=== PATIENT | female | born 1985 | race Caucasian/White ===

== ENCOUNTER → 2017-08-30 17:13 | Outpatient (CLI) | payer MEDICAID, SELFPAY | PROVIDERS: Family Provider Family Medicine; PCP Family Medicine; Visit Provider Otolaryngology Otolaryngology/Facial Plastic Surgery | DX: J02.9 Acute pharyngitis, unspecified (principal); J32.9 Chronic sinusitis, unspecified | CPT/HCPCS: 87070; 87077 ==

== ENCOUNTER 2017-09-29 08:30 | Day surgery (SDC) | payer MEDICAID, SELFPAY ==
--- NOTE | 2017-09-29 | BRBX_PTH ---
PATIENT: EMILY NGUYEN [place] [facility] [id number] AGE/SX: 32/F ROOM: RE09/29/[address]: Dr. Gaby Washington MD : [id number] BED: DIS: 09/29/2017 SPEC #: [id number] RECD: 09/29/17 14:32 STATUS: KACEY REVi #: [id number] MEJIA: 09/29/17 00:[address]: Gaby Washington DEPT: SURGICAL PATHOLOGY RECD BY: Nj Rodriguez ENTERED: 09/29/17 14:33 SP TYPE: BREAST BX OTHR DR: MD Dr. Carmelo Roberts MD Tissues: Left breast, NOS Procedures: Surgery Specimen Level IV HEADER OPERATION: Left excisional breast biopsy PRE-OP DIAGNOSIS: Left breast mass TISSUE SUBMITTED: Excisional left breast biopsy tissue MICROSCOPIC DIAGNOSIS Left breast, excisional biopsy: Benign breast tissue with focal fibrosis, fat necrosis and chronic inflammation. Negative for atypia or malignancy. RUTH:matt 10/02/17 COMMENT Correlation with clinical findings and appropriate follow up are necessary. MICROSCOPIC DESCRIPTION Slides are reviewed. GROSS DESCRIPTION Received in fixative is one container labeled with the patient's name and designated excisional left breast biopsy tissue. The specimen consists of a lobulated fragment of pink-yellow soft tissue measuring 3 x 2 x 1.2 cm. The external surface is inked and the specimen is serially sectioned to reveal homogenous yellow cut surfaces. No distinct mass is identified. The specimen is totally submitted in two cassettes. / AM:matt 09/29/17 TC:5 CPT: 61649
[2017-09-29 09:05] VITALS: BP 162/96; PULSE 78; RESP 18; TEMP 37.1; O2SAT 100; BMI 56.8
[2017-09-29] MEDS: Clindamycin 900 MG/50 ML BAG 75 MG IV (10:10)
[2017-09-29] MEDS: Ciprofloxacin 0.3% 2.5ml Bottle 1 DRP (10:25)
--- NOTE | 2017-09-29 10:28 | DCINST_ITS ---
Discharge Diet: No Restrictions Discharge Activity: Return to Normal Activity, May not drive while taking narcotic pain medications. Call your doctor if your incision/area has: Continuous Slow Oozing, Foul Smelling Discharge Call your doctor if you observe: Fever of 101 or Higher Additional Dressing/Incision Instructions:: Leave dressing intact. May get wet in shower. Do not scrub at dressing site. Pat dry. No soaking - no tub baths/ swimming Allergies/Adverse Reactions: Allergies amoxicillin [Amoxicillin] Allergy (Verified 09/27/17 14:15) Unknown ESPERANZA Inhibitors Adverse Reaction (Verified 09/29/17 09:04) COUGHING hydrocodone bitartrate [From Vicodin] Adverse Reaction (Verified 09/29/17 09:04) SEVERE MIGRAINE Medications to take at Discharge Losartan Potassium [Cozaar] 100 mg PO DAILY 12/18/14 BusPIRone [Buspar] 5 mg PO BID 12/07/15 Duloxetine Hcl [Cymbalta] 60 mg PO DAILY 05/25/16 Trazodone HCl [Desyrel] 50 mg PO QHS 05/25/16 Metoprolol Succinate 100 mg PO DAILY 05/19/17 Naproxen [Naprosyn] 500 mg PO TID PRN PRN 05/19/17 Tizanidine HCl [Zanaflex] 4 mg PO QHS 09/27/17 TraMADol [Ultram] 50 mg PO Q6H PRN PRN #7 tab 09/29/17 The following prescriptions were given: TraMADol [Ultram] 50 mg PO Q6H PRN PRN #7 tab PRN Reason: Severe Pain (-05/02) Primary Care Physician: Carmelo Coffey MD [Primary Care Provider] - Please Follow Up With: Rosina Hernandez PA-C - call When: to be seen in 7-10 days, please call for date and time, thank you
--- NOTE | 2017-09-29 10:36 | PCM.OP.BLANK ---
Operative Report Date of Procedure: 09/29/17 Preoperative diagnosis: Chronic serous otitis media Postoperative diagnosis: Same Procedure: Bilateral myringotomy with tympanostomy tube placement, done under the same anesthetic being provided for procedure by general surgeon Dr. Washington. Anesthesia: General per Ian Nieves Details of procedure: The patient was transported to the operating room and placed on the OR table in the supine position. After the administration of adequate general anesthesia utilizing an LMA patient was properly positioned and the left ear was examined with the operating room microscope. Examination revealed opacified tympanic membrane and an obvious middle ear effusion. Upon myringotomy in the anterior inferior aspect thick glue-like fluid was encountered and evacuated. Ciprofloxacin drops were rinsed through the middle ear and a Mahogany Bobbin tube was placed. Attention was then directed to the right ear which was examined and treated in similar fashion. The findings were entirely the same. Upon myringotomy in the anterior and for quadrant thick glue-like fluid was noted and evacuated. Ciprofloxacin drops were rinsed through the middle ear and a Mahogany Bobbin tube placed. This part of the procedure was then completed. Dr. Washington then commenced with her procedure. Doug Kaplan MD
--- NOTE | 2017-09-29 10:40 | OP.PCM_ITS ---
Operative Report Date of Procedure: 09/29/17 Preoperative diagnosis: Chronic serous otitis media Postoperative diagnosis: Same Procedure: Bilateral myringotomy with tympanostomy tube placement, done under the same anesthetic being provided for procedure by general surgeon Dr. Washington. Anesthesia: General per Ian Nieves Details of procedure: The patient was transported to the operating room and placed on the OR table in the supine position. After the administration of adequate general anesthesia utilizing an LMA patient was properly positioned and the left ear was examined with the operating room microscope. Examination revealed opacified tympanic membrane and an obvious middle ear effusion. Upon myringotomy in the anterior inferior aspect thick glue-like fluid was encountered and evacuated. Ciprofloxacin drops were rinsed through the middle ear and a Mahogany Bobbin tube was placed. Attention was then directed to the right ear which was examined and treated in similar fashion. The findings were entirely the same. Upon myringotomy in the anterior and for quadrant thick glue -like fluid was noted and evacuated. Ciprofloxacin drops were rinsed through the middle ear and a Mahogany Bobbin tube placed. This part of the procedure was then completed. Dr. Washington then commenced with her procedure. Doug Kaplan MD
[2017-09-29] MEDS: Bupivacaine 0.25% 30 ML Vial (10:45)
--- NOTE | 2017-09-29 10:50 | OP.PN_ITS ---
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
--- NOTE | 2017-09-29 10:50 | PCM.OPRPT ---
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 Appropriate time out protocol was followed. The left breast was then prepped with a sterile surgical skin preparation and sterile surgical drapes were placed. The skin and subcutaneous tissues at the site of the breast lesion was then infiltrated with local anesthetic. A transverse skin incision was then made overlying the lesion with a 15 blade scalpel and carried down through to the subcutaneous tissues. Hemostasis was controlled with electrocautery. The mass was then palpated out. The breast tissue surrounding the lesion was using electrocautery. The breast tissue, once from the breast, was then forwarded to the pathology for analysis. Grossly it appeared as a breast cyst. The wound cavity was carefully examined. No further suspicious tissue was palpated or visualized. Hemostasis was carefully controlled with electrocautery. The subdermal tissues were then approximated with vicryl suture. The incision was then reapproximated close using running monocryl suture. Cavilon and steristrips were then placed to reinforce the skin closure. A sterile dressing was then applied. The patient was then brought to the Recovery Room in stable condition. - Complications none noted - Admit VTE Documentation VTE Present on Admission: Yes VTE Mechan Device Prophylaxis: SCD's
[2017-09-29 10:57] VITALS: BP 119/84; BP 162/96; PULSE 75; RESP 18; TEMP 36.2; O2SAT 95
[2017-09-29 11:00] VITALS: BP 119/84; BP 162/96; PULSE 75; RESP 18; O2SAT 96
[2017-09-29 11:15] VITALS: BP 123/87; BP 162/96; PULSE 70; RESP 18; O2SAT 100
[2017-09-29 11:21] VITALS: BP 112/88; BP 162/96; PULSE 68; RESP 18; TEMP 35.9; O2SAT 100
[2017-09-29 11:48] VITALS: BP 162/96
== END 2017-09-29 12:04 | disposition home or self-care (01) ==
LOC: SDC 08:31 → AC 08:32
PROVIDERS: Otolaryngology Otolaryngology/Facial Plastic Surgery; Family Provider Family Medicine; PCP Family Medicine; Visit Provider Surgery
PROC: (CPT 19125; principal; 2017-09-29 09:45)
DX: N60.32 Fibrosclerosis of left breast (principal); N64.1 Fat necrosis of breast; N61.0 Mastitis without abscess; H65.23 Chronic serous otitis media, bilateral; H69.83 Other specified disorders of Eustachian tube, bilateral; I10 Essential (primary) hypertension; M47.9 Spondylosis, unspecified; F34.1 Dysthymic disorder; E66.01 Morbid (severe) obesity due to excess calories; Z68.43 Body mass index [BMI] 50.0-59.9, adult; Z87.891 Personal history of nicotine dependence
CPT/HCPCS: 19125; 69436; 88305; J3010; J7120; J2405

== ENCOUNTER 2017-10-05 22:03 | Emergency (ER) | payer MEDICAID, SELFPAY ==
[2017-10-05 22:04] VITALS: BP 159/76; PULSE 89; RESP 16; TEMP 36.7; O2SAT 98; BMI 56.8
--- NOTE | 2017-10-05 22:17 | ED.DCSUM_ITS ---
- ER Visit Summary Date of Service: 10/05/17 Chief Complaint: [] Bilateral ear pain History of Present Illness: The patient is a 32 F [] complaining of bilateral ear pain status post tympanostomy tube placements 6 days ago. Patient reports speaking with her ENT who reportedly told her continue taking NSAIDs and that if she had continued pain that she should present to the emergency department. She denies fevers, hearing loss, drainage from the affected area. No other complaints at this time. Physical Examination: [] Afebrile, vital signs stable. The obese female in no acute distress. HEENT exam reveals bilateral tympanostomy tubes appropriately in place without signs of erythema, infection. Remainder physical examination is unremarkable. Test Results: [] None. Emergency Department Course and Treatment: [] Patient's father is at the bedside will drive the patient home. She was provided a single dose of oxycodone orally for analgesia and discharged home to continue taking NSAIDs as previously provided. She was not provided a prescription at discharge. She was encouraged to follow-up with ENT. Treatment Plan: [] Follow-up with ENT. Disposition: [] Discharge, stable. Impression: [] Bilateral otalgia This note was generated with [employer] dictation software. It may contain incorrect words, spelling, and punctuation that were not noted in review of the chart prior to signing ED Disposition - Plan for ED Patient: Disposition: Home or Assisted Living Chief Complaint: Ear Problem Instructions: Foreign Object in the Ear or Nose Referrals: Carmelo Coffey MD [Primary Care Provider] -
[2017-10-05] MEDS: oxyCODONE 5 MG Tablet 10 MG PO (22:35)
--- NOTE | 2017-10-05 22:39 | ED.RN ---
DISCHARGE INSTRUCTIONS GIVEN TO AND REVIEWED WITH PATIENT, PATIENT DENIES QUESTIONS OR CONCERNS AND VOICES UNDERSTANDING OF DISCHARGE INSTRUCTIONS. PT AMBULATES OUT OF ROOM WITHOUT DIFFICULTY.
== END 2017-10-05 22:39 | disposition home or self-care (01) ==
PROVIDERS: Emergency Provider Emergency Medicine; Family Provider Family Medicine; PCP Family Medicine
DX: H92.03 Otalgia, bilateral (principal); Z98.890 Other specified postprocedural states; I10 Essential (primary) hypertension; E66.9 Obesity, unspecified; F41.9 Anxiety disorder, unspecified; Z79.899 Other long term (current) drug therapy
CPT/HCPCS: 99283

== ENCOUNTER 2018-01-31 21:38 | Emergency (ER) | payer MEDICAID, SELFPAY ==
[2018-01-31 21:40] VITALS: BP 168/89; PULSE 82; RESP 14; TEMP 36.9; O2SAT 98; BMI 55.8
--- NOTE | 2018-01-31 23:22 | ED.VISSUMM ---
- ER Visit Summary Date of Service: 01/31/18 Chief Complaint: Patient presents because of increasing pain and numbness tingling in the median nerve distribution. History of Present Illness: The patient is a 32 F who presents with increasing pain right wrist and numbness and tingling in the distribution of the median nerve.She was diagnosed with carpal tunnel syndrome. She states she had an EMG yesterday. She reports increased pain in spite of conservative therapy with NSAIDs and cock-up splint. 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 She denies history diabetes, hypothyroidism and . Physical Examination: Blood pressure is elevated 160/89. She is asymptomatic and has history of hypertension. She has a positive Tinel's and Phalen sign. Median, radial and ulnar function intact. Needle sites for EMG noted. There is no erythema, warmth, fluctuance, induration or lymphangitis. Test Results: None Emergency Department Course and Treatment: Injected the right carpal tunnel with 1 cc of Kenalog and 4 cc 1% lidocaine. Treatment Plan: Wear splint at night and follow-up with Dr. Anibal Becerra Disposition: Discharged home Impression: Right wrist pain and paresthesias secondary to carpal tunnel syndrome Injection of 1 cc Kenalog and 4 cc 1% lidocaine right carpal tunnel This note was generated with [employer] dictation software. It may contain incorrect words, spelling, and punctuation that were not noted in review of the chart prior to signing ED Disposition - Plan for ED Patient: Disposition: Home or Assisted Living Chief Complaint: Upper Extremity Injury Instructions: ED Carpal Tunnel Referrals: Carmelo Coffey MD [Primary Care Provider] - As Needed Additional Instructions: Wear cock-up splint at night.
--- NOTE | 2018-01-31 23:27 | ED.DCSUM_ITS ---
- ER Visit Summary Date of Service: 01/31/18 Chief Complaint: Patient presents because of increasing pain and numbness tingling in the median nerve distribution. History of Present Illness: The patient is a 32 F who presents with increasing pain right wrist and numbness and tingling in the distribution of the median nerve.She was diagnosed with carpal tunnel syndrome. She states she had an EMG yesterday. She reports increased pain in spite of conservative therapy with NSAIDs and cock-up splint. 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 She denies history diabetes, hypothyroidism and . Physical Examination: Blood pressure is elevated 160/89. She is asymptomatic and has history of hypertension. She has a positive Tinel's and Phalen sign. Median, radial and ulnar function intact. Needle sites for EMG noted. There is no erythema, warmth, fluctuance, induration or lymphangitis. Test Results: None Emergency Department Course and Treatment: Injected the right carpal tunnel with 1 cc of Kenalog and 4 cc 1% lidocaine. Treatment Plan: Wear splint at night and follow-up with Dr. Anibal Becerra Disposition: Discharged home Impression: Right wrist pain and paresthesias secondary to carpal tunnel syndrome Injection of 1 cc Kenalog and 4 cc 1% lidocaine right carpal tunnel This note was generated with [employer] dictation software. It may contain incorrect words, spelling, and punctuation that were not noted in review of the chart prior to signing ED Disposition - Plan for ED Patient: Disposition: Home or Assisted Living Chief Complaint: Upper Extremity Injury Instructions: ED Carpal Tunnel Referrals: Carmelo Coffey MD [Primary Care Provider] - As Needed Additional Instructions: Wear cock-up splint at night.
[2018-01-31] MEDS: Triamcinolone Acetonide 40 MG/ML Vial IU (23:43)
== END 2018-01-31 23:49 | disposition home or self-care (01) ==
PROVIDERS: Emergency Provider Emergency Medicine; Family Provider Family Medicine; PCP Family Medicine
DX: G56.01 Carpal tunnel syndrome, right upper limb (principal); I10 Essential (primary) hypertension; Z79.899 Other long term (current) drug therapy
CPT/HCPCS: 20526; 99282

== ENCOUNTER 2018-04-05 16:08 | Emergency (ER) | payer MEDICAID, SELFPAY ==
[2018-04-05 16:09] VITALS: BP 167/103; PULSE 76; RESP 15; TEMP 36.8; O2SAT 98; BMI 53.8
--- NOTE | 2018-04-05 16:12 | RAD_ITS ---
STUDY: X-RAY - RIGHT FOOT CLINICAL: Female, 32 years old. Right foot pain TECHNIQUE: 3 view(s) of the foot. COMPARISON: None. FINDINGS: Normal talus, calcaneus, and tarsal bones. Normal visualized subtalar, talonavicular, calcaneocuboid, tarsal and tarsometatarsal articulations. Normal metatarsi. Normal metatarsophalangeal joint of the great toe. Normal tibial and fibular sesamoid bones. Normal interphalangeal joint of the great toe. Normal phalanges of the great toe. Normal second through fifth metatarsophalangeal joints. Normal interphalangeal joints and phalanges of the lesser toes. The soft tissue structures are unremarkable. RAD/Foot min 3 Views IMPRESSION: Normal x-ray examination of the foot. Electronically Signed: Eric Dudley MD at 16:38 EDT , Service support ,
--- NOTE | 2018-04-05 16:41 | ED.VISSUMM ---
- ER Visit Summary Date of Service: 04/05/18 Chief Complaint: Right foot injury History of Present Illness: The patient is a 32 F who injured her right foot. She was walking in her kitchen and slipped on some water. She felt a sharp pain in her distal foot. She felt a pop. She did nothing for it at home. Denies any previous injuries or surgeries on this foot. Pain is worsened with movement and walking. Physical Examination: Vital signs reviewed. Right foot exam reveals tenderness palpation of the distal foot. No swelling. She does have painful range of motion of the distal foot. No ankle pain. She has 2+ pulses. Test Results: Right foot x-ray turbid by myself and radiology is normal Emergency Department Course and Treatment: Patient will take Tylenol here. Tylenol at home. She can take ibuprofen due to an upcoming gastric bypass surgery. She will ice and elevate and will follow up with her PCP. Treatment Plan: [] Disposition: Discharge Impression: Right foot sprain This note was generated with [employer] dictation software. It may contain incorrect words, spelling, and punctuation that were not noted in review of the chart prior to signing ED Disposition - Plan for ED Patient: Chief Complaint: Lower Extremity Injury Referrals: Carmelo Coffey MD [Primary Care Provider] -
--- NOTE | 2018-04-05 16:43 | ED.DEP ---
ED Disposition - Plan for ED Patient: Disposition: Home or Assisted Living Chief Complaint: Lower Extremity Injury Instructions: ED Sprain Foot Referrals: Carmelo Coffey MD [Primary Care Provider] -
[2018-04-05] MEDS: Acetaminophen 500 MG Tablet 1000 MG PO (16:56)
[2018-04-05 16:57] VITALS: BP 137/74; RESP 18
== END 2018-04-05 17:01 | disposition home or self-care (01) ==
LOC: ED 16:56
PROVIDERS: Emergency Provider Emergency Medicine; Family Provider Family Medicine; PCP Family Medicine
DX: S93.601A Unspecified sprain of right foot, initial encounter (principal); W01.0XXA Fall on same level from slipping, tripping and stumbling without subsequent striking against object, initial encounter; Y93.01 Activity, walking, marching and hiking; Y92.000 Kitchen of unspecified non-institutional (private) residence as the place of occurrence of the external cause; Y99.9 Unspecified external cause status; I10 Essential (primary) hypertension; Z79.899 Other long term (current) drug therapy; Z98.84 Bariatric surgery status
CPT/HCPCS: 73630; 99283

== ENCOUNTER 2018-05-14 18:55 | Emergency (ER) | payer MEDICAID, SELFPAY ==
[2018-05-14 18:56] VITALS: BP 161/93; PULSE 86; RESP 16; TEMP 36.6; O2SAT 98; BMI 53.3
--- NOTE | 2018-05-14 19:22 | ED.DCSUM_ITS ---
- ER Visit Summary Date of Service: 05/14/18 Chief Complaint: Right knee pain History of Present Illness: The patient is a 32 F who felt a pop in her right knee 3 weeks ago getting up off the floor. She was seen at [facility]. X-rays were normal. It was felt that she may have a meniscus injury. She is scheduled to see Dr. Becerra, her orthopedist next week. Pain is not currently controlled tonight with Tylenol. Patient states that she is getting ready to have gastric bypass surgery and was told not to take ibuprofen. She denies any new injury since her last imaging. She does not have paresthesias. There is no pain in the calf. Physical Examination: Vital signs significant for blood pressure of 161/93, otherwise unremarkable. Patient sitting upright in bed. She is in no acute distress. Right lower extremity examination is significant for tenderness along both the m edial and lateral joint lines of the right knee. There is no patellar tenderness and no tenderness along the patellar tendon. There is no joint laxity on testing. She has mild pain with axial load on her foot. Strong distal pulses are noted with no calf tenderness or edema. Test Results: [] Emergency Department Course and Treatment: Patient had imaging studies that were unremarkable with no new injury since that time. I do not think we need to be repeated at this time. Patient will be given a single dose of oxycodone here a long with prednisone. She does advise that she is able to take steroids prior to her surgery. She will be given a prescription for prednisone at home. She is to follow-up with Dr. Becerra next week as scheduled. Treatment Plan: [] Disposition: Discharge Impression: Right knee sprain This note was generated with [employer] dictation software. It may contain incorrect words, spelling, and punctuation that were not noted in review of the chart prior to signing ED Disposition - Plan for ED Patient: Chief Complaint: Lower Extremity Injury Referrals: Carmelo Coffey MD [Primary Care Provider] -
--- NOTE | 2018-05-14 19:22 | ED.DEP ---
ED Disposition - Plan for ED Patient: Disposition: Home or Assisted Living Chief Complaint: Lower Extremity Injury Instructions: ED Sprain Knee Prescriptions: Prednisone [Deltasone] 60 mg PO DAILY #15 tablet Referrals: Anibal Becerra MD [STAFF PHYSICIAN] - Keep Darrell appointment
[2018-05-14] MEDS: predniSONE 20 MG Tablet 60 MG PO (19:31)
[2018-05-14] MEDS: oxyCODONE 5 MG Tablet 10 MG PO (19:31)
[2018-05-14 19:33] VITALS: BP 170/100
== END 2018-05-14 19:39 | disposition home or self-care (01) ==
PROVIDERS: Emergency Provider Emergency Medicine; Family Provider Family Medicine; PCP Family Medicine
DX: S83.91XA Sprain of unspecified site of right knee, initial encounter (principal); X58.XXXA Exposure to other specified factors, initial encounter; Y93.9 Activity, unspecified; Y92.9 Unspecified place or not applicable; Y99.9 Unspecified external cause status; I10 Essential (primary) hypertension; M19.90 Unspecified osteoarthritis, unspecified site; F32.9 Major depressive disorder, single episode, unspecified; F41.9 Anxiety disorder, unspecified; Z79.899 Other long term (current) drug therapy
CPT/HCPCS: 99283

== ENCOUNTER 2018-11-06 21:42 | Emergency (ER) | payer MEDICAID, SELFPAY ==
[2018-11-06 21:44] VITALS: BP 200/102; PULSE 65; RESP 18; TEMP 36.3; O2SAT 100; BMI 47.8
--- NOTE | 2018-11-06 21:49 | ED.RN ---
called for EKG in triage
--- NOTE | 2018-11-06 22:27 | EKG12_ITS ---
Test Reason : Blood Pressure : / mmHG Vent. Rate : 069 BPM Atrial Rate : 069 BPM P-R Int : 158 ms QRS Dur : 078 ms QT Int : 410 ms P-R-T Axes : 013 -01 015 degrees QTc Int : 439 ms Normal sinus rhythm Septal infarct , age undetermined Abnormal ECG Confirmed by DAE PICKARD, MADDIE ([id number]), copy editor VINAY GOLDMAN ([id number]) on 11/08/2018 9:34:56 AM Referred By: Confirmed By:MADDIE PEARL MD
[2018-11-06 23:01] VITALS: BP 172/113
--- NOTE | 2018-11-07 00:27 | CT_ITS ---
HISTORY: Headache htn EXAMINATION: CT Head or Brain W/O Contrast TECHNIQUE: Multiple axial images were obtained of the brain without intravenous contrast. A radiation dose optimization technique was used for this scan. IV Contrast dosage and agent: None. COMPARISON: None FINDINGS: Normal ventricles and normal pro-white matter differentiation. No intracranial mass, hemorrhage, or acute parenchymal abnormality. Posterior fossa structures are on remarkable. No suspicious extra-axial fluid collection. As visualized, the mastoids and parent sinuses appear clear. CT/Brain/Head without Contrast IMPRESSION: Normal CT brain without contrast. Individualized dose optimization techniques were used for this CT. at 0138 Reported and signed by: Roberto Ricks MD Electronically Signed: Roberto Ricks, at 1:37 EDT Tel , Service support ,
[2018-11-07 00:47] LABS: Absolute Lymphocyte Count 3.12 X10^3/ul (0.83-4.51); Absolute Neutrophil Count 3.2 X10^3/uL (2.0-7.7); Basophil# 0.03 X10^3/uL; Basophil% 0.4 % (0-1); Eosinophil# 0.08 X10^3/uL; Eosinophils% 1.2 % (0-5); Hematocrit 39.3 % (37-47); Hemoglobin 12.9 g/dl (12.0-15.0); Lymphocyte # 3.12 X10^3/ul (4.0); Mean Corp Hgb Conc 32.8 g/gl (32-36); Mean Corpuscular Hgb 30.1 pg (27.0-32.0); Mean Corpuscular Volume 91.8 fL (81-99); Mean Platelet Vol. 10.1 fl (6.2-12.0); Monocyte# 0.46 X10^3/uL; Monocyte% 6.6 % (0-10); Neutrophil # 3.24 X10^3/uL (2.7-7.7); Neutrophil % 46.7 % (47-70); Platelet Count 258 K/mm3 (150-450); RBC Distribution Width CV 12.7 % (11.6-14.6); RBC Distribution Width SD 41.3 fl (35.1-43.9); Red Blood Count 4.28 M/mm3 (4.2-5.4); White Blood Count 6.9 K/mm3 (4.4-11.0)
[2018-11-07 00:56] LABS: POSITIVE COUNT NO; POSITIVE DIFFERENTIAL NO; POSITIVE MORPHOLOGY NO
[2018-11-07 01:00] LABS: Anion Gap 5 (5-15); BUN 10 mg/dL (7-18); BUN/Creat Ratio 17.3 RATIO (10-20); Chloride 108 mmol/L (98-107); Creatinine, Serum 0.58 mg/dL (0.55-1.02); EST Glomerular Filtration Rate 126 mL/min (>60); Est Glom Filt Rate - Afr Amer 153 mL/min (>60); Estimated Creatinine Clearance 111.99 ml/min; Glucose 94 mg/dL (74-106); Potassium 3.6 mmol/L (3.5-5.1); Sodium Level 142 mmol/L (136-145)
[2018-11-07] MEDS: Ketorolac 30 MG/ML Syringe IV (01:06)
[2018-11-07] MEDS: 0.9% Normal Saline 1,000 ML 999 ML IV (01:06)
[2018-11-07 01:09] VITALS: BP 155/91; PULSE 65; RESP 18; O2SAT 96
[2018-11-07] MEDS: Metoclopramide 10 MG/2 ML Vial IV (01:09)
[2018-11-07] MEDS: DiphenhydrAMINE 50 MG/ML Syringe 25 MG IV (01:26)
--- NOTE | 2018-11-07 01:33 | ED.RN ---
PT BECAME VERY ANXIOUS AFTER REGLAN. DR. MAJOR NOTIFIED AND BENRUBENSL ORDERED.
--- NOTE | 2018-11-07 01:52 | ED.DCSUM_ITS ---
- ER Visit Summary Date of Service: 11/07/18 Chief Complaint: Headache History of Present Illness: The patient is a 33 F who presents with a headache. It began about 6 hours ago. It was gradual onset over about 45 minutes. She does note that she had a gastric sleeve 5 weeks ago at [facility]. She has been taken off of 2 over blood pressure medications since that time given her low blood pressure. She was also concerned because her blood pressure has been very high today. She denies fevers chest pain shortness of breath nausea vomiting. Physical Examination: Initial blood pressure 172/113 vitals otherwise normal Moist mucous membranes Heart regular rate and rhythm Lungs are clear Abdomen soft Alert No focal or lateralizing neurological deficits Test Results: CBC BMP unremarkable. CT of the head is normal. Emergency Department Course and Treatment: Patient was initially treated with IV fluids Reglan and Toradol. She developed some akathisia. She was given IV Benadryl. On reevaluation her symptoms are resolved. Both her headache and akathisia have resolved. Her blood pressure is also improved to 145 systolic. She was advised to follow-up with her primary care physician. She understands to return for new or worsening symptoms. She was discharged. Treatment Plan: [] Disposition: Discharge Impression: Headache This note was generated with [employer] dictation software. It may contain incorrect words, spelling, and punctuation that were not noted in review of the chart prior to signing ED Disposition - Plan for ED Patient: Referrals: Carmelo Coffey MD [Primary Care Provider] -
--- NOTE | 2018-11-07 01:52 | ED.DEP ---
ED Disposition - Plan for ED Patient: Instructions: ED Cephalgia Unspecified Referrals: Carmelo Coffey MD [Primary Care Provider] -
[2018-11-07 02:23] VITALS: BP 152/81; PULSE 59; RESP 16; O2SAT 98
== END 2018-11-07 02:24 | disposition home or self-care (01) ==
PROVIDERS: Emergency Provider Emergency Medicine; Family Provider Family Medicine; PCP Family Medicine
DX: R51 Headache (principal); G25.71 Drug induced akathisia; I10 Essential (primary) hypertension; K21.9 Gastro-esophageal reflux disease without esophagitis; Z79.899 Other long term (current) drug therapy; Z98.84 Bariatric surgery status
CPT/HCPCS: 70450; 80048; 85025; 93005; 96361; 96374; 96375; 99284; J7030; A4216

== ENCOUNTER 2019-05-15 16:09 | Emergency (ER) | payer MEDICAID, SELFPAY ==
[2019-05-15 16:10] VITALS: BP 161/101; PULSE 71; RESP 16; TEMP 36.3; O2SAT 100; BMI 44.9
--- NOTE | 2019-05-15 16:52 | RAD_ITS ---
STUDY: X-RAY - RIGHT KNEE REASON FOR EXAM: Female, 33 years old. Chronic right knee pain TECHNIQUE: 4 view(s) of the knee. COMPARISON: May 25, 2016. FINDINGS: No acute fracture or dislocation. Joint spaces are maintained. Visualized soft tissues are unremarkable. RAD/Knee 4 or More Views IMPRESSION: No acute fracture or dislocation. Electronically Signed: Neil Castro, at 18:00 EDT Tel , Service support ,
--- NOTE | 2019-05-15 16:53 | ED.DCSUM_ITS ---
History of Present Illness Chief Complaint: Lower Extremity Injury Detail of Chief Complaint: Right knee and leg pain Informant: Patient Onset: - - Acute on chronic, worse x2 days Context: Gradual Onset Timing: Waxes and wanes Current Severity: Moderate Maximum Severity: Severe Narrative: Patient reports chronic pain in her right knee. She is had several flares in the past. She states she has not seen orthopedics. She tried going to her family doctor but did not get what she considers to be significant help. Patient denies any prior injections or surgeries on her knee. She states yesterday the pain worsened. Her entire leg seems to be painful and swollen. She does not have DVT risk factors. Past Medical History - Allergies and Home Meds Allergies/Adverse Reactions: Allergies amoxicillin [Amoxicillin] Allergy (Verified 11/06/18 21:47) Unknown ESPERANZA Inhibitors Adverse Reaction (Verified 11/06/18 21:47) COUGHING hydrocodone bitartrate [From Vicodin] Adverse Reaction (Verified 11/06/18 21:47) SEVERE MIGRAINE Primary Care Physician: Carmelo Coffey MD [Primary Care Provider] - Prior records reviewed: Yes Past Medical History: - - Reviewed Surgical History: hysterectomy, - - Gastric sleeve Smoking Status: Former smoker Review of Systems General: Denies: Chills, Fever Eyes: Denies: Visual changes - bilaterally ENT: Denies: Bilateral ear pain Cardiovascular: Denies: Chest pain Respiratory: Denies: Dyspnea Gastrointestinal: Denies: Abdominal pain Musculoskeletal: Reports: Arthralgias, Swelling, Extremity Pain. Denies: Back pain Skin: Denies: Rash Neurological: Denies: Headache, Weakness, Parasthesia Hematologic: Denies: Easy bruising Allergy: Denies: Uticaria Physical Exam Vital Signs/Narrative: Vital Signs Temp Pulse Resp BP Pulse Ox 05/15/19 16:10 97.4 F L 71 16 161/101 H 100 Inital Vital Signs reviewed: Yes General: Well nourished, Well developed Head: Normocephalic ENT: Moist mucous membranes Neck: Supple Cardiovascular: Regular rate, Regular rhythm Respiratory: No distress, CTA bilaterally Abdomen: Soft, Nontender Back: Nontender Extremities: - - Diffuse tenderness over the calf and knee. Mild edema noted. Strong distal pulses. Thigh is soft and nontender. Skin: Normal color Neurological: Alert, Oriented x3 Psychological: Normal affect Diagnostic/Tx/Re-eval Impressions Knee X-Ray 05/15/19 16:52 IMPRESSION: No acute fracture or dislocation. Electronically Signed: Neil Castro, at 18:00 EDT Tel , Service support , 05/15/19 16:52 Knee 4 or More Views [RAD] Stat Venous ultrasound lower extremity reveals no evidence of DVT. - Medical Decision Making Test results were discussed with the patient. She is unable to take anti- inflammatories secondary to prior gastric sleeve surgery. She will be given prednisone as well as a few Percocet for breakthrough pain. She will be referred to orthopedics for follow-up. ED Disposition - Plan for ED Patient: Disposition: Home or Assisted Living Diagnosis: Right knee sprain Instructions: Knee Sprain Prescriptions: Oxycodone HCl/Acetaminophen [Percocet 5/325] 1 tablet PO Q6H PRN PRN 3 Days #12 tablet PRN Reason: Pain Prednisone 10 mg PO UD #33 tablet Referrals: Heidy Matson DO [STAFF PHYSICIAN] - As soon as possible
--- NOTE | 2019-05-15 17:01 | US_ITS ---
STUDY: VENOUS DOPPLER ULTRASOUND - RIGHT LOWER EXTREMITY REASON FOR EXAM: Female, 33 years old. Chronic right knee pain TECHNIQUE: Ultrasound evaluation of the deep vein system to include mccullough-scale imaging and compression was performed. Mccullough-scale imaging and Doppler sonographic evaluation, including duplex spectral analysis and qualitative color flow sonography, was performed. COMPARISON: None. FINDINGS: Common Femoral Vein: Normal compression, spontaneity and augmentation. Normal color Doppler. Common Femoral Vein/Greater Saphenous Junction: Normal compression, spontaneity and augmentation. Normal color Doppler. Deep Femoral Vein: Normal compression, spontaneity and augmentation. Normal color Doppler. Femoral Proximal: Normal compression, spontaneity and augmentation. Normal color Doppler. Femoral Middle: Normal compression, spontaneity and augmentation. Normal color Doppler. Femoral Distal: Normal compression, spontaneity and augmentation. Normal color Doppler. Popliteal Vein: Normal compression, spontaneity and augmentation. Normal color Doppler. Posterior Tibial Vein: Normal compression, spontaneity and augmentation. Normal color Doppler. Peroneal Vein: Normal compression, spontaneity and augmentation. Normal color Doppler. Left common femoral vein demonstrates normal compressibility and color Doppler flow. US/Venous Duplex Imag/Limited/Uni IMPRESSION: Normal venous Doppler ultrasound of the right lower extremity. Electronically Signed: Neil Castro, at 18:32 EDT Tel , Service support ,
[2019-05-15] MEDS: predniSONE 20 MG Tablet 60 MG PO (17:03)
[2019-05-15] MEDS: oxyCODONE 5 MG Tablet PO (17:03)
== END 2019-05-15 18:27 | disposition home or self-care (01) ==
PROVIDERS: Emergency Provider Emergency Medicine; Family Provider Family Medicine; PCP Family Medicine
DX: S83.91XA Sprain of unspecified site of right knee, initial encounter (principal); X58.XXXA Exposure to other specified factors, initial encounter; Y93.9 Activity, unspecified; Y92.9 Unspecified place or not applicable; Y99.9 Unspecified external cause status; G89.29 Other chronic pain; Z87.891 Personal history of nicotine dependence; Z90.710 Acquired absence of both cervix and uterus
CPT/HCPCS: 73564; 93971; 99283

== ENCOUNTER → 2019-11-25 11:06 | Outpatient (CLI) | payer MEDICAID, SELFPAY | PROVIDERS: PCP Family Medicine; Referring Provider Nurse Practitioner Primary Care; Visit Provider Nurse Practitioner Primary Care | DX: Z03.818 Encounter for observation for suspected exposure to other biological agents ruled out (principal) | CPT/HCPCS: 87635; C9803; G2023; U0004 ==

== ENCOUNTER 2020-04-20 18:12 | Emergency (ER) | payer MEDICAID, SELFPAY ==
[2020-04-20 18:13] VITALS: BP 159/107; PULSE 78; RESP 16; TEMP 36.2; O2SAT 99; BMI 43.5
--- NOTE | 2020-04-20 18:51 | CT_ITS ---
STUDY: CTA HEAD AND NECK WITH CONTRAST REASON FOR EXAM: Female, 34 years old. MIGRAINE X 1.5 WEEKS RADIATION DOSAGE (If Supplied By Facility): CTDIvol = ( 32.91 ) mGy, DLP = ( 1620.42 ) mGycm TECHNIQUE: CT angiography was performed with a multi-detector CT scanner. Data acquisition was obtained from the skull base through the vertex following intravenous administration of IV 100mL Isovue-370. MIP images were reconstructed from the axial data set. Post-processing of the angiographic images was performed, with multiplanar reformation and 3D reconstruction. Individualized dose optimization techniques were used for this CT. COMPARISON: Head CT dated NOVEMBER 07, 2018 FINDINGS: Normal bilateral petrous carotid arteries. Normal right cavernous carotid artery with a normal supraclinoid bifurcation. Normal left cavernous carotid artery with a normal supraclinoid bifurcation. Normal right A1 segments of the anterior cerebral artery. Normal left A1 segments of the anterior cerebral artery. Normal intact anterior communicating artery (ACOM). Normal bilateral A2 segments of the anterior cerebral arteries. Normal right M1 and M2 segments of the middle cerebral arteries, with a normal M1 bifurcation. Normal left M1 and M2 segments of the middle cerebral arteries, with a normal M1 bifurcation. Normal right posterior communicating artery (PCOM). Normal left posterior communicating artery (PCOM). Normal bilateral vertebral arteries. Normal basilar artery with a normal basilar bifurcation. The visualized bilateral superior cerebellar (SCA) arteries are normal. Normal bilateral P1, P2 and visualized P3 segments of the posterior cerebral arteries. There is no demonstrated aneurysm of the [place]. There is no demonstrated abnormality of the visualized brain. AORTIC ARCH: Normal visualized aortic arch. Normal origins of the brachiocephalic, left common carotid, and left subclavian arteries. RIGHT CAROTID ARTERIES: Normal right common carotid artery (CCA). Normal right common carotid bulb. Normal origin of the right internal carotid (ICA) artery without a hemodynamically significant stenosis. Normal visualized cervical portion of the right internal carotid artery. Normal origin of the right external carotid artery (ECA). LEFT CAROTID ARTERIES: Normal left common carotid artery (CCA). Normal left common carotid bulb. Normal origin of the left internal carotid (ICA) artery without a hemodynamically significant stenosis. Normal visualized cervical portion of the left internal carotid artery. Normal origin of the left external carotid artery (ECA). VERTEBRAL ARTERIES: Normal bilateral vertebral arteries. CT/CTA Head AND Neck W/ Contrast IMPRESSION: Normal CTA Head and neck with contrast. Electronically Signed: Cole Jameson MD at 21:16 EDT , Service support ,
--- NOTE | 2020-04-20 18:58 | ED.VIS.GEN ---
History of Present Illness Chief Complaint: Headache Informant: Patient Onset: Weeks - 2 Narrative: Patient referred here from PCP for evaluation. Worsening generalized headache for the past 10 days resolved over the weekend however return. Photo and phonophobia. History of migraines on Fioricet however states this feels different. This morning at 7:30 AM states lost vision of the right eye for 10 minutes. States everything went black. No speech changes, no hemiparesis. History of hypertension and migraines. History of gastric bypass. States she called her PCP on telemedicine was told to the ED for evaluation. She does wear glasses for distances. However currently does not wear them due to the photophobia. No history of similar in the past. Prior similar symptoms: No Past Medical History - Allergies and Home Meds Allergies/Adverse Reactions: Allergies amoxicillin [Amoxicillin] Allergy (Verified 04/20/20 18:13) Unknown ESPERANZA Inhibitors Adverse Reaction (Verified 04/20/20 18:13) COUGHING hydrocodone bitartrate [From Vicodin] Adverse Reaction (Verified 04/20/20 18:13) SEVERE MIGRAINE Primary Care Physician: Carmelo Coffey MD [Primary Care Provider] - Past Medical History: - - Hypertension, migraines Surgical History: hysterectomy, - - Gastric sleeve Smoking Status: Former smoker Review of Systems General: Denies: Chills, Fever, Sweats Eyes: Reports: Visual changes - right. Denies: Visual changes - bilaterally, Diplopia ENT: Denies: Rhinorrhea, Sore throat Cardiovascular: Denies: Chest pain, Palpitations Respiratory: Denies: Dyspnea, Cough, Dyspnea on exertion Gastrointestinal: Denies: Abdominal pain, Nausea, Vomiting, Diarrhea, Melena, Hematochezia Genitourinary: Denies: Dysuria, Hematuria, Frequency Musculoskeletal: Denies: Back pain, Extremity Pain Skin: Denies: Rash, Wounds Neurological: Reports: Headache. Denies: Weakness, Numbness Physical Exam Vital Signs/Narrative: Vital Signs Temp Pulse Resp BP Pulse Ox 04/20/20 18:13 97.2 F L 78 16 159/107 H 99 Inital Vital Signs reviewed: Yes General: Well nourished, Well developed, No Acute Distress Head: Normocephalic, Atraumatic Eyes: Perrl, EOMI ENT: Moist mucous membranes, No rhinorrhea Neck: Supple, Nontender, - - No meningismus Cardiovascular: Regular rate, Regular rhythm, No murmurs Respiratory: No distress, CTA bilaterally, Chest nontender Abdomen: Soft, Nontender, Nondistended, Normal bowel sounds Back: Nontender, Normal Inspection Extremities: Nontender, No edema Skin: Normal color, No rash Neurological: Alert, Oriented x3, Cranial nerves II-XII grossly intact, Normal Strength, Normal Sensation Psychological: Normal affect, Normal Mood Diagnostic/Tx/Re-eval - Medical Decision Making Clinical Impression(s) from Imaging Studies Head/Neck CTA 04/20/20 18:51 IMPRESSION: Normal CTA Head and neck with contrast. Electronically Signed: Cloe Jameson MD at 21:16 EDT , Service support , Abnormal Lab Results 04/20/20 04/20/20 04/20/20 19:22 19:22 19:22 WBC 7.5 RBC 4.05 L Hgb 12.7 Hct 37.9 MCV 93.6 MCH 31.4 MCHC 33.5 RDW Std Deviation 38.7 RDW Coeff of Saurabh 11.5 L Plt Count 305 MPV 9.6 Immature Gran % (Auto) 0.300 Neut % (Auto) 58.6 Lymph % (Auto) 32.6 [place] % (Auto) 6.5 Eos % (Auto) 1.3 Baso % (Auto) 0.7 Absolute Neuts (auto) 4.4 Absolute Lymphs (auto) 2.46 Nucleated RBC % 0 PT 12.4 INR 1.0 APTT 27.8 Sodium 140 Potassium 3.3 L Chloride 109 H Carbon Dioxide 28.0 Anion Gap 3 L BUN 10 Creatinine 0.93 Estim Creat Clear Calc 69.18 Est GFR (MDRD) Af Amer 87 Est GFR (MDRD) Non-Af 72 BUN/Creatinine Ratio 10.8 Glucose 101 Calcium 8.3 L Patient with no focal neurological deficits, no meningismus. She had transient vision loss for 10 minutes ago. Headache symptoms. NIH equals 0. Patient had CT head along with angiogram of head and neck all normal. She was treated with migraine regimen of Reglan and Benadryl. Labs obtained which are stable. She is symptom-free on reevaluation. At this time concerns for complex migraine symptoms. Discussed with patient however close follow-up with her PCP, discussed strict signs and symptoms to return. All questions were answered. ED Disposition - Plan for ED Patient: Disposition: Home or Assisted Living Diagnosis: Migraine headache Instructions: Migraine Headache: Stages and Treatment Referrals: Carmelo Coffey MD [Primary Care Provider] - 3-5 Days
[2020-04-20] MEDS: DiphenhydrAMINE 50 MG/ML Syringe 25 MG IV (19:21)
[2020-04-20] MEDS: Metoclopramide 10 MG/2 ML Vial IV (19:21)
[2020-04-20] MEDS: 0.9% Normal Saline 1,000 ML 999 ML IV (19:21)
[2020-04-20 19:31] LABS: Absolute Lymphocyte Count 2.46 X10^3/uL (0.83-4.51); Absolute Neutrophil Count 4.4 X10^3/uL (2.0-7.7); Basophil# 0.05 X10^3/uL; Basophil% 0.7 % (0-1); Eosinophils% 1.3 % (0-5); Hematocrit 37.9 % (37-47); Hemoglobin 12.7 g/dL (12.0-15.0); Lymphocyte # 2.46 X10^3/ul (4.0); Lymphocyte % 32.6 % (19-41); Mean Corp Hgb Conc 33.5 g/dL (32-36); Mean Corpuscular Hgb 31.4 pg (27.0-32.0); Mean Corpuscular Volume 93.6 fL (81-99); Mean Platelet Vol. 9.6 fl (6.2-12.0); Monocyte# 0.49 X10^3/uL; Monocyte% 6.5 % (0-10); NRBC Flagged by Analyzer 0 % (0-5); Neutrophil # 4.42 X10^3/uL (2.7-7.7); Neutrophil % 58.6 % (47-70); Platelet Count 305 K/mm3 (150-450); RBC Distribution Width CV 11.5 % (11.6-14.6); RBC Distribution Width SD 38.7 fl (35.1-43.9); Red Blood Count 4.05 M/mm3 (4.2-5.4); White Blood Count 7.5 K/mm3 (4.4-11.0)
[2020-04-20 20:00] LABS: Prothrombin Time (Protime)PT. 12.4 SECONDS (11.7-14.9)
[2020-04-20 20:01] LABS: Partial Thromboplast Time 27.8 Seconds (24.1-36.2)
[2020-04-20 20:14] LABS: Anion Gap 3 (5-15); BUN 10 mg/dL (7-18); BUN/Creat Ratio 10.8 RATIO (10-20); Calcium,Total 8.3 mg/dL (8.5-10.1); Chloride 109 mmol/L (98-107); Creatinine, Serum 0.93 mg/dL (0.55-1.02); EST Glomerular Filtration Rate 72 mL/min (>60); Est Glom Filt Rate - Afr Amer 87 mL/min (>60); Estimated Creatinine Clearance 69.18 ml/min; Glucose 101 mg/dL (74-106); Potassium 3.3 mmol/L (3.5-5.1); Sodium Level 140 mmol/L (136-145)
[2020-04-20 21:00] VITALS: RESP 18
[2020-04-20 21:32] VITALS: BP 134/71; PULSE 81; RESP 17; O2SAT 99
== END 2020-04-20 21:33 | disposition home or self-care (01) ==
PROVIDERS: Emergency Provider Emergency Medicine; PCP Family Medicine
DX: G43.909 Migraine, unspecified, not intractable, without status migrainosus (principal); I10 Essential (primary) hypertension; Z87.891 Personal history of nicotine dependence
CPT/HCPCS: 70496; 70498; 80048; 85025; 85610; 85730; 96361; 96374; 96375; 99285; J7030; Q9967; A4216

== ENCOUNTER 2020-08-11 20:48 | Emergency (ER) | payer MEDICAID, SELFPAY ==
[2020-08-11 20:50] VITALS: BP 159/110; PULSE 68; RESP 18; TEMP 35.6; O2SAT 100; BMI 44.2
--- NOTE | 2020-08-11 21:43 | ED.VIS.GEN ---
History of Present Illness Chief Complaint: Back Narrative: Patient is a 34-year-old female who presents with lower back pain. She does have a history of prior similar symptoms. This is been worse for the last several days. She has tried an icy hot patch, Tylenol, Zanaflex. She cannot take ibuprofen due to history of gastric sleeve. She denies any abdominal pain urinary retention or fecal incontinence. No weakness in the legs. She does have some numbness along the left hip. Past Medical History - Allergies and Home Meds Allergies/Adverse Reactions: Allergies amoxicillin [Amoxicillin] Allergy (Verified 08/11/20 20:50) Unknown ESPERANZA Inhibitors Adverse Reaction (Verified 08/11/20 20:50) COUGHING Primary Care Physician: Carmelo Coffey MD [Primary Care Provider] - Past Medical History: - - Hypertension Surgical History: hysterectomy, - - Gastric sleeve Smoking Status: Never smoker Review of Systems All systems negative except as indicated General: Denies: Fever Eyes: Denies: Visual changes - bilaterally ENT: Denies: Bilateral ear pain Cardiovascular: Denies: Chest pain Respiratory: Denies: Dyspnea Musculoskeletal: Reports: Back pain Skin: Denies: Rash Neurological: Denies: Headache Hematologic: Denies: Easy bruising Allergy: Denies: Uticaria Physical Exam Vital Signs/Narrative: Vital Signs Temp Pulse Resp BP Pulse Ox 08/11/20 20:50 96.1 F L 68 18 159/110 H 100 Inital Vital Signs reviewed: Yes General: Well nourished Head: Normocephalic Eyes: EOMI ENT: Moist mucous membranes Neck: Supple Cardiovascular: Regular rate Respiratory: No distress Abdomen: Soft, Nontender Back: - - Patient has lumbar midline and paraspinal tenderness, Extremities: - - Normal strength and sensation of the lower extremities 5 out of 5 dorsiflexion and plantarflexion, negative straight leg raise Skin: Normal color Neurological: Alert Psychological: Normal affect Diagnostic/Tx/Re-eval - Medical Decision Making Patient was given Toradol and Norflex here. I did provide a short course of [place]. Patient was advised to follow-up as an outpatient. She has no signs or symptoms to suggest acute surgical pathology such as epidural abscess or cauda equina syndrome. ED Disposition - Plan for ED Patient: Disposition: Home or Assisted Living Diagnosis: Lumbosacral strain Instructions: ED Back Sprain/Strain Prescriptions: Hydrocodone Bitart/Apap 5-325 [[place] 5MG-325MG] 1 tab PO Q6H PRN PRN 3 Days #10 tab PRN Reason: Pain Prescription Printed Referrals: Carmelo Coffey MD [Primary Care Provider] -
[2020-08-11] MEDS: Ketorolac 60 MG/2 ML Vial IM (21:49)
[2020-08-11] MEDS: Orphenadrine 60 MG/2 ML Ampul IM (21:50)
[2020-08-11 21:54] VITALS: BP 117/92; PULSE 72; RESP 16; O2SAT 98
== END 2020-08-11 22:08 | disposition home or self-care (01) ==
LOC: ED 21:59
PROVIDERS: Emergency Provider Emergency Medicine; PCP Family Medicine
DX: S39.012A Strain of muscle, fascia and tendon of lower back, initial encounter (principal); X58.XXXA Exposure to other specified factors, initial encounter; Y93.9 Activity, unspecified; Y92.9 Unspecified place or not applicable; Y99.9 Unspecified external cause status; I10 Essential (primary) hypertension
CPT/HCPCS: 96372; 99282

== ENCOUNTER 2020-09-06 22:14 | Emergency (ER) | payer MEDICAID, SELFPAY ==
[2020-09-06 22:16] VITALS: BP 177/109; PULSE 78; RESP 16; TEMP 37; O2SAT 93; BMI 44.8
--- NOTE | 2020-09-06 23:03 | ED.VIS.GEN ---
History of Present Illness Chief Complaint: Female C/O Informant: Patient Onset: Days Context: Gradual Onset Current Severity: Moderate Maximum Severity: Moderate Narrative: Present secondary to yeast infection. She states she is had yeast infection symptoms for the past 1 week. She is had white discharge with itching and pain. She recently started using Monistat cream [id number]. She states that she is so sore now she has started having some spotting. She has had a hysterectomy previously. She denies actual dysuria but states when urine does hit the external skin she does get burning. - Past Medical History (1) Anxiety and depression Status: Chronic (2) Hypertension Status: Chronic (3) GERD (gastroesophageal reflux disease) Status: Chronic Past Medical History - Allergies and Home Meds Allergies/Adverse Reactions: Allergies amoxicillin [Amoxicillin] Allergy (Verified 09/06/20 22:15) Unknown ESPERANZA Inhibitors Adverse Reaction (Verified 09/06/20 22:15) COUGHING Primary Care Physician: Carmelo Coffey MD [Primary Care Provider] - Surgical History: hysterectomy, - - Gastric sleeve Lives: With Family Smoking Status: Never smoker Review of Systems General: Denies: Chills, Fever Eyes: Denies: Visual changes - bilaterally ENT: Denies: Bilateral ear pain Cardiovascular: Denies: Chest pain Respiratory: Denies: Dyspnea, Cough Gastrointestinal: Denies: Abdominal pain Genitourinary: Denies: Dysuria Musculoskeletal: Denies: Swelling, Extremity Pain Neurological: Denies: Headache Hematologic: Denies: Easy bruising, Easy bleeding Allergy: Denies: Uticaria Physical Exam Vital Signs/Narrative: Vital Signs Temp Pulse Resp BP Pulse Ox 09/06/20 22:16 98.6 F 78 16 177/109 H 93 Inital Vital Signs reviewed: Yes General: Well nourished, Well developed Head: Normocephalic ENT: Moist mucous membranes Neck: Supple Cardiovascular: Regular rate, Regular rhythm Respiratory: No distress, CTA bilaterally Abdomen: Soft, Nontender : - - Scant white discharge consistent with yeast infection. Mild erythema and edema the vulvovaginal area. No excoriation or lesions. Extremities: Nontender Skin: Normal color Neurological: Alert, Normal Sensation Psychological: Normal affect Diagnostic/Tx/Re-eval - Medical Decision Making Patient's exam is consistent with yeast infection with significant irritation of the vulva. I do not see any other lesions. This time she cannot tolerate a vaginal exam. She will be treated with oral Diflucan and I will write her for 1 more tablet to take in 1 week if not significantly improved. She can continue to use topical Monistat. ED Disposition - Plan for ED Patient: Disposition: Home or Assisted Living Diagnosis: Vaginal yeast infection Instructions: ED OLGA VAGINITIS Prescriptions: Fluconazole [Diflucan] 150 mg PO X1 #1 tablet Referrals: Carmelo Coffey MD [Primary Care Provider] - 1 Week if not improving
[2020-09-06] MEDS: Fluconazole 100 MG Tablet 200 MG PO (23:07)
== END 2020-09-06 23:12 | disposition home or self-care (01) ==
PROVIDERS: Emergency Provider Emergency Medicine; PCP Family Medicine
DX: B37.3 Candidiasis of vulva and vagina (principal); I10 Essential (primary) hypertension; F32.9 Major depressive disorder, single episode, unspecified; F41.9 Anxiety disorder, unspecified
CPT/HCPCS: 99283

== ENCOUNTER 2021-02-18 21:35 | Emergency (ER) | payer MEDICAID, SELFPAY ==
[2021-02-18 21:37] VITALS: BP 165/103; PULSE 71; RESP 18; TEMP 36.2; O2SAT 99; BMI 44.6
--- NOTE | 2021-02-18 22:40 | EDS_ITS ---
HPI History of Present Illness Chief Complaint: Dental Informant: patient Onset/Context/Timing Onset: Weeks (2) Context: Gradual Onset Timing: Intermittent (more constant tonight x several hrs) Quality: clicking, painful Location: left TMJ Current Severity: Severe Maximum Severity: Severe Worsened by: opening mouth Relieved by: NSAIDs (barely) Associated Symptoms Assocated Symptom - Dental: Negative for fever, jaw swelling, face swelling, cold sensitivity or hot sensitivity Narrative Narrative: Patient states she has had TMJ issues off and on for long time but more constant for the past 2 weeks. She saw her dentist, they saw small area that they drained by simply popping inside of her mouth, the dentist was concerned it might be a small infection so he put her on a cephalosporin of some type, the patient is not sure, for about 10 days and she just took the last dose today. She states the pain in her TMJ has been a lot worse today. It is much worse after eating. It is the same pain that she has had with TMJ in the past, with clicking with chewing, radiating into her ear and sometimes up to the retro-orbital area on the left. She denies any neurologic symptoms or fever/chills or focal swelling/redness/discharge or abscess. She has had no issues on the inside of her mouth. She has had no changes in her hearing on the left. [facility] Medical History (Updated 02/18/21 @ 22:[address] Anibal Roe MD) Anxiety Depression GERD (gastroesophageal reflux disease) HTN (hypertension) Home Medications duloxetine 60 mg PO DAILY 05/25/16 [History Last Taken 05/25/17 07:00] trazodone 50 mg PO QHS 05/25/16 [History Last Taken Unknown] metoprolol succinate 100 mg PO DAILY 05/19/17 [History Last Taken 09/29/17] losartan 100 mg PO DAILY 05/15/19 [History Last Taken Unknown] bupropion HCl 150 mg PO DAILY 04/20/20 [History Last Taken Unknown] tizanidine 4 mg PO TID PRN 04/20/20 [History Last Taken Unknown] fluconazole 150 mg PO X1 #1 tab 09/06/20 [Rx Last Taken Unknown] Allergy/AdvReac Type Severity Reaction Status Date / Time amoxicillin [Amoxicillin] Allergy Unknown Verified 02/18/21 21:39 ESPERANZA Inhibitors AdvReac COUGHING Verified 02/18/21 21:39 Social History Smoking Status: Never smoker ROS ROS ED Constitutional Constitutional ED: Denies chills or fever(s) Eyes Eyes: Denies change in vision or double vision ENT ENT ED: Reports as per HPI, ear pain left (from my TMJ), facial pain and headache(s); Denies bleeding gums, dental pain, sinus pain or throat swelling Cardiovascular Cardiovascular: Denies chest pain or palpitations Respiratory/Chest Respiratory/Chest: Denies cough or dyspnea Integumentary Denies abscess or rash Neurologic Neurologic: Denies headache(s), paresthesias or weakness EXAM Physical Exam Const Vital Signs: 02/18/21 21:37 Temperature 97.2 F L Temperature Source Temporal Pulse Rate 71 Respiratory Rate 18 Blood Pressure 165/103 H Blood Pressure Mean 123 Pulse Ox 99 Oxygen Delivery Method Room Air Positive well nourished and well developed General Appearance ED: well developed and NAD HEENT HEENT Narrative: Tender left TMJ. No parotid tenderness/swelling/erythema, and no discharge at Stensen's duct. No malocclusion. Able to open fully but it hurts. No intraoral abnormalities seen. Left TM mildly erythematous, with n ormal light reflex. Normal EAC bilaterally with no discomfort with manipulation of the pinna/tragus. Face and Sinus: sinuses nontender Throat: posterior oropharynx normal Eyes PERRL and EOMs intact bilaterally Neck no lymphadenopathy and supple Resp normal respiratory effort Neuro oriented x3 and CN's II-XII intact bilaterally Sensorium / Orientation: alert Gait (Neuro): normal gait Psych mental status grossly normal and thought process normal Skin no rashes or lesions noted and no wounds MDM MDM MDM Narrative Medical decision making narrative: At this time I feel it is most appropriate to treat the patient's pain and refer her to someone that might be able to help her more definitively with her TMJ. She was referred to OMFS, given a dose of [place] here, and discharged with instruction to continue anti-inflammatories and eating/drinking gently, we discussed reasons to return such as fevers, swelling, and she is comfortable with that plan and agrees with it. Discharge Plan Triage Chief Complaint: Dental ED Provider: Anibal Roe Dx/Rx/DC Orders Clinical Impression: TMJ (temporomandibular joint syndrome) Instructions: ED TMJ Syndrome Prescriptions: No Action trazodone 50 MG tablet 50 mg PO QHS RF: 0 duloxetine 30 MG capsule 60 mg PO DAILY RF: 0 metoprolol succinate 100 MG Tab.Er.24h 100 mg PO DAILY RF: 0 losartan 100 MG tablet 100 mg PO DAILY RF: 0 bupropion HCl 150 MG tablet extended release 24 hr 150 mg PO DAILY RF: 0 tizanidine 4 mg capsule 4 mg PO TID PRN (Reason: Spasms) RF: 0 fluconazole 150 MG tablet 150 mg PO X1 Qty: 1 RF: 0 Primary Care Provider: Matilde Arenas NP Referrals: Rainer Wagner DDS [STAFF PHYSICIAN] - As soon as possible Matilde Arenas NP, [employer] [Primary Care Provider] - Disposition Disposition: Home, Self Care Discharge Date/Time: 02/18/21 22:45
[2021-02-18] MEDS: HYDROcodone Bitartrate/Apap 5/325 Tablet PO (22:43)
== END 2021-02-18 22:45 | disposition home or self-care (01) ==
PROVIDERS: Emergency Provider Emergency Medicine; PCP Nurse Practitioner Primary Care
DX: M26.609 Unspecified temporomandibular joint disorder, unspecified side (principal); I10 Essential (primary) hypertension; F32.9 Major depressive disorder, single episode, unspecified; F41.9 Anxiety disorder, unspecified; Z79.899 Other long term (current) drug therapy
CPT/HCPCS: 99283

== ENCOUNTER 2022-11-16 19:13 | Emergency (ER) | payer MEDICAID, SELFPAY ==
[2022-11-16 19:15] VITALS: BP 125/97; PULSE 82; RESP 18; TEMP 36.7; O2SAT 100; BMI 46.8
[2022-11-16 20:15] VITALS: RESP 18
--- NOTE | 2022-11-16 20:22 | EDS_ITS ---
HPI History of Present Illness Chief Complaint: Eye Problem Informant: patient Narrative Narrative: Patient lost vision in her right eye. Patient thinks that her vision probably started going somewhere around Monday afternoon. She was seen at [facility] on Monday. She states they did ultrasound of the eye that showed no retinal detachment. They did a CT scan of the brain that was normal. They did blood work that was normal. They wanted to admit her but she did not want to stay there as she is from this area and was just visiting her boyfriend up there. She states the symptoms are still going on. She gets pressure behind her eye but states its not pain. Its not a headache. She has had migraines before but states this is nothing like a migraine. Migraines are very painful. This is just pressure. Her visual loss is actually just central. When I stand about 3 or so feet from her, she can see my hands held up my torso and even the tips of my ears but she cannot see my face. She denied noting any color change. No nausea vomiting. No fevers. No trauma. No history of MS. No urinary symptoms. No numbness tingling weakness anywhere. Never had this before. No recent steroids that she knows of. [facility] Medical History Anxiety Depression GERD (gastroesophageal reflux disease) HTN (hypertension) Home Medications duloxetine 30 mg capsule,delayed release 60 mg PO DAILY 05/25/16 [History Last Taken 05/25/17 07:00] trazodone 50 mg tablet 50 mg PO QHS 05/25/16 [History Last Taken Unknown] metoprolol succinate 100 mg tablet,extended release 24 hr 100 mg PO DAILY 05/19/17 [History Last Taken 09/29/17] losartan 100 mg tablet 100 mg PO DAILY 05/15/19 [History Last Taken Unknown] bupropion HCl 150 mg 24 hr tablet, extended release 150 mg PO DAILY 04/20/20 [History Last Taken Unknown] tizanidine 4 mg capsule 4 mg PO TID PRN Spasms 04/20/20 [History Last Taken Unknown] fluconazole 150 mg tablet 150 mg PO X1 #1 TAB 09/06/20 [Rx Last Taken Unknown] Allergy/AdvReac Type Severity Reaction Status Date / Time amoxicillin [Amoxicillin] Allergy Unknown Verified 04/26/23 19:17 ESPERANZA Inhibitors AdvReac COUGHING Verified 11/16/22 19:17 Social History Smoking Status: Never smoker ROS ROS ED Constitutional Constitutional ED: Denies chills or fever(s) Eyes Eyes: Reports change in vision; Denies diplopia ENT ENT ED: Denies ear pain, rhinorrhea or sore throat Cardiovascular Cardiovascular: Denies chest pain Respiratory/Chest Respiratory/Chest: Denies cough or dyspnea Gastrointestinal Gastrointestinal: Denies abdominal pain, diarrhea, nausea or vomiting Genitourinary Genitourinary ED: Denies dysuria or hematuria Musculoskeletal Musculoskeletal: Denies arthralgias or myalgias Integumentary Denies abscess, Abrasions or rash Neurologic Neurologic: Reports other Details: She states she does not have headache but she just has a little pressure behind the eye. ; Denies paresthesias or weakness Psychiatric Psychiatric: Denies anxiety Endocrine Endocrinology: Denies polydipsia or polyuria Hematologic/Lymphatic Hematologic/Lymphatic: Denies easy bleeding or easy bruising Allergic/Immunologic Allergic/Immunologic ED: Denies urticaria EXAM Physical Exam Narrative Exam Narrative: Patient awake alert no acute distress. Gait is actually normal. HEENT shows no trauma no swelling no redness. No tearing. No asymmetry. No temporal artery tenderness. Eyes normal range of motion. Normal consensual pupillary response. Normal pupillary response with light and accommodation. No change in vision with range of motion. On exam her peripheral vision is intact but a small area of central vision seems out. I attempted a funduscopic exam but due to motion it was somewhat difficult. I saw no abnormal retinal vessels. There is certainly no bleeding. Retina was not pale. Patient did not think she had change in color vision. However, I got several different cards and papers from her office that had different colors. She had trouble picking them out and all of her shades were little darker than normal. Even the white seemed a little brown. When I showed the same colors to the left eye she picked them all out quickly normally and realized that she did have a change in color vision in that eye. Neck is supple without lymphadenopathy or bruit Lungs are clear bilaterally Heart is regular with no murmur gallop or rub and peripheral pulses are normal. Abdomen is soft nontender. Extremities show normal strength strength no tenderness no contusions. Skin shows no rashes or vesicles Neurologically she is awake alert appropriate. The only deficit that I can find is a an area of central vision in the right eye only. Const Vital Signs: 11/16/22 19:15 Temperature 98.0 F Temperature Source Temporal Pulse Rate 82 Respiratory Rate 18 Blood Pressure 125/97 H Blood Pressure Mean 106 Pulse Ox 100 Oxygen Delivery Method Room Air MDM MDM MDM Narrative Medical decision making narrative: Patient is already had work-up that I can do here. I did talk to wheel loader operator, Dr. Cerna. He states this sounds very much like central serous chorioretinopathy. He will see the patient at 8 AM in the morning. There would be no specific therapy at this time. Patient was comfortable with close follow-up in less than 12 hours. 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 He is expecting your arrival.) Matilde Arenas NP, [employer] [Primary Care Provider] - Activity Restrictions/Additional Instructions: Follow-up with Dr. Cerna at his office at 8 AM in the morning. The address is [address] [place] [id number]
== END 2022-11-16 20:37 | disposition home or self-care (01) ==
PROVIDERS: Emergency Provider Emergency Medicine; PCP Nurse Practitioner Primary Care; Visit Provider Emergency Medicine
DX: H35.711 Central serous chorioretinopathy, right eye (principal)
CPT/HCPCS: 99282

== ENCOUNTER 2024-01-06 22:16 | Emergency (ER) | payer MEDICAID, SELFPAY ==
[2024-01-06 22:17] VITALS: BP 160/98; PULSE 72; RESP 15; TEMP 36.4; O2SAT 98; BMI 49.4
--- NOTE | 2024-01-06 22:49 | EDS_ITS ---
HPI History of Present Illness HPI Narrative: Patient presents with right foot injury that occurred 4 days ago. Patient states she tripped over a speed bump and twisted her foot. Patient states she was seen at [facility] emergency department and had x-rays. Patient states that the x-rays were negative. Patient states she has been using ice to the foot. Patient states she has been taking Tylenol and ibuprofen which has not been helping with her pain. Patient describes her pain as burning. Patient states it is worse with movement. Patient denies any paresthesias or weakness. Patient denies any other injuries. Chief Complaint: Lower Extremity Injury Informant: patient Occured/Mechanism Mechanism/Context: Yes fall Onset/Context/Timing Onset: Days (4) Context: Sudden Onset Timing: Continuous Quality of Pain: Burning Location: Right foot Worsened by: Movement Relieved by: Nothing Associated Symptoms Associated Symptoms: Negative for Parasthesia or Weakness [facility] Medical History (Updated 01/06/24 @ 23:[address] Ubaldo Garcia, DO) Freiberg's disease GERD (gastroesophageal reflux disease) Depression Anxiety HTN (hypertension) Home Medications ?Medication ?Instructions ?Recorded ?Last Taken ?Type duloxetine 30 mg capsule,delayed 60 mg PO DAILY 05/25/16 05/25/17 07:00 History release trazodone 50 mg tablet 50 mg PO QHS 05/25/16 Unknown History metoprolol succinate 100 mg 100 mg PO DAILY 05/19/17 09/29/17 History tablet,extended release 24 hr losartan 100 mg tablet 100 mg PO DAILY 05/15/19 Unknown History bupropion HCl 150 mg 24 hr tablet, 150 mg PO DAILY 04/20/20 Unknown History extended release tizanidine 4 mg capsule 4 mg PO TID PRN Spasms 04/20/20 Unknown History fluconazole 150 mg tablet 150 mg PO X1 #1 TAB 09/06/20 Unknown Rx hydrocodone-acetaminophen 5-325mg 1 tab PO Q6H PRN PRN Pain 3 days 01/06/24 Unknown Rx 5mg-325mg #10 TABLETS Allergy/AdvReac Type Severity Reaction Status Date / Time amoxicillin (Amoxicillin) Allergy Unknown Verified 01/06/24 22:22 ESPERANZA Inhibitors AdvReac COUGHING Verified 01/06/24 22:22 Surgical History (Updated 01/06/24 @ 22:[address] Ubaldo Garcia, DO) Hx of gastric bypass History of hysterectomy History of section Social History Smoking Status: Former smoker ROS ROS ED Constitutional Constitutional ED: Denies chills or fever(s) Eyes Eyes: Denies blurry vision or change in vision ENT ENT ED: Denies rhinorrhea or sore throat Cardiovascular Cardiovascular: Denies chest pain or palpitations Respiratory/Chest Respiratory/Chest: Denies cough or dyspnea Gastrointestinal Gastrointestinal: Denies nausea or vomiting Genitourinary Genitourinary ED: Denies dysuria or hematuria Musculoskeletal Musculoskeletal: Denies back pain or neck pain Integumentary Denies abscess or rash Neurologic Neurologic: Denies headache(s) or weakness Allergic/Immunologic Allergic/Immunologic ED: Denies mouth swelling or urticaria EXAM Physical Exam Const Vital Signs: 01/06/24 22:17 Temperature 97.6 F L Temperature Source Temporal Pulse Rate 72 Respiratory Rate 15 Blood Pressure 160/98 H Blood Pressure Mean 118 Pulse Ox 98 Oxygen Delivery Method Room Air Positive well nourished, well developed and obese General Appearance ED: well developed and NAD Nutritional Appearance: obese HEENT Reports moist mucous membranes Neck full ROM and supple Extremity Extremity Narrative: There is tenderness, edema, and ecchymosis over the metatarsals of the right foot. There is no obvious deformity noted. Range of motion was slightly limited in all motions of the right foot secondary to pain. Pulses are equal bilateral. Sensation was intact to light touch in all digits. Capillary refill was less than 2 seconds in all digits. There is no tenderness over the medial or lateral malleolus. There is no tenderness over the proximal fibula. Neuro oriented x3, CN's II-XII intact bilaterally, moves all extremities and no sensory deficits noted Sensorium / Orientation: alert Motor Exam: strength 5/5 throughout Psych mental status grossly normal MDM MDM MDM Narrative Medical decision making narrative: Differential diagnosis includes occult fracture, dislocation, sprain, and contusion. X-rays of the right foot will be obtained to assess for fracture and dislocation. Radiography Diagnostic Testing: Clinical Impression(s) from Imaging Studies Foot X-Ray 01/06/24 22:55 IMPRESSION: No fracture or malalignment. Soft tissue swelling. Degenerative change of the first interphalangeal joint. Electronically Signed: Eduin Nunez MD at 23:16 EDT , X-rays of the right foot were obtained. There are 3 views. On my independent interpretation, there is no acute fracture or dislocation noted. There is some soft tissue swelling noted. There are some degenerative changes of the first interphalangeal joint. Radiologist also interpreted the x-rays and agrees. Treatment and Re-Evaluation Narrative: Patient was advised of her findings. Patient was given a walking boot. Patient was instructed to ice and elevate the right foot. Patient was given a prescription for a short course of [place]. Patient was instructed to follow-up with her primary care physician in 5 to 7 days. Patient understood and was agreeable with the plan. All questions were answered. Discharge Plan Triage Chief Complaint: Lower Extremity Injury ED Provider: Ubaldo Garcia Dx/Rx/DC Orders Clinical Impression: Sprain of right foot, Hypertension Instructions: ED Foot Sprain Prescriptions: New hydrocodone-acetaminophen 5-325 mg tablet 1 tab PO Q6H PRN PRN (Reason: Pain) 3 Days Qty: 10 0RF No Action trazodone 50 MG tablet 50 mg PO QHS Patient Comments: duloxetine 30 MG capsule 60 mg PO DAILY metoprolol succinate 100 MG tablet extended release 24 hr 100 mg PO DAILY losartan 100 MG tablet 100 mg PO DAILY bupropion HCl 150 MG tablet extended release 24 hr 150 mg PO DAILY tizanidine 4 mg capsule 4 mg PO TID PRN (Reason: Spasms) Patient Comments: 1 capsule fluconazole 150 MG tablet 150 mg PO X1 Qty: 1 0RF Primary Care Provider: Care Physician,No Primary Referrals: Jose Rafael Scott MD [Med Staff - Active Staff] - 5-7 Days Care Physician,No Primary [Primary Care Provider] - Print Language: Urdu Disposition Disposition: Home, Self Care
[2024-01-06] MEDS: HYDROcodone Bitartrate/Apap 5/325 Tablet PO (22:54)
--- NOTE | 2024-01-06 22:55 | RAD_ITS ---
INDICATION: Injury/Pain EXAMINATION/TECHNIQUE: X-RAY - RIGHT XR Foot Min 3 Views 3 VIEWS COMPARISON: Prior study dated: 04/05/2018 FINDINGS: SOFT TISSUES: Soft tissue swelling throughout the foot and ankle. No radiopaque foreign body. BONES/JOINTS: No acute fracture or subluxation.. Normal alignment. Degenerative change of the first interphalangeal joint with osteophytes present.. No sclerotic or destructive changes observed. RAD/Foot min 3 Views IMPRESSION: No fracture or malalignment. Soft tissue swelling. Degenerative change of the first interphalangeal joint. Electronically Signed: Eduin Nunez MD at 23:16 EDT ,
== END 2024-01-07 00:17 | disposition home or self-care (01) ==
PROVIDERS: Emergency Provider Emergency Medicine; Visit Provider Emergency Medicine
DX: S93.601A Unspecified sprain of right foot, initial encounter (principal); I10 Essential (primary) hypertension; Z87.891 Personal history of nicotine dependence; X58.XXXA Exposure to other specified factors, initial encounter
CPT/HCPCS: 73630; 99283

== ENCOUNTER 2025-07-10 22:04 | Emergency (ER) | payer MEDICAID, SELFPAY ==
[2025-07-10 22:05] VITALS: BP 225/130; PULSE 85; RESP 16; TEMP 36.6; O2SAT 100; BMI 40.7
--- NOTE | 2025-07-10 22:43 | RAD_ITS ---
PROCEDURE: KNEE 4 OR MORE VIEWS 07/10/2025 REASON FOR EXAM: INJURY TECHNIQUE: Procedure Code: RADKN Modality: DX Procedure: KNEE 4 OR MORE VIEWS COMPARISON: 05/15/2018 FINDINGS: No acute fracture or dislocation. Dorsal fabella noted. Alignment is anatomic. Preserved joint spaces. No aggressive osseous lesion. No joint effusion, soft tissue swelling or unusual mineralization appreciated. RAD/Knee 4 or More Views IMPRESSION: No acute fracture or dislocation. Reading Location: [id number]
--- OUTSIDE RECORDS SUMMARY | 2025-07-10 22:44 | XMS RPT_ITS | CCD ---
Author Organization [facility] Care Team Providers Care Business Practices Supervisor Name Role Phone ANIBAL NAQVI Unavailable Unavailable ANIBAL NAQVI Unavailable Unavailable ANIBAL NAQVI Unavailable Unavailable Silvia Rodriguez LPN Unavailable Unavailab meagan GARCÍA APRN-COMBINATION WELDER, DANISH Primary Care Physician Sandi PT, Ana Unavailable Unavailable Alexx PICKARD, Carmelo Post Primary Care Provider Deepa SALDAÑA.JOSEFINA, Danish Primary Care Provider Deepa TRINIDADN - JOSEFINA, Danish Primary Care Provide r DANAY GONZALEZ Attending Unavailable PROVIDER, UNKNOWN Referring Unavailable Seffens, Danish Primary Care Unavailable PROVIDER, UNKNOWN Referring Unavailable Seffens, Danish Primary Care Unavailable Isabelle Villarreal Attending Unavailable SEFFENS, DANISH Primary Care Unavailable MD SIMS JAMES Attending Unavailariel e Deepa TRINIDADN.COMBINATION WELDER, Danish Primary Care Provider Unavailable Primary Care Provider Unavailabl e PROVIDER, UNKNOWN Admitting Unavailable PROVIDER, UNKNOWN Attending Unavailable BARBIE SOFIA Attending Unavailable PROVIDER, UNKNOWN Admitting Unavailable Mark Blount MD Primary Care Provider Mark Blount MD Primary Care Provider PHYSICIAN, PATIENT UNSURE Primary Care Physician Unavailable PHYSICIAN, NONE Primary Care Physician Unavailab meagan MARSHALL APRN - COMBINATION WELDER, DAPHNEY Faria Attending U navailable JOANNA DRYING CAN WORKER - COMBINATION WELDER, DAPHNEY Faria Primary Care U navailable SUPPAN DPM, QUE García Attending Unavailable PHYSICIAN, NONE Primary Care Unavailable PHYSICIAN, NONE Primary Care Unavailable [facility] Attending Unavailable [facility] Attending Unavailable PHYSICIAN, PATIENT UNSURE Primary Care Unavai lable ELSY DRYING CAN WORKER-CNM, POOJA Orr Attending Unavai lable Care Physician, No Primary Referring Unava ilable Silvio Kahn Attending Unavailable Care Physician, No Primary Primary Care Unava ilable Ubaldo Garcia Attending Unavailable Care Physician, No Primary Primary Care Unava ilable Unavailable Primary Care Provider Unavailariel Blount MD, Mark Primary Care Provider REFERRING, CLAUS WO ID Primary Care Physician JUANITA Hawley MD Attending Unavail able PHYSICIAN, PATIENT UNSURE Primary Care Unavai lable REFERRING, PHLuis Antonio WO CHARLEEN Primary Care Unavailable SUPPAN DPM, QUE García Attending Unavailable SUPPAN DPM, QUE García Attending Unavailable [facility] DO Attending Unavailable PHYSICIAN, PATIENT UNSURE Primary Care Unavai lable Jony OBBO, Joey Unavailable [phone] Fazal Napier MD Primary Care Provider Podlogar DRYING CAN WORKER.JOSEFINA, Marli Unavailable FAZAL NAPIER Primary Care Unavailab meagan PODLOGAR, MARLI Attending Unavailable FAZAL NAPIER Primary Care Unavailab meagan PODLOGMARLI ALFARO Referring Unavailable JOEY SLOAN Referring Unavailable BLOUNTMARK Attending Unavailable BLOUNT, MUDITA Primary Care Unavailable BLOUNT, MUDITA Referring Unavailable SELF Referring Unavailable BLOUNT, MUDITA Primary Care Unavailable BLOUNT, VIELKAITA Attending Unavailable JOEY SLOAN Attending Unavailable BLOUNT, MUDITA Primary Care Unavailable ANN-MARIE BORGES Attending Unavailable BLOUNT, MUDITA Primary Care Unavailable BLOUNT, MUDITA Primary Care Unavailable CLARKE DAO Attending Unavailable Allergies Allergy Classification Reported Allergen(s) Allergy Type Date of Onset Reaction(s) Facility (20 sources) amoxicillin; Translations: [AMOXICILLIN] Drug Allergy 12-26-19 07 Intolerance [facility] Other [place] Repository (20 sources) Angiotensin Converting Enzyme (Esperanza) Inhibitors; Translations: [ESPERANZA INHIBITORS] Propensity to adverse reactions to drug (disorder) 05-21-20 14 C/O - cough (context-depen dent category), Cough [facility] Other [place] Repository (1 source) Acetaminophen / HYDROcodone Drug Allergy 02-02-20 16 [facility] Work Phone: (20 sources) Glucocorticoid preparation; Translations: [CORTICOSTEROIDS (GLUCOCORTICOIDS)] Propensity to adverse reactions to drug 01-06-20 23 Other: See Comments [facility] (4 sources) Anabolic steroid (substance); Translations: [anabolic steroids] Drug allergy Steroid (substance) [facility] Medications Current Medications Medication Drug Class(es) Dates Sig (Normalized) Sig (Original) acetaminophen 325 mg / butalbital 50 mg / caffeine 40 mg oral tablet (20 sources) Barbiturate, Central Nervous System Stimulant, Methylxanthine Start: 05-28-2024 End: 11-24-2024 take 1 tablet by mouth every four hours as needed for headache and headache acetaminophen 325 mg-caffeine 40 mg-butalbital 50 mg (FIORICET) per tablet Indications: Mixed headache Take 1 tablet by mouth every 4 hours as needed for up to 90 days. 30 tablet 3 08/26/2024 11/24/2024 Active Start: 03-19-2024 End: 03-29-2024 take 1 tablet by mouth every four hours as needed for headache and headache acetaminophen 325 mg-caffeine 40 mg-butalbital 50 mg (FIORICET) per tablet Indications: Mixed headache Take 1 tablet by mouth every 4 hours as needed for up to 10 days. 10 tablet 03/19/2024 03/29/2024 Active Start: 08-06-2020 End: 01-04-2024 take 1 tablet by mouth every four hours as needed for headache and headache acetaminophen 325 mg-caffeine 40 mg-butalbital 50 mg (FIORICET) per tablet Indications: Mixed headache Take 1 tablet by mouth every 4 hours as needed for up to 10 days. 10 tablet 0 12/25/2023 01/04/2024 Active Comment on above: Take 1 tablet by mikel th every 4 hours as needed. acetaminophen 325 mg / oxyCODONE hydrochloride 5 mg oral tablet (3 sources) Opioid Agonist Start: 05-24-2024 End: 05-27-2024 take 1 tablet by mouth every six hours as needed for pain Percocet 5 mg-325 mg oral tablet Dose = 1 tab(s), Oral, q6h, PRN Pain, X 3 day(s), # 12 tab(s), 0 Refill(s), Ankle pain, 118.2 Start Date: 05/24/24 Stop Date: 05/27/24 Status: Ordered Start: 02-13-2024 End: 02-16-2024 take 1 tablet by mouth every six hours as needed for pain Percocet 5 mg-325 mg oral tablet Dose = 1 tab(s), Oral, q6h, PRN for pain, X 3 day(s), # 10 tab(s), 0 Refill(s), Ankle pain, 114 Start Date: 02/13/24 Stop Date: 02/16/24 Status: Ordered Start: 05-15-2019 End: 05-23-2019 take 1 tablet by mouth every six hours as needed Oxycodone-Acetaminophen Discontinued 1 TABLET PO EVERY 6 HOURS NEEDED 12 3 May 15, 2019 May 23, 2019 12:10am acyclovir 800 mg oral tablet (4 sources) Herpesvirus Nucleoside Analog DNA Polymerase Inhibitor, Herpes Simplex Virus Nucleoside Analog DNA Polymerase Inhibitor, Herpes Zoster Virus Nucleoside Analog DNA Polymerase Inhibitor Start: 01-11-2023 End: 04-11-2023 take 1 tablet by mouth twice daily acyclovir (ZOVIRAX) 800 mg tablet Take 1 tablet by mouth twice daily. During recurrent outbreak 10 tablet 2 01/11/2023 04/11/2023 Active Start: 01-05-2023 End: 01-15-2023 take 1 tablet by mouth three times daily acyclovir (ZOVIRAX) 400 mg tablet Indications: Vulval lesion Take 1 tablet by mouth three times daily for 10 days. 30 tablet 0 01/05/2023 01/15/2023 Active Comment on above: Take 1 tablet by mikel th three times daily for 10 days. Take 1 tablet by mikel th twice daily. During recurrent outbreak amLODIPine 10 mg oral tablet (20 sources) Dihydropyridine Calcium Channel Rand Start: 05-09-20 End: 06-08-20 take 1 tablet by mouth once daily amLODIPine (NORVASC) 10 mg tablet Indications: Essential hypertension Take 1 tablet by mouth once daily. 30 tablet 5 05/09/2024 Active Start: 04-22-2024 End: 05-22-2024 take 1 tablet by mouth once daily amLODIPine 5 mg oral tablet TAKE 1 TABLET BY MOUTH EVERY DAY Start Date: 05/07/24 Status: Ordered amoxicillin 500 mg oral capsule (1 source) Penicillin-class Antibacterial Start: 06-15-2024 End: 06-20-2024 amoxicillin 500 mg oral capsule Dose : 500 mg = 1 cap(s), Oral, TID, X 5 day(s), # 15 cap(s), 0 Refill(s), 06/20/24 8:55:00 PM EST Start Date: 06/15/24 Stop Date: 06/20/24 Status: Ordered 12 hr buPROPion hydrochloride 150 mg extended release oral tablet (20 sources) Aminoketone Start: 02-26-2024 take 1 tablet by mouth twice daily buPROPion SR (WELLBUTRIN SR) 150 mg 12 hr tablet Indications: Depression with anxiety Take 1 tablet by mouth two times a day. 60 tablet 11 02/26/2024 Active Start: 01-04-2024 take 1 tablet by mikel th every hour, then take 1 tablet by mouth twice daily buPROPion 150 mg/24 hours (XL) oral tablet, extended release Dose : 150 mg = 1 tab(s), Oral, BID Start Date: 01/04/24 Status: Ordered Start: 09-20-2023 End: 02-24-2024 take 1 tablet by mouth twice daily buPROPion SR (WELLBUTRIN SR) 150 mg 12 hr tablet Indications: Depression with anxiety Take 1 tablet by mouth two times a day. 60 tablet 2 09/20/2023 02/24/2024 Discontinued Start: 10-05-2021 End: 09-30-2022 take 1 tablet by mouth every hour, then take 1 tablet by mouth every twenty-four hours, then take 1 tablet by mouth once daily buPROPion 150 mg/24 hours (XL) oral tablet, extended release Dose : 150 mg = 1 tab(s), Oral, q24h, TAKE 1 TABLET BY MOUTH EVERY DAY, # 90 tab(s), 3 Refill(s), Pharmacy: [facility], 161, cm, 07/30/21 9:38:00 EST, Height, kg, 07/30/21 9:38:00 EST, Dosing Weight Start Date: 10/05/21 Stop Date: 09/30/22 Status: Ordered Start: 10-16-2020 End: 10-11-2021 take 1 tablet by mouth every hour, then take 1 tablet by mouth every twenty-four hours, then take 1 tablet by mouth once daily buPROPion 150 mg/24 hours (XL) oral tablet, extended release Dose : 150 mg = 1 tab(s), Oral, q24h, TAKE 1 TABLET BY MOUTH EVERY DAY, # 90 tab(s), 3 Refill(s), Pharmacy: [address], 164, cm, 10/16/20 11:04:00 EDT, Height, kg, 10/16/20 11:04:00 EDT, Dosing Weight Start Date: 10/16/20 Stop Date: 10/11/21 Status: Ordered Start: 03-27-2020 End: 09-20-2023 take 1 tablet by mouth once daily buPROPion XL (WELLBUTRIN XL) 150 mg 24 hr tablet Indications: Depression with anxiety Take 1 tablet by mouth once daily. 30 tablet 5 03/27/2020 09/20/2023 Discontinued (Dosage adjustment) take 2 tablets by mo uth twice daily buPROPion (WELLBUTRIN) 75 MG tablet Take 150 mg by mouth 2 times daily. 0 Active Comment on above: Take 1 tablet by mikel th once daily. Take 1 tablet by mikel th two times a day. calcium citrate 1500 mg / ergocalciferol 200 unt oral tablet (20 sources) Provitamin D2 Compound take 1 tablet by mouth once daily Calcium Citrate-Vitamin D2 1,500-200 mg-unit tab Take 1 tablet by mouth once daily. Active Comment on above: Take 1 tablet by mikel th once daily. cefdinir 300 mg oral capsule (2 sources) Cephalosporin Antibacterial Start: 4 End: 4 cefdinir 300 mg oral capsule Dose : 300 mg = 1 cap(s), Oral, q12h, X 10 day(s), # 20 cap(s), 0 Refill(s), 06/25/24 9:24:00 PM EST, 118.2 Start Date: 06/15/24 Stop Date: 06/25/24 Status: Ordered Start: 06-06-2022 End: 06-16-2022 cefdinir 300 mg oral capsule Dose : 300 mg = 1 cap(s), Oral, q12h, X 10 day(s), # 20 cap(s), 0 Refill(s), 06/16/22 13:59:00 EST, Pharmacy: [facility] #[id number], 160, cm, 04/11/22 10:49:00 EDT, Height, 124.9 Start Date: 06/06/22 Stop Date: 06/16/22 Status: Ordered cholecalciferol 0.01 mg chewable tablet (20 sources) Vitamin D take 400 [IU] by mouth once daily Cholecalciferol, Vitamin D3, (VITAMIN D-3) 400 unit chew Take by mouth once daily. Active Comment on above: Take by mouth once d aily. ciprofloxacin 2 mg/ml / hydrocortisone 10 mg/ml otic suspension (1 source) Corticosteroid, Quinolone Antimicrobial Start: End: Cipro HC 0.2%-1% otic suspension Dose = 3 drop(s), Ear, left, BID, X 10 day(s), # 10 mL, 0 Refill(s), Otitis externa of left ear Start Date: 01/17/22 Stop Date: 01/27/22 Status: Ordered clindamycin 300 mg oral capsule (1 source) Lincosamide Antibacterial Start: End: clindamycin 300 mg oral capsule Dose : 300 mg = 1 cap(s), Oral, TID, Take with a probiotic, X 10 day(s), # 30 cap(s), 0 Refill(s), 07/04/22 23:00:00 EST, 124.9 Start Date: 06/24/22 Stop Date: 07/04/22 Status: Ordered cyclobenzaprine hydrochloride 5 mg oral tablet (1 source) Muscle Relaxant Start: take 1 tablet by mouth three times daily as needed for muscle spasms cyclobenzaprine (FLEXERIL) 5 MG tablet Take 1 Tab by mouth 3 times daily as needed for Muscle spasms. 90 1 04/22/2010 Active doxycycline hyclate 100 mg oral capsule (1 source) Tetracycline-class Drug Start: End: take 1 capsule by mouth twice daily doxycycline hyclate (VIBRAMYCIN) 100 mg capsule Indications: Hidradenitis suppurativa of right axilla Take 1 capsule by mouth two times a day for 10 days. 20 capsule 03/17/2025 03/27/2025 Active DULoxetine 60 mg delayed release oral capsule (20 sources) Serotonin and Norepinephrine Reuptake Inhibitor Start: 024 End: take 1 capsule by mouth once daily DULoxetine DR (CYMBALTA) 60 mg capsule Take 1 capsule by mouth once daily. 90 capsule 02/19/2025 Active Start: 01-04-2024 End: 04-27-2024 take 1 capsule by mouth once daily DULoxetine (CYMBALTA) 60 mg capsule Take 1 capsule by mouth once daily. 90 capsule 1 04/29/2024 Active Start: 09-20-2023 End: 04-22-2024 take 1 capsule by mouth once daily DULoxetine (CYMBALTA) 20 mg capsule Indications: Depression with anxiety Take 1 capsule by mouth once daily. For 2 weeks. Start after completing Cymbalta 30 mg daily for 2 weeks. 14 capsule 09/20/2023 04/22/2024 Discontinued Start: 09-20-2023 End: 04-22-2024 take 1 capsule by mouth once daily DULoxetine (CYMBALTA) 30 mg capsule Indications: Depression with anxiety Take 1 capsule by mouth once daily. 14 capsule 09/20/2023 04/22/2024 Discontinued Start: 07-30-2021 End: 07-25-2022 DULoxetine 60 mg oral delaye d release capsule Dose : 60 mg = 1 cap(s), Oral, qDay, # 90 cap(s), 3 Refill(s), Pharmacy: [address], 161, cm, 07/30/21 9:38:00 EST, Height, kg, 07/30/21 9:38:00 EST, Dosing Weight Start Date: 07/30/21 Stop Date: 07/25/22 Status: Ordered Start: 10-13-2020 End: 09-20-2023 take 1 capsule by mouth twice daily DULoxetine (CYMBALTA) 30 mg capsule Take 1 capsule by mouth twice daily. 180 capsule 2 10/13/2020 09/20/2023 Discontinued (Course of therapy completed) Start: 05-15-2017 CYMBALTA CPEP as directed DULOXETINE HCL CPEP [id number] Sudarshan THRASHER Start: 05-25-2016 take 60 mg by mouth once daily Duloxetine Active 60 MG PO DAILY May 25, 2016 12:00am Comment on above: Take 1 capsule by mo uth twice daily. Take 1 capsule by mo uth once daily. Take 1 capsule by mo uth once daily. For 2 weeks. Start after completing Cymbalta 30 mg daily for 2 weeks. ergocalciferol 1.25 mg oral capsule (19 sources) Provitamin D2 Compound Start: End: take 1 capsule by mouth every week ergocalciferol 50,000 unit capsule (VITAMIN D2, DRISDOL) Take 1 capsule by mouth one time a week. 4 capsule 5 05/09/2024 03/17/2025 Discontinued (Course of therapy completed) fluconazole 150 mg oral tablet (1 source) Azole Antifungal Start: 021 take 150 mg by mouth once Fluconazole Active 150 MG PO ONE TIME September 06, 2020 1:00am ibuprofen 800 mg oral tablet (1 source) Nonsteroidal Anti-inflammatory Drug Start: 010 take 1 tablet by mouth every eight hours as needed for pain ibuprofen (MOTRIN) 800 MG tablet Take 1 Tab by mouth every 8 hours as needed for Pain. 90 1 04/22/2010 Active lidocaine 0.05 mg/mg medicated patch (20 sources) Antiarrhythmic, Amide Local Anesthetic Start: End: apply 1 dose transdermal route once daily, then apply 1 dose transdermal route every twelve hours lidocaine (LIDODERM) 5 % Indications: Primary osteoarthritis of right knee Apply 1 patch as directed once daily. to affected area. Remove patch after 12 hours. 15 patch 3 02/19/2025 Active Start: 07-14-2023 lidocaine (LID ODERM) 4 % patch Start: 01-05-2023 End: 05-09-2024 lidocaine 5 % gel Indication s: Vulval lesion Apply to affected area three times daily as needed. 30 g 01/05/2023 05/09/2024 Discontinued Start: 08-25-2020 End: 09-20-2023 apply 1 dose transdermal route every twenty-four hours lidocaine (LIDODERM) 5 % Indications: Acute bilateral low back pain with bilateral sciatica Apply 1 Patch as directed every 24 hours. Remove old patch prior to placing new patch. Location: low back 30 Patch 3 08/25/2020 09/20/2023 Discontinued (Duplicate Entry) Comment on above: Apply 1 Patch as dir ected every 24 hours. Remove old patch prior to placing new patch. Location: low back Apply to affected ar ea three times daily as needed. Apply 1 Patch as dir ected once daily. to affected area. Remove patch after 12 hours. losartan potassium 100 mg oral tablet (20 sources) Angiotensin 2 Receptor Rand Start: End: take 1 tablet by mouth once daily losartan (COZAAR) 100 mg tablet Indications: Essential hypertension Take 1 tablet by mouth once daily. 90 tablet 1 06/18/2024 Active Start: 05-15-2017 COZAAR TABS as directed LOSARTAN POTASSIUM TABS [id number] Sudarshan THRASHER Comment on above: Take 1 tablet by mikel th once daily. methylPREDNISolone 4 mg oral tablet (1 source) Corticosteroid Start: 04-29-20 End: 05-05-20 methylPREDNISolone (MEDROL DOSEPACK) 4 MG tablet Indications: Sprain of toe, initial encounter , Freiberg's disease, left Take by mouth. 1 kit 0 04/29/2022 05/05/2022 Active 24 hr metoprolol succinate 100 mg extended release oral tablet (20 sources) beta-Adrenergic Rand Start: 05-07-20 Metoprolol Succinate ER 100 mg oral TABLET extended release Dose : 100 mg = 1 tab(s), Oral, qDay, # 30 tab(s), 0 Refill(s) Start Date: 05/07/24 Status: Ordered Start: 10-16-2020 End: 10-11-2021 metoprolol succinate 100 mg oral TABLET extended release Dose : 100 mg = 1 tab(s), Oral, qDay, # 90 tab(s), 3 Refill(s), Pharmacy: [facility] [facility], 164, cm, 10/16/20 11:04:00 EDT, Height, kg, 10/16/20 11:04:00 EDT, Dosing Weight Start Date: 10/16/20 Stop Date: 10/11/21 Status: Ordered Start: 05-19-2017 End: 06-18-2024 take 1 tablet by mouth once daily metoprolol succinate ER (TOPROL XL) 100 mg Indications: Essential hypertension Take 1 tablet by mouth once daily. 90 tablet 1 06/18/2024 Active Start: 05-15-2017 METOPROLOL TAR TRATE TABS as directed METOPROLOL TARTRATE TABS [id number] Sudarshan THRASHER take 1 tablet by mikel th twice daily metoprolol (LOPRESSOR) 50 MG tablet Take 50 mg by mouth 2 times daily. 0 Active Comment on above: Take 1 tablet by mikel th once daily. multivitamin-ferrous sulfate 18 mg iron tab (20 sources) multivitamin-brendan matt sulfate 18 mg iron tab Take by mouth once daily. Active multivitamin-brendan matt sulfate 18 mg iron tab Take by mouth once daily. 0 Active Comment on above: Take by mouth once d aily. ondansetron 4 mg disintegrating oral tablet (2 sources) Serotonin-3 Receptor Antagonist Start: 09-13-19 End: 09-20-19 take 1 tablet by mouth every six hours as needed for nausea ondansetron orally disintegrating (ZOFRAN ODT) 4 mg disintegrating tablet Indications: Nausea, vomiting, and diarrhea Take 1 tablet by mouth every 6 hours as needed for nausea/vomiting for up to 7 days. 20 tablet 09/13/2024 09/20/2024 Active Start: 05-24-2024 End: 05-28-2024 ondansetron 4 mg oral tablet , disintegrating Dose : 4 mg = 1 tab(s), Oral, q6h, PRN Nausea/Vomiting, X 4 day(s), # 12 tab(s), 0 Refill(s), 05/28/24 10:58:00 PM EST Start Date: 05/24/24 Stop Date: 05/28/24 Status: Ordered oseltamivir 75 mg oral capsule (1 source) Neuraminidase Inhibitor Start: 06-07-2022 End: 06-12-2022 Tamiflu 75 mg oral capsule Dose : 75 mg = 1 cap(s), Oral, BID, X 5 day(s), # 10 cap(s), 0 Refill(s), 06/12/22 16:43:00 EST, TREATMENT , Pharmacy: [facility]/pharmacy #[id number], 160, cm, 04/11/22 10:49:00 EDT, Height Start Date: 06/07/22 Stop Date: 06/12/22 Status: Ordered SUMAtriptan 50 mg oral tablet (1 source) Serotonin-1b and Serotonin-1d Receptor Agonist Start: 03-17-2025 take 1 tablet by mouth every two hours as needed for headache SUMAtriptan (IMITREX) 50 mg tablet Take 1 tablet by mouth as needed for migraine headache (see administration instructions). May repeat dose after 2 hours if needed. Maximum daily dose is 200 mg per day. 9 tablet 1 03/17/2025 Active Start: 03-17-2025 take 1 tablet by mikel th every two hours as needed for headache SUMAtriptan (IMITREX) 50 mg tablet Take 1 tablet by mouth as needed for migraine headache (see administration instructions). May repeat dose after 2 hours if needed. Maximum daily dose is 200 mg per day. 9 tablet 1 03/17/2025 Active tiZANidine 4 mg oral tablet (20 sources) Central alpha-2 Adrenergic Agonist Start: 10-12-2020 End: 09-20-2023 take 1 tablet by mouth every eight hours as needed for muscle spasms tiZANidine (ZANAFLEX) 4 mg tablet Indications: Osteoarthritis of spine with radiculopathy, lumbar region , Primary osteoarthritis of right knee Take 1 tablet by mouth every 8 hours as needed (muscle spasms). 30 tablet 2 09/20/2023 Active Start: 04-20-2020 take 4 mg by mouth t hree times daily Tizanidine Active 4 MG PO THREE TIMES A DAY April 20, 2020 12:00am Comment on above: Take 1 tablet by mikel th every 8 hours as needed (muscle spasms). traZODone hydrochloride 100 mg oral tablet (20 sources) Serotonin Reuptake Inhibitor Start: End: take 1 tablet by mouth once daily at bedtime traZODone (DESYREL) 100 mg tablet Indications: Primary insomnia Take 1 tablet by mouth daily at bedtime. 90 tablet 3 09/20/2023 03/17/2025 Discontinued (Course of therapy completed) Start: 05-15-2017 TRAZODONE HCL TABS as directed TRAZODONE HCL TABS [id number] Sudarshan THRASHER Start: 05-25-2016 take 50 mg by mouth at bedtime Trazodone Active 50 MG PO AT BEDTIME May 25, 2016 12:00am Comment on above: 100 mg. Take 1 tablet by mikel th daily at bedtime. Take 100 mg by mouth daily at bedtime. valACYclovir 1000 mg oral tablet (20 sources) Herpesvirus Nucleoside Analog DNA Polymerase Inhibitor, Herpes Simplex Virus Nucleoside Analog DNA Polymerase Inhibitor, Herpes Zoster Virus Nucleoside Analog DNA Polymerase Inhibitor Start: 05-07-2024 valACYclovir 1 g oral tablet Oral, Every other day, 0 Refill(s), 116.3 Start Date: 05/07/24 Status: Ordered Start: 10-02-2023 End: 04-17-2025 take 1 tablet by mouth once daily valACYclovir (VALTREX) 1 gram tablet Indications: Herpes simplex type II infection Take 1 tablet by mouth once daily. 90 tablet 01/06/2025 Active Start: 09-20-2023 End: 09-14-2024 take 1 tablet by mouth once daily valACYclovir (VALTREX) 500 mg tablet Indications: Herpes simplex type II infection Take 1 tablet by mouth once daily. 90 tablet 3 09/20/2023 10/02/2023 Discontinued Comment on above: Take 1 tablet by mikel th once daily. vitamin b12 1 mg/ml injectable solution (20 sources) Vitamin B12 Start: 05-09-2024 End: 04-10-2025 cyanocobalamin 1,000 mcg injection Start: 05-09-2024 End: 04-10-2025 1,000 mcg, INTRAMUSCULAR, EV NASEEM 4 WEEKS, 12 doses, First dose on Yazmin 05/09/24 at 1830, Last dose on Yazmin 03/13/25 at 1830 Start: 05-09-2024 End: 08-07-2024 inject 1 mL by intramuscular injection every month cyanocobalamin 1,000 mcg/mL Inject 1 mL intramuscularly once every month. 3 mL 5 05/09/2024 Active Completed/Discontinued Medications Medication Drug Class(es) Dates Sig (Normalized) Sig (Original) acetaminophen 325 mg / HYDROcodone bitartrate 5 mg oral tablet (1 source) Opioid Agonist Start: 08-11-2020 End: 08-14-2020 take 1 tablet by mouth every six hours as needed Hydrocodone-Acetamin ophen Discontinued 1 TABLET PO EVERY 6 HOURS NEEDED 04 25August 11, 2020 August 14, 2020 1:03am chlorthalidone 25 mg oral tablet (1 source) Thiazide-like Diuretic Start: 03-30-2021 End: 06-28-2021 chlorthalidone 25 mg oral tablet Dose : 25 mg = 1 tab(s), Oral, qDay, # 90 tab(s), 0 Refill(s), Pharmacy: [address], 163, cm, 03/24/21 14:42:00 EDT, Height, kg, 03/24/21 14:42:00 EDT, Dosing Weight Start Date: 03/30/21 Stop Date: 06/28/21 Status: Ordered cyanocobalamin, vitamin B-12, (VITAMIN B-12 SUBLINGUAL) (20 sources) End: 04-22-2024 cyanocobalamin, vitamin B-12, (VITAMIN B-12 SUBLINGUAL) Dissolve under the tongue once daily. 04/22/2024 Discontinued cyanocobalamin, vitamin B-12, (VITAMIN B-12 SUBLINGUAL) Dissolve under the tongue once daily. Active cyanocobalamin, vitamin B-12, (VITAMIN B-12 SUBLINGUAL) Dissolve under the tongue once daily. 0 Active Comment on above: Dissolve under the t ongue once daily. 1 ml ketorolac tromethamine 15 mg/ml cartridge (1 source) Nonsteroidal Anti-inflammatory Drug, Cyclooxygenase Inhibitor Start: 07-14-2023 End: 07-14-2023 ketorolac (TORADOL) 15 MG/ML injection Start: 07-14-2023 End: 07-14-2023 ketorolac (TORADOL) 15 MG/ML injection methocarbamol 500 mg oral tablet (2 sources) Muscle Relaxant Start: 07-14-2023 End: 07-14-2023 methocarbamol (ROBAXIN) tablet Start: 07-14-2023 End: 07-21-2023 take 1 tablet by mouth four times daily as needed methocarbamol (ROBAXIN) 500 MG tablet Take 1 Tablet by mouth 4 times daily as needed for up to 7 days. 28 Tablet 0 07/14/2023 07/21/2023 Active naproxen 500 mg oral tablet (1 source) Nonsteroidal Anti-inflammatory Drug Start: 05-25-2016 End: 05-19-2017 take 500 mg by mouth twice daily as needed Naproxen Discontinued 500 MG PO TWICE DAILY NEEDED May 25, 2016 12:00am May 19, 2017 2:05pm nystatin [id number] unt/ml topical cream (8 sources) Polyene Antifungal Start: 07-06-2020 End: 09-20-2023 nystatin (MYCOSTATIN) cream Apply 1 application to affected area twice daily. 45 g 1 07/06/2020 09/20/2023 Discontinued (Course of therapy completed) Comment on above: Apply 1 application to affected area twice daily. microencapsulated potassium chloride 20 meq extended release oral tablet (4 sources) Start: 04-18-2024 End: 05-09-2024 take 1 tablet by mouth twice daily potassium chloride ER (KLOR-CON M20) 20 mEq tablet Indications: Hypokalemia Take 1 tablet by mouth two times a day. 6 tablet 04/18/2024 05/09/2024 Discontinued tamsulosin hydrochloride 0.4 mg oral capsule (5 sources) alpha-Adrenergic Rand Start: 12-17-2021 End: 01-16-2022 Flomax 0.4 mg oral capsule Dose : 0.4 mg = 1 cap(s), Oral, qDay, # 30 cap(s), 0 Refill(s), Pharmacy: [id number], Costovertebral angle tenderness, right Nephrolithiasis, 161.5, cm, 12/17/21 13:36:00 EDT, Height Start Date: 12/17/21 Stop Date: 01/16/22 Status: Ordered Problems Active Problems Problem Classification Problem Date Documented Date Episodic/Chronic Abdominal pain (11 sources) Renal angle tenderness; Translations: [Right upper quadrant pain] 12-17-2021 Episodic Administrative/social admission (2 sources) Encounter for pre-employment examination; Translations: [Patient encounter status] Onset: 7 05-15-2017 Episodic Anxiety disorders (20 sources) Anxiety; Translations: [Mixed anxiety and depressive disorder] Onset: 4 03-17-2014 Chronic Blindness and vision defects (1 source) Unqualified visual loss, right eye, normal vision left eye; Translations: [Vision loss of right eye] Onset: 3 Chronic Calculus of urinary tract (5 sources) Kidney stone 12-17-2021 Episodic Disorders of teeth and jaw (11 sources) Temporomandibular joint disorder; Translations: [Unspecified temporomandibular joint disorder, unspecified side] Onset: 4 03-11-2021 Episodic Endometriosis (16 sources) Endometriosis (clinical) 02-09-2015 Chronic Esophageal disorders (1 source) Gastroesophageal reflux disease; Translations: [Gastro-esophageal reflux disease without esophagitis] 09-06-2020 Chronic Essential hypertension (20 sources) Essential (primary) hypertension; Translations: [Hypertensive disorder] Onset: 3 03-17-2014 Chronic Headache; including migraine (1 source) Migraine; Translations: [Migraine, unspecified, not intractable, without status migrainosus] 04-21-2020 Chronic Headache; including migraine (20 sources) Frequent headache; Translations: [Headache disorder] Onset: 3 03-11-2021 Episodic Headache; including migraine (1 source) Headache; including migraine; Translations: [Mixed headache] Onset: 5 Intestinal infection (1 source) Viral gastroenteritis; Translations: [Viral intestinal infection, unspecified] 02-20-2025 Episodic Lymphadenitis (1 source) Lymphadenopathy; Translations: [Enlarged lymph nodes, unspecified] Onset: 3 Episodic Medical examination/evaluatio n (1 source) Encounter for other preprocedural examination; Translations: [Encounter for other preprocedural examination] Onset: 8 Episodic Miscellaneous mental health disorders (20 sources) Chronic insomnia; Translations: [Psychophysiologic insomnia] Onset: 0 08-15-2019 Chronic Mood disorders (16 sources) Depressive disorder 08-17-2014 Chronic Mycoses (19 sources) Mycosis; Translations: [Renal tract candidiasis] 09-09-2020 Episodic Nausea and vomiting (1 source) Nausea, vomiting and diarrhea; Translations: [Nausea with vomiting, unspecified] 09-13-2024 Episodic Nonmalignant breast conditions (1 source) Lump in lower inner quadrant of left breast; Translations: [Unspecified lump in the left breast, lower inner quadrant] 09-20-2023 Episodic Nonspecific chest pain (9 sources) Chest pain 07-14-2017 Episodic Nutritional deficiencies (20 sources) Vitamin D deficiency; Translations: [Vitamin D deficiency, unspecified] Onset: 6 12-16-2015 Chronic Osteoarthritis (20 sources) Arthritis; Translations: [Osteoarthritis of right knee joint] Onset: 4 04-12-2016 Chronic Other bone disease and musculoskeletal deformities (2 sources) Juvenile osteochondrosis of metatarsus, left foot; Translations: [Juvenile osteochondrosis of metatarsus, left foot] Onset: 2 Chronic Other connective tissue disease (8 sources) Spasm 11-01-2021 Episodic Other connective tissue disease (1 source) Pain in left foot; Translations: [Pain in left foot] Episodic Other connective tissue disease (2 sources) Pain in left foot; Translations: [Pain in left foot] Onset: 2 Episodic Other ear and sense organ disorders (1 source) Otitis externa; Translations: [Unspecified otitis externa, left ear] Onset: 2 Chronic Other female genital disorders (2 sources) Lesion of vulva; Translations: [Other specified noninflammatory disorders of vulva and perineum] Episodic Other injuries and conditions due to external causes (1 source) Unspecified injury of right foot, initial encounter; Translations: [Unspecified injury of right foot, initial encounter] Onset: 4 Episodic Other nervous system disorders (1 source) Ulnar neuropathy; Translations: [Lesion of ulnar nerve, left upper limb] Chronic Other nervous system disorders (20 sources) Bilateral carpal tunnel syndrome; Translations: [Carpal tunnel syndrome, bilateral upper limbs] Onset: 8 02-12-2018 Chronic Other nervous system disorders (7 sources) Carpal tunnel syndrome 05-16-2023 Chronic Other nervous system disorders (9 sources) Paresthesia of hand 05-04-2021 Episodic Other non-traumatic joint disorders (1 source) Hip pain; Translations: [Pain in left hip] 07-14-2023 Episodic Other non-traumatic joint disorders (2 sources) Ankle joint pain; Translations: [Pain in unspecified ankle and joints of unspecified foot] Onset: 4 Episodic Other nutritional; endocrine; and metabolic disorders (1 source) Morbid (severe) obesity due to excess calories; Translations: [Morbid (severe) obesity due to excess calories] Onset: 7 Chronic Other nutritional; endocrine; and metabolic disorders (20 sources) Morbid obesity; Translations: [Morbid (severe) obesity due to excess calories] Onset: 8 04-12-2016 Chronic Other nutritional; endocrine; and metabolic disorders (20 sources) Body mass index 40+ - severely obese; Translations: [Morbid (severe) obesity due to excess calories] Onset: 7 01-11-2017 Chronic Other screening for suspected conditions (not mental disorders or infectious disease) (9 sources) Patient encounter status; Translations: [Encounter for screening for lipoid disorders] Onset: 4 09-20-2023 Episodic Other skin disorders (3 sources) Mass of skin of left lower limb; Translations: [Localized swelling, mass and lump, left lower limb] 09-20-2023 Episodic Other skin disorders (3 sources) Mass of skin of right lower limb; Translations: [Localized swelling, mass and lump, right lower limb] 10-02-2023 Episodic Other skin disorders (2 sources) Skin lesion; Translations: [Disorder of the skin and subcutaneous tissue, unspecified] 10-02-2023 Episodic Other skin disorders (1 source) Axillary hidradenitis suppurativa; Translations: [Hidradenitis suppurativa] 03-17-2025 Episodic Other skin disorders (1 source) Hidradenitis suppurativa; Translations: [Hidradenitis suppurativa of right axilla] Onset: 5 Episodic Other upper respiratory disease (7 sources) Seasonal allergy 05-16-2023 Chronic Other upper respiratory infections (1 source) Acute upper respiratory infection; Translations: [Acute upper respiratory infection, unspecified] Onset: 1 Episodic Otitis media and related conditions (1 source) Otitis media; Translations: [Otitis media, unspecified, unspecified ear] Onset: 4 Episodic Residual codes; unclassified (9 sources) Edema of foot 03-14-2017 Episodic Residual codes; unclassified (15 sources) Did not attend 10-25-2021 Episodic Comment on above: 10/25/21 5.31.22 07/26/2022 05/09/2023 07/25/2023 Residual codes; unclassified (8 sources) Insomnia 11-01-2021 Episodic Residual codes; unclassified (7 sources) Increased body mass index 05-16-2023 Episodic Retinal detachments; defects; vascular occlusion; and retinopathy (20 sources) Central serous chorioretinopathy; 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, right eye] Onset: 4 11-16-2022 Chronic Screening and history of mental health and substance abuse codes (15 sources) Ex-smoker 11-01-2021 Episodic Sexually transmitted infections (not HIV or hepatitis) (1 source) Human papilloma virus deoxyribonucleic acid test positive, high risk on vaginal specimen; Translations: [Vaginal high risk human papillomavirus (HPV) DNA test positive] Episodic Skin and subcutaneous tissue infections (3 sources) Abscess of right axilla 03-22-2022 Episodic Spondylosis; intervertebral disc disorders; other back problems (1 source) Disorder of joint of spine; Translations: [Other spondylosis with radiculopathy, lumbar region] 09-20-2023 Chronic Spondylosis; intervertebral disc disorders; other back problems (6 sources) Low back pain; Translations: [Acute low back pain] 12-17-2021 Episodic Sprains and strains (5 sources) Sprain of knee; Translations: [Sprain of unspecified site of right knee, initial encounter] Onset: 4 05-16-2019 Episodic Unclassified (1 source) Carpal tunnel syndrome, bilateral upper limbs; Translations: [Carpal tunnel syndrome, bilateral upper limbs] Onset: 8 Unclassified (16 sources) History of bypass of stomach 10-21-2020 Unclassified (3 sources) Contusion of left foot 04-09-2022 Unclassified (7 sources) Non-smoker 05-16-2023 Unclassified (20 sources) Patient encounter status 01-16-2023 Unclassified (7 sources) Vaccination needed 05-16-2023 Unclassified (1 source) Minor Injuries (Sprains, Strains, Minor Joint Pain) Onset: 4 Viral infection (9 sources) Herpetic vulvovaginitis; Translations: [Genital herpes simplex] Onset: 5 01-16-2023 Chronic Past or Other Problems Problem Classification Problem Date Documented Da te Episodic/Chronic Conditions associated with dizziness or vertigo (20 sources) Dizziness; Translations: [Dizziness and giddiness] Onset: 1 Resolved: 8 02-14-2018 Episodic Gastrointestinal hemorrhage (20 sources) Rectal hemorrhage; Translations: [Hemorrhage of anus and rectum] Onset: 7 05-10-2017 Episodic Hypertension complicating ; childbirth and the puerperium (20 sources) Benign essential hypertension in obstetric context; Translations: [Pre-existing essential hypertension complicating , unspecified trimester] Onset: 9 Resolved: 1 08-03-2009 Chronic Immunizations and screening for infectious disease (5 sources) Requires vaccination; Translations: [Encounter for immunization] Onset: 4 Episodic Joint disorders and dislocations; trauma-related (20 sources) Dislocation of temporomandibular joint; Translations: [Dislocation of jaw, unspecified side, initial encounter] Onset: 2 06-29-2012 Episodic Malaise and fatigue (2 sources) Tired; Translations: [Other fatigue] Onset: 4 04-22-2024 Episodic Nutritional deficiencies (20 sources) Cobalamin deficiency; Translations: [Deficiency of other specified B group vitamins] Onset: 2 06-29-2012 Episodic Other complications of (20 sources) Supervision of other high risk pregnancies, unspecified trimester; Translations: [Supervision of other high-risk ] Onset: 9 Resolved: 1 08-03-2009 Episodic Other complications of (20 sources) Headache; Translations: [Other specified related conditions, unspecified trimester] Onset: 1 Resolved: 1 05-20-2011 Episodic Other connective tissue disease (20 sources) Impingement syndrome of left shoulder region; Translations: [Impingement syndrome of left shoulder] Onset: 7 11-17-2016 Episodic Other connective tissue disease (1 source) Myofascial pain; Translations: [Myalgia, other site] Onset: 0 04-22-2010 Episodic Other infections; including parasitic (20 sources) History of human papilloma virus infection; Translations: [Personal history of other infectious and parasitic diseases] Onset: 4 09-20-2023 Episodic Other non-traumatic joint disorders (20 sources) Acromioclavicular joint pain; Translations: [Pain in unspecified shoulder] Onset: 3 05-02-2013 Episodic Other non-traumatic joint disorders (20 sources) Shoulder pain; Translations: [Pain in unspecified shoulder] Onset: 2 Resolved: 8 02-14-2018 Episodic Other and delivery including normal (20 sources) Normal in primigravida; Translations: [Encounter for supervision of normal first , unspecified trimester] Onset: 6 Resolved: 7 12-20-2006 Episodic Residual codes; unclassified (20 sources) History of sleeve gastrectomy; Translations: [Acquired absence of stomach [part of]] Onset: 4 09-20-2023 Episodic Viral infection (20 sources) Herpes simplex type 2 infection; Translations: [Herpesviral infection, unspecified] Onset: 4 09-20-2023 Episodic Results Test Name Value Interpretation Reference Range Facility 25(OH)D3 [facility] 2024 25-hydroxyvitamin D3 [Mass/Vol] 33.4 ng/mL Normal 31.0-80.0 [facility] Comment on above: Order Comment: Deborah reaves Type: BLOOD SPECIMENOrdering Facility: [facility] Address: [address] [place] [address] Performed By: #### 1 989-3 ####[facility] [id number] [place] [address] [place] CBC W Auto Differential pane l (Bld)on 03-17-2025 Basophils (Bld) [#/Vol] 0.06 10*3/uL Normal <0.11 [facility] Comment on above: Order Comment: Deborah reaves Type: BLOOD SPECIMENOrdering Facility: [facility] Address: [address] [place] [address] Performed By: #### 5 7021-8 ####[facility] [id number] [place] [address] [place] Basophils/100 WBC (Bld) 0.7 % Normal [facility] Comment on above: Order Comment: Speci men Type: BLOOD SPECIMENOrdering Facility: [facility] Address: [address] [place] [address] Performed By: #### 5 7021-8 ####[facility] [id number] [place] [address] [place] Differential cell count method Nom (Bld) Auto Normal [facility] Comment on above: Order Comment: Speci men Type: BLOOD SPECIMENOrdering Facility: [facility] Address: [address] [place] [address] Performed By: #### 5 7021-8 ####[facility] [id number] [place] [address] [place] Eosinophils (Bld) [#/Vol] 0.16 10*3/uL Normal <0.46 [facility] Comment on above: Order Comment: Speci men Type: BLOOD SPECIMENOrdering Facility: [facility] Address: [address] [place] [address] Performed By: #### 5 7021-8 ####[facility] [id number] [place] [address] [place] Eosinophils/100 WBC (Bld) 1.8 % Normal [facility] Comment on above: Order Comment: Speci men Type: BLOOD SPECIMENOrdering Facility: [facility] Address: [address] [place] [address] Performed By: #### 5 7021-8 ####[facility] [id number] [place] [address] [place] Erythrocyte distribution width (RBC) [Ratio] 11.8 % Normal 11.5-15.0 [facility] Comment on above: Order Comment: Speci men Type: BLOOD SPECIMENOrdering Facility: [facility] Address: [address] [place] [address] Performed By: #### 5 7021-8 ####[facility] [id number] [place] [address] [place] Hematocrit (Bld) [Volume fraction] 41.7 % Normal 36.0-46.0 [facility] Comment on above: Order Comment: Speci men Type: BLOOD SPECIMENOrdering Facility: [facility] Address: [address] [place] [address] Performed By: #### 5 7021-8 ####[facility] [id number] [place] [address] [place] Hemoglobin (Bld) [Mass/Vol] 13.8 g/dL Normal 11.5-15.5 [facility] Comment on above: Order Comment: Speci men Type: BLOOD SPECIMENOrdering Facility: [facility] Address: [address] [place] [address] Performed By: #### 5 7021-8 ####[facility]IA [id number] [place] [address] [place] Immature granulocytes (Bld) [#/Vol] 10*3/uL Normal <0.10 [facility] Comment on above: Order Comment: Speci men Type: BLOOD SPECIMENOrdering Facility: [facility] Address: [address] [place] [address] Performed By: #### 5 7021-8 ####[facility]IA [id number] [place] [address] [place] Immature granulocytes/100 WBC (Bld) 0.2 % Normal [facility] Comment on above: Order Comment: Speci men Type: BLOOD SPECIMENOrdering Facility: [facility] Address: [address] [place] [address] Performed By: #### 5 7021-8 ####[facility] [id number] [address], [place] [address] [place] Lymphocytes (Bld) [#/Vol] 2.48 10*3/uL Normal 1.00-4.00 [facility] Comment on above: Order Comment: Speci men Type: BLOOD SPECIMENOrdering Facility: [facility] Address: [address] [place] [address] Performed By: #### 5 7021-8 ####[facility] [id number] [address], [place] [address] [place] Lymphocytes/100 WBC (Bld) 27.9 % Normal [facility] Comment on above: Order Comment: Speci men Type: BLOOD SPECIMENOrdering Facility: [facility] Address: [address] [place] [address] Performed By: #### 5 7021-8 ####[facility] [id number] [address], [facility] [place] MCH (RBC) [Entitic mass] 31.6 pg Normal 26.0-34.0 [facility] Comment on above: Order Comment: Speci men Type: BLOOD SPECIMENOrdering Facility: [facility] Address: [address] [place] [address] Performed By: #### 5 7021-8 ####[facility] [id number] [address], [facility] [place] MCHC (RBC) [Mass/Vol] 33.1 g/dL Normal 30.5-36.0 [facility] Comment on above: Order Comment: Speci men Type: BLOOD SPECIMENOrdering Facility: [facility] Address: [address] [place] [address] Performed By: #### 5 7021-8 ####[facility]CL[facility] [id number] [place] [id number] [place] MCV (RBC) [Entitic vol] 95.4 fL Normal 80.0-100.0 [facility] Comment on above: Order Comment: Speci men Type: BLOOD SPECIMENOrdering Facility: [facility] Address: [address] [place] [address] Performed By: #### 5 7021-8 ####[facility] [id number] [facility] [place] [address] [place] Monocytes (Bld) [#/Vol] 0.62 10*3/uL Normal <0.87 [facility] Comment on above: Order Comment: Speci men Type: BLOOD SPECIMENOrdering Facility: [facility] Address: [address] [place] [address] Performed By: #### 5 7021-8 ####[facility] [id number] [place] [address] [place] Monocytes/100 WBC (Bld) 7.0 % Normal [facility] Comment on above: Order Comment: Speci men Type: BLOOD SPECIMENOrdering Facility: [facility] Address: [address] [place] [address] Performed By: #### 5 7021-8 ####[facility] [id number] [facility] [address], [place] [address] [place] Neutrophils (Bld) [#/Vol] 5.56 10*3/uL Normal 1.45-7.50 [facility] Comment on above: Order Comment: Speci men Type: BLOOD SPECIMENOrdering Facility: [facility] Address: [address] [place] [address] Performed By: #### 5 7021-8 ####[facility] [id number] [facility] [place] [address] [place] Neutrophils/100 WBC (Bld) 62.4 % Normal [facility] Comment on above: Order Comment: Speci men Type: BLOOD SPECIMENOrdering Facility: [facility] Address: [address] [place] [address] Performed By: #### 5 7021-8 ####[facility] [id number] [place] [address] [place] Nucleated RBC (Bld) [#/Vol] 10*3/uL Normal <0.01 [facility] Comment on above: Order Comment: Speci men Type: BLOOD SPECIMENOrdering Facility: [facility] Address: [address] [place] [address] Performed By: #### 5 7021-8 ####[facility] [id number] [place] [address] [place] Nucleated RBC/100 WBC (Bld) [Ratio] 0.0 /100 WBC Normal [facility] Comment on above: Order Comment: Speci men Type: BLOOD SPECIMENOrdering Facility: [facility] Address: [address] [place] [address] Performed By: #### 5 7021-8 ####[facility]IA [id number] [place] [address] [place] Platelet mean volume (Bld) [Entitic vol] 9.9 fL Normal 9.0-12.7 [facility] Comment on above: Order Comment: Speci men Type: BLOOD SPECIMENOrdering Facility: [facility] Address: [address] [place] [address] Performed By: #### 5 7021-8 ####[facility] [id number] [place] [id number] [place] Platelets (Bld) [#/Vol] 386 10*3/uL Normal 150-400 [facility] Comment on above: Order Comment: Speci men Type: BLOOD SPECIMENOrdering Facility: [facility] Address: [address] [place] [address] Performed By: #### 5 7021-8 ####[facility]CL[facility] [id number] [place] [address] [place] RBC (Bld) [#/Vol] 4.37 10*6/uL Normal 3.90-5.20 [facility] Comment on above: Order Comment: Speci men Type: BLOOD SPECIMENOrdering Facility: [facility] Address: [address] [place] [address] Performed By: #### 5 7021-8 ####[facility] [id number] [place] [address] [place] WBC (Bld) [#/Vol] 8.90 10*3/uL Normal 3.70-11.00 [facility] Comment on above: Order Comment: Speci men Type: BLOOD SPECIMENOrdering Facility: [facility] Address: [address] [place] [address] Performed By: #### 5 7021-8 ####[facility] [id number] [address] [place] CNOVon 03-17-2025 CNOV Office Visit (FAMPWS ) EMILY NGUYEN ([id number]) 1985 F Date Time Provider Department 03/17/25 8:00 AM MARLI MARIE During your visit today, we recorded the following information about you: Pulse Respiration Blood pressure Weight 60/minute 18/minute 164/100 126.3 kg Height 1.603 m Marli Marie APRN.CNP 03/17/2025 9:19 AM Signed 03/17/2025 Patient presents with: Establish Care Recording using ambient AI software for draft documentation of the visit was discussed with the patient/authorized ict sales representative; all questions welcomed and answered. Patient/authorized ict sales representative agreed to proceed SUBJECTIVE: This is a 39 year old that is here today for Above Complaints. Axillary Lump: - Painful lump in the axilla x1.5 weeks. - No drainage noted; pain has decreased slightly over the past few days. - Denies previous similar lumps in the axilla; has had similar lumps in the groin area that have drained in the past. - Family history of hidradenitis suppurativa in mother, sister, and grandmother. Hypertension: - Managed with metoprolol succinate and losartan. - Discontinued amlodipine due to dizziness. - Home BP readings typically around 123/90 mmHg. - Took BP medications less than an hour before the appointment. - denies fevers, chills, or drainage from area - Reports constant thirst and sweating, attributing to BP medications. Migraines: - Migraines began during ; currently managed with Fioricet. - Denies use of other migraine medications. Anxiety and Depression: - Managed with Cymbalta 60 mg daily and bupropion 150 mg BID. - Reports ongoing symptoms of anxiety and depression. - Expresses interest in ADHD testing due to difficulty organizing thoughts and tasks. B12 Deficiency: - Last B12 injection was 3 months ago; requests a refill. Lifestyle: - Former smoker; denies current smoking or vaping. - Consumes alcohol occasionally, about once a month, typically 2 glasses of wine. - Denies drug use. - No specific diet or exercise routine. - Weight is stable. - with three children. - Currently unemployed. 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 lidocaine (LIDODERM) 5 % Apply 1 patch as directed once daily. to affected area. Remove patch after 12 hours. valACYclovir (VALTREX) 1 gram tablet Take 1 tablet by mouth once daily. losartan (COZAAR) 100 mg tablet Take 1 tablet by mouth once daily. metoprolol succinate ER (TOPROL XL) 100 mg Take 1 tablet by mouth once daily. cyanocobalamin 1,000 mcg/mL Inject 1 mL intramuscularly once every month. buPROPion SR (WELLBUTRIN SR) 150 mg 12 hr tablet Take 1 tablet by mouth two times a day. tiZANidine (ZANAFLEX) 4 mg tablet Take 1 tablet by mouth every 8 hours as needed (muscle spasms). multivitamin-ferrous sulfate 18 mg iron tab Take by mouth once daily. Calcium Citrate-Vitamin D2 1,500-200 mg-unit tab Take 1 tablet by mouth once daily. Cholecalciferol, Vitamin D3, (VITAMIN D-3) 400 unit chew Take by mouth once daily. SUMAtriptan (IMITREX) 50 mg tablet Take 1 tablet by mouth as needed for migraine headache (see administration instructions). May repeat dose after 2 hours if needed. Maximum daily dose is 200 mg per day. doxycycline hyclate (VIBRAMYCIN) 100 mg capsule Take 1 capsule by mouth two times a day for 10 days. amLODIPine (NORVASC) 10 mg tablet Take 1 tablet by mouth once daily. (Patient not taking: Reported on 03/17/2025) Current Facility-Administered Medications Medication Dose Route Frequency cyanocobalamin 1,000 mcg injection 1,000 mcg INTRAMUSCULAR q 4 WEEKS Medications and allergies reviewed by this provider. SOCIAL HISTORY SOCIAL HISTORY[1] REVIEW OF SYSTEMS GENERAL: No weight loss, malaise or fevers HEENT: No changes in hearing or vision, no nose bleeds or other nasal problems NECK: Negative for lumps, goiter, pain and significant neck swelling RESPIRATORY: Negative for cough, hemoptysis, wheezing, COPD, dyspnea or shortness of breath CARDIOVASCULAR: Negative for chest pain, leg swelling, hypertension, CHF or palpitations GI: No nausea, vomi (more content not included)... Normal [facility] Comprehensive metabolic 2000 panelon 03-17-2025 Albumin [Mass/Vol] 4.1 g/dL Normal 3.9-4.9 [facility] Comment on above: Order Comment: Speci men Type: BLOOD SPECIMENOrdering Facility: [facility] Address: [address] [place], [place] [address] Performed By: #### 2 4323-8, 62213-1, 2132-03 ####[facility] LABCLIA [id number] [place] [id number] [place] ALP [Catalytic activity/Vol] 89 U/L Normal 34-123 [facility] Comment on above: Order Comment: Speci men Type: BLOOD SPECIMENOrdering Facility: [facility] Address: [address] [place] [address] Performed By: #### 2 4323-8, 94020-5, 2132-03 ####[facility] LABIA [id number] [place] [address] [place] ALT [Catalytic activity/Vol] 15 U/L Normal 7-38 [facility] Comment on above: Order Comment: Speci men Type: BLOOD SPECIMENOrdering Facility: [facility] Address: [address] [place] [address] Performed By: #### 2 4323-8, 93228-5, 2132-03 ####[facility] LABIA [id number] [place] [address] [place] Anion gap [Moles/Vol] 15 mmol/L Normal 8-15 [facility] Comment on above: Order Comment: Speci men Type: BLOOD SPECIMENOrdering Facility: [facility] Address: [address] [place], [place] [address] Performed By: #### 2 4323-8, 64283-1, 2132-03 ####[facility] LABIA [id number] [place] [id number] [place] AST [Catalytic activity/Vol] 15 U/L Normal 13-35 [facility] Comment on above: Order Comment: Speci men Type: BLOOD SPECIMENOrdering Facility: [facility] Address: [address] [place], [place] [address] Performed By: #### 2 4323-8, , 2132-03 ####[facility] LABCLIA [id number] [address] [address] [place] Bilirubin [Mass/Vol] 0.4 mg/dL Normal 0.2-1.3 [facility] Comment on above: Order Comment: Speci men Type: BLOOD SPECIMENOrdering Facility: [facility] Address: [address] [place], [place] [address] Performed By: #### 2 432-8, , 2132-03 ####[facility] LABCLIA [id number] [address] [address] [place] Calcium [Mass/Vol] 9.1 mg/dL Normal 8.5-10.2 [facility] Comment on above: Order Comment: Speci men Type: BLOOD SPECIMENOrdering Facility: [facility] Address: [address] [place], [place] [address] Performed By: #### 2 432-8, , 2132-03 ####[facility] LABCLIA [id number] [address] [address] [place] Chloride [Moles/Vol] 103 mmol/L Normal 98-107 [facility] Comment on above: Order Comment: Speci men Type: BLOOD SPECIMENOrdering Facility: [facility] Address: [address] [place], [place] [address] Performed By: #### 2 4323-8, , 2132-03 ####[facility] LABCLIA [id number] [address] [address] [place] CO2 [Moles/Vol] 22 mmol/L Normal 22-30 [facility] Comment on above: Order Comment: Speci men Type: BLOOD SPECIMENOrdering Facility: [facility] Address: [address] [place], [place] [address] Performed By: #### 2 4323-8, , 2132-03 ####[facility] LABCLIA [id number] [address] [address] [place] Creatinine [Mass/Vol] 0.72 mg/dL Normal 0.58-0.96 [facility] Comment on above: Order Comment: Deborah reaves Type: BLOOD SPECIMENOrdering Facility: [facility] Address: [address] [place] [address] Performed By: #### 2 4323-8, 67781-0, 2132-03 ####[facility] [id number] [address] [address] [place] eGFRcr SerPlBld CKD-EPI 2020 108 mL/min/1.73m??? Normal >=60 [facility] Comment on above: Order Comment: Deborah reaves Type: BLOOD SPECIMENOrdering Facility: [facility] Address: [address] [place] [address] Result Comment: Laina mated Glomerular Filtration Rate (eGFR) is calculated using the 2020 CKD-EPI creatinine equation. This equation utilizes serum creatinine, sex, and age as parameters. The creatinine assay has traceable calibration to isotope dilution-mass spectrometry. Refer to KDIGO guidelines for clinical interpretation. In patients with unstable renal function, e.g. those with acute kidney injury, the eGFR may not accurately reflect actual GFR. Performed By: #### 2 4323-8, 14584-4, 2132-03 ####[facility] [id number] [address] [address] [place] Glucose [Mass/Vol] 89 mg/dL Normal 74-99 [facility] Comment on above: Order Comment: Deborah jean paul Type: BLOOD SPECIMENOrdering Facility: [facility] Address: [address] [place] [address] Result Comment: The [place] Diabetes Association (ADA) provides guidance for cutoff values for fasting glucose and random glucose. The ADA defines fasting as no caloric intake for at least 8 hours. Fasting plasma glucose results between 100 to 125 mg/dL indicate increased risk for diabetes (prediabetes). Fasting plasma glucose results greater than or equal to 126 mg/dL meet the criteria for diagnosis of diabetes. In the absence of unequivocal hyperglycemia, results should be confirmed by repeat testing. In a patient with classic symptoms of hyperglycemia or hyperglycemic crisis, random plasma glucose results greater than or equal to 200 mg/dL meet the criteria for diagnosis of diabetes. Reference: Standards of Medical Care in Diabetes 2016, [place] Diabetes Association. Diabetes Care. 2016.39(Suppl 1). Performed By: #### 2 4323-8, , 2132-03 ####[facility] LABCLIA [id number] [place] [address] [place] Potassium [Moles/Vol] 4.0 mmol/L Normal 3.7-5.1 [facility] Comment on above: Order Comment: Speci men Type: BLOOD SPECIMENOrdering Facility: [facility] Address: [address] [place] [address] Performed By: #### 2 4323-8, , 2132-03 ####[facility] LABCLIA [id number] [place] [address] [place] Protein [Mass/Vol] 6.8 g/dL Normal 6.3-8.0 [facility] Comment on above: Order Comment: Delli jean paul Type: BLOOD SPECIMENOrdering Facility: [facility] Address: [address] [place] [address] Performed By: #### 2 4323-8, , 2132-03 ####[facility] LABCLIA [id number] [place] [address] [place] Sodium [Moles/Vol] 140 mmol/L Normal 136-144 [facility] Comment on above: Order Comment: Speci men Type: BLOOD SPECIMENOrdering Facility: [facility] Address: [address] [place] [address] Performed By: #### 2 4323-8, , 2132-03 ####[facility]CLIA [id number] [address] [address] [place] Urea nitrogen [Mass/Vol] 12 mg/dL Normal 7-21 [facility] Comment on above: Order Comment: Deborah reaves Type: BLOOD SPECIMENOrdering Facility: [facility] Address: [address] [place] [address] Performed By: #### 2 4323-8, 78073-2, 2132-9 ####[facility] LABCLIA [id number] [address] [place] HbA1c (Bld)on 03-17-2025 Average glucose Estimated from glycated hemoglobin (Bld) [Mass/Vol] 94 mg/dL Normal [facility] Comment on above: Order Comment: Deborah reaves Type: BLOOD SPECIMENOrdering Facility: [facility] Address: [address] [place] [address] Result Comment: eAG: (Estimated average glucose) is a calculated value from HgbA1c and is ict sales representative of the average blood glucose level in the last 2-3 month period. Performed By: #### 5 5454-3 ####[facility] LABIA [id number] [address] [place] HbA1c (Bld) [Mass fraction] 4.9 % Normal 4.3-5.6 [facility] Comment on above: Order Comment: Deborah reaves Type: BLOOD SPECIMENOrdering Facility: [facility] Address: [address] [place] [address] Result Comment: [place] Diabetes Association guidelines indicate that patients with HgbA1c in the range 5.7-6.4% are at increased risk for development of diabetes, and intervention by lifestyle modification may be beneficial. HgbA1c greater or equal to 6.5% is considered diagnostic of diabetes. Performed By: #### 5 5454-3 ####[facility] LABIA [id number] [place] [address] [place] Lipid 1996 panelon Cholesterol [Mass/Vol] 138 mg/dL Normal <200 [facility] Comment on above: Order Comment: Deborah jean paul Type: BLOOD SPECIMENOrdering Facility: [facility] Address: [address] [place] [address] Result Comment: <200 mg/dL, Desirable 200-239 mg/dL, Borderline high >239 mg/dL, High Performed By: #### 2 4323-8, 72568-8, 2132-03 ####[facility] LABCLIA [id number] [facility] [place] [id number] [address] [place] Cholesterol in HDL [Mass/Vol] 53 mg/dL Normal >39 [facility] Comment on above: Order Comment: Speci men Type: BLOOD SPECIMENOrdering Facility: [facility] Address: [address] [place] [address] Result Comment: 40-5 9 mg/dL, Acceptable >59 mg/dL, High: Negative risk factor for coronary heart disease <40 mg/dL, Low: Positive risk factor for coronary heart disease Performed By: #### 2 4323-8, , 2132-03 ####[facility] LABCLIA [id number] [address] [place] [address] [place] Cholesterol in LDL [Mass/Vol] 68 mg/dL Normal <100 [facility] Comment on above: Order Comment: Delli men Type: BLOOD SPECIMENOrdering Facility: [facility] Address: [address] [place] [address] Result Comment: <100 mg/dL, Optimal 100-129 mg/dL, Near optimal/above optimal 130-159 mg/dL, Borderline high 160-189 mg/dL, High >189 mg/dL, Very high Secondary prevention optimal LDL Cholesterol levels are recommended to be <70 mg/dL LDL cholesterol is calculated using the Brantley-NIH equation. Performed By: #### 2 4323-8, 53178-1, 2132-03 ####[facility] LABCLIA [id number] [facility] [address] [place] [address] [place] Cholesterol in LDL/Cholesterol in HDL [Mass ratio] 1.28 {ratio} Normal <2.54 [facility] Comment on above: Order Comment: Speci men Type: BLOOD SPECIMENOrdering Facility: [facility] Address: [address] [place] [address] Result Comment: Sherice boyer: 1. National Cholesterol Education Program ATP III Guideline At-A-Glance Quick Desk Reference: National Heart, Lung, and Blood Grant. National Institutes of Health. 2001: NIH Publication No. 01-3305. 2. An International Atherosclerosis Society position paper: global recommendations for the management of dyslipidemia: executive summary, Atherosclerosis. 2014: 232(2):410-413. Performed By: #### 2 4323-8, 03159-8, 2132-03 ####[facility] LABCLIA [id number] [address] [address] [place] Cholesterol in VLDL [Mass/Vol] 13 mg/dL Normal <30 [facility] Comment on above: Order Comment: Speci men Type: BLOOD SPECIMENOrdering Facility: [facility] Address: [address] [place] [address] Performed By: #### 2 4323-8, , 2132-03 ####[facility] LABCLIA [id number] [address] [address] [place] Cholesterol non HDL [Mass/Vol] 85 mg/dL Normal <130 [facility] Comment on above: Order Comment: Speci men Type: BLOOD SPECIMENOrdering Facility: [facility] Address: [address] [place] [address] Result Comment: <130 mg/dL, Optimal 130-159 mg/dL, Near optimal/above optimal 160-189 mg/dL, Borderline high 190-219 mg/dL, High >219 mg/dL, Very high Secondary prevention optimal non HDL Cholesterol levels are recommended to be <100 mg/dL Performed By: #### 2 4323-8, , 2132-03 ####[facility] LABCLIA [id number] [address] [address] [place] Cholesterol.total/Ch olesterol in HDL [Mass ratio] 2.60 {ratio} Normal <5.10 [facility] Comment on above: Order Comment: Speci men Type: BLOOD SPECIMENOrdering Facility: [facility] Address: [address] [place] [id number] Performed By: #### 2 4323-8, , 2132-03 ####[facility] LABCLIA [id number] [address] [address] [place] FASTING TIME 7 hrs Normal [facility] Comment on above: Order Comment: Speci men Type: BLOOD SPECIMENOrdering Facility: [facility] Address: [address] [place] [address] Performed By: #### 2 4323-8, , 2132-03 ####[facility] LABCLIA [id number] [address] [address] [place] Triglyceride [Mass/Vol] 88 mg/dL Normal <150 [facility] Comment on above: Order Comment: Speci men Type: BLOOD SPECIMENOrdering Facility: [facility] Address: [address] [place], [place] [address] Result Comment: <150 mg/dL, Normal 150-199 mg/dL, Borderline high 200-499 mg/dL, High >499 mg/dL, Very high Performed By: #### 2 4323-8, , 2132-03 ####[facility] LABCLIA [id number] [address] [address] [place] Vit [facility]2 025 Cobalamin (Vitamin B12) [Mass/Vol] 271 pg/mL Normal 232-1245 [facility] Comment on above: Order Comment: Speci men Type: BLOOD SPECIMENOrdering Facility: [facility] Address: [address] [place] [id number] Performed By: #### 2 4323-8, , 2132-03 ####[facility] LABCLIA [id number] [address] [address] [place] CNCOon 09-13-2024 CNCO Letter Text Normal [facility] CNPNon 08-29-2024 [facility] Telephone (AGGENS4) EMILY NGUYEN ([id number]) 1985 F Date Time Provider Department 08/29/24 [facility] PROVIDER AGGENS4 During your visit today, we recorded the following information about you: Broderick Traore 08/29/2024 4:09 PM Signed Pt. Update 08.29.24- Bariatric portal call left message as well as sent email with phon numbers for pt. To call for appte Allergies As of Date: 08/29/2024 Noted Allergy Reaction ESPERANZA INHIBITORS 05/21/2014 3 - Cough AMOXACILLIN (AMOXICILLIN) 12/25/2006 5 - Intolerance Comments: Yeast infection STEROIDS (CORTICOSTEROIDS (GLUCOC*01/05/2023 14 - Other: See Comments Comments: Loss of vision-central serous chorioretinopathy Date Reviewed: 05/15/2024 Reviewed by: Eric Tellez MA - Fully Assessed Reason for Visit: Patient Update [1234] Prescriptions as of 08/29/2024 - acetaminophen 325 mg-caffeine 40 mg-butalbital 50 mg (FIORICET) per tablet Take 1 tablet by mouth every 4 hours as needed for up to 90 days. - losartan (COZAAR) 100 mg tablet Take 1 tablet by mouth once daily. - metoprolol succinate ER (TOPROL XL) 100 mg Take 1 tablet by mouth once daily. - ergocalciferol 50,000 unit capsule (VITAMIN D2, DRISDOL) Take 1 capsule by mouth one time a week. - amLODIPine (NORVASC) 10 mg tablet Take 1 tablet by mouth once daily. - cyanocobalamin 1,000 mcg/mL Inject 1 mL intramuscularly once every month. - DULoxetine (CYMBALTA) 60 mg capsule Take 1 capsule by mouth once daily. - valACYclovir (VALTREX) 1 gram tablet Take 1 tablet by mouth once daily. - buPROPion SR (WELLBUTRIN SR) 150 mg 12 hr tablet Take 1 tablet by mouth two times a day. - tiZANidine (ZANAFLEX) 4 mg tablet Take 1 tablet by mouth every 8 hours as needed (muscle spasms). - traZODone (DESYREL) 100 mg tablet Take 1 tablet by mouth daily at bedtime. - lidocaine (LIDODERM) 5 % Apply 1 Patch as directed once daily. to affected area. Remove patch after 12 hours. - multivitamin-ferrous sulfate 18 mg iron tab Take by mouth once daily. - Calcium Citrate-Vitamin D2 1,500-200 mg-unit tab Take 1 tablet by mouth once daily. - Cholecalciferol, Vitamin D3, (VITAMIN D-3) 400 unit chew Take by mouth once daily. Facility-Administered Medications as of 08/29/2024 - cyanocobalamin 1,000 mcg injection Problem List As Of Date 08/29/2024 Noted Resolved SUPERVIS NORMAL 1ST PREG [Z34.00] 05/16/2006 12/20/2006 Supervision of Other High-Risk [O09.8*02/09/2009 08/03/2009 Prev K-Bwrdsnve-Pvujbnr [O34.219] 02/09/2009 08/03/2009 Benign Essential Hypertension Antepartum [O10.0*02/09/2009 08/03/2009 SUPRF HIGH RISK NEC [V23.89] [O09.899]10/28/2010 05/20/2011 Previous section [Z98.891] 11/29/2010 05/20/2011 Hypertension in , antepartum [O16.9] 11/29/2010 05/20/2011 Headache in , antepartum [O26.899, R51*03/17/2011 05/20/2011 Dizziness, nonspecific [R42] 03/17/2011 02/14/2018 B12 deficiency [E53.8] TMJ (dislocation of temporomandibular joint) [S*06/29/2012 Pain in shoulder [M25.519] 06/29/2012 02/14/2018 Hypertension [I10] 11/27/2012 AC joint pain [M25.519] 05/02/2013 Depression with anxiety [F41.8] 01/16/2014 Vitamin D insufficiency [E55.9] 12/16/2015 Impingement syndrome of left shoulder [M75.42] 11/17/2016 Obesity, Class III, BMI >= 40 (morbid obesity) *01/11/2017 Rectal bleeding [K62.5] 05/10/2017 Morbid obesity with body mass index of 50 or hi*02/12/2018 Carpal tunnel syndrome, bilateral [G56.03] 02/12/2018 Morbid obesity with BMI of 50.0-59.9, adult (HC*10/02/2018 Chronic insomnia [F51.04] 08/15/2019 Central serous chorioretinopathy of eye, right *09/20/2023 Herpes simplex type II infection [B00.9] 09/20/2023 Primary insomnia [F51.01] 09/20/2023 History of HPV infection [Z86.19] 09/20/2023 Osteoarthritis of right knee [M17.11] 09/20/2023 H/O gastric sleeve [Z90.3] 09/20/2023 Encounter Status:Closed by BRODERICK TRAORE on 08/29/24 [facility] CNCOon 06-19-2024 CNCO Letter Text Normal [facility] CNPNon 06-12-2024 CNPN Telephone (CARCMN) EMILY NGUYEN ([id number]) 1985 F Date Time Provider Department 06/12/24 THOMAS SANTOS CARCMN During your visit today, we recorded the following information about you: Nura Otoole 06/12/2024 11:05 AM Signed Scheduled 12/10/24 appt from consult box; referred by Thomas Santos MD ; pt has mychart Allergies As of Date: 06/12/2024 Noted Allergy Reaction ESPERANZA INHIBITORS 05/21/2014 3 - Cough AMOXACILLIN (AMOXICILLIN) 12/25/2006 5 - Intolerance Comments: Yeast infection STEROIDS (CORTICOSTEROIDS (GLUCOC*01/05/2023 14 - Other: See Comments Comments: Loss of vision-central serous chorioretinopathy Date Reviewed: 05/15/2024 Reviewed by: Eric Tellez MA - Fully Assessed Prescriptions as of 06/12/2024 - acetaminophen 325 mg-caffeine 40 mg-butalbital 50 mg (FIORICET) per tablet Take 1 tablet by mouth every 4 hours as needed for up to 30 doses. - Safety Thurmond 25 gauge x 1 ndle 1 Each every 4 weeks. - ergocalciferol 50,000 unit capsule (VITAMIN D2, DRISDOL) Take 1 capsule by mouth one time a week. - amLODIPine (NORVASC) 10 mg tablet Take 1 tablet by mouth once daily. - cyanocobalamin 1,000 mcg/mL Inject 1 mL intramuscularly once every month. - DULoxetine (CYMBALTA) 60 mg capsule Take 1 capsule by mouth once daily. - valACYclovir (VALTREX) 1 gram tablet Take 1 tablet by mouth once daily. - buPROPion SR (WELLBUTRIN SR) 150 mg 12 hr tablet Take 1 tablet by mouth two times a day. - losartan (COZAAR) 100 mg tablet Take 1 tablet by mouth once daily. - metoprolol succinate ER (TOPROL XL) 100 mg Take 1 tablet by mouth once daily. - tiZANidine (ZANAFLEX) 4 mg tablet Take 1 tablet by mouth every 8 hours as needed (muscle spasms). - traZODone (DESYREL) 100 mg tablet Take 1 tablet by mouth daily at bedtime. - lidocaine (LIDODERM) 5 % Apply 1 Patch as directed once daily. to affected area. Remove patch after 12 hours. - multivitamin-ferrous sulfate 18 mg iron tab Take by mouth once daily. - Calcium Citrate-Vitamin D2 1,500-200 mg-unit tab Take 1 tablet by mouth once daily. - Cholecalciferol, Vitamin D3, (VITAMIN D-3) 400 unit chew Take by mouth once daily. Facility-Administered Medications as of 06/12/2024 - cyanocobalamin 1,000 mcg injection Problem List As Of Date 06/12/2024 Noted Resolved SUPERVIS NORMAL 1ST PREG [Z34.00] 05/16/2006 12/20/2006 Supervision of Other High-Risk [O09.8*02/09/2009 08/03/2009 Prev T-Vkjodtcl-Ewijwgb [O34.219] 02/09/2009 08/03/2009 Benign Essential Hypertension Antepartum [O10.0*02/09/2009 08/03/2009 SUPRF HIGH RISK NEC [V23.89] [O09.899]10/28/2010 05/20/2011 Previous section [Z98.891] 11/29/2010 05/20/2011 Hypertension in , antepartum [O16.9] 11/29/2010 05/20/2011 Headache in , antepartum [O26.899, R51*03/17/2011 05/20/2011 Dizziness, nonspecific [R42] 03/17/2011 02/14/2018 B12 deficiency [E53.8] TMJ (dislocation of temporomandibular joint) [S*06/29/2012 Pain in shoulder [M25.519] 06/29/2012 02/14/2018 Hypertension [I10] 11/27/2012 AC joint pain [M25.519] 05/02/2013 Depression with anxiety [F41.8] 01/16/2014 Vitamin D insufficiency [E55.9] 12/16/2015 Impingement syndrome of left shoulder [M75.42] 11/17/2016 Obesity, Class III, BMI >= 40 (morbid obesity) *01/11/2017 Rectal bleeding [K62.5] 05/10/2017 Morbid obesity with body mass index of 50 or hi*02/12/2018 Carpal tunnel syndrome, bilateral [G56.03] 02/12/2018 Morbid obesity with BMI of 50.0-59.9, adult (HC*10/02/2018 Chronic insomnia [F51.04] 08/15/2019 Central serous chorioretinopathy of eye, right *09/20/2023 Herpes simplex type II infection [B00.9] 09/20/2023 Primary insomnia [F51.01] 09/20/2023 History of HPV infection [Z86.19] 09/20/2023 Osteoarthritis of right knee [M17.11] 09/20/2023 H/O gastric sleeve [Z90.3] 09/20/2023 Encounter Status:Closed by NURA OTOOLE on 06/12/24 Normal [facility] CNOVon 05-15-2024 CNOV Office Visit ([facility] ) EMILY NGUYEN ([id number]) 1985 F Date Time Provider Department 05/15/24 3:40 PM JOEY SLOAN [facility] During your visit today, we recorded the following information about you: Temperature Pulse Blood pressure Weight 97.9 degrees 90/minute 120/76 126 kg Joey Sloan PA-C 05/15/2024 4:16 PM Signed SUBJECTIVE Emily Mary Patrick is a 38 year old female here for Patient presents with: Blood Pressure Patient presents to the office for follow-up of blood pressure Is going to have right foot surgery Monday Required to have BP controlled prior to operation BP was 148/96 at last appt 05/09 Amlodipine was increased to 10 mg daily, makes her feel a little bit spacey but tolerable Usually takes her a couple weeks to adjust to meds Also on losartan 100 mg daily BP today is 120/76 Denies chest pain, headache, shortness of breath, changes in vision, heart palpitations, syncopal episodes, orthopnea, or edema. Recent labs were reviewed and discussed. B12 and vitamin D low Patient going to do B12 injections at home but needs needles sent to pharmacy to give IM Potassium returned to normal 4.4 on last labs HISTORIES FAMILY HISTORY Problem Relation Age of Onset Uterine Cancer Mother Diabetes Mother Hypertension Mother other (Osteoarthritis) Mother Diabetes Father Hypertension Father other (CHF) Father other (Osteoarthritis) Maternal Grandmother other (DEMENTIA) Paternal Grandmother Colon Cancer Paternal Grandfather 70 Muscular dystrophy Son Breast Cancer Maternal Aunt 30 - 39 Breast Cancer Maternal Aunt 30 - 39 Heart Maternal Uncle CABG Breast Cancer Other Maternal Great Aunt 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 Hiwot SUÁREZ 05/2013 device in fallopian tubes to sever them EXCISION GANGLION WRIST DORSAL/VOLAR PRIMARY Right wrist HYSTERECTOMY HX 2014 TRH with lysis of adhesions, without BSO LAP SLEEVE GASTRECTOMY 10/02/2018 NEUROPLASTY AND/TRANSPOS MEDIAN NRV CARPAL TUNNE Bilateral 02/16/2018 Bilateral carpal tunnel syndrome PAST SURGICAL HISTORY OF Right 10/02/2020 right knee scope with menisectomy, by Dr. Oreilly TONSILLECTOMY PRIMARY/SECONDARY UNSPECIFIED ORAL SURGERY PROCEDURE, BY REPORT impacted teeth Social History Tobacco Use Smoking status: Former Current packs/day: 0.00 Average packs/day: 0.2 packs/day for 5.0 years (1.0 ttl pk-yrs) Types: Cigarettes Start date: 2009 Quit date: 2015 Years since quittin.8 Smokeless tobacco: Never Vaping Use Vaping status: Never Used Substance Use Topics Alcohol use: Yes Comment: rare Drug use: No REVIEW OF SYSTEMS: Past medical history was reviewed and updated. Past surgical history was reviewed and updated. Family History: was reviewed and updated. Past social history was reviewed and updated. ROS negative unless otherwise stated in the HPI. PHYSICAL EXAMINATION: BP 120/76 Pulse 90 Temp 36.6 ?C (97.9 ?F) (Temporal) Wt 126 kg (277 lb 12.5 oz) LMP 02/21/2015 BMI 48.61 kg/m? General Appearance: well appearing, in no acute distress, alert, no palor, no jaundice, no lymphedenopathy Skin: Skin color, texture, turgor normal, no suspicious rashes or lesions Head: Normocephalic, no masses, lesions, tenderness or abnormalities Eyes: Anicteric sclera. Pupils are equally round and reactive to light. Extraocular movements are intact. Extremities: Normal exam of the extremities. No clubbing, cyanosis, or edema. Neurologic: Gait normal. cranial nerves and limbs exam is grossly intact. ASSESSMENT/PLAN: 1. Primary hypertension - ICD9: 401.9, ICD10: I10 (primary diagnosis) - Controlled - Continue current medications - Recommend home blood pressure monitoring, to bring results to next visit - Encouraged sodium restriction, DASH or Mediterranean diet - Recommend regular aerobic exercise - Follow up in 6 months or sooner if needed for hypertension visit - Pt cleared for surgery from cardiac standpoint 2. B12 deficiency - ICD9: 266.2, ICD10: E53.8 - Continue B12 injections once weekly for 4 weeks. Then increase to once monthly for 1 year. - SAFETY NEEDLES 25 GAUGE X 1 ANNA MARIE Sexton- (more content not included)... Normal [facility] CNOVon 05-09-2024 CNOV Office Visit ([facility] ) EMILY NGUYEN ([id number]) 1985 F Date Time Provider Department 05/09/24 6:00 PM MARK BLOUNT [facility] During your visit today, we recorded the following information about you: Temperature Pulse Blood pressure Weight 97.6 degrees 61/minute 138/95 126.1 kg Mark Blount MD 05/10/2024 11:51 AM Signed Chief complaint: Pt comes for BP check HPI: Pt comes for BP check, needs forms filled for surgical clearance Had pre anaesthesia check for her foot surgery. REVIEW OF SYSTEMS: CONSTITUTIONAL: No fevers, chills, nightsweats, unintended weight loss CARDIOVASCULAR: No chest pain, palpitations, orthopnea, PND, ankle edema. PULM: No dyspnea, unexplained cough. GI: No dysphagia/odynophagia, problematic reflux, constipation, diarrhea, changes in stool habits, hematochezia, melena. : No new urinary complaints, including dysuria, gross hematuria or pyuria. NEURO: No new balance problems INTEGUMENTARY: No new skin changes (rash, new or changing mole, new growth) PHYSICAL EXAMINATION: BP 148/96 Pulse 64 Temp 36.4 ?C (97.6 ?F) (Temporal) Wt 126.1 kg (278 lb) LMP 02/21/2015 BMI 48.65 kg/m? General appearance - alert, in no acute distress, well-hydrated, well nourished Skin - skin color, texture, turgor normal, no suspicious rashes or lesions Head - normal, normocephalic, no masses, lesions, tenderness or abnormalities Eyes - Anicteric sclera. Lungs - clear to auscultation, no wheezing or rhonchi Heart - RRR without murmur, gallop, or rubs. No ectopy Abdomen - Normal abdominal exam, Abdomen soft, non-tender. Bowel sounds normal. No masses, organomegaly Extremities - no edema Neuro - Gait normal. 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 of uncertain significance Morbid obesity (HCC) Osteoarthritis of right knee TMJ disease Unspecified essential hypertension Social History Tobacco Use Smoking status: Former Current packs/day: 0.00 Average packs/day: 0.2 packs/day for 5.0 years (1.0 ttl pk-yrs) Types: Cigarettes Start date: 2009 Quit date: 2014 Years since quittin.8 Smokeless tobacco: Never Vaping Use Vaping status: Never Used Substance Use Topics Alcohol use: Yes Comment: rare Drug use: No FAMILY HISTORY Problem Relation Age of Onset Uterine Cancer Mother Diabetes Mother Hypertension Mother other (Osteoarthritis) Mother Diabetes Father Hypertension Father other (CHF) Father other (Osteoarthritis) Maternal Grandmother other (DEMENTIA) Paternal Grandmother Colon Cancer Paternal Grandfather 70 Muscular dystrophy Son Breast Cancer Maternal Aunt 30 - 39 Breast Cancer Maternal Aunt 30 - 39 Heart Maternal Uncle CABG Breast Cancer Other Maternal Great Aunt Latest Ref Rng 05/08/2024 Glucose 74 - 99 mg/dL 169 (H) BUN 7 - 21 mg/dL 10 Creatinine 0.58 - 0.96 mg/dL 0.75 Sodium 136 - 144 mmol/L 137 Potassium 3.7 - 5.1 mmol/L 4.4 Chloride 98 - 107 mmol/L 103 CO2 22 - 30 mmol/L 22 Anion Gap 8 - 15 mmol/L 12 Calcium 8.5 - 10.2 mg/dL 8.8 eGFR >=60 mL/min/1.73m? 103 Vitamin B12 232 - 1,245 pg/mL 226 (L) Vitamin D 25 Hydroxy 31.0 - 80.0 ng/mL 22.4 (L) TSH 0.270 - 4.200 mIU/L 1.370 Hep C Antibody IA Negative Negative Legend: (H) High (L) Low ASSESSMENT/PLAN: 1. Essential hypertension - ICD9: 401.9, ICD10: I10 (primary diagnosis) - Uncontrolled - Recommend home blood pressure monitoring, to bring results to next visit - Encouraged sodium restriction, DASH or Mediterranean diet - Recommend regular aerobic exercise - increase amlodipine to 10 mg daily Advised to see cardiology as BP still uncontrolled Repeat BP check in a week, target BP < 140/90 before surgery 2. B12 deficiency - ICD9: 266.2, ICD10: E53.8 Restart replacements 3. Vitamin D deficiency - ICD9: 268.9, ICD10: E55.9 Start replacements Mark Blount MD Referring Provider: SELF [200] Allergies As of Date: 05/09/2024 Noted Allergy Reaction ESPERANZA INHIBITORS 05/21/2014 3 - Cough AMOXACILLIN (AMOXICILLIN) 12/25/2006 5 - Intolerance Comments: Yeast infection STEROIDS (CORTICOSTEROIDS (GLUCOC*01/05/2023 14 - Other: See Comments Comments: Loss of vision-central serous chorioretinopathy Date Reviewed: 04/22/2024 Reviewed by: Jana Aldana MA - Fully Assessed Reason for Visit: F/U 1 month [1175] Primary Visit Diagnosis:Essential hypertension [I10] Other Visit Diagnoses:B12 deficiency [E53.8] Vitamin D deficiency [E55.9] Order(s):amLODIPine (NORVASC) 10 mg tabletTake 1 tablet by mouth once daily.Disp: 30 tabletRfl: 5 CONSULT TO CARDIOLOGY [7678 (more content not included)... Normal [facility] Damián 05-09-2024 JOSEFINAN Telephone ([facility]) EMILY NGUYEN ([id number]) 1985 F Date Time Provider Department 05/09/24 MARK BLOUNT [facility] During your visit today, we recorded the following information about you: Mark Blount MD 05/09/2024 1:[address] check if pt was fasting during labs. low vit d on labs; start replacements for 6 months and then advised 1000 units vit d throughout the year. Advised once a week B 12 shot for 4 weeks, then monthly B 12 for a yr due to low vit B 12 Patient's request for medication is as follows: Requested Prescriptions Signed Prescriptions Disp Refills ergocalciferol 50,000 unit capsule (VITAMIN D2, DRISDOL) 4 capsule 5 Sig: Take 1 capsule by mouth one time a week. Authorizing Provider: MARK BLOUNT Prescription(s) as above. Please process accordingly. MD Nadine Elizondo Christina, MA 05/09/2024 4:43 PM Signed Left message on patients answering machine to call the office. Xochitl Louise MA 05/09/2024 6:02 PM Signed Non fasting labs Patient aware of rest of message Allergies As of Date: 05/09/2024 Noted Allergy Reaction ESPERANZA INHIBITORS 05/21/2014 3 - Cough AMOXACILLIN (AMOXICILLIN) 12/25/2006 5 - Intolerance Comments: Yeast infection STEROIDS (CORTICOSTEROIDS (GLUCOC*01/05/2023 14 - Other: See Comments Comments: Loss of vision-central serous chorioretinopathy Date Reviewed: 04/22/2024 Reviewed by: Jana Aldana MA - Fully Assessed Reason for Visit: Results [95] Order(s):ergocalciferol 50,000 unit capsule (VITAMIN D2, DRISDOL)Take 1 capsule by mouth one time a week.Disp: 4 capsuleRfl: 5 Prescriptions as of 05/09/2024 - ergocalciferol 50,000 unit capsule (VITAMIN D2, DRISDOL) Take 1 capsule by mouth one time a week. - DULoxetine (CYMBALTA) 60 mg capsule Take 1 capsule by mouth once daily. - valACYclovir (VALTREX) 1 gram tablet Take 1 tablet by mouth once daily. - amLODIPine (NORVASC) 5 mg tablet Take 1 tablet by mouth once daily. - potassium chloride ER (KLOR-CON M20) 20 mEq tablet Take 1 tablet by mouth two times a day. - buPROPion SR (WELLBUTRIN SR) 150 mg 12 hr tablet Take 1 tablet by mouth two times a day. - losartan (COZAAR) 100 mg tablet Take 1 tablet by mouth once daily. - metoprolol succinate ER (TOPROL XL) 100 mg Take 1 tablet by mouth once daily. - tiZANidine (ZANAFLEX) 4 mg tablet Take 1 tablet by mouth every 8 hours as needed (muscle spasms). - traZODone (DESYREL) 100 mg tablet Take 1 tablet by mouth daily at bedtime. - lidocaine (LIDODERM) 5 % Apply 1 Patch as directed once daily. to affected area. Remove patch after 12 hours. - lidocaine 5 % gel Apply to affected area three times daily as needed. - multivitamin-ferrous sulfate 18 mg iron tab Take by mouth once daily. - Calcium Citrate-Vitamin D2 1,500-200 mg-unit tab Take 1 tablet by mouth once daily. - Cholecalciferol, Vitamin D3, (VITAMIN D-3) 400 unit chew Take by mouth once daily. Problem List As Of Date 05/09/2024 Noted Resolved SUPERVIS NORMAL 1ST PREG [Z34.00] 05/16/2006 12/20/2006 Supervision of Other High-Risk [O09.8*02/09/2009 08/03/2009 Prev G-Lmuwyshq-Nlnfevz [O34.219] 02/09/2009 08/03/2009 Benign Essential Hypertension Antepartum [O10.0*02/09/2009 08/03/2009 SUPRF HIGH RISK NEC [V23.89] [O09.899]10/28/2010 05/20/2011 Previous section [Z98.891] 11/29/2010 05/20/2011 Hypertension in , antepartum [O16.9] 11/29/2010 05/20/2011 Headache in , antepartum [O26.899, R51*03/17/2011 05/20/2011 Dizziness, nonspecific [R42] 03/17/2011 02/14/2018 B12 deficiency [E53.8] TMJ (dislocation of temporomandibular joint) [S*06/29/2012 Pain in shoulder [M25.519] 06/29/2012 02/14/2018 Hypertension [I10] 11/27/2012 AC joint pain [M25.519] 05/02/2013 Depression with anxiety [F41.8] 01/16/2014 Vitamin D insufficiency [E55.9] 12/16/2015 Impingement syndrome of left shoulder [M75.42] 11/17/2016 Obesity, Class III, BMI >= 40 (morbid obesity) *01/11/2017 Rectal bleeding [K62.5] 05/10/2017 Morbid obesity with body mass index of 50 or hi*02/12/2018 Carpal tunnel syndrome, bilateral [G56.03] 02/12/2018 Morbid obesity with BMI of 50.0-59.9, adult (HC*10/02/2018 Chronic insomnia [F51.04] 08/15/2019 Central serous chorioretinopathy of eye, right *09/20/2023 Herpes simplex type II infection [B00.9] 09/20/2023 Primary insomnia [F51.01] 09/20/2023 History of HPV infection [Z86.19] 09/20/2023 Osteoarthritis of right knee [M17.11] 09/20/2023 H/O gastric sleeve [Z90.3] 09/20/2023 Prescriptions ordered this encounter Disp Refills Start End ERGOCALCIFEROL (VITAMIN D2) 1,250 MC* 4 ca* 5 05/09/2024 Route: ORAL Sig: Take 1 capsule by mouth one time a week. Encounter Status:Closed by XOCHITL LOUISE on 05/09/24 Normal [facility] 25(OH)D[facility] 25-hydroxyvitamin D3 [Mass/Vol] 22.4 ng/mL Low 31.0-80.0 [facility] Comment on above: Order Comment: Speci men Type: BLOOD SPECIMENOrdering Facility: [facility] Address: [address] [place] [address] Result Comment: Clas sification of 25 [place] Vitamin D status: Deficiency/Insufficiency: < or = 30 ng/ml. Sufficiency/Optimal Levels: 31-80 ng/mL Toxicity: > 100 ng/mL. Test performed by chemiluminescent immunoassay. Performed By: #### 1 989-3 ####[facility] [id number] [address] [address] [place] Basic metabolic 2000 panelon 05-08-2024 Anion gap [Moles/Vol] 12 mmol/L Normal 8-15 [facility] Comment on above: Order Comment: Speci men Type: BLOOD SPECIMENOrdering Facility: [facility] Address: [address] [place] [address] Performed By: #### 3 016-3, 61269-0, 2132-03 ####[facility] [id number] [place] [address] [place] Calcium [Mass/Vol] 8.8 mg/dL Normal 8.5-10.2 [facility] Comment on above: Order Comment: Speci men Type: BLOOD SPECIMENOrdering Facility: [facility] Address: [address] [place] [address] Performed By: #### 3 016-3, 56393-4, 2132-03 ####[facility] [id number] [place] [address] [place] Chloride [Moles/Vol] 103 mmol/L Normal 98-107 [facility] Comment on above: Order Comment: Speci men Type: BLOOD SPECIMENOrdering Facility: [facility] Address: [address] [place] [address] Performed By: #### 3 016-3, 74533-1, 2132-03 ####[facility] [id number] [address] [address] [place] CO2 [Moles/Vol] 22 mmol/L Normal 22-30 [facility] Comment on above: Order Comment: Speci men Type: BLOOD SPECIMENOrdering Facility: [facility] Address: [address] [place] [address] Performed By: #### 3 016-3, , 2132-03 ####[facility] [id number] [place] [id number] [place] Creatinine [Mass/Vol] 0.75 mg/dL Normal 0.58-0.96 [facility] Comment on above: Order Comment: Deborah reaves Type: BLOOD SPECIMENOrdering Facility: [facility] Address: [address] [place] [address] Performed By: #### 3 016-3, , 2132-03 ####[facility] [id number] [place] [address] [place] Creatinine and Glomerular filtration rate.predicted panel (S/P/Bld) 103 mL/min/1.73m??? Normal >=60 [facility] Comment on above: Order Comment: Deborah reaves Type: BLOOD SPECIMENOrdering Facility: [facility] Address: [address] [place] [address] Result Comment: Laina mated Glomerular Filtration Rate (eGFR) is calculated using the 2020 CKD-EPI creatinine equation. This equation utilizes serum creatinine, sex, and age as parameters. The creatinine assay has traceable calibration to isotope dilution-mass spectrometry. Refer to KDIGO guidelines for clinical interpretation. In patients with unstable renal function, e.g. those with acute kidney injury, the eGFR may not accurately reflect actual GFR. Performed By: #### 3 016-3, , 2132-03 ####[facility] [id number] [place] [id number] [place] Glucose [Mass/Vol] 169 mg/dL High 74-99 [facility] Comment on above: Order Comment: Deborah reaves Type: BLOOD SPECIMENOrdering Facility: [facility] Address: [address] [place] [address] Result Comment: The [place] [employer] Association (ADA) provides guidance for cutoff values for fasting glucose and random glucose. The ADA defines fasting as no caloric intake for at least 8 hours. Fasting plasma glucose results between 100 to 125 mg/dL indicate increased risk for diabetes (prediabetes). Fasting plasma glucose results greater than or equal to 126 mg/dL meet the criteria for diagnosis of diabetes. In the absence of unequivocal hyperglycemia, results should be confirmed by repeat testing. In a patient with classic symptoms of hyperglycemia or hyperglycemic crisis, random plasma glucose results greater than or equal to 200 mg/dL meet the criteria for diagnosis of diabetes. Reference: Standards of Medical Care in Diabetes 2016, [place] [employer] Association. Diabetes Care. 2016.39(Suppl 1). Performed By: #### 3 016-3, , 2132-03 ####[facility]CL[facility] [id number] [address] [address] [place] Potassium [Moles/Vol] 4.4 mmol/L Normal 3.7-5.1 [facility] Comment on above: Order Comment: Delli men Type: BLOOD SPECIMENOrdering Facility: [facility] Address: [address] [place] [address] Performed By: #### 3 3, , 2132-03 ####[facility] [id number] [place] [id number] [place] Sodium [Moles/Vol] 137 mmol/L Normal 136-144 [facility] Comment on above: Order Comment: Deborah reaves Type: BLOOD SPECIMENOrdering Facility: [facility] Address: [address] [place] [address] Performed By: #### 3 016-3, , 2132-03 ####[facility] [id number] [place] [id number] [place] Urea nitrogen [Mass/Vol] 10 mg/dL Normal 7-21 [facility] Comment on above: Order Comment: Delli men Type: BLOOD SPECIMENOrdering Facility: [facility] Address: [address] [place] [address] Performed By: #### 3 016-3, , 2132-03 ####[facility] [id number] [address] [address] [place] HCV Ab Ser Qlon 05-08-2024 HCV Ab Ql (S) Negative Normal Negative [facility] Comment on above: Order Comment: Deborah reaves Type: BLOOD SPECIMENOrdering Facility: [facility] Address: [address] [place] [address] Result Comment: The result suggests no evidence of active infection with Hepatitis C virus. Should recent infection be suspected, repeat testing may be considered 4-6 weeks after this draw. Performed By: #### 1 6128-1 ####[facility]CL[facility] [id number] [place] [address] [place] TSH SerPl-aCncon 05-08-2024 TSH Qn 1.370 m[IU]/L Normal 0.270-4.20 0 [facility] Comment on above: Order Comment: Deborah reaves Type: BLOOD SPECIMENOrdering Facility: [facility] Address: [address] [place] [address] Result Comment: If t he patient is , TSH reference range varies by gestational period: First Trimester (weeks 9-12): 0.180-2.990 mIU/L Second Trimester: 0.110-3.980 mIU/L Third Trimester: 0.480-4.710 mIU/L Henrik Orr et al. A Practical Approach for the Verifications and Determination of Site- and Trimester-Specific Reference Intervals for Thyroid Function tests in . Thyroid, 2019:29:3:412-420. Trino E, et al. 2017 Guidelines of the [place] Thyroid Association for the Diagnosis and Management of Thyroid Disease during and the . Thyroid, 2017:27:3:315-389. Performed By: #### 3 016-3, 30719-9, 2132-9 ####[facility] [id number] [place] [address] [place] Vit B12 SerPl-mCncon 024 Cobalamin (Vitamin B12) [Mass/Vol] 226 pg/mL Low 232-1245 [facility] Comment on above: Order Comment: Deborah reaves Type: BLOOD SPECIMENOrdering Facility: [facility] Address: [address] [place] [address] Performed By: #### 3 016-3, 78896-5, 2132-9 ####[facility] LABCLCYNDI [id number] [address] [place] [address] [place] CNOVon 04-22-2024 CNOV Office Visit ([facility] ) EMILY NGUYEN ([id number]) 1985 F Date Time Provider Department 04/22/24 4:40 PM MARK BLOUNT [facility] During your visit today, we recorded the following information about you: Temperature Pulse Blood pressure Weight 98.6 degrees 71/minute 160/92 127.6 kg Mark Blount MD 04/23/2024 1:04 PM Signed Chief complaint: medical clearance HPI: Pt comes for BP f/u. Going for rt ankle surgery next month , needs surgical clearance. Has tendon repair surgery planned , pt to provide info about surgery. Diet is not the best and has not been exercising due to mod to severe pain in rt ankle. Needs valtrex refilled for recurrent herpes 2 infection. No active flares of herpes at present. Tired often and is a chronic issue. REVIEW OF SYSTEMS: CONSTITUTIONAL: No fevers, chills, nightsweats, unintended weight loss CARDIOVASCULAR: No chest pain, palpitations, orthopnea, PND, ankle edema. PULM: No dyspnea, unexplained cough. GI: No dysphagia/odynophagia, problematic reflux, constipation, diarrhea, changes in stool habits, hematochezia, melena. : No new urinary complaints, including dysuria, gross hematuria or pyuria. INTEGUMENTARY: No new skin changes (rash, new or changing mole, new growth) PHYSICAL EXAMINATION: BP 158/107 (BP Site: Right Arm) Pulse 69 Temp 37 ?C (98.6 ?F) (Left Tympanic) Wt 127.6 kg (281 lb 4.9 oz) LMP 02/21/2015 SpO2 97% BMI 49.23 kg/m? General appearance - alert, in no acute distress Eyes - Anicteric sclera. Lungs - clear to auscultation, no wheezing or rhonchi Heart - RRR without murmur, gallop, or rubs. No ectopy Abdomen - Normal abdominal exam, Abdomen soft, non-tender. Bowel sounds normal. 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.[id number]) heterozygous: carrier of a variant of uncertain significance Morbid obesity (HCC) Osteoarthritis of right knee TMJ disease Unspecified essential hypertension Social History Tobacco Use Smoking status: Former Current packs/day: 0.00 Average packs/day: 0.2 packs/day for 5.0 years (1.0 ttl pk-yrs) Types: Cigarettes Start date: 2009 Quit date: 2014 Years since quittin.7 Smokeless tobacco: Never Vaping Use Vaping status: Never Used Substance Use Topics Alcohol use: Yes Comment: rare Drug use: No FAMILY HISTORY Problem Relation Age of Onset Uterine Cancer Mother Diabetes Mother Hypertension Mother other (Osteoarthritis) Mother Diabetes Father Hypertension Father other (CHF) Father other (Osteoarthritis) Maternal Grandmother other (DEMENTIA) Paternal Grandmother Colon Cancer Paternal Grandfather 70 Muscular dystrophy Son Breast Cancer Maternal Aunt 30 - 39 Breast Cancer Maternal Aunt 30 - 39 Heart Maternal Uncle CABG Breast Cancer Other Maternal Great Aunt ASSESSMENT/PLAN: 1. Primary hypertension - ICD9: 401.9, ICD10: I10 (primary diagnosis) - Uncontrolled - Continue current medications, add amlodipine - Recommend home blood pressure monitoring, to bring results to next visit - Encouraged sodium restriction, DASH or Mediterranean diet - Recommend regular aerobic exercise - Follow up in 2 weeks for hypertension visit 2. Herpes simplex type II infection - ICD9: 054.9, ICD10: B00.9 Refilled - VALACYCLOVIR 1 GRAM TABLET 3. Encounter for immunization - ICD9: V03.89, ICD10: Z23 - INFLUENZA VACCINE, AGE 6MO-64YR, TRIVALENT (AFLURIA, FLULAVAL, FLUVIRIN, FLUZONE) 4(R53.83) Tired Plan: VITAMIN B12, VITAMIN D 25 HYDROXY, THYROID STIMULATING HORMONE 5(Z11.59) Special screening examination for viral disease Plan: HEPATITIS C ANTIBODY IA WITH CONFIRMATION 6(Z01.810) Encounter for pre-operative cardiovascular clearance Pt to see preop for now and send us forms after seeing preop Mark Blount MD Allergies As of Date: 04/22/2024 Noted Allergy Reaction ESPERANZA INHIBITORS 05/21/2014 3 - Cough AMOXACILLIN (AMOXICILLIN) 12/25/2006 5 - Intolerance Comments: Yeast infection STEROIDS (CORTICOSTEROIDS (GLUCOC*01/05/2023 14 - Other: See Comments Comments: Loss of vision-central serous chorioretinopathy Date Reviewed: 04/22/2024 Reviewed by: Jana Aldana MA - Fully Assessed Reason for Visit: Medical Clearance [1983] Primary Visit Diagnosis:Primary hypertension [I10] Other Visit Diagnoses:Herpes simplex type II infection [B00.9] Encounter for immunization [Z23] Tired [R53.83] Special screening examination for viral disease [Z11.59] Encounter for pre-operative cardiovascular clearance [Z01.810] Order(s):DULoxetine (CYMBALTA) 60 mg capsuleTake 1 capsule (more content not included)... Normal [facility] CBC W Auto Differential pane l (Bld)on 04-17-2024 Basophils (Bld) [#/Vol] 0.06 10*3/uL Normal <0.11 [facility] Comment on above: Order Comment: Speci men Type: BLOOD SPECIMENOrdering Facility: [facility] Address: [address] [place] [address] Performed By: #### 5 7021-8 ####[facility]CL[facility] [id number] [place] [address] [place] Basophils/100 WBC (Bld) 1.0 % Normal [facility] Comment on above: Order Comment: Speci men Type: BLOOD SPECIMENOrdering Facility: [facility] Address: [address] [place] [address] Performed By: #### 5 7021-8 ####[facility]CL[facility] [id number] [place] [address] [place] Differential cell count method Nom (Bld) Auto Normal [facility] Comment on above: Order Comment: Speci men Type: BLOOD SPECIMENOrdering Facility: [facility] Address: [address] [place] [address] Performed By: #### 5 7021-8 ####[facility]CL[facility] [id number] [place] [address] [place] Eosinophils (Bld) [#/Vol] 0.18 10*3/uL Normal <0.46 [facility] Comment on above: Order Comment: Speci men Type: BLOOD SPECIMENOrdering Facility: [facility] Address: [address] [place] [address] Performed By: #### 5 7021-8 ####[facility]CL[facility] [id number] [place] [address] [place] Eosinophils/100 WBC (Bld) 2.9 % Normal [facility] Comment on above: Order Comment: Speci men Type: BLOOD SPECIMENOrdering Facility: [facility] Address: [address] [place] [address] Performed By: #### 5 7021-8 ####[facility]CL[facility] [id number] [place] [address] [place] Erythrocyte distribution width (RBC) [Ratio] 11.9 % Normal 11.5-15.0 [facility] Comment on above: Order Comment: Speci men Type: BLOOD SPECIMENOrdering Facility: [facility] Address: [address] [place] [address] Performed By: #### 5 7021-8 ####[facility]CL[facility] [id number] [place] [address] [place] Hematocrit (Bld) [Volume fraction] 39.0 % Normal 36.0-46.0 [facility] Comment on above: Order Comment: Speci men Type: BLOOD SPECIMENOrdering Facility: [facility] Address: [address] [place] [address] Performed By: #### 5 7021-8 ####[facility] [id number] [place] [address] [place] Hemoglobin (Bld) [Mass/Vol] 13.2 g/dL Normal 11.5-15.5 [facility] Comment on above: Order Comment: Speci men Type: BLOOD SPECIMENOrdering Facility: [facility] Address: [address] [place] [address] Performed By: #### 5 7021-8 ####[facility] [id number] [place] [address] [place] Immature granulocytes (Bld) [#/Vol] 10*3/uL Normal <0.10 [facility] Comment on above: Order Comment: Speci men Type: BLOOD SPECIMENOrdering Facility: [facility] Address: [address] [place] [address] Performed By: #### 5 7021-8 ####[facility] [id number] [place] [address] [place] Immature granulocytes/100 WBC (Bld) 0.2 % Normal [facility] Comment on above: Order Comment: Speci men Type: BLOOD SPECIMENOrdering Facility: [facility] Address: [address] [place] [address] Performed By: #### 5 7021-8 ####[facility]CL[facility] [id number] [place] [address] [place] Lymphocytes (Bld) [#/Vol] 2.07 10*3/uL Normal 1.00-4.00 [facility] Comment on above: Order Comment: Speci men Type: BLOOD SPECIMENOrdering Facility: [facility] Address: [address] [place] [address] Performed By: #### 5 7021-8 ####[facility] LABIA [id number] [place] [address] [place] Lymphocytes/100 WBC (Bld) 33.6 % Normal [facility] Comment on above: Order Comment: Speci men Type: BLOOD SPECIMENOrdering Facility: [facility] Address: [address] [place] [address] Performed By: #### 5 7021-8 ####[facility] LABIA [id number] [place] [address] [place] MCH (RBC) [Entitic mass] 32.0 pg Normal 26.0-34.0 [facility] Comment on above: Order Comment: Speci men Type: BLOOD SPECIMENOrdering Facility: [facility] Address: [address] [place] [address] Performed By: #### 5 7021-8 ####[facility] LABIA [id number] [place] [address] [place] MCHC (RBC) [Mass/Vol] 33.8 g/dL Normal 30.5-36.0 [facility] Comment on above: Order Comment: Speci men Type: BLOOD SPECIMENOrdering Facility: [facility] Address: [address] [place] [address] Performed By: #### 5 7021-8 ####[facility] LABIA [id number] [place] [address] [place] MCV (RBC) [Entitic vol] 94.4 fL Normal 80.0-100.0 [facility] Comment on above: Order Comment: Speci men Type: BLOOD SPECIMENOrdering Facility: [facility] Address: [address] [place] [address] Performed By: #### 5 7021-8 ####[facility] LABIA [id number] [place] [address] [place] Monocytes (Bld) [#/Vol] 0.47 10*3/uL Normal <0.87 [facility] Comment on above: Order Comment: Speci men Type: BLOOD SPECIMENOrdering Facility: [facility] Address: [address] [place] [address] Performed By: #### 5 7021-8 ####[facility]CL[facility] [id number] [place] [address] [place] Monocytes/100 WBC (Bld) 7.6 % Normal [facility] Comment on above: Order Comment: Speci men Type: BLOOD SPECIMENOrdering Facility: [facility] Address: [address] [place] [address] Performed By: #### 5 7021-8 ####[facility]CL[facility] [id number] [place] [address] [place] Neutrophils (Bld) [#/Vol] 3.37 10*3/uL Normal 1.45-7.50 [facility] Comment on above: Order Comment: Speci men Type: BLOOD SPECIMENOrdering Facility: [facility] Address: [address] [place] [address] Performed By: #### 5 7021-8 ####[facility]CL[facility] [id number] [place] [address] [place] Neutrophils/100 WBC (Bld) 54.7 % Normal [facility] Comment on above: Order Comment: Speci men Type: BLOOD SPECIMENOrdering Facility: [facility] Address: [address] [place] [address] Performed By: #### 5 7021-8 ####[facility]CL[facility] [id number] [place] [address] [place] Nucleated RBC (Bld) [#/Vol] 10*3/uL Normal <0.01 [facility] Comment on above: Order Comment: Speci men Type: BLOOD SPECIMENOrdering Facility: [facility] Address: [address] [place] [address] Performed By: #### 5 7021-8 ####[facility]CL[facility] [id number] [place] [address] [place] Nucleated RBC/100 WBC (Bld) [Ratio] 0.0 /100 WBC Normal [facility] Comment on above: Order Comment: Speci men Type: BLOOD SPECIMENOrdering Facility: [facility] Address: [address] [place] [address] Performed By: #### 5 7021-8 ####[facility]CL[facility] [id number] [place] [address] [place] Platelet mean volume (Bld) [Entitic vol] 9.8 fL Normal 9.0-12.7 [facility] Comment on above: Order Comment: Speci men Type: BLOOD SPECIMENOrdering Facility: [facility] Address: [address] [place] [address] Performed By: #### 5 7021-8 ####[facility]IA [id number] [place] [address] [place] Platelets (Bld) [#/Vol] 339 10*3/uL Normal 150-400 [facility] Comment on above: Order Comment: Speci men Type: BLOOD SPECIMENOrdering Facility: [facility] Address: [address] [place] [address] Performed By: #### 5 7021-8 ####[facility]CL[facility] [id number] [place] [address] [place] RBC (Bld) [#/Vol] 4.13 10*6/uL Normal 3.90-5.20 [facility] Comment on above: Order Comment: Speci men Type: BLOOD SPECIMENOrdering Facility: [facility] Address: [address] [place] [address] Performed By: #### 5 7021-8 ####[facility]CL[facility] [id number] [place] [address] [place] WBC (Bld) [#/Vol] 6.16 10*3/uL Normal 3.70-11.00 [facility] Comment on above: Order Comment: Speci men Type: BLOOD SPECIMENOrdering Facility: [facility] Address: [address] [place] [address] Performed By: #### 5 7021-8 ####[facility]CL[facility] [id number] [place] [address] [place] [facility] Comprehensive metabolic 2000 panelon 04-17-2024 Albumin [Mass/Vol] 4.0 g/dL Normal 3.9-4.9 [facility] Comment on above: Order Comment: Speci men Type: BLOOD SPECIMENOrdering Facility: [facility] Address: [address] [place] [address] Performed By: #### 2 4331-1, 26905-1 ####[facility]CL[facility] [id number] [place] [address] [place] ALP [Catalytic activity/Vol] 83 U/L Normal 34-123 [facility] Comment on above: Order Comment: Speci men Type: BLOOD SPECIMENOrdering Facility: [facility] Address: [address] [place] [address] Performed By: #### 2 4331-1, 34811-6 ####[facility]CL[facility] [id number] [place] [address] [place] ALT [Catalytic activity/Vol] 24 U/L Normal 7-38 [facility] Comment on above: Order Comment: Speci men Type: BLOOD SPECIMENOrdering Facility: [facility] Address: [address] [place] [address] Performed By: #### 2 4331-1, 68425-5 ####[facility]CLIA [id number] [place] [id number] [place] Anion gap [Moles/Vol] 12 mmol/L Normal 8-15 [facility] Comment on above: Order Comment: Speci men Type: BLOOD SPECIMENOrdering Facility: [facility] Address: [address] [place] [id number] Performed By: #### 2 4331-1, 50016-4 ####[facility]CL[facility] [id number] [place] [id number] [place] AST [Catalytic activity/Vol] 24 U/L Normal 13-35 [facility] Comment on above: Order Comment: Speci men Type: BLOOD SPECIMENOrdering Facility: [facility] Address: [address] [place] [address] Performed By: #### 2 4331-1, 34102-8 ####[facility]CL[facility] [id number] [place] [address] [place] Bilirubin [Mass/Vol] 0.5 mg/dL Normal 0.2-1.3 [facility] Comment on above: Order Comment: Speci men Type: BLOOD SPECIMENOrdering Facility: [facility] Address: [address] [place] [address] Performed By: #### 2 4331-1, 02604-6 ####[facility]CL[facility] [id number] [place] [address] [place] Calcium [Mass/Vol] 8.7 mg/dL Normal 8.5-10.2 [facility] Comment on above: Order Comment: Speci men Type: BLOOD SPECIMENOrdering Facility: [facility] Address: [address] [place] [id number] Performed By: #### 2 4331-1, 21757-5 ####[facility]CL[facility] [id number] [place] [id number] [place] Chloride [Moles/Vol] 103 mmol/L Normal 98-107 [facility] Comment on above: Order Comment: Speci men Type: BLOOD SPECIMENOrdering Facility: [facility] Address: [address] [place] [address] Performed By: #### 2 4331-1, 43612-0 ####[facility]CL[facility] [id number] [place] [address] [place] CO2 [Moles/Vol] 25 mmol/L Normal 22-30 [facility] Comment on above: Order Comment: Speci men Type: BLOOD SPECIMENOrdering Facility: [facility] Address: [address] [place] [address] Performed By: #### 2 4331-, 56623-6 ####[facility]IA [id number] [place] [address] [place] Creatinine [Mass/Vol] 0.65 mg/dL Normal 0.58-0.96 [facility] Comment on above: Order Comment: Speci men Type: BLOOD SPECIMENOrdering Facility: [facility] Address: [address] [place] [address] Performed By: #### 2 4331-, 92163-4 ####[facility]IA [id number] [place] [address] [place] Creatinine and Glomerular filtration rate.predicted panel (S/P/Bld) 114 mL/min/1.73m??? Normal >=60 [facility] Comment on above: Order Comment: Speci men Type: BLOOD SPECIMENOrdering Facility: [facility] Address: [address] [place] [address] Result Comment: Laina mated Glomerular Filtration Rate (eGFR) is calculated using the 2020 CKD-EPI creatinine equation. This equation utilizes serum creatinine, sex, and age as parameters. The creatinine assay has traceable calibration to isotope dilution-mass spectrometry. Refer to KDIGO guidelines for clinical interpretation. In patients with unstable renal function, e.g. those with acute kidney injury, the eGFR may not accurately reflect actual GFR. Performed By: #### 2 4331-1, 50804-7 ####[facility]CL[facility] [id number] [place] [id number] [place] Glucose [Mass/Vol] 101 mg/dL High 74-99 [facility] Comment on above: Order Comment: Speci men Type: BLOOD SPECIMENOrdering Facility: [facility] Address: [address] [place] [address] Result Comment: The [place] Diabetes Association (ADA) provides guidance for cutoff values for fasting glucose and random glucose. The ADA defines fasting as no caloric intake for at least 8 hours. Fasting plasma glucose results between 100 to 125 mg/dL indicate increased risk for diabetes (prediabetes). Fasting plasma glucose results greater than or equal to 126 mg/dL meet the criteria for diagnosis of diabetes. In the absence of unequivocal hyperglycemia, results should be confirmed by repeat testing. In a patient with classic symptoms of hyperglycemia or hyperglycemic crisis, random plasma glucose results greater than or equal to 200 mg/dL meet the criteria for diagnosis of diabetes. Reference: Standards of Medical Care in Diabetes 2016, [place] [employer]. Diabetes Care. 2016.39(Suppl 1). Performed By: #### 2 4331-1, 32624-8 ####[facility]CL[facility] [id number] [place] [address] [place] Potassium [Moles/Vol] 3.4 mmol/L Low 3.7-5.1 [facility] Comment on above: Order Comment: Deborah reaves Type: BLOOD SPECIMENOrdering Facility: [facility] Address: [address] [place] [address] Performed By: #### 2 4331-, ####[facility]CL[facility] [id number] [place] [address] [place] Protein [Mass/Vol] 6.6 g/dL Normal 6.3-8.0 [facility] Comment on above: Order Comment: Delli men Type: BLOOD SPECIMENOrdering Facility: [facility] Address: [address] [place] [address] Performed By: #### 2 4331-, 24824-6 ####[facility]CLIA [id number] [address] [address] [id number] [address] [place] Sodium [Moles/Vol] 140 mmol/L Normal 136-144 [facility] Comment on above: Order Comment: Speci men Type: BLOOD SPECIMENOrdering Facility: [facility] Address: [address] [place] [address] Performed By: #### 2 4331-1, ####[facility]CL[facility] [id number] [place] [address] [place] Urea nitrogen [Mass/Vol] 9 mg/dL Normal 7-21 [facility] Comment on above: Order Comment: Speci men Type: BLOOD SPECIMENOrdering Facility: [facility] Address: [address] [place] [address] Performed By: #### 2 4331-1, ####[facility]CL[facility] [id number] [place] [address] [place] Lipid 1996 panelon 4 Cholesterol [Mass/Vol] 125 mg/dL Normal <200 [facility] Comment on above: Order Comment: Speci men Type: BLOOD SPECIMENOrdering Facility: [facility] Address: [address] [place] [address] Result Comment: <200 mg/dL, Desirable 200-239 mg/dL, Borderline high >239 mg/dL, High Performed By: #### 2 4331-1, ####[facility]CL[facility] [id number] [place] [address] [place] Cholesterol in HDL [Mass/Vol] 58 mg/dL Normal >39 [facility] Comment on above: Order Comment: Speci men Type: BLOOD SPECIMENOrdering Facility: [facility] Address: [address] [place] [address] Result Comment: 40-5 9 mg/dL, Acceptable >59 mg/dL, High: Negative risk factor for coronary heart disease <40 mg/dL, Low: Positive risk factor for coronary heart disease Performed By: #### 2 4331-1, 31304-6 ####[facility]CL[facility] [id number] [place] [address] [place] Cholesterol in LDL [Mass/Vol] 50 mg/dL Normal <100 [facility] Comment on above: Order Comment: Speci men Type: BLOOD SPECIMENOrdering Facility: [facility] Address: [address] [place] [address] Result Comment: <100 mg/dL, Optimal 100-129 mg/dL, Near optimal/above optimal 130-159 mg/dL, Borderline high 160-189 mg/dL, High >189 mg/dL, Very high Secondary prevention optimal LDL Cholesterol levels are recommended to be < 70 mg/dL Performed By: #### 2 4331-1, ####[facility] [id number] [address] [place] Cholesterol in LDL/Cholesterol in HDL [Mass ratio] 0.86 {ratio} Normal <2.54 [facility] Comment on above: Order Comment: Speci men Type: BLOOD SPECIMENOrdering Facility: [facility] Address: [address] [place] [address] Result Comment: Refe rence: 1. National Cholesterol Education Program ATP III Guideline At-A-Glance Quick Desk Reference: National Heart, Lung, and Blood Grant. National Institutes of Health. 2001: NIH Publication No. 01-3305. 2. An International Atherosclerosis Society position paper: global recommendations for the management of dyslipidemia: executive summary, Atherosclerosis. 2014: 232(2):410-413. Performed By: #### 2 4331-, 09223-3 ####[facility]IA [id number] [place] [address] [place] Cholesterol in VLDL [Mass/Vol] 17 mg/dL Normal <30 [facility] Comment on above: Order Comment: Speci men Type: BLOOD SPECIMENOrdering Facility: [facility] Address: [address] [place] [address] Performed By: #### 2 4331-, 60744-1 ####[facility]IA [id number] [place] [address] [place] Cholesterol non HDL [Mass/Vol] 67 mg/dL Normal <130 [facility] Comment on above: Order Comment: Speci men Type: BLOOD SPECIMENOrdering Facility: [facility] Address: [address] [place] [address] Result Comment: <130 mg/dL, Optimal 130-159 mg/dL, Near optimal/above optimal 160-189 mg/dL, Borderline high 190-219 mg/dL, High >219 mg/dL, Very high Secondary prevention optimal non HDL Cholesterol levels are recommended to be <100 mg/dL Performed By: #### 2 4331-1, 56699-6 ####[facility]CL[facility] [id number] [place] [address] [place] Cholesterol.total/Ch olesterol in HDL [Mass ratio] 2.16 {ratio} Normal <5.10 [facility] Comment on above: Order Comment: Speci men Type: BLOOD SPECIMENOrdering Facility: [facility] Address: [address] [place] [address] Performed By: #### 2 4331-1, 30378-7 ####[facility]CL[facility] [id number] [place] [address] [place] FASTING TIME 12 hrs Normal [facility] Comment on above: Order Comment: Speci men Type: BLOOD SPECIMENOrdering Facility: [facility] Address: [address] [place] [address] Performed By: #### 2 4331-1, 00370-3 ####[facility] LABCLIA [id number] [place] [address] [place] Triglyceride [Mass/Vol] 87 mg/dL Normal <150 [facility] Comment on above: Order Comment: Speci men Type: BLOOD SPECIMENOrdering Facility: [facility] Address: [address] [place] [address] Result Comment: <150 mg/dL, Normal 150-199 mg/dL, Borderline high 200-499 mg/dL, High >499 mg/dL, Very high Performed By: #### 2 4331-1, 15706-6 ####[facility] AYAN [id number] [place] [address] [place] CNOVon 04-15-2024 CNOV Office Visit (UCWSTR ) EMILY NGUYEN ([id number]) 1985 F Date Time Provider Department 04/15/24 2:30 PM THANIA ELI [facility] During your visit today, we recorded the following information about you: Pulse Respiration Blood pressure Weight 72/minute 16/minute 146/94 123.9 kg Thania Eli APRN.COMBINATION WELDER 04/15/2024 2:53 PM Signed Subjective The history is provided by the patient. No lining marker was used. HPI Emily Nguyen is a 38 year old female who presents today for CC of right foot/ankle swelling and pain. This started over a month ago, seems worse today. She has been evaluated by podiatry and was told she has some torn tendons from an MRI, may be needing surgery. She has a walking boot and has not been using it. She denies any new injury or trauma. BP 146/94 Pulse 72 Resp 16 Wt 123.9 kg (273 lb 2.4 oz) LMP 02/21/2015 SpO2 97% BMI 47.80 kg/m? 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 Musculoskeletal: Positive for joint pain (right ankle). Negative for myalgias. Skin: Negative for itching and rash. All other systems reviewed and are negative. Objective Physical Exam Vitals and nursing note reviewed. Cardiovascular: Pulses: Dorsalis pedis pulses are 2+ on the right side and 2+ on the left side. Posterior tibial pulses are 2+ on the right side and 2+ on the left side. Pulmonary: Effort: Pulmonary effort is normal. Musculoskeletal: Right ankle: Swelling present. No deformity, ecchymosis or lacerations. Tenderness present over the ATF ligament. No lateral malleolus tenderness. Decreased range of motion. Anterior drawer test negative. Normal pulse. Right Achilles Tendon: Normal. Left ankle: Normal. Left Achilles Tendon: Normal. Legs: Skin: General: Skin is warm and dry. Neurological: Mental Status: She is alert and oriented to person, place, and time. Sensory: Sensation is intact. Psychiatric: Mood and Affect: Affect normal. ASSESSMENT/PLAN: 1. Strain of right ankle, subsequent encounter - ICD9: V58.89, 845.00, ICD10: S96.911D RICE Advise to wear boot, follow up with podiatry to further treatment and evaluation. Diagnosis and treatment plan were discussed and questions were answered to the patient's satisfaction. Pt acknowledged understanding of concepts and follow up plan. Specific signs and symptoms that would indicate the need for higher level of care were discussed in detail warranting prompt ER evaluation. Thania Eli APRN.COMBINATION WELDER Allergies As of Date: 04/15/2024 Noted Allergy Reaction ESPERANZA INHIBITORS 05/21/2014 3 - Cough AMOXACILLIN (AMOXICILLIN) 12/25/2006 5 - Intolerance Comments: Yeast infection STEROIDS (CORTICOSTEROIDS (GLUCOC*01/05/2023 14 - Other: See Comments Comments: Loss of vision-central serous chorioretinopathy Date Reviewed: 04/15/2024 Reviewed by: Yoselin Bhakta MA - Fully Assessed Reason for Visit: Minor Injuries (Sprains, Strains, Minor Joint Pain) [4230] Cmt: Entered by patient Primary Visit Diagnosis:Strain of right ankle, subsequent encounter [I18.777A] Order(s):CONSULT TO PODIATRY [9034] Order #: [id number]: 1 FUTURE Prescriptions as of 04/15/2024 - buPROPion SR (WELLBUTRIN SR) 150 mg 12 hr tablet Take 1 tablet by mouth two times a day. - losartan (COZAAR) 100 mg tablet Take 1 tablet by mouth once daily. - metoprolol succinate ER (TOPROL XL) 100 mg Take 1 tablet by mouth once daily. - valACYclovir (VALTREX) 1 gram tablet Take 1 tablet by mouth once daily. - tiZANidine (ZANAFLEX) 4 mg tablet Take 1 tablet by mouth every 8 hours as needed (muscle spasms). - traZODone (DESYREL) 100 mg tablet Take 1 tablet by mouth daily at bedtime. - DULoxetine (CYMBALTA) 30 mg capsule Take 1 capsule by mouth once daily. - DULoxetine (CYMBALTA) 20 mg capsule Take 1 capsule by mouth once daily. For 2 weeks. Start after completing Cymbalta 30 mg daily for 2 weeks. - lidocaine (LIDODERM) 5 % Apply 1 Patch as directed once andreas (more content not included)... Normal [facility] Urgent Care Visit Reporton 0 03-26-2024 Urgent Care Visit Report [facility] [address], [address] [place] [address] OFFICE VISIT Date of Service: 03/26/24 MR#: [id number] Acct: [id number] Name: EMILY NGUYEN Rep #: [id number] : 1985 Provider: ANNA MARIE Mcdaniel Age/Sex: 38/F Location[place] [facility] Status: Signed Intake Vital Signs 01/06/24 22:17 03/26/24 17:26 Height 5 ft 3 in 5 ft 3.5 in Weight: 277 lb 8 oz BMI 48.4 BP 120/80 Position Sitting Pulse 88 Pulse Oximetry (%) 99 Oxygen Delivery Method room air Intake Visit Reasons: BILAT EAR CONCERN Accompanied by: Self Allergies amoxicillin (Amoxicillin) Allergy (Verified 03/26/24 17:28) Unknown ESPERANZA Inhibitors Adverse Reaction (Verified 03/26/24 17:28) COUGHING PFSH Medical History (Updated 01/15/24 @ 00:02 by Background Gaurav) Freiberg's disease GERD (gastroesophageal reflux disease) Depression Anxiety HTN (hypertension) Surgical History (Updated 01/06/24 @ 22:[address] Ubaldo Garcia, ) Hx of gastric bypass History of hysterectomy History of section Social History Smoking Status: Former smoker HPI HPI Details: EMILY NGUYEN, is a 38 F who presents to the office today for [facility] evaluation at the [facility] for approximately 2-week history of progressively worsening forehead pressure/congestion with purulent postnasal drip and bilateral ear pressure and irritated throat and nausea. No complaints of fever, chills, myalgias, fatigue, runny nose, or nausea/vomiting/diarrhea. No complaints of chest pain/shortness of breath/dyspnea on exertion. Previously diagnosed with COVID-19 approximately 2 weeks ago patient so states, therefore declining all POC screening today. No close contacts with similar complaints. No other associated symptoms and no other alleviating/aggravating factors. ROS Const Constitutional: No other (as above) Exam Const General: cooperative, healthy appearing and no acute distress Nutritional Appearance: average body habitus Orientation: alert, awake and oriented x3 HENMT Head: normal to inspection Ears: hearing grossly normal bilaterally, external ears normal, TM's normal bilaterally and EAC's normal Nose: external nose normal, nares normal, septum normal and no nasal discharge Face and sinus: normal facial exam, sinuses tender (bilateral frontal) and face symmetric Mouth: oral mucosae normal, lip normal, tongue normal and oropharynx normal Throat: posterior oropharynx normal, tonsils normal, uvula midline and postnasal drainage (Purulent) Eyes General: appearance normal, both eyes and all related structures Neck Neck: normal visual inspection, full ROM, no meningeal signs, supple and lymphadenopathy (Bilateral anterior cervical lymph node swelling/tender to palpation) Neck mass: No Thyroid: thyroid normal Chest Chest palpation inspection: normal inspection of the chest Resp Effort Inspection: normal respiratory effort and able to speak in complete sentences Auscultation: Bilateral: Clear to Auscultation Cardio Palpation: normal PMI Rate: regular rate Rhythm: regular rhythm Heart Sounds: S1 normal, S2 normal, no gallops, no murmurs and no rubs Pulses: radial pulses present GI Inspection: normal to inspection Skin General: no rashes or lesions noted Neuro General: patient alert, patient awake and patient oriented x3 Cognition: normal cognition Speech: speech normal Psych Appearance: grossly normal Mental Status: mental status grossly normal Mood: congruent mood Affect: normal affect Speech and Movement: speech and movement normal Attitude: cooperative Diagnoses Acute frontal sinusitis, unspecified J01.10 Assessment and Plan Assessment and Plan (1) Acute frontal sinusitis, unspecified: Status: Acute Plan: Azithromycin as prescribed today. Supportive measures as instructed today, with work/school excuse offered. Follow-up with PCP in 3 to 5 days should symptoms not improve, sooner should symptoms worsen or any other concerns develop. Patient states acknowledging understanding all the above Coding Level of Care Code Off vis,est,level 3 Assessment and Plan Assessment and Plan Medications: New azithromycin For 250 mg dose pack: take 500 mg today (day 1), then 250 mg for 4 days (days 2-5) PO 6 tabs 0RF Discontinued hydrocodone-acetaminophen 5-325 mg Discontinued Reason: Pt no longer taking 1 TAB PO Q6H PRN 3 days PRN 10 TABLETS 0RF Pain S93.601A - Unspecified sprain of right foot, initial encounter 03/26/24 1752 Date Silvio Pedro Signature: Date (if applicable) CC: Normal [facility] MRI ANKLE W/O CONTRAST RIGHT on 02-12-2024 MRI ANKLE W/O CONTRAST RIGHT ORIGINAL EXAMINATION: MRI OF THE RIGHT ANKLE WITHOUT CONTRAST, 02/12/2024 2:10 pm TECHNIQUE: Multiplanar multisequence MRI of the right ankle was performed without the administration of intravenous contrast. COMPARISON: Radiograph dated 01/04/2024 HISTORY: ORDERING SYSTEM PROVIDED HISTORY: Reason for Exam: Nondisplaced fracture of posterior process of right talus, initial encounter for closed fracture FINDINGS: Diffuse subcutaneous edema surrounding the ankle joint. Os trigonum. Trace tibiotalar joint fluid. Tiny ganglion cyst at the dorsal inter cuneiform joint measuring 0.4 cm (series 8, image 12). The Lisfranc ligament is intact. The Achilles tendon is intact. Thickening of the distal Achilles tendon suggesting tendinosis. Trace retrocalcaneal bursitis and edema within Kager's fat pad. Borderline thickening of the proximal plantar fascia at the calcaneal origin suggesting chronic plantar fasciitis. Plantar and retrocalcaneal enthesopathy . The anterior extensor tendons are intact. Thickening and attenuation of the posterior tibial tendon, posterior tibial tendinosis. The flexor digitorum is intact. The flexor hallucis longus tendon is intact. Mild retro malleolar tenosynovitis of the medial flexor tendons. Tendinosis and tenosynovitis of the peroneal tendons. Infra malleolar split tear of the peroneus brevis (series 6, image 14). High-grade sprain/partial tear of the anterior talofibular ligament. Sprain of the calcaneofibular ligament. Mild sprain of the posterior talofibular ligament which is intact. The interosseous, anterior tibiofibular and posterior tibiofibular ligaments are intact. Attenuation of the deep and superficial fibers of the deltoid ligament with partial tearing. Severely thickened and attenuated superomedial band of the spring ligament. There is bone marrow edema/contusion along the medial aspect of the talus and medial navicular. The calcaneal navicular band of the bifurcate ligament is intact. There is mild sprain/partial tear of the calcaneal cuboid band of the bifurcate ligament (series 8, image 9) with reactive subchondral bone marrow edema at the dorsal calcaneocuboid joint with small cortical irregularity cannot exclude a small avulsion fracture. Sprain of the plantar calcaneocuboid ligament. sprain and partial tear of lateral calcaneocuboid ligament. There is some cortical irregularity at its attachment onto the lateral aspect of the cuboid for which small avulsion cannot be excluded. Increased T2 signal/edema and strain within the extensor digitorum brevis muscle (series 5, image 13). No soft tissue mass is present within the tarsal tunnel or sinus tarsi. IMPRESSION: Acute multi ligamentous ankle injury with significant edema. Posterior tibial tendinosis. Attenuation of the deep and superficial fibers of the deltoid ligament with high-grade partial tearing of the deep fibers and moderate sprain of the superficial fibers. Thickening and sprain of the superomedial band of the spring ligament. Adjacent bone marrow edema/contusion along the medial aspect of the talus and medial navicular. Tendinosis and tenosynovitis of the peroneal tendons with infra malleolar split tear of the peroneus brevis. High-grade sprain/partial tear of the ATFL. Moderate sprain of the CFL. Mild sprain of the PT FL. Acute midfoot (Charcot) sprain. Sprain/partial tear of the bifurcate ligament calcaneocuboid band with reactive subchondral bone marrow edema and small cortical irregularity at the dorsal calcaneocuboid joint, possibly small avulsion fracture of the dorsal anterior calcaneus and lateral cuboid. Sprain of the plantar calcaneocuboid ligament. Sprain and partial tear of the lateral calcaneocuboid ligament. Increased T2 signal/strain of the extensor digitorum brevis muscle. Additional incidental findings as above. Interpreted by: Shagufta Sage Preliminary Report By: Shagufta Sage Electronically signed By Shagufta Sage Dictated Date: 02/12/2024 2:21:25 PM Prelim Date: 02/12/2024 3:49:34 PM Sign Date: 02/12/2024 3:49:34 PM Ordering Provider: [facility] ([place] Emergency Department Summary on 01-06-2024 Emergency Department Summary [facility] Medical Records Department [address] [place] [address] Emergency Department Summary 01/06/24 MR#: [id number] Acct: [id number] Name: EMILY NGUYEN Rep #: [id number] : 1985 38 From: Ubaldo Garcia DO PCP: Care Physician,No Primary Status:DEP ER Location: ED HPI History of Present Illness HPI Narrative: Patient presents with right foot injury that occurred 4 days ago. Patient states she tripped over a speed bump and twisted her foot. Patient states she was seen at [facility] emergency department and had x-rays. Patient states that the x-rays were negative. Patient states she has been using ice to the foot. Patient states she has been taking Tylenol and ibuprofen which has not been helping with her pain. Patient describes her pain as burning. Patient states it is worse with movement. Patient denies any paresthesias or weakness. Patient denies any other injuries. Chief Complaint: Lower Extremity Injury Informant: patient Occured/Mechanism Mechanism/Context: Yes fall Onset/Context/Timing Onset: Days (4) Context: Sudden Onset Timing: Continuous Quality of Pain: Burning Location: Right foot Worsened by: Movement Relieved by: Nothing Associated Symptoms Associated Symptoms: Negative for Parasthesia or Weakness [facility] Medical History (Updated 01/06/24 @ 23:[address] Ubaldo Garcia, DO) Freiberg's disease GERD (gastroesophageal reflux disease) Depression Anxiety HTN (hypertension) Home Medications ???Medication ???Instructions ???Recorded ???Last Taken ???Type duloxetine 30 mg capsule,delayed 60 mg PO DAILY 05/25/16 05/25/17 07:00 History release trazodone 50 mg tablet 50 mg PO QHS 05/25/16 Unknown History metoprolol succinate 100 mg 100 mg PO DAILY 05/19/17 09/29/17 History tablet,extended release 24 hr losartan 100 mg tablet 100 mg PO DAILY 05/15/19 Unknown History bupropion HCl 150 mg 24 hr tablet, 150 mg PO DAILY 04/20/20 Unknown History extended release tizanidine 4 mg capsule 4 mg PO TID PRN Spasms 04/20/20 Unknown History fluconazole 150 mg tablet 150 mg PO X1 #1 TAB 09/06/20 Unknown Rx hydrocodone-acetaminophen 5-325mg 1 tab PO Q6H PRN PRN Pain 3 days 01/06/24 Unknown Rx 5mg-325mg #10 TABLETS Allergy/AdvReac Type Severity Reaction Status Date / Time amoxicillin (Amoxicillin) Allergy Unknown Verified 01/06/24 22:22 ESPERANZA Inhibitors AdvReac COUGHING Verified 01/06/24 22:22 Surgical History (Updated 01/06/24 @ 22:[address] Ubaldo Garcia, DO) Hx of gastric bypass History of hysterectomy History of section Social History Smoking Status: Former smoker ROS ROS ED Constitutional Constitutional ED: Denies chills or fever(s) Eyes Eyes: Denies blurry vision or change in vision ENT ENT ED: Denies rhinorrhea or sore throat Cardiovascular Cardiovascular: Denies chest pain or palpitations Respiratory/Chest Respiratory/Chest: Denies cough or dyspnea Gastrointestinal Gastrointestinal: Denies nausea or vomiting Genitourinary Genitourinary ED: Denies dysuria or hematuria Musculoskeletal Musculoskeletal: Denies back pain or neck pain Integumentary Denies abscess or rash Neurologic Neurologic: Denies headache(s) or weakness Allergic/Immunologic Allergic/Immunologic ED: Denies mouth swelling or urticaria EXAM Physical Exam Const Vital Signs: 01/06/24 22:17 Temperature 97.6 F L Temperature Source Temporal Pulse Rate 72 Respiratory Rate 15 Blood Pressure 160/98 H Blood Pressure Mean 118 Pulse Ox 98 Oxygen Delivery Method Room Air Positive well nourished, well developed and obese General Appearance ED: well developed and NAD Nutritional Appearance: obese HEENT Reports moist mucous membranes Neck full ROM and supple Extremity Extremity Narrative: There is tenderness, edema, and ecchymosis over the metatarsals of the right foot. There is no obvious deformity noted. Range of motion was slightly limited in all motions of the right foot secondary to pain. Pulses are equal bilateral. Sensation was intact to light touch in all digits. Capillary refill was less than 2 seconds in all digits. There is no tenderness over the medial or lateral malleolus. There is no tenderness over the proximal fibula. Neuro oriented x3, CN's II-XII intact bilaterally, moves all extremities and no sensory deficits noted Sensorium / Orientation: alert Motor Exam: strength 5/5 throughout Psych mental status grossly normal MDM MDM MDM Narrative Medical decision making narrative: Differential diagnosis includes occult fracture, dislocation, sprain, and contusion. X-rays of the right foot will be obtained to assess for fracture and dislocation. Radiography Diagnostic (more content not included)... Normal [facility] Foot min 3 Viewson 4 Foot min 3 Views [facility] Imaging Services [address] [place], [place] [id number] Foot min 3 Views MR#: [id number] Acct: [id number] Name: EMILY NGUYEN Rep #: [id number] : 1985 F 38 From: Moses yang MD PCP: Care Physician,No Primary Status: REG ER Study: Foot min 3 Views Date of Exam: 01/06/24 Exam# [id number] Ordering Dr: Ubaldo Garcia DO :[id number] INDICATION: Injury/Pain EXAMINATION/TECHNIQUE: X-RAY - RIGHT XR Foot Min 3 Views 3 VIEWS COMPARISON: Prior study dated: 04/05/2018 FINDINGS: SOFT TISSUES: Soft tissue swelling throughout the foot and ankle. No radiopaque foreign body. BONES/JOINTS: No acute fracture or subluxation.. Normal alignment. Degenerative change of the first interphalangeal joint with osteophytes present.. No sclerotic or destructive changes observed. RAD/Foot min 3 Views IMPRESSION: No fracture or malalignment. Soft tissue swelling. Degenerative change of the first interphalangeal joint. Electronically Signed: Moses Nunez MD at 23:16 EDT Reading Location ID and State: [address] [place] [address] Tel , Service support , CC: Dr. Ubaldo Garcia DO; No Primary Care Physician Fire Pilot: Signed Normal [facility] XR ANKLE AND FOOT 6 VIEWS [facility] 01-04-2024 XR ANKLE AND FOOT 6 VIEWS RIGHT ORIGINAL EXAMINATION: 3 XRAY VIEWS OF THE RIGHT FOOT AND ANKLE each01/04/2024 7:12 pm COMPARISON: Right foot radiograph 08/15/2019 HISTORY: ORDERING SYSTEM PROVIDED HISTORY: Reason for Exam: tripped over a speed bump rotated right ankle pain, injury FINDINGS: No acute fracture or dislocation is identified. Bony alignment is within normal limits. The syndesmotic interval and medial clear space are maintained. The talar dome is unremarkable. Mild scattered degenerative changes. Prominent posterior talar process. Small calcaneal Achilles enthesophyte. Type 1 accessory navicular. Well corticated ossific density medial to the medial cuneiform may represent soft tissue calcification or sequela of prior insult. No significant joint effusion. Soft tissue swelling over the lateral ankle. IMPRESSION: No acute fracture or dislocation. Soft tissue swelling over the lateral ankle. I have personally reviewed the images of this examination and agree with the resident's findings and interpretation. Interpreted by: Corbin Silva Preliminary Report By: Ana Rosa Castelan Electronically signed By Corbin Silva Dictated Date: 01/04/2024 7:14:31 PM Prelim Date: 01/04/2024 7:23:57 PM Sign Date: 01/04/2024 7:33:04 PM Ordering Provider: [facility] ([place] US Abdomen limitedon 10-11- 024 [facility] ED Provider Noteson 07-14-20 23 Scheduler Maintenance Authentication Interface Message Text Emergency Department Visit Note -- HISTORY OF PRESENT ILLNESS Chief Complaint Patient presents with Low back complaint Lower back pain that shoots into left hip worse today but has been going on for months. NKI HIPAA: Verbal permission granted from patient to discuss case, including protected health information, in front of family / friends in room at the time of the evaluation. not needed - patient preferred language is Egyptian. The history is provided by the Patient. Emily Nguyen is a 37 year old year old female has a past medical history of HTN (Hypertension).. Presents to the emergency department for evaluation of left lower back pain that radiated into her let hip. She noticed the pain upon waking this morning. Denies any know injury. 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 Reports history of low back pain, but states this is worse. No numbness, tingling, weakness, loss of sensations in lower extremities. No loss of bowel or bladder, no saddle anesthesia. ------- REVIEW OF SYSTEMS --------- ROS: Negative except as indicated in HPI PAST HISTORY Pertinent Past History: Past Medical History: Diagnosis Date HTN (Hypertension) Patient Active Problem List: Myofascial pain [M79.18] Pertinent Family History: No family history on file. Pertinent Social History: Social History Occupational History Not on file Tobacco Use Smoking status: Not on file Smokeless tobacco: Not on file Substance and Sexual Activity Alcohol use: Not on file Drug use: Not on file Sexual activity: Not on file --------- PHYSICAL EXAM BP 156/98 Pulse 98 Temp 97.7 ???F (36.5 ???C) (Oral) Resp 16 Wt 237 lb (107.5 kg) SpO2 98% Physical Exam Vitals and nursing note reviewed. Constitutional: General: She is not in acute distress. Appearance: Normal appearance. She is not toxic-appearing. HENT: Head: Normocephalic and atraumatic. Right Ear: External ear normal. Left Ear: External ear normal. Nose: Nose normal. Mouth/Throat: Mouth: Mucous membranes are moist. Eyes: Conjunctiva/sclera: Conjunctivae normal. Pupils: Pupils are equal, round, and reactive to light. Cardiovascular: Rate and Rhythm: Normal rate. Pulses: Normal pulses. Pulmonary: Effort: Pulmonary effort is normal. Abdominal: General: There is no distension. Musculoskeletal: General: Normal range of motion. Cervical back: Neck supple. No tenderness or bony tenderness. No pain with movement. Thoracic back: No tenderness or bony tenderness. Normal range of motion. Lumbar back: Tenderness (left) present. No swelling, deformity, spasms or bony tenderness. Normal range of motion. Negative right straight leg raise test and negative left straight leg raise test. Right hip: No bony tenderness. Normal range of motion. Left hip: Tenderness (subjective, not reproducible with palpation) present. No bony tenderness. Normal range of motion. Right lower leg: No edema. Left lower leg: No edema. Skin: General: Skin is warm and dry. Coloration: Skin is not jaundiced or pale. Neurological: General: No focal deficit present. Mental Status: She is alert. Mental status is at baseline. Gait: Gait is intact. Psychiatric: Mood and Affect: Mood normal. Behavior: Behavior normal. ED COURSE and MEDICAL DECISION MAKING Chart Review findings include: Care Everywhere visits were noted and incorporated where appropriate. Pertinent past abnormal labs or imaging studies where appropriate are incorporated into today's ED chart. Nursing triage and assessment notes reviewed and incorporated. Medications ketorolac (TORADOL) 15 MG/ML injection (15 mg Intramuscular Given 07/14/23 1657) methocarbamol (ROBAXIN) tablet (1,000 mg Oral Given 07/14/23 1707) Recheck: Patient Stable ED Course as of 07/16/23 1417 MonJul 14, 2023 1733 Xray Hip with Pelvis LEFT FINDINGS: The pelvic ring is intact. No acute pelvic fracture or dislocation is identified. The left hip is intact. No acute hip fracture or dislocation is identified. IMPRESSION: No acute left hip or pelvic fracture. 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 Independent Test Interpretation: Xrays personally reviewed and interpreted, no obvious fracture or traumatic malalignment. Final decision-making pending radiology read. Emily Nguyen is a 37 year old year old fe (more content not included)... Normal [facility] XR HIP LEFT W/ PELVIS MIN 2- 3 VIEWSon 07-14-2023 XR HIP LEFT W/ PELVIS MIN 2-3 VIEWS EXAMINATION: XR HIP LEFT W/ PELVIS MIN 2-3 VIEWSPRO/LT 07/14/2023 05:03 PM CLINICAL HISTORY: left hip pain ASSOCIATED DIAGNOSIS: ORDERING PROVIDER: SAMANTHA CARNES TECHNOLOGISTS NOTE: COMPARISON: None FINDINGS: The pelvic ring is intact. No acute pelvic fracture or dislocation is identified. The left hip is intact. No acute hip fracture or dislocation is identified. IMPRESSION: No acute left hip or pelvic fracture. MACRO: None Normal [facility] XR Pelvis and Hip - left Vie wson 07-14-2023 EXAMINATION: XR HIP LEFT W/ PELVIS MIN 2-3 VIEWSPRO/LT 07/14/2023 05:03 PM CLINICAL HISTORY: left hip pain ASSOCIATED DIAGNOSIS: ORDERING PROVIDER: SAMANTHA CARNES TECHNOLOGISTS NOTE: COMPARISON: None FINDINGS: The pelvic ring is intact. No acute pelvic fracture or dislocation is identified. The left hip is intact. No acute hip fracture or dislocation is identified. IMPRESSION: No acute left hip or pelvic fracture. MACRO: None RADIOLOGY Nena Reaves MD - 07/14/2023 EXAMINATION: XR HIP LEFT W/ PELVIS MIN 2-3 VIEWSPRO/LT 07/14/2023 05:03 PM CLINICAL HISTORY: left hip pain ASSOCIATED DIAGNOSIS: ORDERING PROVIDER: SAMANTHA CARNES TECHNOLOGISTS NOTE: COMPARISON: None FINDINGS: The pelvic ring is intact. No acute pelvic fracture or dislocation is identified. The left hip is intact. No acute hip fracture or dislocation is identified. IMPRESSION: No acute left hip or pelvic fracture. MACRO: None [facility] observation (narrative) [employer] XR Pelvis and Hip - left Vie wsOrdered By: Nena Reaves on 07-14-2023 [employer] Work Phone: [facility] 05-16-2023 U Creatinine 101.8 mg/dL Normal 28.0-117.0 [facility] Comment on above: Performed By: #### M ALBR #### [address] [address] U Microalb 3063 mcg/dL Normal [facility] Comment on above: Performed By: #### M ALBR #### [address] [place], [place] [address] U Ratio Alb/Cre 30 mcg/mg Normal 0-30 [facility] Comment on above: Performed By: #### M ALBR #### [address] [place], [place] [address] ALLIED HEALTHon 11-15-2022 [facility] HNO ID: [id number] Author: RT Des(R) Service: ? Author Type: Technologist Type: Allied Health Filed: 11/14/2022 10:03 PM Note Text: Radiology Service Progress Note PATIENT NAME: Emily Nguyen DATE OF SERVICE: November 14, 2022 TIME: 10:03 PM PATIENT IDENTITY VERIFICATION COMPLETED USING TWO (2) IDENTIFIERS: Name and Date of confirmed by patient verbally. FALL SCREENING: Has the patient had 2 falls in the last year or 1 fall with injury or currently using an Ambulatory Assistive Device (Walker, Cane, Wheelchair, Crutches, etc.)? Emergency Room Patient: Screened in ED PATIENT GENDER DATA: Female. status: : No status: NO. PATIENT RELEVANT IMPLANT DATA REVIEWED: Yes RADIOLOGY DEPARTMENT: CT; Exam(s) Completed: Brain PERIPHERAL IV DATA: Not applicable SIGNED BY: RT Des(R) November 14, 2022 10:03 PM [facility] CT BRAIN WO IVCONon 11-16-19 CT BRAIN WO IVCON * * *Final Report* * * DATE OF EXAM: Nov 14 2022 10:02PM [facility] 0504 - CT BRAIN WO IVCON / PROCEDURE REASON: Vision loss, monocular * * * * Physician Interpretation * * * * RESULT: EXAMINATION: CT BRAIN WO IVCON CLINICAL HISTORY: Vision loss TECHNIQUE: Serial axial images without IV contrast were obtained from the vertex to the foramen magnum. MQ: CTBWO_3 CT Radiation dose: Integrated Dose-Length Product (DLP) for this visit = 765 mGy*cm CT Dose Reduction Employed: No dose reduction techniques were required COMPARISON: None. RESULT: Post-operative change: None. Acute change: No evidence of an acute infarct or other acute parenchymal process. Hemorrhage: No evidence of acute intracranial hemorrhage. ECASS hemorrhagic transformation score: Not Applicable Mass Lesion / Mass Effect: There is no evidence of an intracranial mass or extraaxial fluid collection. No significant mass effect. Chronic change: None apparent. Parenchyma: There is no significant volume loss. The brain parenchyma is otherwise within normal limits for age. Ventricles: The ventricles are within normal limits of size and configuration for age. Paranasal sinuses and skull base: The visualized paranasal sinuses are grossly clear. The skull base and imaged soft tissues are unremarkable. Gas Turbine Mechanic (topogram) images: No additional findings. IMPRESSION: No acute intracranial abnormality. Transcribed Using Voice Recognition Transcribe Date/Time: Nov 14 2022 10:07P Dictated by: ELAINA CALDWELL MD This examination was interpreted and the report reviewed and electronically signed by: ELAINA CALDWELL MD on Nov 14 2022 10:10PM EST [id number] [facility] ED NOTEon 11-15-2022 ED NOTE HNO ID: [id number] Author: Idalia Valerio RN Service: ? Author Type: Registered Nurse Type: ED Notes Filed: 11/15/2022 2:28 AM Note Text: Pt left before AMA paperwork could be given and signed. Dr Sims aware of pt leaving without paperwork. [facility] ED PROV NOTEon 11-15-2022 ED PROV NOTE HNO ID: [id number] Author: Doug Sims MD Service: Emergency Medicine Author Type: Physician Type: ED Provider Notes Filed: 11/15/2022 5:12 AM Note Text: ED PROVIDER NOTE Patient Name: Emily Nguyen Service Date: November 15, 2022 Histories HISTORY OF PRESENT ILLNESS Chief Presenting Problem -right eye pain, headache, vision loss In brief a 37-year-old female medical history include not limited to as below coming for right eye pain headache vision loss. Headache is described as located behind the right eye. The patient endorses central vision loss to the lower half of the field right eye for 2 days and associated with this pain. She thought this may be migraine but the pain and vision loss has persisted and has not resolved thus prompting evaluation here. She does not endorse fever, other head pain, no neck stiffness no chest pain or shortness of breath no nausea vomiting no pain or numbness weakness of the extremities. 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 Hiwot SUÁREZ 05/2013 EXCISION GANGLION WRIST DORSAL/VOLAR PRIMARY Right wrist HYSTERECTOMY HX 2014 TRH with lysis of adhesions, without BSO LAP SLEEVE GASTRECTOMY 10/02/2018 NEUROPLASTY AND/TRANSPOS MEDIAN NRV CARPAL TUNNE Bilateral 02/16/2018 Bilateral carpal tunnel syndrome PAST SURGICAL HISTORY OF Right 10/02/2020 right knee scope with menisectomy, by Dr. Oreilly TONSILLECTOMY PRIMARY/SECONDARY UNSPECIFIED ORAL SURGERY PROCEDURE, BY REPORT impacted teeth MEDICATIONS: notable medications reviewed with patient, otherwise reviewed chart listed medications as below: No current facility-administered medications for this encounter. Current Outpatient Medications Medication Sig Dispense Refill DULoxetine (CYMBALTA) 30 mg capsule Take 1 capsule by mouth twice daily. 180 capsule 2 tiZANidine (ZANAFLEX) 4 mg tablet Take 1 tablet by mouth every 8 hours as needed (muscle spasms). 30 tablet 2 lidocaine (LIDODERM) 5 % Apply 1 Patch as directed every 24 hours. Remove old patch prior to placing new patch. Location: low back (Patient not taking: Reported on 10/12/2021 ) 30 Patch 3 metoprolol succinate ER (TOPROL XL) 100 mg Take 1 tablet by mouth once daily. 90 tablet 1 acetaminophen 325 mg-caffeine 40 mg-butalbital 50 mg (FIORICET) per tablet Take 1 tablet by mouth every 4 hours as needed. (Patient not taking: Reported on 10/12/2021) 20 tablet 0 losartan (COZAAR) 100 mg tablet Take 1 tablet by mouth once daily. 90 tablet 1 nystatin (MYCOSTATIN) cream Apply 1 application to affected area twice daily. (Patient not taking: Reported on 10/12/2021 ) 45 g 1 traZODone (DESYREL) 100 mg tablet 100 mg. buPROPion XL (WELLBUTRIN XL) 150 mg 24 hr tablet Take 1 tablet by mouth once daily. 30 tablet 5 multivitamin-ferrous sulfate 18 mg iron tab Take by mouth once daily. Calcium Citrate-Vitamin D2 1,500-200 mg-unit tab Take 1 tablet by mouth once daily. Cholecalciferol, Vitamin D3, (VITAMIN D-3) 400 unit chew Take by mouth once daily. cyanocobalamin, vitamin B-12, (VITAMIN B-12 SUBLINGUAL) Dissolve under the tongue once daily. ALLERGIES: reviewed and agree with nursing/[facility] documentation on file (except if noted otherwise here in chart) FAMILY MEDICAL HISTORY: Family History Problem Relation Age of Onset Cancer Mother UTERINE Diabetes Mother Hypertension Mother Diabetes Father Hypertension Father other (DEMENTIA) Paternal Grandmother Colon Cancer Paternal Grandfather Breast Cancer Maternal Aunt Breast Cancer Maternal Aunt Breast Cancer Other Maternal Great Aunt Heart Maternal Uncle CABG SOCIAL HISTORY: Social History Tobacco Use Smoking status: Former Packs/day: 0.20 Years: 5.00 Pack years: 1.00 Types: Cigarettes Quit date: 2014 Years since quittin.3 Smokeless tobacco: Never Vaping Use Vaping Use: Never used Substance Use Topics Alcohol use: Yes Comment: rare Drug use: No Physical Exam PHYSICAL EXAM: VITAL SIGNS - (more content not included)... Normal [facility] CBC W Auto Differential pane l (Bld)on 11-14-2022 Basophils (Bld) [#/Vol] 0.06 10*3/uL Normal <0.11 [facility] Comment on above: Order Comment: Speci men Type: BLOOD SPECIMEN Ordering Facility: [facility] Address: [address] [place] [id number] Performed By: #### 5 7021-8 #### [facility] CLIA [id number] [address] [place] [address] [place] Basophils/100 WBC (Bld) 0.7 % Normal [facility] Comment on above: Order Comment: Speci men Type: BLOOD SPECIMEN Ordering Facility: [facility] Address: [address] [address] Performed By: #### 5 7021-8 #### [facility] CLIA [id number] [address] [place] [address] [place] Differential cell count method Nom (Bld) Auto Normal [facility] Comment on above: Order Comment: Speci men Type: BLOOD SPECIMEN Ordering Facility: [facility] Address: [address] [address] Performed By: #### 5 7021-8 #### [facility] CLIA [id number] [address] [place] [address] [place] Eosinophils (Bld) [#/Vol] 0.07 10*3/uL Normal <0.46 [facility] Comment on above: Order Comment: Speci men Type: BLOOD SPECIMEN Ordering Facility: [facility] Address: [address] [address] Performed By: #### 5 7021-8 #### [facility] CLIA [id number] [address] [place] [address] [place] Eosinophils/100 WBC (Bld) 0.8 % Normal [facility] Comment on above: Order Comment: Speci men Type: BLOOD SPECIMEN Ordering Facility: [facility] Address: [address] [address] Performed By: #### 5 7021-8 #### [facility] CLIA [id number] [address] [place] [address] [place] Erythrocyte distribution width (RBC) [Ratio] 12.1 % Normal 11.5-15.0 [facility] Comment on above: Order Comment: Speci men Type: BLOOD SPECIMEN Ordering Facility: [facility] Address: [address] [address] Performed By: #### 5 7021-8 #### [facility] CLIA [id number] [address] [place] [address] [place] Hematocrit (Bld) [Volume fraction] 42.1 % Normal 36.0-46.0 [facility] Comment on above: Order Comment: Speci men Type: BLOOD SPECIMEN Ordering Facility: [facility] Address: [address] [place] [address] Performed By: #### 5 7021-8 #### [facility] CLIA [id number] [address] [place] [address] [place] Hemoglobin (Bld) [Mass/Vol] 14.5 g/dL Normal 11.5-15.5 [facility] Comment on above: Order Comment: Speci men Type: BLOOD SPECIMEN Ordering Facility: [facility] Address: [address] [place] [address] Performed By: #### 5 7021-8 #### [facility] [place] [id number] [address] [place] [address] [place] Immature granulocytes (Bld) [#/Vol] 0.03 10*3/uL Normal <0.10 [facility] Comment on above: Order Comment: Speci men Type: BLOOD SPECIMEN Ordering Facility: [facility] Address: [address] [place] [address] Performed By: #### 5 7021-8 #### [facility] [place] [id number] [address] [place] [address] [place] Immature granulocytes/100 WBC (Bld) 0.3 % Normal [facility] Comment on above: Order Comment: Speci men Type: BLOOD SPECIMEN Ordering Facility: [facility] Address: [address] [place] [address] Performed By: #### 5 7021-8 #### [facility] CLIA [id number] [address] [place] [address] [place] Lymphocytes (Bld) [#/Vol] 3.35 10*3/uL Normal 1.00-4.00 [facility] Comment on above: Order Comment: Speci men Type: BLOOD SPECIMEN Ordering Facility: [facility] Address: [address] [place] [address] Performed By: #### 5 7021-8 #### [facility] CLIA [id number] [address] [place] [address] [place] Lymphocytes/100 WBC (Bld) 37.1 % Normal [facility] Comment on above: Order Comment: Speci men Type: BLOOD SPECIMEN Ordering Facility: [facility] Address: [address] [place] [address] Performed By: #### 5 7021-8 #### [facility] CLIA [id number] [address] [place] [address] [place] MCH (RBC) [Entitic mass] 31.4 pg Normal 26.0-34.0 [facility] Comment on above: Order Comment: Speci men Type: BLOOD SPECIMEN Ordering Facility: [facility] Address: [address] [place] [address] Performed By: #### 5 7021-8 #### [facility] CLIA [id number] [address] [place] [address] [place] MCHC (RBC) [Mass/Vol] 34.4 g/dL Normal 30.5-36.0 [facility] Comment on above: Order Comment: Speci men Type: BLOOD SPECIMEN Ordering Facility: [facility] Address: [address] [place] [address] Performed By: #### 5 7021-8 #### [facility] CLIA [id number] [address] [place] [address] [place] MCV (RBC) [Entitic vol] 91.1 fL Normal 80.0-100.0 [facility] Comment on above: Order Comment: Speci men Type: BLOOD SPECIMEN Ordering Facility: [facility] Address: [address] [place] [address] Performed By: #### 5 7021-8 #### [facility] CLIA [id number] [address] [place] [address] [place] Monocytes (Bld) [#/Vol] 0.63 10*3/uL Normal <0.87 [facility] Comment on above: Order Comment: Speci men Type: BLOOD SPECIMEN Ordering Facility: [facility] Address: [address] [address] Performed By: #### 5 7021-8 #### [facility] CLIA [id number] [address] [place] [address] [place] Monocytes/100 WBC (Bld) 7.0 % Normal [facility] Comment on above: Order Comment: Speci men Type: BLOOD SPECIMEN Ordering Facility: [facility] Address: [address] [address] Performed By: #### 5 7021-8 #### [facility] CLIA [id number] [address] [place] [address] [place] Neutrophils (Bld) [#/Vol] 4.89 10*3/uL Normal 1.45-7.50 [facility] Comment on above: Order Comment: Speci men Type: BLOOD SPECIMEN Ordering Facility: [facility] Address: [address] [address] Performed By: #### 5 7021-8 #### [facility] CLIA [id number] [address] [place] [address] [place] Neutrophils/100 WBC (Bld) 54.1 % Normal [facility] Comment on above: Order Comment: Speci men Type: BLOOD SPECIMEN Ordering Facility: [facility] Address: [address] [address] Performed By: #### 5 7021-8 #### [facility] CLIA [id number] [address] [place] [address] [place] Nucleated RBC (Bld) [#/Vol] 10*3/uL Normal <0.01 [facility] Comment on above: Order Comment: Speci men Type: BLOOD SPECIMEN Ordering Facility: [facility] Address: [address] [address] Performed By: #### 5 7021-8 #### [facility] CLIA [id number] [address] [place] [address] [place] Nucleated RBC/100 WBC (Bld) [Ratio] 0.0 /100 WBC Normal [facility] Comment on above: Order Comment: Speci men Type: BLOOD SPECIMEN Ordering Facility: [facility] Address: [address] [place] [address] Performed By: #### 5 7021-8 #### [facility] CLIA [id number] [address] [place] [address] [place] Platelet mean volume (Bld) [Entitic vol] 9.7 fL Normal 9.0-12.7 [facility] Comment on above: Order Comment: Speci men Type: BLOOD SPECIMEN Ordering Facility: [facility] Address: [address] [place] [address] Performed By: #### 5 7021-8 #### [facility] CLIA [id number] [address] [place] [address] [place] Platelets (Bld) [#/Vol] 336 10*3/uL Normal 150-400 [facility] Comment on above: Order Comment: Speci men Type: BLOOD SPECIMEN Ordering Facility: [facility] Address: [address] [place] [address] Performed By: #### 5 7021-8 #### [facility] [place] [id number] [address] [place] [address] [place] RBC (Bld) [#/Vol] 4.62 10*6/uL Normal 3.90-5.20 [facility] Comment on above: Order Comment: Speci men Type: BLOOD SPECIMEN Ordering Facility: [facility] Address: [address] [place] [address] Performed By: #### 5 7021-8 #### [facility] CLIA [id number] [address] [place] [address] [place] WBC (Bld) [#/Vol] 9.03 10*3/uL Normal 3.70-11.00 [facility] Comment on above: Order Comment: Speci men Type: BLOOD SPECIMEN Ordering Facility: [facility] Address: [address] [address] Performed By: #### 5 7021-8 #### [facility] CLIA [id number] [address] [place] [address] [place] Comprehensive metabolic 2000 panelon 11-14-2022 Albumin [Mass/Vol] 4.1 g/dL Normal 3.9-4.9 [facility] Comment on above: Order Comment: Speci men Type: BLOOD SPECIMEN Ordering Facility: [facility] Address: [address] [address] Performed By: #### 2 4323-8 #### [facility] CLIA [id number] [address] [place] [address] [place] ALP [Catalytic activity/Vol] 89 U/L Normal 34-123 [facility] Comment on above: Order Comment: Speci men Type: BLOOD SPECIMEN Ordering Facility: [facility] Address: [address] [place] [address] Performed By: #### 2 4323-8 #### [facility] CLIA [id number] [address] [place] [address] [place] ALT [Catalytic activity/Vol] 18 U/L Normal 7-38 [facility] Comment on above: Order Comment: Speci men Type: BLOOD SPECIMEN Ordering Facility: [facility] Address: [address] [place] [address] Performed By: #### 2 4323-8 #### [facility] CLIA [id number] [address] [place] [address] [place] Anion gap [Moles/Vol] 13 mmol/L Normal 9-18 [facility] Comment on above: Order Comment: Speci men Type: BLOOD SPECIMEN Ordering Facility: [facility] Address: [address] [place] [address] Performed By: #### 2 4323-8 #### [facility] CLIA [id number] [address] [place] [address] [place] AST [Catalytic activity/Vol] 13 U/L Normal 13-35 [facility] Comment on above: Order Comment: Speci men Type: BLOOD SPECIMEN Ordering Facility: [facility] Address: [address] [address] Performed By: #### 2 4323-8 #### [facility] CLIA [id number] [address] [place] [address] [place] Bilirubin [Mass/Vol] 0.2 mg/dL Normal 0.2-1.3 [facility] Comment on above: Order Comment: Speci men Type: BLOOD SPECIMEN Ordering Facility: [facility] Address: [address] [address] Performed By: #### 2 4323-8 #### [facility] CLIA [id number] [address] [place] [address] [place] Calcium [Mass/Vol] 9.4 mg/dL Normal 8.5-10.2 [facility] Comment on above: Order Comment: Speci men Type: BLOOD SPECIMEN Ordering Facility: [facility] Address: [address] [address] Performed By: #### 2 4323-8 #### [facility] CLIA [id number] [address] [place] [address] [place] Chloride [Moles/Vol] 100 mmol/L Normal 97-105 [facility] Comment on above: Order Comment: Speci men Type: BLOOD SPECIMEN Ordering Facility: [facility] Address: [address] [address] Performed By: #### 2 4323-8 #### [facility] LABORATORY CLIA [id number] [address] [place] [address] [place] CO2 [Moles/Vol] 24 mmol/L Normal 22-30 [facility] Comment on above: Order Comment: Speci men Type: BLOOD SPECIMEN Ordering Facility: [facility] Address: [address] [address] Performed By: #### 2 4323-8 #### [facility] CLIA [id number] [address] [place] [address] [place] Creatinine [Mass/Vol] 0.69 mg/dL Normal 0.58-0.96 [facility] Comment on above: Order Comment: Deborah jean paul Type: BLOOD SPECIMEN Ordering Facility: [facility] Address: [address] [id number] Performed By: #### 2 4323-8 #### [facility] CLIA [id number] [address] [place] [address] [place] ESTIMATED GLOMERULAR FILTRATION RATE 113 mL/min/1.73m??? Normal >=60 [facility] Comment on above: Order Comment: Deborah jean paul Type: BLOOD SPECIMEN Ordering Facility: [facility] Address: [address] [address] Result Comment: Laina mated Glomerular Filtration Rate (eGFR) is calculated using the 2020 CKD-EPI creatinine equation. This equation utilizes serum creatinine, sex, and age as parameters. The creatinine assay has traceable calibration to isotope dilution-mass spectrometry. Refer to KDIGO guidelines for clinical interpretation. In patients with unstable renal function, e.g. those with acute kidney injury, the eGFR may not accurately reflect actual GFR. Performed By: #### 2 4323-8 #### [facility] CLIA [id number] [address] [place] [address] [place] Glucose [Mass/Vol] 130 mg/dL High 74-99 [facility] Comment on above: Order Comment: Deborah jean paul Type: BLOOD SPECIMEN Ordering Facility: [facility] Address: [address] [address] Result Comment: The [place] Diabetes Association (ADA) provides guidance for cutoff values for fasting glucose and random glucose. The ADA defines fasting as no caloric intake for at least 8 hours. Fasting plasma glucose results between 100 to 125 mg/dL indicate increased risk for diabetes (prediabetes). Fasting plasma glucose results greater than or equal to 126 mg/dL meet the criteria for diagnosis of diabetes. In the absence of unequivocal hyperglycemia, results should be confirmed by repeat testing. In a patient with classic symptoms of hyperglycemia or hyperglycemic crisis, random plasma glucose results greater than or equal to 200 mg/dL meet the criteria for diagnosis of diabetes. Reference: Standards of Medical Care in Diabetes 2016, [place] [employer]. Diabetes Care. 2016.39(Suppl 1). Performed By: #### 2 4323-8 #### [facility] CLIA [id number] [address] [place] [address] [place] Potassium [Moles/Vol] 3.2 mmol/L Low 3.7-5.1 [facility] Comment on above: Order Comment: Speci men Type: BLOOD SPECIMEN Ordering Facility: [facility] Address: [address] [address] Performed By: #### 2 4323-8 #### [facility] CLIA [id number] [address] [place] [address] [place] Protein [Mass/Vol] 7.0 g/dL Normal 6.3-8.0 [facility] Comment on above: Order Comment: Speci men Type: BLOOD SPECIMEN Ordering Facility: [facility] Address: [address] [place] [address] Performed By: #### 2 4323-8 #### [facility] CLIA [id number] [address] [place] [address] [place] Sodium [Moles/Vol] 137 mmol/L Normal 136-144 [facility] Comment on above: Order Comment: Speci men Type: BLOOD SPECIMEN Ordering Facility: [facility] Address: [address] [place] [address] Performed By: #### 2 4323-8 #### [facility] CLIA [id number] [address] [place] [address] [place] Urea nitrogen [Mass/Vol] 7 mg/dL Normal 7-21 [facility] Comment on above: Order Comment: Speci men Type: BLOOD SPECIMEN Ordering Facility: [facility] Address: [address] [place] [address] Performed By: #### 2 4323-8 #### [facility] CLIA [id number] [address] [place] [address] [place] ED NOTEon 11-14-2022 ED NOTE HNO ID: [id number] Author: Paige Perez RN Service: ? Author Type: Registered Nurse Type: ED Notes Filed: 11/14/2022 8:26 PM Note Text: Patient states she had a hysterectomy. Declines any chance of . [facility] ED NOTE HNO ID: [id number] Author: Paige Perez RN Service: ? Author Type: Registered Nurse Type: ED Notes Filed: 11/14/2022 8:19 PM Note Text: Patient presents to the ED for an eye compliant/vision issues. She states that starting Monday she began having loss or change in vision of her R eye. She states that when looking out of her R eye there is a black patch or black section in her field of vision. Patient also states that she has pain to the R eye. Sudden onset. AANDOx3 from home. VSS. [facility] LABORATORYOrdered By: Sofy goldstein on 06-06-2022 Adenovirus DNA BRIDGETTE+non-probe Ql (Nph) Not Detected *NA* (06/06/22 3:47 PM) Invalid Interpretation Code Not Detected AH Auto Viro/Sero SS B. parapertussis [id number] DNA BRIDGETTE+non-probe Ql (Nph) Not Detected *NA* (06/06/22 3:47 PM) Invalid Interpretation Code Not Detected AH Auto Viro/Sero SS B. pertussis toxin promoter region BRIDGETTE+non-probe Ql (Nph) Not Detected *NA* (06/06/22 3:47 PM) Invalid Interpretation Code Not Detected AH Auto Viro/Sero SS C. pneumoniae DNA BRIDGETTE+non-probe Ql (Nph) Not Detected *NA* (06/06/22 3:47 PM) Invalid Interpretation Code Not Detected AH Auto Viro/Sero SS FLUAV H3 RNA BRIDGETTE+non-probe Ql (Nph) Detected 1 *ABN* (06/06/22 3:47 PM) Invalid Interpretation Code Not Detected AH Auto Viro/Sero SS Comment on above: Result Comment: This organism causes a reportable disease. Infection Control has been notified. Results have been reported to the [place] [facility]. FLUBV RNA BRIDGETTE+non-probe Ql (Nph) Not Detected *NA* (06/06/22 3:47 PM) Invalid Interpretation Code Not Detected AH Auto Viro/Sero SS hMPV RNA BRIDGETTE+non-probe Ql (Nph) Not Detected *NA* (06/06/22 3:47 PM) Invalid Interpretation Code Not Detected AH Auto Viro/Sero SS M. pneumoniae DNA BRIDGETTE+non-probe Ql (Nph) Not Detected *NA* (06/06/22 3:47 PM) Invalid Interpretation Code Not Detected AH Auto Viro/Sero SS Parainfluenza virus 1 RNA BRIDGETTE+non-probe Ql (Nph) Not Detected *NA* (06/06/22 3:47 PM) Invalid Interpretation Code Not Detected AH Auto Viro/Sero SS Parainfluenza virus 2 RNA BRIDGETTE+non-probe Ql (Nph) Not Detected *NA* (06/06/22 3:47 PM) Invalid Interpretation Code Not Detected AH Auto Viro/Sero SS Parainfluenza virus 3 RNA BRIDGETTE+non-probe Ql (Nph) Not Detected *NA* (06/06/22 3:47 PM) Invalid Interpretation Code Not Detected AH Auto Viro/Sero SS Parainfluenza virus 4 RNA BRIDGETTE+non-probe Ql (Nph) Not Detected *NA* (06/06/22 3:47 PM) Invalid Interpretation Code Not Detected AH Auto Viro/Sero SS Rhinovirus+Enterovir us RNA BRIDGETTE+non-probe Ql (Nph) Not Detected *NA* (06/06/22 3:47 PM) Invalid Interpretation Code Not Detected AH Auto Viro/Sero SS RSV RNA BRIDGETTE+non-probe Ql (Nph) Not Detected *NA* (06/06/22 3:47 PM) Invalid Interpretation Code Not Detected AH Auto Viro/Sero SS SARS-CoV-2 (COVID-19) RNA BRIDGETTE+probe Ql (Resp) Not Detected *NA* (06/06/22 3:47 PM) Invalid Interpretation Code Not Detected AH Auto Viro/Sero SS CR Foot Complete 3+ Views [place] 04-29-2022 CR Foot Complete 3+ Views Left Patient Name: EMILY NGUYEN Diagnostic Radiology ACCESSION EXAM DATE/TIME PROCEDURE ORDERING PROVIDER [id number] 04/29/2022 13:10 EDT CR Foot Complete 3+ [id number] -ISA, ISABELLE Views Left CPT code 99240 Reason For Exam (CR Foot Complete 3+ Views Left) pain Report EXAMINATION: Left foot three weightbearing views INDICATION: pain FINDINGS: No acute fracture or dislocation is demonstrated. [id number] degenerative changes of the IP joints are noted. Flattening of the second metatarsal head is present with associated degenerative changes of the second MTP joint. Small osteophyte present along the dorsum of the talonavicular joint. Small plantar calcaneal enthesophyte present. The soft tissues are grossly unremarkable. IMPRESSION: No acute osseous abnormality. Freiberg's infraction. Diagnostic Radiology Report Report Dictated on Final Dictating Physician: MD DOSHI KRIKOR Signed Date and Time: 05/02/2022 8:14 am Signed by: MD DOSHI KRIKOR Transcribed Date and Time: 05/02/2022 8:15 Normal [facility] LABORATORYOrdered By: Dora Henning on 03-14-2022 ADMITTED TO INTENSIVE CARE UNIT FOR CONDITION OF INTEREST:FIND:PT:^PA TIENT:ORD: No (03/14/22 12:00 PM) Invalid Interpretation Code AO Auto Urine SS EMPLOYED IN A HEALTHCARE SETTING:FIND:PT:^PAT IENT:ORD: Yes (03/14/22 12:00 PM) Invalid Interpretation Code AO Auto Urine SS FIRST TEST FOR CONDITION OF INTEREST:FIND:PT:^PA TIENT:ORD: No (03/14/22 12:00 PM) Invalid Interpretation Code AO Auto Urine SS HAS SYMPTOMS RELATED TO CONDITION OF INTEREST:FIND:PT:^PA TIENT:ORD: Yes (03/14/22 12:00 PM) Invalid Interpretation Code AO Auto Urine SS Illness or injury onset date and time 20220310 Invalid Interpretation Code AO Auto Urine SS Patient was hospitalized because of this condition No (03/14/22 12:00 PM) Invalid Interpretation Code AO Auto Urine SS status Not (03/14/22 12:00 PM) Invalid Interpretation Code AO Auto Urine SS RESIDES IN A CONGREGATE CARE SETTING:FIND:PT:^PAT IENT:ORD: No (03/14/22 12:00 PM) Invalid Interpretation Code AO Auto Urine SS SARS-CoV-2 (COVID-19) RNA BRIDGETTE+probe Ql (Unsp spec) Positive results are indicative of the presence of SARS-CoV-2 RNA; clinical correlation with patient history and other diagnostic information is necessary to determine patient infection status. Positive results do not rule out bacterial infection or co-infection with other viruses. The agent detected may not be the definite cause of disease. Laboratories within the [facility] and its territories are required to report all positive results to the appropriate public health authorities.Detection of analyte target(s) does not imply that the corresponding virus(es) are infectious or are the causative agents for clinical symptoms.There is a risk of false positive values resulting from cross-contamination by target organisms, their nucleic acids or amplified product, or from non-specific signals in the assay.[employer] SARS-CoV-2 Assay is a Real-Time reverse-transcriptase polymerase chain reaction (RT-PCR) based qualitative in vitro diagnostic test intended for the qualitative detection of nucleic acid from the SARS-CoV-2 in nasopharyngeal swab specimens collected from individuals suspected of COVID-19 by their healthcare provider. Testing is limited to laboratories certified under the Clinical Laboratory Improvement Amendments of 1988 (CLIA), 42 U.S.C. 263a, to perform moderate and high complexity tests. Invalid Interpretation Code AO Auto Urine SS LABORATORYOrdered By: Eugene Walton on 12-04-2021 Albumin BCP dye [Mass/Vol] 3.4 G/dL Invalid Interpretation Code 3.5 - 5.0 G/dL AO ADM SS Albumin/Globulin [Mass ratio] 1.0 {ratio} Invalid Interpretation Code 1.1 - 2.5 ratio AO ADM SS ALP [Catalytic activity/Vol] 82 U/L Invalid Interpretation Code 40 - 135 U/L AO ADM SS ALT With P-5'-P [Catalytic activity/Vol] 25 U/L Invalid Interpretation Code 14 - 59 U/L AO ADM SS Appearance (U) Clear (12/04/21 10:09 PM) Invalid Interpretation Code Clear AO Auto Urine SS AST With P-5'-P [Catalytic activity/Vol] 26 U/L Invalid Interpretation Code 10 - 40 U/L AO ADM SS Basophil, Absolute 0.10 103/mcL Invalid Interpretation Code 0.00 - 0.19 10^3/mcL AO Auto Heme SS Basophils/100 WBC (Bld) 1.0 % Invalid Interpretation Code 0.0 - 2.5 % AO Auto Heme SS Bilirubin [Mass/Vol] 0.4 mg/dL Invalid Interpretation Code 0.2 - 1.0 mg/dL AO ADM SS Bilirubin Ql (U) Negative (5/14/22 10:09 PM) Invalid Interpretation Code Negative AO Auto Urine SS Calcium [Mass/Vol] 8.9 mg/dL Invalid Interpretation Code 8.4 - 10.2 mg/dL AO ADM SS Chloride [Moles/Vol] 103 mmol/L Invalid Interpretation Code 98 - 107 mmol/L AO ADM SS CO2 [Moles/Vol] 26 mmol/L Invalid Interpretation Code 22 - 29 mmol/L AO ADM SS Color (U) Yellow (12/04/21 10:09 PM) Invalid Interpretation Code AO Auto Urine SS Creatinine [Mass/Vol] 0.58 mg/dL Invalid Interpretation Code 0.55 - 1.02 mg/dL AO ADM SS Electrolyte Balance 13.0 mEq/L Invalid Interpretation Code 4.0 - 15.0 mEq/L AO ADM SS Eosinophil, Absolute 0.20 103/mcL Invalid Interpretation Code 0.00 - 0.40 10^3/mcL AO Auto Heme SS Eosinophils/100 WBC (Bld) 2.1 % Invalid Interpretation Code 0.0 - 7.0 % AO Auto Heme SS Erythrocyte distribution width (RBC) [Ratio] 12.7 % Invalid Interpretation Code 11.5 - 14.5 % AO Auto Heme SS Globulin 3.5 G/dL Invalid Interpretation Code AO ADM SS Glucose [Mass/Vol] 98 mg/dL Invalid Interpretation Code 70 - 105 mg/dL AO ADM SS Glucose Test strip (U) [Mass/Vol] Negative Invalid Interpretation Code Negativemg /dL AO Auto Urine SS HCG ( test) Ql Negative (12/04/21 10:09 PM) Invalid Interpretation Code AO Manual Urine SS Hematocrit (Bld) [Volume fraction] 39.8 % Invalid Interpretation Code 37.0 - 47.0 % AO Auto Heme SS Hemoglobin (Bld) [Mass/Vol] 13.2 G/dL Invalid Interpretation Code 12.0 - 16.0 G/dL AO Auto Heme SS Hemoglobin Auto test strip (U) [Mass/Vol] Negative (12/04/21 10:09 PM) Invalid Interpretation Code Negative AO Auto Urine SS Ketones Ql (U) Negative Invalid Interpretation Code Negativemg /dL AO Auto Urine SS Lipase [Catalytic activity/Vol] 126 U/L Invalid Interpretation Code 73 - 393 U/L AO ADM SS Lymphocyte, Absolute 2.50 103/mcL Invalid Interpretation Code 0.77 - 3.85 10^3/mcL AO Auto Heme SS Lymphocytes/100 WBC (Bld) 28.3 % Invalid Interpretation Code 10.0 - 50.0 % AO Auto Heme SS MCH (RBC) [Entitic mass] 30.0 pg Invalid Interpretation Code 27.0 - 31.2 pg AO Auto Heme SS MCHC (RBC) [Mass/Vol] 33.2 G/dL Invalid Interpretation Code 33.0 - 37.0 G/dL AO Auto Heme SS MCV (RBC) [Entitic vol] 90.6 fL Invalid Interpretation Code 80.0 - 94.0 fL AO Auto Heme SS Monocyte, Absolute 0.70 103/mcL Invalid Interpretation Code 0.15 - 1.00 10^3/mcL AO Auto Heme SS Monocytes/100 WBC (Bld) 8.4 % Invalid Interpretation Code 1.7 - 13.0 % AO Auto Heme SS Neutrophil, Absolute 5.40 103/mcL Invalid Interpretation Code 2.85 - 6.16 10^3/mcL AO Auto Heme SS Neutrophils/100 WBC (Bld) 60.2 % Invalid Interpretation Code 37.0 - 80.0 % AO Auto Heme SS Platelet mean volume (Bld) [Entitic vol] 7.9 fL Invalid Interpretation Code 7.4 - 10.4 fL AO Auto Heme SS Platelets (Bld) [#/Vol] 316 103/mcL Invalid Interpretation Code 130 - 400 10^3/mcL AO Auto Heme SS Potassium [Moles/Vol] 4.6 mmol/L Invalid Interpretation Code 3.5 - 5.1 mmol/L AO ADM SS test (u) int Not detected Invalid Interpretation Code AO Manual Urine SS Protein [Mass/Vol] 6.9 G/dL Invalid Interpretation Code 6.4 - 8.2 G/dL AO ADM SS RBC (Bld) [#/Vol] 4.40 106/mcL Invalid Interpretation Code 4.20 - 5.40 10^6/mcL AO Auto Heme SS Sodium [Moles/Vol] 142 mmol/L Invalid Interpretation Code 136 - 145 mmol/L AO ADM SS UA Leuk Est Negative (12/04/21 10:09 PM) Invalid Interpretation Code Negative AO Auto Urine SS UA Nitrite Negative (12/04/21 10:09 PM) Invalid Interpretation Code Negative AO Auto Urine SS UA pH 5.5 (12/04/21 10:09 PM) Invalid Interpretation Code 5.0 - 8.0 AO Auto Urine SS UA Protein Negative Invalid Interpretation Code Negativemg /dL AO Auto Urine SS UA Spec Grav >=1.030 *ABN* (12/04/21 10:09 PM) Invalid Interpretation Code 1.015-1.02 5 AO Auto Urine SS UA Specimen Type Clean Catch (12/04/21 10:09 PM) Invalid Interpretation Code AO Auto Urine SS UA Urobilinogen 0.2 E.U./dL Invalid Interpretation Code 0.2-1.0E.U ./dL AO Auto Urine SS Urea nitrogen [Mass/Vol] 10 mg/dL Invalid Interpretation Code 7 - 18 mg/dL AO ADM SS Urea nitrogen/Creatinine [Mass ratio] 17 ratio Invalid Interpretation Code 7 - 27 ratio AO ADM SS WBC (Bld) [#/Vol] 8.90 103/mcL Invalid Interpretation Code 4.60 - 10.80 10^3/mcL AO Auto Heme SS LABORATORYOrdered By: ice on 12-04-2021 GFR 141 ml/min/1.73sqm Invalid Interpretation Code AO Chemistry S GFR Non- 116 ml/min/1.73sqm Invalid Interpretation Code AO Chemistry S LABORATORYOrdered By: Nano Hanley on 11-17-2021 HIV 1 p24 Ab Ql (S) Non-Reactive (11/17/21 10:38 AM) Invalid Interpretation Code Non-Reacti ve AO Rapid Testing SS HIV 1+2 Ab IA.rapid Ql (Unsp spec) Non-Reactive (11/17/21 10:38 AM) Invalid Interpretation Code Non-Reacti ve AO Rapid Testing SS HIV P24 Int Non-Reactive Invalid Interpretation Code AO Rapid Testing SS RHIV 1/2 Ab Int Non-Reactive Invalid Interpretation Code AO Rapid Testing SS LABORATORYOrdered By: ice on 11-17-2021 Cancer Ag 125 Qn 8.0 [arb'U]/mL Invalid Interpretation Code 2.0 - 35.0 U/mL AH ADM SS LABORATORYOrdered By: Beatriz Gomez on 11-17-2021 Hep C Ab Non-Reactive (11/17/21 10:36 AM) Invalid Interpretation Code Non-Reacti ve AH ADM SS Hep C Ab Int Nonreactive: Samples with a value < 0.80 are considered nonreactive (negative) for antibodies to HCV.A negative test result does not exclude the possibility of exposure to or infection with HCV. HCV antibodies may be undetectable in some stages of the infection and in some clinical conditions. Invalid Interpretation Code Chemistry S LABORATORYOrdered By: Nav Chua on 10-29-2021 C. trachomatis DNA BRIDGETTE+probe Ql (Unsp spec) Negative 2 (10/29/21 9:16 AM) Invalid Interpretation Code Negative AH Auto Viro/Sero SS Comment on above: Result Comment: Roberson sport tube received with two swabs. Review collection procedure. Inappropriate collection may cause aberrant results. C. trachomatis Interp C. trachomatis DNA not detected. Specimen is presumptive negative forC. trachomatis.A negative result does not preclude C. trachomatis infection becauseresults depend on adequate specimen collection, absence of inhibitors,and sufficient DNA to be detected. Invalid Interpretation Code See CT Interp N AH Auto Viro/Sero SS N. gonorrhoeae DNA BRIDGETTE+probe Ql (Unsp spec) Negative 1 (10/29/21 9:16 AM) Invalid Interpretation Code Negative Auto Viro/Sero SS Comment on above: Result Comment: Roberson sport tube received with two swabs. Review collection procedure. Inappropriate collection may cause aberrant results. N. gonorrhoeae Interp N. gonorrhoeae DNA not detected. Specimen is presumptive negative forN. gonorrhoeae. A negative result does not preclude Neisseria gonorrhoeaeinfection because results depend on adequate specimen collection, absenceof inhibitors, and sufficient DNA to be detected. Invalid Interpretation Code See NG Interp N AH Auto Viro/Sero SS Laboratory - Specimen inform ationOrdered By: Nav Chua on 10-29-2021 Specimen source Nom (Unsp spec) Vaginal (10/29/21 9:16 AM) Invalid Interpretation Code Auto Viro/Sero SS No Panel Informationon 10-29 Affirm Pathogens DNA Direct Probe Rosita species DNA Probe Positive Gardnerella vaginalis DNA Probe Positive Trichomonas vaginalis DNA Probe Negative [facility] Work Phone: LABORATORYOrdered By: Sinan Mtz on 10-28-2021 HPV Interp High Risk HPV Typing is Positive: High Risk HPV Typesdetected, other than HPV 16 or HPV 18.Specimen is positive for the DNA of any one of, or combination of, the following high risk HPVtypes: 31, 33, 35, 39, 45, 51, 52, 56, 58, 59, 66, 68.HPV types 16 and 18 DNA were undetectable or below the pre-set threshold.The annabella High-Risk HPV DNA Test is not intended for use as a screening device for Papnormal women under age 30 and is not intended to substitute for regular Pap screening.The annabella High-Risk HPV DNA Test is designed to augment existing methods for the detectionof cervical disease and should be used in conjunction with clinical information derived from otherdiagnostic and screening tests, physical examinations and full medical history in accordance withappropriate patient management procedures.NOTE: A negative result does not preclude the presence of HPV infection because results dependon adequate specimen collection, absence of inhibitors and sufficient DNA to be detected. Invalid Interpretation Code See Interp HPVN Auto Viro/Sero SS Specimen source Nom (Unsp spec) Cervix (10/28/21 9:16 AM) Invalid Interpretation Code Auto Viro/Sero SS LABORATORYOrdered By: Rosina Dorado on 07-03-2021 ADMITTED TO INTENSIVE CARE UNIT FOR CONDITION OF INTEREST:FIND:PT:^PA TIENT:ORD: No (07/03/21 6:43 PM) Invalid Interpretation Code AO Auto Urine SS EMPLOYED IN A HEALTHCARE SETTING:FIND:PT:^PAT IENT:ORD: No (07/03/21 6:43 PM) Invalid Interpretation Code AO Auto Urine SS FIRST TEST FOR CONDITION OF INTEREST:FIND:PT:^PA TIENT:ORD: Unknown (07/03/21 6:43 PM) Invalid Interpretation Code AO Auto Urine SS HAS SYMPTOMS RELATED TO CONDITION OF INTEREST:FIND:PT:^PA TIENT:ORD: Yes (07/03/21 6:43 PM) Invalid Interpretation Code AO Auto Urine SS Illness or injury onset date and time [id number] Invalid Interpretation Code AO Auto Urine SS Patient was hospitalized because of this condition No (07/03/21 6:43 PM) Invalid Interpretation Code AO Auto Urine SS status Unknown (07/03/21 6:43 PM) Invalid Interpretation Code AO Auto Urine SS RESIDES IN A CONGREGATE CARE SETTING:FIND:PT:^PAT IENT:ORD: No (07/03/21 6:43 PM) Invalid Interpretation Code AO Auto Urine SS SARS-CoV-2 (COVID-19) RNA BRIDGETTE+probe Ql (Resp) Positive *ABN* (07/03/21 6:43 PM) Invalid Interpretation Code Negative AO Auto Urine SS SARS-CoV-2 (COVID-19) RNA BRIDGETTE+probe Ql (Unsp spec) Positive results are indicative of the presence of SARS-CoV-2 RNA; clinical correlation with patient history and other diagnostic information is necessary to determine patient infection status. Positive results do not rule out bacterial infection or co-infection with other viruses. The agent detected may not be the definite cause of disease. Laboratories within the [facility] and its territories are required to report all positive results to the appropriate public health authorities.Detection of analyte target(s) does not imply that the corresponding virus(es) are infectious or are the causative agents for clinical symptoms.There is a risk of false positive values resulting from cross-contamination by target organisms, their nucleic acids or amplified product, or from non-specific signals in the assay.[employer] SARS-CoV-2 Assay is a Real-Time reverse-transcriptase polymerase chain reaction (RT-PCR) based qualitative in vitro diagnostic test intended for the qualitative detection of nucleic acid from the SARS-CoV-2 in nasopharyngeal swab specimens collected from individuals suspected of COVID-19 by their healthcare provider. Testing is limited to laboratories certified under the Clinical Laboratory Improvement Amendments of 1988 (CLIA), 42 U.S.C. 263a, to perform moderate and high complexity tests. Invalid Interpretation Code AO Auto Urine SS NM HEPATOBILIARY W EF AND/OR RXon 04-03-2019 NM HEPATOBILIARY W EF AND/OR RX * * *Final Report* * * DATE OF EXAM: Apr 03 2019 3:08PM AKN [id number] - NM HEPATOBILIARY W EF AND/OR RX / PROCEDURE REASON: Right upper quadrant pain * * * * Physician Interpretation * * * * HEPATOBILIARY SCAN WITH GALLBLADDER EJECTION FRACTION: CLINICAL HISTORY: Right upper quadrant abdominal pain. TECHNIQUE: 5.7 mCi Tc-99m Choletec IV.followed by 60 minutes of abdominal imaging 8 oz ensure plus orally, followed by additional 45 minutes of imaging. RESULT: There is prompt and homogeneous uptake by the liver, which appears grossly normal in size and shape. Gallbladder activity is visualized by 30 minutes, indicating cystic duct patency. Proximal small bowel activity is noted by 12 minutes, indicating common bile duct patency. There is activity in the gastric region suggestive duodenal gastric reflux. Following stimulation there is satisfactory emptying from the gallbladder with a calculated gallbladder ejection fraction of 72% (normal > 35%). IMPRESSION: 1 Gallbladder is visualized. Patent cystic and common bile ducts. No scintigraphic evidence of acute cholecystitis. 2. Normal Gallbladder ejection fraction Fire Pilot: PSCTony Transcribe Date/Time: Apr 03 2019 3:38P Dictated by : GEMINI ESTEBAN MD This examination was interpreted and the report reviewed and electronically signed by: GEMINI ESTEBAN MD on Apr 03 2019 3:40PM EST Normal [facility] Surgical Tissue Examon 03-04 Surgical Tissue Exam Test performed at [place] [address] NAME: EMILY ENCISO REQUESTING: FAZAL RUIZ MD FINAL DIAGNOSIS: GASTROESOPHAGEAL JUNCTION, BIOPSY - CHRONIC INFLAMMATION. SEE COMMENT. COMMENT: There is no evidence of intestinal metaplasia identified. OPERATIVE PROCEDURE: EGD CLINICAL INFORMATION: GERD, S/P sleeve GROSS DESCRIPTION: GE junction bx Received in formalin labeled gastroesophageal junction are two segments of saravia-brown soft tissue aggregating to 0.6 x 0.2 x 0.1 cm. The specimen is totally submitted in formalin in one cassette. Levels x 2. ARH:willem BLEVINS M.D., PATHOLOGIST (Electronic signature on file) Signed out: 03/06/2019 13:32 PRINTED: 03/06/2019 Page 1 of 1 Normal [facility] Comment on above: Performed By: #### H GBI #### [place] [address] Basic Panelon 10-03-2018 Creatinine [Mass/Vol] 0.61 mg/dL Normal 0.51-0.95 [facility] Comment on above: Performed By: #### P 8 #### [place] [address] Anion gap [Moles/Vol] 11 mmol/L Normal 8-16 [facility] Comment on above: Performed By: #### P 8 #### [place] [address] CO2 [Moles/Vol] 25 mmol/L Normal 21- [facility] Comment on above: Performed By: #### P 8 #### [place] [address] Glucose [Mass/Vol] 99 mg/dL Normal 70-99 [facility] Comment on above: Performed By: #### P 8 #### [facility] [address] [place] [address] Urea nitrogen [Mass/Vol] 6 mg/dL Low 7-18 [facility] Comment on above: Performed By: #### P 8 #### [facility] [address] [place] [address] Calcium [Mass/Vol] 8.4 mg/dL Low 8.5-10.1 [facility] Comment on above: Performed By: #### P 8 #### [facility] [address] [place] [address] Chloride [Moles/Vol] 108 mmol/L High 98-107 [facility] Comment on above: Performed By: #### P 8 #### [facility] [address] [place] [address] Potassium [Moles/Vol] 3.6 mmol/L Normal 3.5-5.1 [facility] Comment on above: Performed By: #### P 8 #### [facility] [address] [place] [address] Sodium [Moles/Vol] 140 mmol/L Normal 136-145 [facility] Comment on above: Performed By: #### P 8 #### [facility] [address] [place] [address] Hemogram/Diffon 10-03-2018 Abs Immature Grans 0.05 thou/cmm Normal 0.00-0.05 [facility] Comment on above: Performed By: #### C BCD1 #### [facility] [address] [place] [address] Abs. Baso 0.03 thou/cmm Normal 0.01-0.08 [facility] Comment on above: Performed By: #### C BCD1 #### [facility] [address] [place] [address] Abs. Bryan 0.83 thou/cmm High 0.27-0.70 [facility] Comment on above: Performed By: #### C BCD1 #### [facility] [address] [place] [address] Abs. Neut (ANC) 7.63 thou/cmm High 1.56-6.13 [facility] Comment on above: Performed By: #### C BCD1 #### [facility] [address] [place] [address] Basophils/100 WBC (Bld) 0.3 % Normal [facility] Comment on above: Performed By: #### C BCD1 #### [facility] [address] [place] [address] Eosinophils (Bld) [#/Vol] 0.00 thou/cmm Normal 0.00-0.31 [facility] Comment on above: Performed By: #### C BCD1 #### [facility] [address] [place] [address] Eosinophils/100 WBC (Bld) 0.0 % Normal [facility] Comment on above: Performed By: #### C BCD1 #### [facility] [address] [place] [address] Erythrocyte distribution width (RBC) [Ratio] 12.1 % Normal 11.7-14.4 [facility] Comment on above: Performed By: #### C BCD1 #### [facility] [address] [place] [address] Hematocrit (Bld) [Volume fraction] 36.2 % Normal 34.1-44.9 [facility] Comment on above: Performed By: #### C BCD1 #### [facility] [address] [place] [address] Hemoglobin (Bld) [Mass/Vol] 11.9 g/dL Normal 11.2-15.7 [facility] Comment on above: Performed By: #### C BCD1 #### [facility] [address] [place] [address] Immature Grans 0.50 % Normal [facility] Comment on above: Performed By: #### C BCD1 #### [facility] [address] [place] [address] Lymphocytes (Bld) [#/Vol] 2.31 thou/cmm Normal 1.18-3.74 [facility] Comment on above: Performed By: #### C BCD1 #### [facility] [address] [place], [place] [address] Lymphocytes/100 WBC (Bld) 21.3 % Normal [facility] Comment on above: Performed By: #### C BCD1 #### [facility] [address] [place], [place] [address] MCH (RBC) [Entitic mass] 30.4 pg Normal 25.6-32.2 [facility] Comment on above: Performed By: #### C BCD1 #### [facility] [address] [place], [place] [address] MCHC (RBC) [Mass/Vol] 32.9 % Normal 31.6-34.8 [facility] Comment on above: Performed By: #### C BCD1 #### [facility] [address] [place], [place] [address] MCV (RBC) [Entitic vol] 92.6 fL Normal 79.4-94.8 [facility] Comment on above: Performed By: #### C BCD1 #### [facility] [address] [place], [place] [address] Monocytes/100 WBC (Bld) 7.6 % Normal [facility] Comment on above: Performed By: #### C BCD1 #### [facility] [address] [place], [place] [address] Platelet mean volume (Bld) [Entitic vol] 10.0 fL Normal 9.4-12.3 [facility] Comment on above: Performed By: #### C BCD1 #### [facility] [address] [place], [place] [address] Platelets (Bld) [#/Vol] 297 thou/cmm Normal 182-369 [facility] Comment on above: Performed By: #### C BCD1 #### [facility] [address] [place], [place] [address] RBC (Bld) [#/Vol] 3.91 mil/cmm Low 3.93-5.22 [facility] Comment on above: Performed By: #### C BCD1 #### [facility] [address] [place] [address] RDW SD 41.0 fl Normal 36.4-46.3 [facility] Comment on above: Performed By: #### C BCD1 #### [place] [address] Seg Neutrophil 70.3 % Normal [facility] Comment on above: Performed By: #### C BCD1 #### [place] [id number] WBC (Bld) [#/Vol] 10.86 thou/cmm High 3.98-10.04 [facility] Comment on above: Performed By: #### C BCD1 #### [place] [address] MDRD GFRon 10-03-2018 GFR/1.73 sq M predicted among non-blacks MDRD (S/P/Bld) [Vol rate/Area] mL/min/{1.73_m2} Normal >60mL/min/ 1.73m2 [facility] Comment on above: Result Comment: If t he patient is , multiply the result by 1.210. Performed By: #### H GBI #### [place] [address] Glucose Meteron 10-02-2018 Glucose [Mass/Vol] 144 mg/dL High 70-99 [facility] Comment on above: Result Comment: MANUELA WHALEN MD NOTIFIED Performed By: #### G LMET #### [place] [address] Surgical Tissue Examon 10-02 Surgical Tissue Exam Test performed at [place] [address] NAME: EMILY ENCISO REQUESTING: FAZAL RUIZ MD FINAL DIAGNOSIS: STOMACH, SLEEVE GASTRECTOMY - VIABLE AND BENIGN GASTRIC SEGMENT. NEGATIVE FOR ACUTE OR CHRONIC GASTRITIS. OPERATIVE PROCEDURE: Laparoscopic longitudinal gastrectomy, gastric restrictive procedure, EGD CLINICAL INFORMATION: Obesity, Morbid, BMI 50 or higher [E66.01], Essential hypertension [I10], Depression with anxiety [F41.8] GROSS DESCRIPTION: Sleeve gastrectomy Received in formalin labeled sleeve gastrectomy is a segment of stomach measuring 23.5 x 3.8 x 3.0 cm. The serosal surface is pink, smooth and glistening. The wall of the specimen measures 0.4 cm in thickness. The mucosal surface is saravia-pink to pink-red and displays normal appearing rugal folds. Polyps, masses, lesions and ulcers are not present. [employer] Pump Tender sections are submitted in formalin in three cassettes. KVB:willem ECHAVARRIA M.D., PATHOLOGIST (Electronic signature on file) Signed out: 10/04/2018 16:28 PRINTED: 10/04/2018 Page 1 of 1 Normal [facility] Comment on above: Performed By: #### H GBI #### [place] [address] Activated PTTon 09-25-2018 aPTT Coag (Bld) [Time] 27.7 s Normal 23.0-32.4 [facility] Comment on above: Result Comment: Note : New Reference Range Unfractionated Heparin Therapeutic Ranges: Standard Heparin Nomogram: 53 to 78 seconds (anti-Xa level of 0.3 to 0.7 U/mL) Low Dose/ACS Nomogram: 49 to 67 seconds (anti-Xa level of 0.2 to 0.5 U/mL) Stroke Treatment Nomogram: 49 to 67 seconds (anti-Xa level of 0.2 to 0.5 U/mL) Note: The APTT therapeutic range has been determined for the current lot of laboratory APTT reagent in use throughout the [facility]. Performed By: #### A PTT #### [place] [address] Albumin Bloodon 09-25-2018 Albumin [Mass/Vol] 4.2 g/dL Normal 3.4-5.0 [facility] Comment on above: Performed By: #### A LB #### [place] [address] Hcton 09-25-2018 Hematocrit (Bld) [Volume fraction] 41.1 % Normal 34.1-44.9 [facility] Comment on above: Performed By: #### H CTI #### [facility] [address] [place] [address] Hgbon 09-25-2018 Hemoglobin (Bld) [Mass/Vol] 13.7 g/dL Normal 11.2-15.7 [facility] Comment on above: Performed By: #### H GBI #### [facility] [address] [place] [address] Protimeon 09-25-2018 INR Coag (PPP) [Relative time] 0.99 {INR} Normal 0.90-1.30 [facility] Comment on above: Result Comment: Note : Reference Range Change Vitamin K Antagonist (VKA) Therapeutic Range: INR 2 to 3 (Target INR of 2.5) Note: For patients treated with VKA drugs, such as warfarin, the [employer] 2012 Guideline recommends a therapeutic INR range of 2 to 3 (target INR of 2.5). This recommendation includes high-risk patients with antiphospholipid syndrome with previous arterial or venous thromboembolism, current-generation mechanical or bioprosthetic aortic heart valve replacement. VKA Therapeutic Range for some Mechanical Valve Replacement: INR 2.5 to 3.5 (Target INR of 3) Note: Patients with mechanical aortic valve replacement and additional risk factors for thromboembolic events (atrial fibrillation, previous thromboembolism, LV dysfunction, hypercoagulable conditions) or an older generation mechanical AVR (i.e., ball in-Cage) or any mechanical MVR should have a INR therapeutic range of 2.5 to 3.5 target INR of 3). Brandon GH, et al. Chest 2012; 141:7S-47S Dee RA et al. [facility] 2017; 70: 252-289 Performed By: #### P T #### [facility] [address] [place] [address] PT Coag (PPP) [Time] 10.3 s Normal 9.7-13.0 [facility] Comment on above: Performed By: #### P T #### [place] [address] Type and Screenon 09-25-2018 ABO group Nom (Bld) O Normal [facility] Comment on above: Performed By: #### T &S #### [address] [place], [place] [address] Comment Out Patient Normal [facility] Comment on above: Performed By: #### T &S #### [facility] [address] [place] [address] RH Type Positive Normal [facility] Comment on above: Performed By: #### T &S #### [facility] [address] [place] [address] CHEST 2 VIEWSon 06-29-2018 CHEST 2 VIEWS Performed at [facility] APPROVED BY: VIRGEN LACKEY MD EXAMINATION: CHEST RADIOGRAPH (2 VIEW FRONTAL & LATERAL) CLINICAL HISTORY: Preoperative exam for bariatric surgery MQ: XC2_5 Comparison: None RESULT: Lines, tubes, and devices: None. Lungs and pleura: The trachea is normal in position. Lungs are clear of infiltrate, pleural effusion, vascular congestion or pneumothorax. Cardiomediastinal silhouette: Cardiac silhouette is not enlarged. Other: . Mild degenerative change of the thoracic spine IMPRESSION: No acute radiographic abnormality. Normal [facility] ANES Jose J 02-16-2018 ANES POST HNO ID: [id number] thor: Oral WalshService: AnesthesiologyAuthor Type: AnesthesiologistType: Anesthesia PostOpFiled: 02/16/2018 4:12 PMNote Text:POST ANESTHESIA EVALUATION NOTESERVICE DATE: 02/16/2018SERVICE TIME: 10DOB: 1985Vitals: 02/17/1808Temp: 36.4 ?C (97.5 ?F) 36.7 ?C (98.1 ?F) 36.2 ?C (97.2 ?F) 02/17/1808BP: 161/76 176/74 174/64 117/74 02/16/1809Pulse: 73 64 64 (!) 56 02/16/1809Resp: 16 16 16 16 [id number]: 95% 95% 97% 97%Validated Vital Signs: YesPOST ANES STATUS: No apparent anesthetic complications. The patient isappropriately hydrated with stable respiratory and cardiovascular status.Patient has safe and adequate airway control. The patient has appropriatepain relief and no significant post operative nausea or vomiting. Thepatient has achieved baseline mental status.Further assessment by Anesthesia Service: NoneOther Remarks:SIGNATURE: Oral Walsh MD PATIENT NAME: Emily EncisoDATE: February 16, 2018 : 4:12 PM PAGER/CONTACT #: [phone] [facility] ANES PREOPon 02-16-2018 ANES PREOP HNO ID: [id number] thor: Oral WalshService: AnesthesiologyAuthor Type: AnesthesiologistType: Anesthesia PreOpFiled: 02/16/2018 6:48 AMNote Text: ANESTHESIOLOGY DAY OF SURGERY NOTESERVICE DATE: 02/16/2018SERVICE TIME: 6:48 AMDOB: 1985Procedure(s) (LRB):DECOMPRESSION NERVE MEDIAN CARPAL TUNNEL (Bilateral)Surgeon(s):Amish NaqviEstimated body mass index is 53.7 kg/m? as calculated from the following: Height as of 02/14/18: 161.3 cm (5' 3.5). Weight as of 02/14/18: 139.7 kg (308 lb).Most recent hematocrit and potassium results:Hematocrit 42.1 12/22/2017Potassium 4.1 11/21/2017ANES DOS/PREOP NOTE: Vitals:There were no vitals filed for this visit.ACTIVE PROBLEM LISTB12 DeficiencyTMJ (Dislocation of Temporomandibular Joint)HypertensionAc Joint PainDepression With AnxietyVitamin D InsufficiencyImpingement Syndrome of Left ShoulderObesity, Class III, BMI >= 40 (morbid obesity) E66.01Rectal BleedingMorbid Obesity With Body Mass Index of 50 Or Higher (Hcc)Carpal Tunnel Syndrome, BilateralPAST MEDICAL HISTORYDiagnosis Date- B12 deficiency- Dysthymic disorder Depression (non-psychotic)- TMJ disease- Unspecified essential hypertensionPAST SURGICAL HISTORYProcedure Laterality Date- ANKLE ARTHROSCOPY Left- DELIVERY ONLY 12/17/2006,07/28/2009, 2010 , low cervical- ESSURE 05/2013- EXCIS PRIMARY GANGLION WRIST Right wrist- HYSTERECTOMY HX 2014 TRH with lysis of adhesions, without BSO- ORAL SURGERY PROCEDURE impacted teeth- PARTIAL REMOVAL, CLAVICLE Left 08/16/2013 open distal clavicle excision- REMOVAL OF TONSILS,<10 Y/O 2002FAMILY HISTORYProblem Relation Age of Onset- Cancer Mother UTERINE- Diabetes Mother- Hypertension Mother- Diabetes Father- Hypertension Father- DEMENTIA [OTHER] Paternal Grandmother- Colon Cancer Paternal Grandfather- Breast Cancer Maternal Aunt- Breast Cancer Maternal Aunt- Breast Cancer Other Maternal Great AuntSocial History:Social HistorySubstance Use Topics- Smoking status: Former Smoker Packs/day: 0.20 Years: 5.00 Types: Cigarettes Quit date: 2014- Smokeless tobacco: Never Used- Alcohol use NoNo current facility-administered medications on file prior to encounter.Current Outpatient Prescriptions on File Prior to Encounter:tiZANidine (ZANAFLEX) 4 mg tablet Take 1 tablet by mouth every 6 hours asneeded.losartan (COZAAR) 100 mg tablet TAKE 1 TABLET BY MOUTH ONCE DAILY.metoprolol succinate ER (TOPROL XL) 100 mg Tb24 TAKE 1 TABLET BY MOUTHONCE DAILY.dicyclomine (BENTYL) 10 mg capsule Take 1 capsule by mouth before mealsand at bedtime. (Patient not taking: Reported on 02/12/2018)oxybutynin ER (DITROPAN XL) 10 mg 24 hr tablet Take 1 tablet by mouth oncedaily. (Patient not taking: Reported on 02/12/2018)traZODone (DESYREL) 50 mg tablet TAKE 1 TABLET BY MOUTH DAILY AT BEDTIME.busPIRone (BUSPAR) 5 mg tablet TAKE 1 TABLET BY MOUTH TWICE DAILY.(Patient not taking: Reported on 02/12/2018)Pramoxine (PROCTOFOAM) 1 % foam 1 application by RECTAL route every 2hours as needed. (Patient not taking: Reported on 02/12/2018)DULoxetine (CYMBALTA) 30 mg capsule TAKE 1 CAPSULE BY MOUTH TWICE DAILY.ibuprofen (MOTRIN) 200 mg tablet Take 600 mg by mouth as needed.Current Facility-Administered Medications:lactated ringers infusion 5-30 mL/hr INTRAVENOUS CONTINUOUS Sri (Pa)Vetovitzclindamycin 900 mg in D5W 50 mL (CLEOCIN) 900 mg INTRAVENOUS Pre-Op OnceSondra (Pa) VetovitzAllergies:ALLERGIESA llergen Reactions- Esperanza Inhibitors Cough- Amoxacillin [Amoxic* IntoleranceDOS EXAM: Adequate NPO status: YesAnesthetic risks, benefits, alternatives, personnel and consent discussed:YesPatient agrees to proceed: YesPrevious Anesthesia: No history of adverse event.Airway Assessment: MP 2; Neck ROM: Full ROM without neurologic symptoms;Airway Evaluation: No significant abnormalitiesSymptoms of Sleep Apnea: SnoringDentition: Teeth intactAdditional Physical Exam:Lungs: Patient health status unchanged since recent history and physical.See history and physical for exam findings.Cardiac: Patient health status unchanged since recent history andphysical. See history and physical for exam findings.Additional Pertinent Findings: N/ABlood Products: Not anticipated for this procedure.Anesthetic Plan: MAC with SedationPain Management Plan: Parenteral or OralASA Class: 3Other Medical Problems:HTN - BP 175/105; repeat 155/108. Forgot to take BP meds this AM.Morbid Obesity - Body mass index is 53.7 kg/m?.Anxiety/Depression on RxPossible family history of malignant hyperthermia - no personal historyfor patient.I have interviewed and examined the patient. I have reviewed the medicalrecord and/or the pre-anesthesia evaluation, pertinent labs, and testresults.Significant changes in the patient's condition since the History andPhysical, not otherwise documented in primary service progress notes: NoThis contains updated information obtained within 48 hours ofSurgery/Procedure.SIGNATUR E: Oral Walsh MD PATIENT NAME: Emily EncisoDATE: February 16, 2018 : 6:48 AM CSN: [id number] [facility] NURSING PROGon 02-16-2018 Protein mass conc HNO ID: [id number] thor: Bridgett (Rn) RENÉE Mcnamaraervice: NursingAuthor Type: Registered NurseType: Nursing Progress NoteFiled: 02/16/2018 7:19 AMNote Text: Nursing Progress NotePatient Name: Emily EncisoMRN: [id number] Location: [place] Surgery/ME Surgery pt ready for OR, call light in reach, family called to bedside.This note was completed by: Bridgett Mcnamara RN [facility] OPERATIVE NOon 02-16-2018 OPERATIVE NO HNO ID: [id number] thor: Anibal Drummond: Orthopaedic SurgeryAuthor Type: PhysicianType: Operative ReportFiled: 02/21/2018 5:45 PMNote Text:[facility] [place] [address] [place]OPERATIVE/PROCEDURE REPORTLOG ID: [id number]/PROCEDURE DATE: 02/16/2018INCISION/PROCEDURE START TIME: 7:49 AMINCISION CLOSE/PROCEDURE END TIME: 8:31 AMSURGEON(S)/PROCEDURALIST(S ) AND COVER CUTTER(S):Surgeon(s) and Role: * Anibal Naqvi - PrimaryPhysician Nursing Home Admissions Director: Sri Mason) VetovitzNAME:Emily Enciso [id number]: February 16, 2018 AGE: 32 year oldOPERATION: Bilateral carpal tunnel release, open.ANESTHESIA: MAC with local.PREOPERATIVE DIAGNOSIS: Bilateral carpal tunnel syndrome.POSTOPERATIVE DIAGNOSIS: Bilateral carpal tunnel syndrome.OPERATIVE INDICATIONS: This is a pleasant 32 year old female who hadworsening, numbness, and tingling. Her electrodiagnostic showed Moderatecarpal tunnel syndrome. She exhausted conservative management and in theoffice, we discussed the risks, benefits, alternatives, and potentialcomplications involving carpal tunnel release and she wished to pursuesurgical intervention.OPERATIVE FINDINGS: Consistent with postoperative diagnosis.?Procedure Details:OPERATIVE PROCEDURE: On 02/16/2018, the patient was clearly identified inthe preoperative area and marked accordingly on the right and left palmsby myself. Patient was taken to the operative suite and placed in thesupine position with an armboard on the right and left. Patient received 3g of Ancef in the IV within 1 hour of incision or tourniquet. Anesthesiaassumed care of the head and neck for the remainder of the case and begana MAC anesthetic. All other bony landmarks were appropriately padded instandard fashion. The leftt upper extremity had a well-padded upperbrachium tourniquet applied with Webril padding and set at 250 mmHg, butnot yet inflated. After a betadine swab, the Right palm was injected with1% lidocaine with epinepherine 1:100,000 for total of 10 mL. The leftarm was then, first sterilely prepped and draped in standard fashion. Anappropriate time-out was conducted and all in the room were in agreement,signed consent form was on the chart. The upper extremity wasexsanguinated with an Esmarch bandage and the tourniquet was applied at250 mmHg. Local anesthetic was provided at the palm and wrist with 1%lidocaine with epinepherine 1:100,000 for total of 10 mL. A longitudinalincision was made with in line with the third web space from 1 cm distalof the wrist crease to Fuentes's cardinal line. I used Darron Rakes toretract the soft tissues. Bipolar electrocautery was used for hemostasis.I bluntly dissected down with Littler scissors to distal edge of thetransverse carpal ligament until a flash of fat was noted. She had arobust palmeris brevis and I readily identified her abherent motor branchwhich was trans ligamentous. I directly divided distal edge of thetransverse carpal ligament with a #15 blade, protected the motor branchwith sharp dissection and Ragnell retraction. Attention was then focusedon the proximal portion and I used Littler scissors to bluntly dissect offthe volar surface of the transverse carpal ligament, while also sweepingthe palmeris fibers radially. A carpal tunnel and median nerve protectionguide was slid directly under the ligament for dilation and a second timefor appropriate positioning, this was passed freely without anyresistance. Subsequently, I selected a mini meniscotome Rampart blade andslid this in the protective guide, completely dividing the transversecarpal ligament. Darron rakes were used to view up the wound to visualizefor complete release and a [place] elevator was used to palpate for completerelease. Motor branch was again noted to be in continuity. At this point,the tourniquet was taken down and hemostasis was observed. The wound wascopiously irrigated with normal saline and I closed with 3-0 nylons inhorizontal mattress fashion for a total of 3. Xeroform gauze, sterile 4 x4 gauze, sterile, Webril padding was applied.?I then turned my focused to the right upper extremity. The exact samesteps in sequential fashion were carried out on the right side, withoutthe need for a tourniquet, as was outlined previously on the left above.She symmetrically had a robust palmeris brevis and I readily identifiedher bilateral, abherent motor branch which was trans ligamentous. Idirectly divided distal edge of the transverse carpal ligament with a #15blade, protected the motor branch with sharp dissection and Ragnellretraction. Attention was then focused on the proximal portion and I usedLittler scissors to bluntly dissect off the volar surface of thetransverse carpal ligament, while also sweeping the palmeris fibersradially. At the completion of the procedure, the median nerve wasnoted to be completely released both visually and with palpation of thetransected Transverse carpal ligament. The motor branch, again was incontinuity. The wound was copiously irrigated. Closure with againcompleted with 3-0 nylons in horizontal mattress fashion. Xeroform gauze,sterile 4 x 4 gauze, webril padding and a Bias roll was used for finalbandage for each hand. There were no complications during the procedures.The patient was safely awoken and transferred to the Postanesthetic CareUnit in stable condition.ESTIMATED BLOOD LOSS: 0 mlSPECIMENS: NoneIMPLANTABLE DEVICES: NoneDRAINS: NoneCOMPLICATIONS: NonePARTICIPATION IN SURGERY/PROCEDURE: I performed the procedure withassistance.No qualified resident/fellow was available.SIGNATURE: Anibal Naqvi MD PATIENT NAME: Emily EncisoDATE: February 16, 2018 : 8:28 AM PAGER/CONTACT #: [facility] PLAN OF CAREon 02-16-2018 PLAN OF CARE HNO ID: [id number] thor: Samina Santana (Elementary Esl Teacher)Service: (none)Author Type: (none)Type: Plan of CareFiled: 02/16/2018 9:54 AMNote Text:SLIP INJECTOR AND APPLICATOR BEDSIDE DELIVERY SURVEY1. Patient to use [facility] Bedside Delivery - YES2. If fax, patient would like us to fax prescriptions to [facility]. Pharmacy: b. Location: c. Phone:3. Insurance card on file - YES4. [facility]IV[facility] SERVICEPatient Name: Emily EncisoMRN: [id number] marked outpatient medications were Filled at: [facility] and delivered tothe patient's bedside to pharm p/uMedication ListSTART taking these medicationstraMADol 50 mg tabletCommonly known as: ULTRAMTake 1 tablet by mouth every 4 hours as needed for Pain for up to 7 days.XCONTINUE taking these medicationsDULoxetine 30 mg capsuleCommonly known as: CYMBALTATAKE 1 CAPSULE BY MOUTH TWICE DAILY.ibuprofen 200 mg tabletCommonly known as: MOTRINlosartan 100 mg tabletCommonly known as: COZAARTAKE 1 TABLET BY MOUTH ONCE DAILY.metoprolol succinate ER 100 mg Sf25Ryeeetcd known as: TOPROL XLTAKE 1 TABLET BY MOUTH ONCE DAILY.MULTIVITAMIN ORALtiZANidine 4 mg tabletCommonly known as: ZANAFLEXTake 1 tablet by mouth every 6 hours as needed.traZODone 50 mg tabletCommonly known as: DESYRELTAKE 1 TABLET BY MOUTH DAILY AT BEDTIME.VITAMIN B COMPLEX ORALYou might also be taking other medications not listed above. If you havequestions about any of your other medications, talk to the person whoprescribed them or your Primary Care Provider.Samina Santana (Elementary Esl Teacher)PAGER: [phone] 2017 9:53 AM Normal [facility] PT EDon 02-16-2018 PT ED HNO ID: [id number] thor: Sandi (Rn) RENÉE Campoervice: NursingAuthor Type: Registered NurseType: Patient EducationFiled: 02/16/2018 10:31 AMNote Text:POST OP LEARNING RESPONSEINSTRUCTION PROVIDED TO: Patient and family memberMETHOD OF INSTRUCTION: Individual instructionWritten instruction - handoutsVerbal instructionPATIENT / FAMILY RESPONSE: Information received as demonstrated byinterest and questionsFOLLOW-UP PLAN: Patient instructed to call with any further issuesSUPPLEMENTAL MATERIAL: Post op discharge instructionsREFERRAL (RECOMMENDATION): NoneElectronically Signed By: Sandi Campo RN In Department: [facility] PT ED HNO ID: [id number] thor: Bridgett (Rn) RENÉE Mcnamaraervice: NursingAuthor Type: Registered NurseType: Patient EducationFiled: 02/16/2018 7:20 AMNote Text:PRE OP LEARNING ASSESSMENTPROCEDURE/SURGERY: SURGERY: Terrell Carpal tunnel releaseREADINESS TO LEARNCOGNITIVE ABILITY: Alert and orientedMOTIVATION TO LEARN: InterestedFAMILY SUPPORT: High - Very involved in pt carePATIENT LEARNS BEST BY: Written Instruction - Hand-outsVerbal InstructionFACTORS AFFECTING LEARNING: NonePHYSICAL LIMITATIONS AFFECTING LEARNING: NoneElectronically Signed By: Bridgett Mcnamara RN In Department: [facility] NURSING PROGon 02-15-2018 Protein mass conc HNO ID: [id number] thor: Yudelka Smith) RENÉE Segundoervice: (none)Author Type: Registered NurseType: Nursing Progress NoteFiled: 02/15/2018 7:30 AMNote Text:PACC Nurse Progress NoteHistory AND Physical:PACC Visit Date: 02/14/18Original HANDP Date: N/AED visit Date: N/AOutside HANDP Scanned Date: N/ALabs Within Last 6 Months:CBC: Date 12/22/17- within normal limitsBMP/CMP: Date 11/21/17- within acceptable limitsImaging Within Last 12 Months:N/ACardiac Testing:N/ALast Menstrual Period:LMP Date: 02/21/2015Postmenopausal >1yr: Yes,S/P Hysterectomy: YesBMI Percentile (PEDS):N/ARisk Assessment:N/AAnesthesia Review:02/14/18- e-mail sent by Candida Husain CNP related to elevated BMI and possiblefamily history of malignant hyperthermia; reply from Dr. Jillian lee to be the first case scheduled DOS.Narrative:Per HPI: BMI-53.70; TMJ, and possible family history of malignanthyperthermia-per patient she has had no issues in the past withanesthesia.Pre-op Considerations:N/AChart Check:Anisa Segundo RNJuly 26, 2018 7:23 AM Normal [facility] HISTORY PHYSICALon HISTORY PHYSICAL HNO ID: [id number] thor: Omi (Josefina) Rinarvice: (none)Author Type: Nurse PractitionerType: HANDPFiled: 02/15/2018 1:55 PMNote Text:HISTORY AND PHYSICAL EXAMINATIONSERVICE DATE: 02/14/2018SERVICE TIME: 3:37 PMPRIENCOMPASS [facility] C[facility] PHYSICIAN: NERY CaballeroEASON FOR VISIT:Emily Enciso is a 32 year old female who is scheduled for bilateralcarpal tunnel disease at the request of Dr. Anibal Naqvi forconsultation. My final recommendation will be communicated back to therequesting physician by way of shared medical record or letter.The patient has the following:ACTIVE PROBLEM LISTB12 DeficiencyTMJ (Dislocation of Temporomandibular Joint)HypertensionAc Joint PainDepression With AnxietyVitamin D InsufficiencyImpingement Syndrome of Left ShoulderObesity, Class III, BMI >= 40 (morbid obesity) E66.01Rectal BleedingMorbid Obesity With Body Mass Index of 50 Or Higher (Hcc)Carpal Tunnel Syndrome, BilateralSubjectiveCHIEF COMPLAINT: Pre-Op ExamHPI: 32 year old female presents with bilateral carpal tunnel. Patientstates the right is much more bothersome than the left. She had an EMG toconfirm diagnosis. The right has been bothersome since her firstpregnancy, 11 years ago. 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 Pain is constant and aching in sensation.Pain is aggravated by activity. Using a brace helps to alleviate some ofthe pain. Does interfere with sleep quite frequently. Numbness andtingling is intermittent. Has noticed difficulty picking up objects andopening jars.PAST MEDICAL HISTORYDiagnosis Date- B12 deficiency- Dysthymic disorder Depression (non-psychotic)- TMJ disease- Unspecified essential hypertensionPAST SURGICAL HISTORYProcedure Laterality Date- ANKLE ARTHROSCOPY Left- DELIVERY ONLY 12/17/2006,07/28/2009, 2010 , low cervical- ESSURE 05/2013- EXCIS PRIMARY GANGLION WRIST Right wrist- HYSTERECTOMY HX 2014 TRH with lysis of adhesions, without BSO- ORAL SURGERY PROCEDURE impacted teeth- PARTIAL REMOVAL, CLAVICLE Left 08/16/2013 open distal clavicle excision- REMOVAL OF TONSILS,<10 Y/O 2002FAMILY HISTORYProblem Relation Age of Onset- Cancer Mother UTERINE- Diabetes Mother- Hypertension Mother- Diabetes Father- Hypertension Father- DEMENTIA [OTHER] Paternal Grandmother- Colon Cancer Paternal Grandfather- Breast Cancer Maternal Aunt- Breast Cancer Maternal Aunt- Breast Cancer Other Maternal Great AuntSOCIAL HISTORY:Social History Marital status: Single Spouse name: boone Years of education: 12 Number of children: 3Occupational HistoryOccupation Employer [employer]*Social History Main Topics Smoking status: Former Smoker Packs/day: 0.20 Years: 5.00 Types: Cigarettes Quit date: 2014 Smokeless tobacco: Never Used Alcohol use: No Drug use: No Sexual activity: Yes Partners with: Male control/protection: IUDPrior to Admission medications as of 02/14/18 1602Medication Sig Last Dose TakingMULTIVITAMIN ORAL Take 1 tablet by mouth once daily. Taking YesVITAMIN B COMPLEX ORAL Take 1 tablet by mouth once daily. Taking YestiZANidine (ZANAFLEX) 4 mg tablet Take 1 tablet by mouth every 6 hours asneeded. Taking Yeslosartan (COZAAR) 100 mg tablet TAKE 1 TABLET BY MOUTH ONCE DAILY. TakingYesmetoprolol succinate ER (TOPROL XL) 100 mg Tb24 TAKE 1 TABLET BY MOUTHONCE DAILY. Taking YestraZODone (DESYREL) 50 mg tablet TAKE 1 TABLET BY MOUTH DAILY AT BEDTIME.Taking YesDULoxetine (CYMBALTA) 30 mg capsule TAKE 1 CAPSULE BY MOUTH TWICE DAILY.Taking Yesibuprofen (MOTRIN) 200 mg tablet Take 600 mg by mouth as needed. TakingYesdicyclomine (BENTYL) 10 mg capsule Take 1 capsule by mouth before mealsand at bedtime.Patient not taking: Reported on 02/12/2018oxybutynin ER (DITROPAN XL) 10 mg 24 hr tablet Take 1 tablet by mouth oncedaily.Patient not taking: Reported on 02/12/2018busPIRone (BUSPAR) 5 mg tablet TAKE 1 TABLET BY MOUTH TWICE DAILY.Patient not taking: Reported on 02/12/2018Pramoxine (PROCTOFOAM) 1 % foam 1 application by RECTAL route every 2hours as needed.Patient not taking: Reported on 02/12/2018No medication comments found.ALLERGIESAllergen Reactions- Esperanza Inhibitors Cough- Amoxacillin [Amoxic* IntoleranceREVIEW OF SYSTEMS:PAIN ASSESSMENT: PainPain Score: 6/10Pain Location: Wrist-RightDescription: AchingFrequency: ContinuousIntervention: Reposition;SplintingGeneral: Morbidly Obese. No weight loss, malaise or fevers.Neuro: Postive for Impaired Sensorium - SEE HPI. Denies TIAs, strokes,seizures, HAs.Respiratory: No history of current cough or dyspnea, or pneumonia in thepast 6 weeks. No history of respiratory/pulmonary symptoms or problems.Cardiovascular: Positive for: Hypertension on Rx. Forgot to take thismorning. Usually 140s/90s at home. Denies CP,LA, DVT, PE, lightheaded,dizziness, palpitations/arrhythmias, CAD, CHF or HLD.GI: No history of GI symptoms or problems. No history of esophagealvarices, recent ascites, or ETOH greater than 2 drinks per day.: No history of dysuria, frequency or incontinence,, stones or chronickidney disease, No difficulty urinating, nocturia > 1 time per night orhematuriaGYN: Negative for abnormal vaginal bleeding, abnormal vaginal discharge. : Hysterectomy in 2014Endocrine: No history of diabetes. Has not taken steroids within the past30 days. No history of endocrinological symptoms or problems.Hematology: No history of bleeding or clotting disorder. Pt is not takinganti-coagulation or platelet medications. No history of hematologicalsymptoms or problems.Oncology: No history of CA metastasis, chemo within 30 days, orradiotherapy within 90 days. Has not lost 10% of body wt in 6 months. Nohistory of oncological symptoms or problems.Psych: Anxiety, Depression - well controlled on Rx.Musculoskeletal: See HPI. Denies additional joint pain. No swelling ofextremities.Skin: Negative for lesions, rash and itching.ObjectivePHYSICAL EXAM:VITALS:BP 155/108 Pulse 100 Temp (Src) 98 (Tympanic) Resp 16 Ht 5' 3.5(1.61m) Wt 308 lb (139.7kg) SpO2 96% LMP 02/21/2015 BMI 53.70kg/(m2).General: Alert and oriented, No acute distress, Morbidly obeseSkin: Normal color, no rash, no lesions.HEENT: Pupils equal, round and reactive., No carotid bruitsCardiovascular: Normal S1 AND S2, no rubs, murmurs or gallops. No JVD. Pulseregular.Lungs: Normal breath sounds, no wheezes or crackles., No chest deformitiesor chest wall tenderness.Abdomen: Soft, non-tender, no rigidity., No masses or organomegaly.Extremities: No deformity, no edema or tenderness, no joint swelling orclubbing.Neurological: Normal cognition and motor skills. Gait normal. Noweakness or sensory deficit.Pulses: Carotid and radial pulses normal +2.Diagnostic tests reviewed for today's visit: Lab Value Units Date High Low HB 13.2 g/dL 12/22/2017 15.5 11.5 HCT 42.1 % 12/22/2017 46.0 36.0 WBC 7.07 k/uL 12/22/2017 11.00 3.70 PLT 321 k/uL 12/22/2017 400 150 NA 138 mmol/L 11/21/2017 144 136 K 4.1 mmol/L 11/21/2017 5.1 3.7GLUC 103 mg/dL 11/21/2017 99 74 BUN 8 mg/dL 11/21/2017 21 7 CREAT 0.75 mg/dL 11/21/2017 0.96 0.58 PTSEC No results within date range. INR No results within date range. APTT No results within date range. ALT 15 U/L 11/21/2017 38 7 AST 16 U/L 11/21/2017 35 13 TBILI 0.2 mg/dL 11/21/2017 1.3 0.2 TSH No results within date range. Lab Value Units Date High Low HCGQT No results within date range. UHCG No results within date range. HCG, BODY* No results within date range. Lab Value Units Date High Low ABORHD No results within date range. ABSCREEN No results within date range.No results found for: [id number] recent labsMost recent imagingAll in [facility] - BP 175/105; repeat 155/108. Forgot to take BP meds this AM.Morbid Obesity - Body mass index is 53.7 kg/m?.Anxiety/Depression on RxPossible family history of malignant hyperthermia - no personal historyfor patient.METS:Climb a flight of stairs or walk up a hill (5.50 METs)Patient denies any chest pain or undue shortness of breath with the abovephysical activity.ASA Class: 3ANESTHESIA FINDINGS:Intubation History: No history of difficult intubationSignificant Anesthesia Considerations: Potential Patient or family historyof malignant hyperthermia - her son has been tested and has a possiblechange. Patient nor son has ever had any person issues or episodes.Airway Exam: General: Morbid obesity Mallampati Score is CLASS I ULBT: Class I - Lower incisors can bite the upper lip above thevermillion line Neck: Normal appearance and function, Distance from hyoid to mentumduring neck extension is at least 3 finger breaths Mouth: Normal tongue size and Mouth opening greater than 2 finger breaths Dentition: Caps/crownsAirway History: No abnormal airway historySTOP BANG Score:Criteria:SnoringHypert ensionBMI > 35Score = 3PLANThis patient is optimally prepared for surgery.CONSULTS:Patient does not require consults for optimization at this time.E-mail sent to anesthesia as FYI regarding BMI and possible family historyof malignant hyperthermia. Dr. Walsh aware.The Following Tests/Procedures Have Been Initiated:Labs not indicated per PACC protocol, EKG not indicated per PACC protocolPlanned Anesthetic: MACInstructions Given to Patient:Patient given verbal and written preop instructions and voicescomprehension and compliance.SIGNATURE: Omi Husain APRN.CNP PATIENT NAME: Emily EncisoDATE: February 14, 2018 : 3:37 PM PAGER/CONTACT #: [facility] 02-14-2018 HOSP [facility] ([facility]) -----EMILY ENCISO ([id number]) 1985 FDate Time Provider Department02/14/18 3:40 PM [facility] During your visit today, we recorded the following information about you: Temperature Pulse Respiration Blood pressure 98 degrees 100/minute 16/minute 155/108 Weight Height 139.7 kg 1.613 Duc Husain APRN.CNP 02/15/2018 1:55 PM AddendumHISTORY AND PHYSICAL EXAMINATIONSERVICE DATE: 02/14/2018SERVICE TIME: 3:37 PMPRIBANNER DEL [facility] PHYSICIAN: NERY CaballeroEASON FOR VISIT:Emily Enciso is a 32 year old female who is scheduled for bilateral carpaltunnel disease at the request of Dr. Anibal Naqvi for consultation. Myfinal recommendation will be communicated back to the requesting physician byway of shared medical record or letter.The patient has the following:ACTIVE PROBLEM LISTB12 DeficiencyTMJ (Dislocation of Temporomandibular Joint)HypertensionAc Joint PainDepression With AnxietyVitamin D InsufficiencyImpingement Syndrome of Left ShoulderObesity, Class III, BMI >= 40 (morbid obesity) E66.01Rectal BleedingMorbid Obesity With Body Mass Index of 50 Or Higher (Hcc)Carpal Tunnel Syndrome, BilateralSubjectiveCHIEF COMPLAINT: Pre-Op ExamHPI: 32 year old female presents with bilateral carpal tunnel. Patient statesthe right is much more bothersome than the left. She had an EMG to confirmdiagnosis. The right has been bothersome since her first , 11 yearsago. 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 Pain is constant and aching in sensation. Pain is aggravated byactivity. Using a brace helps to alleviate some of the pain. Does interferewith sleep quite frequently. Numbness and tingling is intermittent. Hasnoticed difficulty picking up objects and opening jars.PAST MEDICAL HISTORYDiagnosis Date- B12 deficiency- Dysthymic disorder Depression (non-psychotic)- TMJ disease- Unspecified essential hypertensionPAST SURGICAL HISTORYProcedure Laterality Date- ANKLE ARTHROSCOPY Left- DELIVERY ONLY 12/17/2006,07/28/2009, 2010 , low cervical- ESSURE 05/2013- EXCIS PRIMARY GANGLION WRIST Right wrist- HYSTERECTOMY HX 2014 TRH with lysis of adhesions, without BSO- ORAL SURGERY PROCEDURE impacted teeth- PARTIAL REMOVAL, CLAVICLE Left 08/16/2013 open distal clavicle excision- REMOVAL OF TONSILS,<10 Y/O 2002FAMILY HISTORYProblem Relation Age of Onset- Cancer Mother UTERINE- Diabetes Mother- Hypertension Mother- Diabetes Father- Hypertension Father- DEMENTIA [OTHER] Paternal Grandmother- Colon Cancer Paternal Grandfather- Breast Cancer Maternal Aunt- Breast Cancer Maternal Aunt- Breast Cancer Other Maternal Great AuntSOCIAL HISTORY:Social History Marital status: Single Spouse name: boone Years of education: 12 Number of children: 3Occupational HistoryOccupation Employer [employer]*Social History Main Topics Smoking status: Former Smoker Packs/day: 0.20 Years: 5.00 Types: Cigarettes Quit date: 2014 Smokeless tobacco: Never Used Alcohol use: No Drug use: No Sexual activity: Yes Partners with: Male control/protection: IUDPrior to Admission medications as of 02/14/18 1602Medication Sig Last Dose TakingMULTIVITAMIN ORAL Take 1 tablet by mouth once daily. Taking YesVITAMIN B COMPLEX ORAL Take 1 tablet by mouth once daily. Taking YestiZANidine (ZANAFLEX) 4 mg tablet Take 1 tablet by mouth every 6 hours asneeded. Taking Yeslosartan (COZAAR) 100 mg tablet TAKE 1 TABLET BY MOUTH ONCE DAILY. Taking Yesmetoprolol succinate ER (TOPROL XL) 100 mg Tb24 TAKE 1 TABLET BY MOUTH ONCEDAILY. Taking YestraZODone (DESYREL) 50 mg tablet TAKE 1 TABLET BY MOUTH DAILY AT BEDTIME.Taking YesDULoxetine (CYMBALTA) 30 mg capsule TAKE 1 CAPSULE BY MOUTH TWICE DAILY. TakingYesibuprofen (MOTRIN) 200 mg tablet Take 600 mg by mouth as needed. Taking Yesdicyclomine (BENTYL) 10 mg capsule Take 1 capsule by mouth before meals and atbedtime.Patient not taking: Reported on 02/12/2018oxybutynin ER (DITROPAN XL) 10 mg 24 hr tablet Take 1 tablet by mouth oncedaily.Patient not taking: Reported on 02/12/2018busPIRone (BUSPAR) 5 mg tablet TAKE 1 TABLET BY MOUTH TWICE DAILY.Patient not taking: Reported on 02/12/2018Pramoxine (PROCTOFOAM) 1 % foam 1 application by RECTAL route every 2 hours asneeded.Patient not taking: Reported on 02/12/2018No medication comments found.ALLERGIESAllergen Reactions- Esperanza Inhibitors Cough- Amoxacillin [Amoxic* IntoleranceREVIEW OF SYSTEMS:PAIN ASSESSMENT: PainPain Score: 6/10Pain Location: Wrist-RightDescription: AchingFrequency: ContinuousIntervention: Reposition;SplintingGeneral: Morbidly Obese. No weight loss, malaise or fevers.Neuro: Postive for Impaired Sensorium - SEE HPI. Denies TIAs, strokes,seizures, HAs.Respiratory: No history of current cough or dyspnea, or pneumonia in the past 6weeks. No history of respiratory/pulmonary symptoms or problems.Cardiovascular: Positive for: Hypertension on Rx. Forgot to take this morning. Usually 140s/90s at home. Denies CP,LA, DVT, PE, lightheaded, dizziness,palpitations/arrhy thmias, CAD, CHF or HLD.GI: No history of GI symptoms or problems. No history of esophageal varices,recent ascites, or ETOH greater than 2 drinks per day.: No history of dysuria, frequency or incontinence,, stones or chronic kidneydisease, No difficulty urinating, nocturia > 1 time per night or hematuriaGYN: Negative for abnormal vaginal bleeding, abnormal vaginal discharge. : Hysterectomy in 2014Endocrine: No history of diabetes. Has not taken steroids within the past 30days. No history of endocrinological symptoms or problems.Hematology: No history of bleeding or clotting disorder. Pt is not takinganti-coagulation or platelet medications. No history of hematological symptomsor problems.Oncology: No history of CA metastasis, chemo within 30 days, or radiotherapywithin 90 days. Has not lost 10% of body wt in 6 months. No history ofoncological symptoms or problems.Psych: Anxiety, Depression - well controlled on Rx.Musculoskeletal: See HPI. Denies additional joint pain. No swelling ofextremities.Skin: Negative for lesions, rash and itching.ObjectivePHYSICAL EXAM:VITALS:BP 155/108 Pulse 100 Temp (Src) 98 (Tympanic) Resp 16 Ht 5' 3.5(1.61m) Wt 308 lb (139.7kg) SpO2 96% LMP 02/21/2015 BMI 53.70 kg/(m2).General: Alert and oriented, No acute distress, Morbidly obeseSkin: Normal color, no rash, no lesions.HEENT: Pupils equal, round and reactive., No carotid bruitsCardiovascular: Normal S1 AND S2, no rubs, murmurs or gallops. No JVD. Pulseregular.Lungs: Normal breath sounds, no wheezes or crackles., No chest deformities orchest wall tenderness.Abdomen: Soft, non-tender, no rigidity., No masses or organomegaly.Extremities: No deformity, no edema or tenderness, no joint swelling orclubbing.Neurological: Normal cognition and motor skills. Gait normal. No weakness orsensory deficit.Pulses: Carotid and radial pulses normal +2.Diagnostic tests reviewed for today's visit: Lab Value Units Date High Low HB 13.2 g/dL 12/22/2017 15.5 11.5 HCT 42.1 % 12/22/2017 46.0 36.0 WBC 7.07 k/uL 12/22/2017 11.00 3.70 PLT 321 k/uL 12/22/2017 400 150 NA 138 mmol/L 11/21/2017 144 136 K 4.1 mmol/L 11/21/2017 5.1 3.7GLUC 103 mg/dL 11/21/2017 99 74 BUN 8 mg/dL 11/21/2017 21 7 CREAT 0.75 mg/dL 11/21/2017 0.96 0.58 PTSEC No results within date range. INR No results within date range. APTT No results within date range. ALT 15 U/L 11/21/2017 38 7 AST 16 U/L 11/21/2017 35 13 TBILI 0.2 mg/dL 11/21/2017 1.3 0.2 TSH No results within date range. Lab Value Units Date High Low HCGQT No results within date range. UHCG No results within date range. HCG, BODY* No results within date range. Lab Value Units Date High Low ABORHD No results within date range. ABSCREEN No results within date range.No results found for: [id number] recent labsMost recent imagingAll in [facility] - BP 175/105; repeat 155/108. Forgot to take BP meds this AM.Morbid Obesity - Body mass index is 53.7 kg/m?.Anxiety/Depression on RxPossible family history of malignant hyperthermia - no personal history forpatient.METS:Climb a flight of stairs or walk up a hill (5.50 METs)Patient denies any chest pain or undue shortness of breath with the abovephysical activity.ASA Class: 3ANESTHESIA FINDINGS:Intubation History: No history of difficult intubationSignificant Anesthesia Considerations: Potential Patient or family history ofmalignant hyperthermia - her son has been tested and has a possible change.Patient nor son has ever had any person issues or episodes.Airway Exam: General: Morbid obesity Mallampati Score is CLASS I ULBT: Class I - Lower incisors can bite the upper lip above the vermillionline Neck: Normal appearance and function, Distance from hyoid to mentum duringneck extension is at least 3 finger breaths Mouth: Normal tongue size and Mouth opening greater than 2 finger breaths Dentition: Caps/crownsAirway History: No abnormal airway historySTOP BANG Score:Criteria:SnoringHypert ensionBMI > 35Score = 3PLANThis patient is optimally prepared for surgery.CONSULTS:Patient does not require consults for optimization at this time.E-mail sent to anesthesia as FYI regarding BMI and possible family history ofmalignant hyperthermia. Dr. Walsh aware.The Following Tests/Procedures Have Been Initiated:Labs not indicated per PACC protocol, EKG not indicated per PACC protocolPlanned Anesthetic: MACInstructions Given to Patient:Patient given verbal and written preop instructions and voices comprehensionand compliance.SIGNATURE: Omi Husain APRN.CNP PATIENT NAME: Emily SharmaTE: February 14, 2018 : 3:37 PM PAGER/CONTACT #:Omi Husain APRN.CNP 02/14/2018 4:03 PM AddendumPATIENT PREOPERATIVE INSTRUCTIONSAnibal Naqvi MD has scheduled you for your procedure at this surgery center:[facility]: [phone] -- [address] [id number].Please read below carefully for your personalized instructions.Blood Thinning Medications:- Stop NSAIDS (Ibuprofen, Advil, Aleve, Motrin, Celebrex, Mobic, etc.) 7 daysbefore surgery, as directed by your surgeon.- Stop Aspirin 7 days before surgery, as directed by your surgeon.- Stop Vitamin E, ALL multi-vitamins, herbals and dietary supplements 7 daysbefore surgery.- You may take Tylenol (Acetaminophen) or any of your pain medications that donot contain aspirin or NSAIDS as needed.Dietary Restrictions:- No solid food after midnight.- You may have 12 ounces of clear liquids (water, clear juices such as applejuice or gatorade, carbonated beverages, clear tea, black coffee, jello) until2 hours before scheduled arrival at facility.- Do not drink any alcohol after midnight the night before your surgery.Medications:Approved medications to take the morning of surgery with a sip of water:Metoprolol and CymbaltaIf you start any new medications after today's visit, please contact thesurgery center above.Important Reminders:- Candy, mints, gum and tobacco products are NOT permitted the morning ofsurgery.- Hearing aids, dentures and glasses may be worn the morning of surgery.- NO jewelry, body piercings, makeup, hairpins or contacts are to be worn theday of surgery.- Hibiclens shower.If you develop symptoms such as a fever, cold, or flu, or have other changes [facility] within TWO DAYS of scheduled surgery or the morning of surgery,please contact the surgery center above.Personal Belongings:- Leave ALL valuables and money at home or with family members.For Outpatient Procedures: - YOU MUST HAVE A RESPONSIBLE PATIENT OBSERVER TAKE YOU HOME. A GEAR SHAPER OR CABDRIVER CANNOT BE MADE A RESPONSIBLE PATIENT OBSERVER.- We recommend that a responsible person stays with you overnight to take careof you.- You cannot stay in a hotel alone after outpatient surgery. You will not bepermitted to have your surgery, if you do not have someone to take care of you. Arrival Time for Surgery:- The Surgery Center or hospital where you are having surgery will call theafteron before surgery (or Monday for Monday surgery) with a scheduledarrival time.- If you have not heard by 4 pm, please contact the surgery center above.Please be aware that emergency situations arise, which may delay or change yoursurgical time. If this happens, we will notify you as soon as possible andregret any inconvenience.Omi Husain APRN.CNPReferring Provider: ANIBAL NAQVI [[id number]]Allergies As of Date: 02/14/2018 Noted Allergy ReactionACE INHIBITORS 05/21/2014 3 - CoughAMOXACILLIN (AMOXICILLIN) 12/25/2006 5 - IntoleranceDate Reviewed: 02/14/2018Reviewed by: [facility] - Fully AssessedReason for Visit: Pre-Op Exam [87]Primary Visit Diagnosis:Preoperative examination [Z01.818] Other Visit Diagnoses:Carpal tunnel syndrome, bilateral [G56.03] Essential hypertension [I10] Obesity, Class III, BMI >= 40 (morbid obesity) E66.01 [E66.01]Prescriptions as of 02/14/2018 Sig: MULTIVITAMIN ORAL Take 1 tablet by mouth once d* VITAMIN B COMPLEX ORAL Take 1 tablet by mouth once d* TIZANIDINE 4 MG TABLET Take 1 tablet by mouth every * LOSARTAN 100 MG TABLET TAKE 1 TABLET BY MOUTH ONCE D* METOPROLOL SUCCINATE ER 100 M* TAKE 1 TABLET BY MOUTH ONCE D* TRAZODONE 50 MG TABLET TAKE 1 TABLET BY MOUTH DAILY * DULOXETINE 30 MG CAPSULE,DOMINIQUE* TAKE 1 CAPSULE BY MOUTH TWICE* IBUPROFEN 200 MG TABLET Take 600 mg by mouth as neede* DICYCLOMINE 10 MG CAPSULE Take 1 capsule by mouth befor* Patient not taking: Reported on 02/12/2018 OXYBUTYNIN CHLORIDE ER 10 MG * Take 1 tablet by mouth once d* Patient not taking: Reported on 02/12/2018 BUSPIRONE 5 MG TABLET TAKE 1 TABLET BY MOUTH TWICE * Patient not taking: Reported on 02/12/2018 PRAMOXINE 1 % TOPICAL FOAM 1 application by RECTAL route* Patient not taking: Reported on 02/12/2018Problem List As Of Date 02/14/2018 Noted Resolved SUPERVIS NORMAL 1ST PREG [Z34.00] INVALID FOR*12/20/2006 Supervision of Other High-Risk [O09.8*INVALID FOR*08/03/2009 Prev C-Kpqdrfwo-Adxfpeq [O34.219] INVALID FOR*08/03/2009 Benign Essential Hypertension Antepartum [O10.0*INVALID FOR*08/03/2009 SUPRF HIGH RISK NEC [V23.89] [O09.899]INVALID FOR*05/20/2011 Previous section [Z98.891] INVALID FOR*05/20/2011 Hypertension in , antepartum [O16.9] INVALID FOR*05/20/2011 Headache in , antepartum [O26.899, R51]INVALID FOR*05/20/2011 Dizziness, nonspecific [R42] INVALID FOR*02/14/2018 B12 deficiency [E53.8] TMJ (dislocation of temporomandibular joint) [S*INVALID FOR* Pain in shoulder [M25.519] INVALID FOR*02/14/2018 Hypertension [I10] INVALID FOR* More... AC joint pain [M25.519] INVALID FOR* Depression with anxiety [F41.8] INVALID FOR* Vitamin D insufficiency [E55.9] INVALID FOR* Impingement syndrome of left shoulder [M75.42] INVALID FOR* Obesity, Class III, BMI >= 40 (morbid obesity) *INVALID FOR* Rectal bleeding [K62.5] INVALID FOR* More... Morbid obesity with body mass index of 50 or hi*INVALID FOR* More... Carpal tunnel syndrome, bilateral [G56.03] INVALID FOR* More... Other instructions from your clinician: PATIENT PREOPERATIVE INSTRUCTIONS Anibal Naqvi MD has scheduled you for your procedure at this surgery center: [facility]: [phone] -- [address] [id number]. Please read below carefully for your personalized instructions. Blood Thinning Medications: - Stop NSAIDS (Ibuprofen, Advil, Aleve, Motrin, Celebrex, Mobic, etc.) 7 days before surgery, as directed by your surgeon. - Stop Aspirin 7 days before surgery, as directed by your surgeon. - Stop Vitamin E, ALL multi-vitamins, herbals and dietary supplements 7 days before surgery. - You may take Tylenol (Acetaminophen) or any of your pain medications that do not contain aspirin or NSAIDS as needed. Dietary Restrictions: - No solid food after midnight. - You may have 12 ounces of clear liquids (water, clear juices such as apple juice or gatorade, carbonated beverages, clear tea, black coffee, jello) until 2 hours before scheduled arrival at facility. - Do not drink any alcohol after midnight the night before your surgery. Medications: Approved medications to take the morning of surgery with a sip of water: Metoprolol and Cymbalta If you start any new medications after today's visit, please contact the surgery center above. Important Reminders: - Candy, mints, gum and tobacco products are NOT permitted the morning of surgery. - Hearing aids, dentures and glasses may be worn the morning of surgery. - NO jewelry, body piercings, makeup, hairpins or contacts are to be worn the day of surgery. - Hibiclens shower. If you develop symptoms such as a fever, cold, or flu, or have other changes to your health within TWO DAYS of scheduled surgery or the morning of surgery, please contact the surgery center above. Personal Belongings: - Leave ALL valuables and money at home or with family members. For Outpatient Procedures: - YOU MUST HAVE A RESPONSIBLE PATIENT OBSERVER TAKE YOU HOME. A GEAR SHAPER OR OPEN CLAIMS REPRESENTATIVE CANNOT BE MADE A RESPONSIBLE PATIENT OBSERVER. - We recommend that a responsible person stays with you overnight to take care of you. - You cannot stay in a hotel alone after outpatient surgery. You will not be permitted to have your surgery, if you do not have someone to take care of you. Arrival Time for Surgery: - The Surgery Center or hospital where you are having surgery will call the afternoon before surgery (or Monday for Monday surgery) with a scheduled arrival time. - If you have not heard by 4 pm, please contact the surgery center above. Please be aware that emergency situations arise, which may delay or change your surgical time. If this happens, we will notify you as soon as possible and regret any inconvenience. Omi Husain APRN.JOSEFINAEncounter Number: [id number] Status:Closed by OMI HUSAIN CNP on 02/14/18 [facility] HOSPon 02-12-2018 HOSP Patient:Holden Enciso BannerN: Height:5' 3.5(1.613 m)Weight:308 lb (139.708 kg)Outpatient Medications as of 02/16/18:MULTIVITAMIN ORALVITAMIN B COMPLEX ORALtiZANidine (ZANAFLEX) 4 mg tabletlosartan (COZAAR) 100 mg tabletmetoprolol succinate ER (TOPROL XL) 100 mg [id number] (DESYREL) 50 mg tabletDULoxetine (CYMBALTA) 30 mg capsuleibuprofen (MOTRIN) 200 mg tabletAdmission/Clinic Administered Medications as of 02/16/18:lactated ringers infusionclindamycin 900 mg in D5W 50 mL (CLEOCIN)Problem List:B12 deficiency [E53.8]TMJ (dislocation of temporomandibular joint) [S03.00XA]Hypertension [I10]AC joint pain [M25.519]Depression with anxiety [F41.8]Vitamin D insufficiency [E55.9]Impingement syndrome of left shoulder [M75.42]Obesity, Class III, BMI >= 40 (morbid obesity) E66.01 [E66.01]Rectal bleeding [K62.5]Morbid obesity with body mass index of 50 or higher (HCC) [E66.01]Carpal tunnel syndrome, bilateral [G56.03]Allergies:Esperanza InhibitorsAmoxacillin [Amoxicillin]Date Verified: 02/16/18Lab ValuesNo results within the last 30 days for the following basenames: K,HCTProgress Notes ([facility]):Yoselin Haq RN, RN 02/12/2018 4:49 PM SignedPatient to be scheduled for bilateral CTR on February 16, 2018. [place] 10[place]11 am if able. Gave patient letter to be off work.Called [facility] to notify of surgery being added on this week.Marvin Jacques RN, RN 02/12/2018 5:02 PM SignedPost ops mailed to home and surgical request completed.Gavin Jacquesmings [facility] 02/13/2018 9:46 AM SignedNoted in [place].Progress Notes ([facility] 492):Akosua Carlos RD, LD 02/12/2018 11:09 AM SignedBrooke Colin 2Education Class: 02/08/18Pre-Op weight goal: 304#Education Class: Patient received instruction regarding healthy food choices andeating behaviors identified as optimal when preparing for surgery, losing weightafter surgery, and maintaining weight loss long-term. Patient also receivedinstruction regarding the Bariatric Full Liquid diet following surgery andoptimal post-operative high-protein supplement choices. Other topics discussedincluded healthy grocery shopping and food preparation.Pre-Surgical Preparation:Post-Class Quiz: 100% taken today, 02/12/18Behaviors Accomplished:Visit # 2 Date: 02/12/2018Weight: (!) 140.7 kg (310 lb 3.2 oz)Weight goal met: No: pt presents with a 9# wt loss since last encounter.Currently 9# below initial wt and 6# above GW.Behaviors that helped/hindered weight loss: HELPED: Following meal guidelines.Keeping journal dailyEating 3 meals/one snackDaily multivitaminDrink between mealsExercise: formal exercise 4x/week of walking/swimming (20-30 minutes of walking,on lunch break+ swimming for 3-4 hours)-1x/week of fastfood meals-1x/week of dietWritten information provided and reviewed:Healthy plate/menusBehavior ChecklistJournalrecipesPt brought food journal to appointment today. Upon review of food journal, pt is meeting her daily fluid goal. Is also makingwhole food, high protein food choices with meals and will use whey proteinpowder + skim milk as meal replacement as needed. Did note pre-packaged meals infood journal, rationale of avoiding packaged meals discussed--encouraged to planahead her own meals with reference to volume/protein intake postoperatively.Additional evening snacking noted--for further review at next appointment. Ischoosing snacks bars in diet--provided alternative suggestions below. Will setfurther goals of decreasing soda intake at next encounter and have pt start tomonitor protein intake.Goals: Goals - avoid freezer meals--consider bariatric chili, egg/tuna salad--can prep at the beginning of the week - avoid meal bars--consider japanese yogurt, cheese sticks, fruit - formal exercise 5x/week for 30 minutes (walking, cardiovascular)--can break into 10-[address], Bala Ruiz MD 02/12/2018 9:31 AM SignedPlease continue to focus on good diet and exercise choices as you learn how touse your new Mindy Ruiz MD 02/12/2018 11:09 AM SignedBARIATRIC SURGERY NEW PATIENT CONSULTATION HISTORY AND PHYSICALDate: February 12, 2018 Time: 9:31 AMName: Emily Deluna is a 32 year old female with morbid obesity (Body mass index is 53.61kg/m?.) who presents to clinic for consideration of bariatric surgery.She has suffered with weight problems most of her life. She has tried numerousweight loss programs in the past with minimal success. She would either loseminimal weight or would gain back any weight she did lose. She has numerousmotivations for considering bariatric surgery including weight loss, control ofobesity-related co-morbidities, quality of life improvement and overalllongevity.She does have a history of significant hypertension on dual agents. She ishypertensive today in the office. She also has a history of frequent NSAID usagedue to chronic shoulder pain. She did have a traumatic injury to that area andultimately had her clavicle removed. Otherwise, she denies acid reflux,dysphagia or regurgitation. No melena or bright red blood per rectum. She hashad a previous colonoscopy for bleeding hemorrhoids.She has had 3 sections via low Pfannenstiel incision. She also had alaparoscopic hysterectomy. She states her first did have a staphinfection.She has a family member who had a sleeve gastrectomy and she is only consideringthis procedural choice at this timePAST MEDICAL HISTORY:PAST MEDICAL HISTORYDiagnosis Date- B12 deficiency- Dysthymic disorder Depression (non-psychotic)- TMJ disease- Unspecified essential hypertensionPAST SURGICAL HISTORY:PAST SURGICAL HISTORYProcedure Laterality Date- DELIVERY ONLY 12/17/2006,07/28/2009 , low cervical- DELIVERY ONLY 05/09/2011 , low transverse- EXCIS PRIMARY GANGLION WRIST right wrist- HYSTERECTOMY HX 2014 TRH with lysis of adhesions, without BSO- PARAGARD IUD- PARTIAL REMOVAL, CLAVICLE 08/16/2013 Left open distal clavicle excision- PAST SURGICAL HISTORY OF arthroscopy left ankle- PAST SURGICAL HISTORY OF impacted teeth- PAST SURGICAL HISTORY OF 05/2013 Essure procedure- REMOVAL OF TONSILS,<12 Y/O TonsillectomyFAMILY HISTORY:FAMILY HISTORYProblem Relation Age of Onset- Cancer Mother UTERINE- Diabetes Mother- Hypertension Mother- Diabetes Father- Hypertension Father- DEMENTIA [OTHER] Paternal Grandmother- Colon Cancer Paternal Grandfather- Breast Cancer Maternal Aunt- Breast Cancer Maternal Aunt- Breast Cancer Other Maternal Great AuntSOCIAL HISTORY:Social HistorySubstance Use Topics- Smoking status: Former Smoker Years: 5.00 Types: Cigarettes- Smokeless tobacco: Never Used- Alcohol use NoMEDICATIONS:Prior to Admission Medications:losartan (COZAAR) 100 mg tablet TAKE 1 TABLET BY MOUTH ONCE DAILY.metoprolol succinate ER (TOPROL XL) 100 mg Tb24 TAKE 1 TABLET BY MOUTH ONCEDAILY.dicyclomine (BENTYL) 10 mg capsule Take 1 capsule by mouth before meals and atbedtime.oxybutynin ER (DITROPAN XL) 10 mg 24 hr tablet Take 1 tablet by mouth oncedaily.traZODone (DESYREL) 50 mg tablet TAKE 1 TABLET BY MOUTH DAILY AT BEDTIME.busPIRone (BUSPAR) 5 mg tablet TAKE 1 TABLET BY MOUTH TWICE DAILY.Pramoxine (PROCTOFOAM) 1 % foam 1 application by RECTAL route every 2 hours asneeded.DULoxetine (CYMBALTA) 30 mg capsule TAKE 1 CAPSULE BY MOUTH TWICE DAILY.ibuprofen (MOTRIN) 200 mg tablet Take 600 mg by mouth as needed.tiZANidine (ZANAFLEX) 4 mg tablet Take 1 tablet by mouth every 6 hours asneeded.ALLERGIES:ALLERGIES Allergen Reactions- Esperanza Inhibitors Cough- Amoxacillin [Amoxic* IntolerancePHYSICAL EXAM:BP 159/106 Pulse 75 Ht 162 cm (5' 3.78) Wt (!) 140.7 kg (310 lb 3.2oz) LMP 02/21/2015 BMI 53.61 kg/m?General appearance: Morbidly obese, appears stated age, no obvious distress, nojaundice or scleral icterusSkin: warm, good turgor pressureHeart: regular rhythm and rateAbdomen: soft, non-tender, no masses, no organomegaly, unable to palpate theliver or splenic edge, non-tympanic to percussion. Negative Pugh's sign.Previous surgical incisions noted. No evidence of abdominal wall hernia. Noevidence of incisional hernia.Extremities: Normal exam of the extremities, no pitting edemaIMPRESSION:Emily Enciso is a 32 year old female with the following diagnosis andco-morbidities:Body mass index is 53.61 kg/m?., hypertensionDiagnosis noted as above, no additional diagnosis at this time.This patient does meet the criteria for a surgical weight loss procedureaccording to NIH guidelines.Today we spent over 60 minutes in the office with her in direct patient contact.Over 50% of that time was spent in counseling and coordinating her care. She wasgiven the opportunity to ask numerous questions and I used various visual aidsto explain the anatomy related to the various bariatric surgical options.PLAN:The plan of treatment for Emily Enciso is to continue with the consultationsand tests ordered today in hopes of qualifying for pre-operative clearance forbariatric surgery.Patient is interested in: Sleeve gastrectomyNeeds EGD - booked todayUGI/Ultrasound of RUQ before surgeryContinue with psychology and nutrition assessmentMaria C Craven Laparoscopic and Bariatric Surgery [facility] Nurse Visit: read TBon 05-17 PPD results in mm 0 mm Invalid Interpretation Code [facility] Work Phone: Employer Purchased Services: Employer Purchased Service: PE Physical, Drug screen, TBon 05-15-2017 Fall risk assessment No Invalid Interpretation Code [facility] Work Phone: Protein mass conc Done Invalid Interpretation Code [facility] Work Phone: Tobacco smoking status NHIS Never smoker Invalid Interpretation Code [facility] Work Phone: Vital Signs Date Time Vital Sign Value Performing Clinician Facility 03-17-2025 08:44-0400 Diastolic blood pressure 100 mm[Hg] Marli Podlogar DRYING CAN WORKER.COMBINATION WELDER Work Phone: [facility] Comment on above: BERNADETTE BP average 03-17-2025 08:44-0400 Heart rate 60 /min Marli Podlogar DRYING CAN WORKER.COMBINATION WELDER Work Phone: [facility] 03-17-2025 08:44-0400 Systolic blood pressure 164 mm[Hg] Marli Podlogar DRYING CAN WORKER.COMBINATION WELDER Work Phone: [facility] Comment on above: BERNADETTE BP average 03-17-2025 08:03-0400 Body height 160.3 cm Marli Podlogar DRYING CAN WORKER.COMBINATION WELDER Work Phone: [facility] 03-17-2025 08:03-0400 Body mass index (BMI) [Ratio] 49.14 kg/m2 Marli Podlogar DRYING CAN WORKER.COMBINATION WELDER Work Phone: [facility] 03-17-2025 08:03-0400 Body weight 126.28 kg Marli Podlogar DRYING CAN WORKER.COMBINATION WELDER Work Phone: [facility] 03-17-2025 08:03-0400 Respiratory rate 18 /min Marli Yuenlogstephanie DRYING CAN WORKER.COMBINATION WELDER Work Phone: [facility] 03-17-2025 08:03-0400 SaO2% (BldA) [Mass fraction] 98 % Marli Podlogar DRYING CAN WORKER.COMBINATION WELDER Work Phone: [facility] 06-15-2024 20:46-0500 Body temperature 98.24 [degF] JUANITA SHAH MD [facility] 06-15-2024 20:46-0500 Diastolic Blood Pressure Non-Invasive 85 mm[Hg] JUANITA SHAH MD [facility] 06-15-2024 20:46-0500 Heart rate 81 /min JUANITA SHAH MD [facility] 06-15-2024 20:46-0500 Respiratory rate 18 /min JUANITA SHAH MD [facility] 06-15-2024 20:46-0500 Systolic Blood Pressure Non-Invasive 139 mm[Hg] JUANITA SHAH MD [facility] 05-24-2024 22:40-0400 Body height 160 cm NOLVIA MARIOHEIKET DO [facility] 05-24-2024 22:40-0400 Body temperature 97.52 [degF] NOLVIA ALBARRANT DO [facility] 05-24-2024 22:40-0400 Body weight 118.2 kg NOLVIA MARIOHEIKET DO [facility] 05-24-2024 22:40-0400 Diastolic Blood Pressure Non-Invasive 106 mm[Hg] NOLVIA FROMMELT DO [facility] 05-24-2024 22:40-0400 Heart rate 89 /min NOLVIA FROMMELT DO [facility] 05-24-2024 22:40-0400 Respiratory rate 16 /min NOLVIA FROMMELT DO [facility] 05-24-2024 22:40-0400 Systolic Blood Pressure Non-Invasive 158 mm[Hg] NOLVIA ALBARRANT DO [facility] 05-17-2024 12:28-0400 Respiratory rate 17 /min QUE SUPPAN DPM [facility] 05-17-2024 12:15-0400 Diastolic Blood Pressure Non-Invasive 81 mm[Hg] QUE SUPPAN DPM [facility] 05-17-2024 12:15-0400 Heart rate 72 /min QUE SUPPAN DPM [facility] 05-17-2024 12:15-0400 Respiratory rate 18 /min QUE SUPPAN DPM [facility] 05-17-2024 12:15-0400 Systolic Blood Pressure Non-Invasive 96 mm[Hg] QUE SUPPAN DPM [facility] 05-17-2024 11:52-0400 Diastolic Blood Pressure Non-Invasive 60 mm[Hg] QUE SUPPAN DPM [facility] 05-17-2024 11:52-0400 Heart rate 71 /min QUE SUPPAN DPM [facility] 05-17-2024 11:52-0400 Respiratory rate 18 /min QUE SUPPAN DPM [facility] 05-17-2024 11:52-0400 Systolic Blood Pressure Non-Invasive 93 mm[Hg] QUE SUPPAN DPM [facility] 05-17-2024 11:51-0400 Diastolic Blood Pressure Non-Invasive 65 mm[Hg] QUE SUPPAN DPM [facility] 05-17-2024 11:51-0400 Heart rate 68 /min QUE SUPPAN DPM [facility] 05-17-2024 11:51-0400 Systolic Blood Pressure Non-Invasive 102 mm[Hg] QUE SUPPAN DPM [facility] 05-17-2024 11:23-0400 Body temperature 97.16 [degF] QUE SUPPAN DPM [facility] 05-17-2024 11:15-0400 Respiratory Rate - Anes 23 br/min QUE SUPPAN DPM [facility] 05-17-2024 11:10-0400 Respiratory Rate - Anes 23 br/min QUE SUPPAN DPM [facility] 05-17-2024 11:05-0400 Respiratory Rate - Anes 21 br/min QUE SUPPAN DPM [facility] 05-17-2024 09:46-0400 Body weight 45.43 kg/m2 QUE SUPPAN DPM [facility] 05-17-2024 09:32-0400 Body height 160 cm QUE SUPPAN DPM [facility] 05-17-2024 09:32-0400 Body temperature 97.52 [degF] QUE MATSON DPM [facility] 05-17-2024 09:32-0400 Body weight 116.3 kg QUE MATSON DPM [facility] 05-17-2024 09:32-0400 Heart rate 74 /min QUE MATSON DPM [facility] 05-15-2024 15:49-0400 Body mass index (BMI) [Ratio] 48.61 kg/m2 Joey Sloan PA-C Work Phone: [facility] 05-15-2024 15:49-0400 Body temperature 97.9 [degF] Joey Sloan PA-C Work Phone: [facility] 05-15-2024 15:49-0400 Body weight 126 kg Joey Sloan PA-C Work Phone: [facility] 05-15-2024 15:49-0400 Diastolic blood pressure 76 mm[Hg] Joey Sloan PA-C Work Phone: [facility] 05-15-2024 15:49-0400 Heart rate 90 /min Joey Sloan PA-C Work Phone: [facility] 05-15-2024 15:49-0400 Systolic blood pressure 120 mm[Hg] Joey Sloan PA-C Work Phone: [facility] 05-09-2024 18:15-0400 Diastolic blood pressure 95 mm[Hg] Mark Blount MD Work Phone: [facility] 05-09-2024 18:15-0400 Heart rate 61 /min Mark Blount MD Work Phone: [facility] 05-09-2024 18:15-0400 Systolic blood pressure 138 mm[Hg] Mark Blount MD Work Phone: [facility] 05-09-2024 18:00-0400 Body mass index (BMI) [Ratio] 48.65 kg/m2 Mark Blount MD Work Phone: [facility] 05-09-2024 18:00-0400 Body temperature 97.59 [degF] Mark Blount MD Work Phone: [facility] 05-09-2024 18:00-0400 Body weight 126.1 kg Mark Blount MD Work Phone: [facility] 05-07-2024 13:20-0400 Blood Pressure Cuff Size QUE SUPPAN DPM [facility] 05-07-2024 13:20-0400 Blood Pressure Location QUE SUPPAN DPM [facility] 05-07-2024 13:20-0400 Blood Pressure Method QUE SUPPAN DPM [facility] 05-07-2024 13:20-0400 Body height 160 cm QUE SUPPAN DPM [facility] 05-07-2024 13:20-0400 Body weight 116.3 kg QUE SUPPAN DPM [facility] 05-07-2024 13:20-0400 Diastolic Blood Pressure Non-Invasive 94 mm[Hg] QUE SUPPAN DPM [facility] 05-07-2024 13:20-0400 Heart rate 64 /min QUE SUPPAN DPM [facility] 05-07-2024 13:20-0400 Systolic Blood Pressure Non-Invasive 156 mm[Hg] QUE SUPPAN DPM [facility] 04-22-2024 17:01-0400 Diastolic blood pressure 92 mm[Hg] Mark Blount MD Work Phone: [facility] 04-22-2024 17:01-0400 Heart rate 71 /min Mark Blount MD Work Phone: [facility] 04-22-2024 17:01-0400 Systolic blood pressure 160 mm[Hg] Mark Blount MD Work Phone: [facility] 04-22-2024 16:35-0400 Body mass index (BMI) [Ratio] 49.23 kg/m2 Mark Blount MD Work Phone: [facility] 04-22-2024 16:35-0400 Body temperature 98.6 [degF] Mark Blount MD Work Phone: [facility] 04-22-2024 16:35-0400 Body weight 127.6 kg Mark Blount MD Work Phone: [facility] 04-22-2024 16:35-0400 SaO2% (BldA) [Mass fraction] 97 % Mark Blount MD Work Phone: [facility] 04-15-2024 14:22-0400 Body mass index (BMI) [Ratio] 47.8 kg/m2 Thania Sreedhar DRYING CAN WORKER.COMBINATION WELDER Work Phone: [facility] 04-15-2024 14:22-0400 Body weight 123.9 kg Thania Sreedhar DRYING CAN WORKER.COMBINATION WELDER Work Phone: [facility] 04-15-2024 14:22-0400 Diastolic blood pressure 94 mm[Hg] Thania Sreedhar DRYING CAN WORKER.COMBINATION WELDER Work Phone: [facility] 04-15-2024 14:22-0400 Heart rate 72 /min Thania Sreedhar DRYING CAN WORKER.COMBINATION WELDER Work Phone: [facility] 04-15-2024 14:22-0400 Respiratory rate 16 /min Thania Sreedhar DRYING CAN WORKER.COMBINATION WELDER Work Phone: [facility] 04-15-2024 14:22-0400 SaO2% (BldA) [Mass fraction] 97 % Thania Sredehar DRYING CAN WORKER.COMBINATION WELDER Work Phone: [facility] 04-15-2024 14:22-0400 Systolic blood pressure 146 mm[Hg] Thania Eli APRN.COMBINATION WELDER Work Phone: [facility] 02-13-2024 19:56-0400 Blood Pressure Cuff Size MOSES REICHFIELD DO [facility] 02-13-2024 19:56-0400 Blood Pressure Location MOSES REICHFIELD DO [facility] 02-13-2024 19:56-0400 Blood Pressure Method MOSES REICHFIELD DO [facility] 02-13-2024 19:56-0400 Diastolic Blood Pressure Non-Invasive 112 mm[Hg] MOSES REICHFIELD DO [facility] 02-13-2024 19:56-0400 Heart rate 64 /min MOSES REICHFIELD DO [facility] 02-13-2024 19:56-0400 Respiratory rate 18 /min MOSES REICHFIELD DO [facility] 02-13-2024 19:56-0400 Systolic Blood Pressure Non-Invasive 172 mm[Hg] MOSES REICHFIELD DO [facility] 02-13-2024 18:52-0400 Body height 160 cm MOSES REICHFIELD DO [facility] 02-13-2024 18:52-0400 Body temperature 98.42 [degF] MOSES REICHFIELD DO [facility] 02-13-2024 18:52-0400 Body weight 114 kg MOSES REICHFIELD DO [facility] 02-13-2024 18:52-0400 Diastolic Blood Pressure Non-Invasive 121 mm[Hg] MOSES REICHFIELD DO [facility] 02-13-2024 18:52-0400 Heart rate 73 /min MOSES REICHFIELD DO [facility] 02-13-2024 18:52-0400 Respiratory rate 18 /min MOSES REICHFIELD DO [facility] 02-13-2024 18:52-0400 Systolic Blood Pressure Non-Invasive 192 mm[Hg] MOSES REICHFIELD DO [facility] 01-04-2024 18:23-0400 Body height 160 cm MOSES REICHFIELD DO [facility] 01-04-2024 18:23-0400 Body temperature 97.16 [degF] MOSES REICHFIELD DO [facility] 01-04-2024 18:23-0400 Body weight 109 kg MOSES REICHFIELD DO [facility] 01-04-2024 18:23-0400 Diastolic Blood Pressure Non-Invasive 91 mm[Hg] MOSES REICHFIELD DO [facility] 01-04-2024 18:23-0400 Heart rate 72 /min MOSES REICHFIELD DO [facility] 01-04-2024 18:23-0400 Respiratory rate 16 /min MOSES REICHFIELD DO [facility] 01-04-2024 18:23-0400 Systolic Blood Pressure Non-Invasive 168 mm[Hg] MOSES REICHFIELD DO [facility] 09-20-2023 08:52-0500 Body height 161 cm Joey Sloan PA-C Work Phone: [facility] 09-20-2023 08:52-0500 Body temperature 97.59 [degF] Joey Sloan PA-C Work Phone: [facility] 09-20-2023 08:52-0500 Body weight 119 kg Joey Sloan PA-C Work Phone: [facility] 09-20-2023 08:52-0500 Diastolic blood pressure 96 mm[Hg] Joey Sloan PA-C Work Phone: [facility] 09-20-2023 08:52-0500 Heart rate 71 /min Joey Sloan PA-C Work Phone: [facility] 09-20-2023 08:52-0500 Systolic blood pressure 144 mm[Hg] Joey Sloan PA-C Work Phone: [facility] 07-14-2023 17:30-0500 Diastolic blood pressure 98 mm[Hg] Barbie Sofia MD Work Phone: [facility] 07-14-2023 17:30-0500 Systolic blood pressure 156 mm[Hg] Barbie Sofia MD Work Phone: [facility] 07-14-2023 13:25-0500 Body temperature 97.7 [degF] Barbie Sofia MD Work Phone: [facility] 07-14-2023 13:25-0500 Body weight 107.5 kg Barbie Sofia MD Work Phone: [facility] 07-14-2023 13:25-0500 Heart rate 98 /min Barbie Sofia MD [facility] 07-14-2023 13:25-0500 Respiratory rate 16 /min Barbie Sofia MD Work Phone: [facility] 07-14-2023 13:25-0500 SaO2% (BldA) [Mass fraction] 98 % Barbie Sofia MD Work Phone: [facility] 01-05-2023 10:54-0400 Body weight 118.39 kg Nathaly Sharpe MD Work Phone: [facility] 01-05-2023 10:54-0400 Diastolic blood pressure 84 mm[Hg] Nathaly Sharpe MD Work Phone: [facility] 01-05-2023 10:54-0400 Systolic blood pressure 136 mm[Hg] Nathaly Sharpe MD Work Phone: [facility] 11-16-2022 20:15-0400 Respiratory rate 18 /min [facility] 11-16-2022 19:15-0400 Body height 160.02 cm [facility] 11-16-2022 19:15-0400 Body mass index (BMI) [Ratio] 46.8 kg/m2 [facility] 11-16-2022 19:15-0400 Body temperature 98 [degF] [facility] 11-16-2022 19:15-0400 Body weight 120 kg [facility] 11-16-2022 19:15-0400 Diastolic blood pressure 97 mm[Hg] [facility] 11-16-2022 19:15-0400 Heart rate 82 /min [facility] 11-16-2022 19:15-0400 SaO2% (BldA) [Mass fraction] 100 % [facility] 11-16-2022 19:15-0400 Systolic blood pressure 125 mm[Hg] [facility] 08-03-2022 23:04-0500 Body temperature 98.06 [degF] NOLVIA AVISNilam [facility] 08-03-2022 23:04-0500 Diastolic Blood Pressure Non-Invasive 90 1 NOLVIA AVISNilam BEAR [facility] 08-03-2022 23:04-0500 Heart rate 68 /min NOLVIA AVISNilam BEAR [facility] 08-03-2022 23:04-0500 Respiratory rate 18 /min NOLVIA AVISNilam BEAR [facility] 08-03-2022 23:04-0500 Systolic Blood Pressure Non-Invasive 160 1 NOLVIA CORNEJO DO [facility] 06-24-2022 22:47-[address] FRANK CRISTINA DO [facility] 06-24-2022 22:47-0500 Body temperature 98.78 [degF] DR FRANK CRISTINA DO [facility] 06-24-2022 22:47-0500 Diastolic Blood Pressure Non-Invasive [address] FRANK CRISTINA DO [facility] 06-24-2022 22:47-0500 Heart rate 69 /min DR FRANK CRISTINA DO [facility] 06-24-2022 22:47-0500 Respiratory rate 18 /min DR FRANK CRISTINA DO [facility] 06-24-2022 22:47-0500 Systolic Blood Pressure Non-Invasive [address] FRANK CRISTINA DO [facility] 01-17-2022 20:24-0400 Body temperature 98.78 [degF] DR CAMILA COSTA MD [facility] 01-17-2022 20:24-0400 Diastolic blood pressure 92 mm[Hg] DR CAMILA COSTA MD [facility] 01-17-2022 20:24-0400 Heart rate 89 /min DR CAMILA COSTA MD [facility] 01-17-2022 20:24-0400 Respiratory rate 16 /min DR CAMILA COSTA MD [facility] 01-17-2022 20:24-0400 Systolic blood pressure 168 mm[Hg] DR CAMILA COSTA MD [facility] 12-05-2021 00:03-0400 Diastolic blood pressure 73 mm[Hg] QUE DURESKA DO [facility] 12-05-2021 00:03-0400 Heart rate 62 /min QUE DURESKA DO [facility] 12-05-2021 00:03-0400 Mean blood pressure 95 mm[Hg] QUE DURESKA DO [facility] 12-05-2021 00:03-0400 Respiratory rate 16 /min QUE DURESKA DO [facility] 12-05-2021 00:03-0400 Systolic blood pressure 139 mm[Hg] QUE DURESKA DO [facility] 12-04-2021 22:40-0400 Heart rate 64 /min QUE DURESKA DO [facility] 12-04-2021 22:40-0400 Reason For Taking VItal Signs QUE DURESKA DO [facility] 12-04-2021 22:40-0400 Respiratory rate 16 /min QUE DURESKA DO [facility] 12-04-2021 21:50-0400 Body temperature 98.42 [degF] QUE DURESKA DO [facility] 12-04-2021 21:50-0400 Diastolic blood pressure 118 mm[Hg] QUE DURESKA DO [facility] 12-04-2021 21:50-0400 Heart rate 68 /min QUE DURESKA DO [facility] 12-04-2021 21:50-0400 Mean blood pressure 133 mm[Hg] QUE DURESKA DO [facility] 12-04-2021 21:50-0400 Respiratory rate 16 /min QUE DURESKA DO [facility] 12-04-2021 21:50-0400 Systolic blood pressure 164 mm[Hg] QUE DURESKA DO [facility] 11-11-2021 11:35-0400 Body weight 124.74 kg Sonal Camacho MD Work Phone: [facility] 11-11-2021 11:35-0400 Diastolic blood pressure 96 mm[Hg] Sonal Camacho MD Work Phone: [facility] 11-11-2021 11:35-0400 Systolic blood pressure 146 mm[Hg] Sonal Camacho MD Work Phone: [facility] 10-12-2021 11:12-0400 Body height 161.3 cm Anibal Naqvi MD Work Phone: [facility] 10-12-2021 11:12-0400 Body weight 111.13 kg Anibal Naqvi MD Work Phone: [facility] 07-03-2021 15:08-0500 Body temperature 98.6 [degF] SEAN TRAN MD [facility] 07-03-2021 15:08-0500 Diastolic blood pressure 97 mm[Hg] SEAN TRAN MD [facility] 07-03-2021 15:08-0500 Heart rate 82 /min SEAN TRAN MD [facility] 07-03-2021 15:08-0500 Respiratory rate 18 /min SEAN TRAN MD [facility] 07-03-2021 15:08-0500 Systolic blood pressure 141 mm[Hg] SEAN TRAN MD [facility] 05-15-2017 13:47-0400 BMI (Body Mass Index) 55.86 kg/m2 Silvia Rodriguez LPN [facility] Work Phone: 05-15-2017 13:47-0400 Body Temperature 98.6 [degF] Silvia Rodriguez LPN [facility] Work Phone: 05-15-2017 13:47-0400 BP Diastolic 90 mm[Hg] Silvia Rodriguez LPN [facility] Work Phone: 05-15-2017 13:47-0400 BP Systolic 148 mm[Hg] Silvia Rodriguez LPN [facility] Work Phone: 05-15-2017 13:47-0400 Height 160.02 cm Silvia Rodriguez LPN [facility] Work Phone: 05-15-2017 13:47-0400 Pulse (Heart Rate) 85 /min Silvia Rodriguez LPN [facility] Work Phone: 05-15-2017 13:47-0400 Respiratory Rate 15 /min Silvia Rodriguez LPN [facility] Work Phone: 05-15-2017 13:47-0400 Weight 143.07 kg Silvia Rodriguez LPN [facility] Work Phone: Encounters Encounter Date Encounter Type Care Provider Facility Start: 03-17-2025 End: 03-17-20[facility] Start: 03-17-2025 End: 03-17-2025 Patient encounter procedure Marli Marie APRN.COMBINATION WELDER Work Phone: [facility] [place] Comment on above: Encounter for medica l examination to establish care (Primary Dx); Essential hypertension; B12 deficiency; Vitamin D insufficiency; Screening for hyperlipidemia; Mixed headache; Hidradenitis suppurativa of right axilla; Genital herpes simplex, unspecified site Start: 03-17-2025 End: 03-17-2025 Patient encounter status Marli Marie APRN.COMBINATION WELDER Work Phone: [facility] Work Phone: Start: 03-17-2025 End: 03-17-2025 ambulatory [facility] Start: 03-17-2025 Encounter for genera l adult medical examination without abnormal findings MARLI MARIE [facility] Start: 02-20-2025 End: 02-20-2025 Telemedicine consultation with patient Clarke Dao PA-C Work Phone: Telemedicine Comment on above: Viral gastroenteriti s Start: 02-20-2025 End: 02-20-2025 ambulatory MUDITA BLOUNT Facility:[facility] Start: 02-19-2025 End: 02-19-2025 Refill Ann-Marie Borges PA-C Work Phone: Internal Medicine Comment on above: Refill Request Start: 01-05-2025 End: 01-06-2025 Refill Mark Blount MD Work Phone: Internal Medicine Comment on above: Refill Request Start: 09-27-2024 End: 09-27-2024 ambulatory Mark Blount MD Work Phone: Internal Medicine Start: 09-27-2024 End: 09-27-2024 Patient encounter procedure Mark Blount MD Work Phone: Internal Medicine Comment on above: Referral Start: 09-13-2024 End: 09-13-2024 Telemedicine consultation with patient Ann-Marie Borges PA-C Work Phone: Internal Medicine Start: 09-13-2024 End: 09-13-2024 ambulatory Ann-Marie Borges PA-C Work Phone: Internal Medicine Comment on above: Nausea, vomiting, an d diarrhea (Primary Dx) Start: 08-29-2024 End: 08-29-2024 Telephone encounter [facility] Provider [facility] Comment on above: Patient Update Start: 2024 End: 08-26-2024 Refill Mark Blount MD Work Phone: Internal Medicine Comment on above: Refill Request Start: 08-20-2024 End: 09-20-2024 ambulatory Mark Blount MD Work Phone: Internal Medicine Start: 07-30-2024 End: 07-30-2024 Refill Mark Blount MD Work Phone: Internal Medicine Comment on above: Refill Request Start: 06-25-2024 End: 06-26-2024 Refill Mark Blount MD Work Phone: Internal Medicine Comment on above: Refill Request Start: 06-18-2024 End: 06-18-2024 Refill Joey Sloan PA-C Work Phone: [facility] [place] Comment on above: Refill Request Start: 06-15-2024 End: 06-15-2024 Emergency department patient visit JUANITA SHAH MD [facility] Start: 06-12-2024 End: 06-12-2024 Orders Only Thomas Santos MD Work Phone: Cardiology Comment on above: Essential hypertensi on (Primary Dx) Start: 05-27-2024 End: 05-28-2024 ambulatory Mark Blount MD Work Phone: Internal Medicine Comment on above: Migrain medication Start: 05-24-2024 End: 05-25-2024 Emergency department patient visit NOLVIA CORNEJO DO [facility] Start: 05-17-2024 End: 05-17-2024 ambulatory QUE MATSON DPM Facility:[facility] Start: 05-17-2024 End: 05-17-2024 SAME DAY STAY QUE MATSON DPM [facility] Start: 05-15-2024 End: 05-15-2024 ambulatory JOEY SLOAN Facility:[facility] Start: 05-15-2024 End: 05-15-2024 Office outpatient visit 25 minutes Joey Sloan PA-C Work Phone: Internal Medicine Comment on above: Primary hypertension (Primary Dx); B12 deficiency Start: 05-09-2024 End: 05-09-2024 ambulatory SELF Facility:[facility] Start: 05-09-2024 End: 05-09-2024 Patient encounter procedure Mark Blount MD Work Phone: Internal Medicine Comment on above: Essential hypertensi on (Primary Dx); B12 deficiency; Vitamin D deficiency Start: 05-09-2024 End: 05-09-2024 Telephone encounter Mark Blount MD Work Phone: Internal Medicine Comment on above: Results Start: 05-08-2024 End: 05-08-2024 ambulatory MARK BLOUNT Facility:[facility] Start: 05-07-2024 End: 05-07-2024 Admission to establishment QUE MATSON DPM [facility] Start: 05-07-2024 End: 05-07-2024 ambulatory PHY WO ID REFERRING Facility:[facility] Start: 04-27-2024 End: 04-29-2024 Refill Mark Blount MD Work Phone: Internal Medicine Comment on above: Refill Request Start: 04-22-2024 End: 04-22-2024 ambulatory MARK BLOUNT Facility:[facility] Start: 04-22-2024 End: 04-22-2024 Patient encounter procedure Mark Blount MD Work Phone: Internal Medicine Comment on above: Primary hypertension (Primary Dx); Herpes simplex type II infection; Encounter for immunization; Tired; Special screening examination for viral disease; Encounter for pre-operative cardiovascular clearance Start: 04-22-2024 End: 04-22-2024 Preoperative state Mark Blount MD Work Phone: [facility] Start: 04-17-2024 End: 04-17-2024 ambulatory JOEY SLOAN Facility:[facility] Start: 04-17-2024 Encounter for genera l adult medical examination without abnormal findings [facility] Start: 04-15-2024 End: 04-15-2024 ambulatory [facility] Facility:[facility] Start: 04-15-2024 End: 04-15-2024 Patient encounter procedure Thania Eli APRN.CNP Work Phone: [place] [facility] Comment on above: Strain of right ankl e, subsequent encounter (Primary Dx) Start: 03-26-2024 End: 03-26-2024 ambulatory No Primary Care Physician [facility] Start: 03-19-2024 End: 03-19-2024 ambulatory Joey Sloan PA-C Work Phone: Internal Medicine Comment on above: Medication Start: 02-24-2024 Refill Joey Sloan PA-C Work Phone: Internal Medicine Comment on above: Refill Request Start: 02-13-2024 End: 02-13-2024 Emergency department patient visit MOSES DAVIS DO [facility] Start: 02-12-2024 End: 02-12-2024 ambulatory QUE Ricky BABINTC DPM Facility: Start: 02-12-2024 End: 02-12-2024 Patient encounter procedure QUE Ricky BABINTC DPM [facility] Start: 01-06-2024 End: 01-07-2024 Emergency department patient visit Ubaldo Garcia Facility:[facility] Start: 01-04-2024 End: 01-04-2024 Emergency department patient visit MOSES DAVIS DO [facility] Start: 12-25-2023 Refill Carmelo Coffey MD Work Phone: [facility] [place] Comment on above: Refill Request Medication question Start: 11-10-2023 ambulatory [facility] Provider Internal M edicine Comment on above: Mammogram Start: 11-10-2023 E-mail encounter fro m caregiver [facility] Provider [facility]LLY Start: 11-09-2023 Refill Carmelo Coffey MD Work Phone: [facility] [place] Comment on above: Refill Request Start: 10-26-2023 E-mail encounter fro m caregiver Joey Sloan PA-C Work Phone: [facility] Start: 10-26-2023 Patient encounter procedure Joey Sloan PA-C Work Phone: Internal Medicine Comment on above: Appointment Request Start: 10-12-2023 Telephone encounter Joey esqueda PA-C Work Phone: Internal Medicine Comment on above: Results; Consult Start: 10-12-2023 End: 10-12-2023 Subsequent hospital visit by physician [facility] Work Phone: Radiology Comment on above: Skin lump of leg, le ft [R22.42] Start: 09-30-2023 ambulatory Joey Sloan PA-C Work Phone: Internal Medicine Comment on above: Medication question. Start: 09-20-2023 Telephone encounter Mark huertas MD Work Phone: Internal Medicine Comment on above: Medication Question Start: 09-20-2023 End: 09-20-2023 Initial preventive medicine new patient 40-64yrs Joey Sloan PA-C Work Phone: Internal Medicine Comment on above: Wellness examination (Primary Dx); Encounter to establish care; Primary hypertension; Depression with anxiety; Primary insomnia; Central serous chorioretinopathy of eye, right; Herpes simplex type II infection; History of HPV infection; B12 deficiency; Osteoarthritis of spine with radiculopathy, lumbar region; Primary osteoarthritis of right knee; Skin lump of leg, left; Mass of lower inner quadrant of left breast; Screening for lipid disorders; Special screening examination for viral disease Start: 09-20-2023 End: 09-20-2023 Patient encounter status Joey Sloan PA-C Work Phone: [facility] Work Phone: Start: 07-14-2023 End: 07-14-2023 Emergency department patient visit BARBIE SOFIA Facility:[facility] Start: 07-14-2023 End: 07-14-2023 Emergency department patient visit Barbie Sofia MD Work Phone: [facility] Comment on above: Low back complaint ( Lower back pain that shoots into left hip worse today but has been going on for months. NKI) Start: 05-16-2023 End: 05-20-2023 ambulatory DAPHNEY MARSHALL DRYING CAN WORKER - COMBINATION WELDER Facility:[facility] Start: 01-10-2023 ambulatory Nathaly Sharpe MD Work Phone: OB/Gynecology Comment on above: Test Result Start: 01-05-2023 Refill Nathaly Sharpe MD Work Phone: OB/Gynecology Comment on above: Med Change Request Start: 01-05-2023 End: 01-05-2023 Patient encounter procedure Nathaly Sharpe MD Work Phone: OB/Gynecology Comment on above: Vulval lesion (Prima ry Dx); Vulvar pain Start: 11-16-2022 End: 11-16-2022 Emergency department patient visit [facility] Start: 11-15-2022 End: 11-15-2022 Emergency department patient visit DANISH GARCÍA Facility:[facility] Start: 08-03-2022 End: 08-03-2022 Emergency department patient visit NOLVIA MARIOWILMER DO [facility] Start: 06-24-2022 End: 06-24-2022 Emergency department patient visit DR FRANK CRISTINA DO [facility] Start: 06-06-2022 End: 06-10-2022 Outreach Lab DANISH GARCÍA 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 WORKER-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 [facility] Start: 05-02-2022 ambulatory DANAY BRIDLE [facility] Start: 04-29-2022 ambulatory UNKNOWN PROVIDER [facility] Start: 04-29-2022 End: 04-29-2022 Subsequent hospital visit by physician Isabelle THRASHER Work Phone: [facility] Radiology Comment on above: Left foot pain Start: 03-14-2022 End: 03-14-2022 Patient encounter procedure DANISH GARRIDODARRYN DRYING CAN WORKER-COMBINATION WELDER [facility] Start: 01-17-2022 End: 01-17-2022 Emergency department patient visit DR CAMILA COSTA MD [facility] Start: 12-04-2021 End: 12-05-2021 Emergency department patient visit QUE MARCH DO [facility] Start: 11-17-2021 End: 11-17-2021 Patient encounter procedure DANISH GARCÍA DRYING CAN WORKER-COMBINATION WELDER [facility] Start: 11-11-2021 End: 11-11-2021 Patient encounter procedure Sonal Camacho MD Work Phone: OB/Gynecology Comment on above: Vaginal high risk hu man papillomavirus (HPV) DNA test positive (Primary Dx); Need for prophylactic vaccination/inoculation against viral disease Start: 11-09-2021 Telephone encounter Gisele durán DRYING CAN WORKER.COMBINATION WELDER Work Phone: OB/Gynecology Comment on above: Appointment Start: 10-29-2021 End: 11-02-2021 Outreach Lab DANISH GARCÍA DRYING CAN WORKER-COMBINATION WELDER [facility] Start: 10-12-2021 Telephone encounter Jesi Razo ( Coord) Radiology Comment on above: Appointment Start: 10-12-2021 End: 10-12-2021 Patient encounter procedure Anibal Naqvi MD Work Phone: Orthopaedics Comment on above: 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) Start: 07-03-2021 End: 07-03-2021 Emergency department patient visit SEAN TRAN MD [facility] Start: 02-16-2018 End: 02-16-2018 Patient encounter [facility] Start: 02-14-2018 End: 02-14-2018 Patient encounter [facility] Procedures Date Procedure Procedure Detail Performing Clinician Start: 10-12-2023 Us abdominal real ti me w/image limited Joey Sloan PA-C Work Phone: Start: 07-14-2023 Radex hip unilateral with pelvis 2-3 views Samantha Carnes DRYING CAN WORKER-COMBINATION WELDER Work Phone: Start: 09-25-2018 Antibody screen Comment on above: Performed By: #### T &S #### [facility] [address] [address] Start: 09-21-2018 Gastric sleeve SEAN SANTIAGO MD Start: 07-24-2017 Decompression of med clarisa nerve SEAN TRAN MD Comment on above: Bilateral Start: 05-15-2017 End: 05-15-2017 Pre-employment PE Sudarshan THRASHER Work Phone: Start: 11-29-2010 End: 05-20-2011 H/O: section Previous section Carmelo Coffey MD Work Phone: Start: 02-09-2009 End: 08-03-2009 H/O: section Previous delivery, delivered, with or without mention of antepartum condition Carmelo Coffey MD Work Phone: Abdominal hysterectomy ALEJANDRA TRAN MD Ankle region structu re (body structure) SEAN TRAN MD section SEAN NAGEL MD Comment on above: x 3 Coils (qualifier value) THUAN TRAN MD Comment on above: Essure - only 1 side took Entire shoulder miguel angel on (body structure) SEAN TRAN MD Entire wrist region (body structure) SEAN TRAN MD Fracture of clavicle (disorder) SEAN TRAN MD Comment on above: left Ligation of fallopia n tube SEAN TRAN MD Tonsil and adenoid structure (body structure) SEAN TRAN MD Plan of Treatment Date Care Activity Detail Author Start: 2033 Shingles (RZV) Vacci ne (1 of 2) Shingles (RZV) Vaccine (1 of 2) [facility] Start: 04-09-2028 DTaP/Tdap/Td vaccine (3 - Td or Tdap) DTaP/Tdap/Td vaccine (3 - Td or Tdap) [facility] Start: 04-09-2028 Urine microalbumin profile [facility] Start: 10-29-2026 Screening for malign ant neoplasm of cervix Pap Testing [facility] Start: 03-17-2026 Annual PCP Team Solid Waste Analyst mayank Disease Visit Annual PCP Team Chronic Disease Visit [facility] Start: 09-13-2025 Annual PCP Team Solid Waste Analyst mayank Disease Visit Annual PCP Team Chronic Disease Visit [facility] Start: 05-15-2025 Annual PCP Team Solid Waste Analyst mayank Disease Visit Annual PCP Team Chronic Disease Visit [facility] Start: 05-15-2025 BP Controlled (<130/80) BP Controlle d (<130/80) [facility] Start: 05-09-2025 Annual PCP Team Solid Waste Analyst mayank Disease Visit Annual PCP Team Chronic Disease Visit [facility] Start: 04-22-2025 Annual PCP Team Solid Waste Analyst mayank Disease Visit Annual PCP Team Chronic Disease Visit [facility] Start: 03-31-2025 End: 03-31-2025 Patient encounter procedure 03/31/2025 11:00 AM EDT Office Visit [facility] [place] [address] [place] [address] PodlogarMarli APRN.COMBINATION WELDER [address] [place], [place] [id number] BP check [facility] [place] Comment on above: BP check Start: 03-24-2025 Influenza vaccination Influenza Vacc ine (#1) [facility] Start: 03-17-2025 End: 06-16-2025 25-hydroxyvitamin D3 [Mass/volume] in Serum or Plasma [facility] Comment on above: Expected: 03/17/2025 , Expires: 06/16/2025 Start: 03-17-2025 End: 06-16-2025 CBC W Auto Differential panel - Blood [facility] Comment on above: Expected: 03/17/2025 , Expires: 06/16/2025 Start: 03-17-2025 End: 06-16-2025 Cobalamin (Vitamin B12) [Mass/volume] in Serum or Plasma [facility] Comment on above: Expected: 03/17/2025 , Expires: 06/16/2025 Start: 03-17-2025 End: 06-16-2025 Comprehensive metabolic 2000 panel - Serum or Plasma [facility] Comment on above: Expected: 03/17/2025 , Expires: 06/16/2025 Start: 03-17-2025 End: 06-16-2025 Hemoglobin A1c in Blood [facility] Work Phone: Comment on above: Expected: 03/17/2025 , Expires: 06/16/2025 Start: 03-17-2025 End: 06-16-2025 Lipid 1996 panel - Serum or Plasma [facility] Comment on above: Expected: 03/17/2025 , Expires: 06/16/2025 Start: 12-10-2024 End: 12-10-2024 ambulatory 12/10/2024 9:45 AM EDT Results Only Cardiology [address] [place], [place] [id number] Dx: Essential hypertension Cardiology Comment on above: Dx: Essential hypert ension Start: 12-10-2024 End: 12-10-2024 Patient encounter procedure Cardiology Comment on above: Dx: Essential hypert ension Start: 11-18-2024 End: 11-18-2024 Patient encounter procedure 11/18/2024 4:00 PM EDT Office Visit Internal Medicine [id number] [facility] [address] [place], [place] [id number] [place] [address] [address] [place], [place] [id number] for Physical. Internal Medicine Comment on above: for Physical. Start: 10-29-2024 Screening for malign ant neoplasm of cervix Cervical Cancer Screening [facility] Start: 09-20-2024 Annual PCP Team Solid Waste Analyst mayank Disease Visit Annual PCP Team Chronic Disease Visit [facility] Start: 09-20-2024 Covid-19 Vaccine () Covid-19 Vaccine () [facility] Comment on above: Postponed from 03/24 (Declined at this time) Start: 08-26-2024 End: 08-26-2024 Patient encounter procedure 08/26/2024 2:30 PM EST Appointment Mammogram [address] [place] [address] Mammogram Start: 06-19-2024 End: 06-19-2024 Patient encounter procedure 06/19/2024 11:00 AM EST Office Visit Internal Medicine [id number] [facility] [address] [place] [address] Shanae Braden PA-C [address] [address] [facility] [address] [place] [address] Ear ache, swelled lymph nodes, sore throat. Internal Medicine Comment on above: Ear ache, swelled ly mph nodes, sore throat. Start: 05-15-2024 End: 05-15-2024 Patient encounter procedure 05/15/2024 1:00 PM EDT Office Visit Internal Medicine [address] [facility] [address] [place] [address] [place] [address] [address] [facility] [address] [place] [address] BP follow up prior to 05/17 surgery Internal Medicine Comment on above: BP follow up prior t o 05/17 surgery Start: 05-09-2024 End: 05-09-2024 Patient encounter procedure 05/09/2024 6:00 PM EDT Office Visit Internal Medicine [address] [address] [place] [address] [address] 2 weeks, BP Internal Medicine Comment on above: 2 weeks, BP Start: 04-26-2024 End: 04-26-2024 ambulatory 04/26/2024 1:30 PM EDT Results Only [facility] [address] [place] [address] Momo COUNT INCLUDES THE [facility] Draw Station Start: 04-22-2024 End: 07-22-2024 25-hydroxyvitamin D3 [Mass/volume] in Serum or Plasma VITAMIN D 25 HYDROXY Lab Routine Tired Expected: 04/22/2024, Expires: 07/22/2024 [facility] Comment on above: Expected: 04/22/2024 , Expires: 07/22/2024 Start: 04-22-2024 End: 07-22-2024 Basic metabolic 2000 panel - Serum or Plasma BASIC METABOLIC PANEL Lab Routine Primary hypertension Expected: 04/22/2024, Expires: 07/22/2024 [facility] Work Phone: Comment on above: Expected: 04/22/2024 , Expires: 07/22/2024 Start: 04-22-2024 End: 07-22-2024 Cobalamin (Vitamin B12) [Mass/volume] in Serum or Plasma VITAMIN B12 Lab Routine Tired Expected: 04/22/2024, Expires: 07/22/2024 [facility] Comment on above: Expected: 04/22/2024 , Expires: 07/22/2024 Start: 04-22-2024 End: 07-22-2024 Hepatitis C virus Ab [Presence] in Serum HEPATITIS C ANTIBODY IA WITH CONFIRMATION Lab Routine Special screening examination for viral disease Expected: 04/22/2024, Expires: 07/22/2024 [facility] Comment on above: Expected: 04/22/2024 , Expires: 07/22/2024 Start: 04-22-2024 End: 07-22-2024 Thyrotropin [Units/volume] in Serum or Plasma THYROID STIMULATING HORMONE Lab Routine Tired Expected: 04/22/2024, Expires: 07/22/2024 [facility] Comment on above: Expected: 04/22/2024 , Expires: 07/22/2024 Start: 04-18-2024 End: 04-18-2024 Patient encounter procedure 04/18/2024 12:40 PM EDT Office Visit Internal Medicine [id number] [place] [address] [place] [address] [address] [place] [address] Physical / anxiety meds Internal Medicine Comment on above: Physical / anxiety m eds Start: 03-26-2024 End: 03-26-2024 Patient encounter procedure 03/26/2024 3:20 PM EDT Office Visit Internal Medicine [address] [place] [address] [place] [address] [place] [address] Anxiety meds Internal Medicine Comment on above: Anxiety meds Start: 03-24-2024 Covid-19 Vaccine () Covid-19 Vaccine () [facility] Start: 03-24-2024 Influenza vaccination Influenza Vacc ine (#1) [facility] Start: 03-22-2024 End: 03-22-2024 ambulatory 03/22/2024 9:30 AM EDT [facility] [address] [facility] [address] Momo COUNT INCLUDES THE [facility] Draw Station Start: 01-02-2024 End: 01-02-2024 Patient encounter procedure 01/02/2024 2:40 PM EDT Office Visit Internal Medicine [address] [place] [address] [place] [address] [place] [address] discuss controlled migraine medication Internal Medicine Comment on above: discuss controlled m igraine medication Start: 09-20-2023 End: 12-20-2023 25-hydroxyvitamin D3 [Mass/volume] in Serum or Plasma VITAMIN D 25 HYDROXY Lab Routine Depression with anxiety Expected: 09/20/2023, Expires: 12/20/2023 [facility] Work Phone: Comment on above: Expected: 09/20/2023 , Expires: 12/20/2023 Start: 09-20-2023 End: 09-20-2024 CBC W Auto Differential panel - Blood CBC + DIFF Lab Routine Wellness examination Expected: 09/20/2023, Expires: 09/20/2024 [facility] Work Phone: Comment on above: Expected: 09/20/2023 , Expires: 09/20/2024 Start: 09-20-2023 End: 12-20-2023 Cobalamin (Vitamin B12) [Mass/volume] in Serum or Plasma VITAMIN B12 BLOOD Lab Routine B12 deficiency Expected: 09/20/2023, Expires: 12/20/2023 [facility] Work Phone: Comment on above: Expected: 09/20/2023 , Expires: 12/20/2023 Start: 09-20-2023 End: 09-20-2024 Comprehensive metabolic 2000 panel - Serum or Plasma COMP METABOLIC PANEL Lab Routine Wellness examination Expected: 09/20/2023, Expires: 09/20/2024 [facility] Work Phone: Comment on above: Expected: 09/20/2023 , Expires: 09/20/2024 Start: 09-20-2023 End: 12-20-2023 Hepatitis C virus Ab [Presence] in Serum HEPATITIS C ANTIBODY IA WITH CONFIRMATION Lab Routine Special screening examination for viral disease Expected: 09/20/2023, Expires: 12/20/2023 [facility] Work Phone: Comment on above: Expected: 09/20/2023 , Expires: 12/20/2023 Start: 09-20-2023 End: 09-20-2024 Lipid 1996 panel - Serum or Plasma LIPID PANEL BASIC Lab Routine Screening for lipid disorders Expected: 09/20/2023, Expires: 09/20/2024 [facility] Work Phone: Comment on above: Expected: 09/20/2023 , Expires: 09/20/2024 Start: 2023 Screening for malign ant neoplasm of breast Mammogram Screening [facility] Start: 03-24-2023 COVID-19 Vaccine () COVID-19 Vaccine () [facility] Start: 03-24-2023 Influenza vaccination C [facility] Start: 01-05-2023 End: 03-07-2023 HERPES SIMPLEX IGM, WITH REFLEX IGG ABS [facility] Work Phone: Comment on above: Expected: 01/05/2023 , Expires: 03/07/2023 Start: 01-05-2023 End: 03-07-2023 HERPES SIMPLEX TYPE 1 AND 2 IG [facility] Work Phone: Comment on above: Expected: 01/05/2023 , Expires: 03/07/2023 Start: 01-05-2023 End: 03-07-2023 Herpes simplex virus+Varicella zoster virus DNA [Presence] in Unspecified specimen by BRIDGETTE with probe detection [facility] Work Phone: Comment on above: Expected: 01/05/2023 , Expires: 03/07/2023 Start: 07-13-2022 End: 07-13-2022 Patient encounter procedure 07/13/2022 Office Visit Weight Management Carina Palomino MD [address] [place], [place] [id number] [facility] Start: 05-30-2022 End: 05-30-2022 Patient encounter procedure 05/30/2022 Office Visit Weight Management Jaymie Easley, KEILA, LD [address] [place], [place] [id number] [facility] Start: 05-10-2022 9vhpv vacc 2/3 dose sched im use HUMAN PAPILLOMAVIRUS 9-VALENT HPV IM Immunization/Injection Routine Expected: 05/10/2022 (Approximate) [facility] Work Phone: Comment on above: Expected: 05/10/2022 (Approximate) Start: 05-02-2022 End: 05-02-2022 Patient encounter procedure 05/02/2022 Office Visit Bariatrics Danay Gonzalez, DRYING CAN WORKER - COMBINATION WELDER [address] [place] [id number] Bariatric [facility] Start: 02-21-2022 Influenza vaccination Flu vaccine (# 1) [facility] Start: 01-10-2022 9vhpv vacc 2/3 dose sched im use HUMAN PAPILLOMAVIRUS 9-VALENT HPV IM Immunization/Injection Routine Expected: 01/10/2022 (Approximate) [facility] Work Phone: Comment on above: Expected: 01/10/2022 (Approximate) Start: 12-09-2021 HPV Vaccine (2 - 3-d ose SCDM series) HPV Vaccine (2 - 3-dose SCDM series) [facility] Start: 08-25-2021 ANNUAL PCP TEAM NURSE ANESTHETIST MAYANK DISEASE VISIT ANNUAL PCP TEAM CHRONIC DISEASE VISIT [facility] Start: 02-06-2021 COVID-19 VACCINE (3 - Booster for Moderna series) COVID-19 VACCINE (3 - Booster for Moderna series) [facility] Start: 11-04-2020 COVID-19 VACCINE (3 - Booster for Moderna series) COVID-19 VACCINE (3 - Booster for Moderna series) [facility] Start: 05-17-2017 End: 05-17-2017 Appointment Appointment [facility] Work Phone: Start: 2013 Screening for malign ant neoplasm of cervix [facility] Start: 2010 HPV Vaccine (optiona l start 27-45 years) HPV Vaccine (optional start 27-45 years) [facility] Start: 2004 Screening for malign ant neoplasm of cervix Pap smear [facility] Start: 2002 ONE PNEUMOVAX PRIOR TO AGE 65 ONE PNEUMOVAX PRIOR TO AGE 65 [facility] Start: 2001 BP CONTROLLED (<130/80) BP CONTROLLE D (<130/80) [facility] Start: 2001 HEPATITIS C SCREENING HEPATITIS C SC PRIYANK [facility] Start: 2001 Hepatitis C screening [facility] Start: 2001 Tetanus + diphtheria + acellular pertussis vaccine (product) [facility] Start: 1998 HIV screening HIV screen [facility] Start: 1995 Depression Screen Depression Screen [facility] Start: 1989 Pneumococcal 0-64 ye ars Vaccine (1 - PCV) Pneumococcal 0-64 years Vaccine (1 - PCV) [facility] Start: 1984 Varicella vaccine (1 of 2 - 2-dose childhood series) Varicella vaccine (1 of 2 - 2-dose childhood series) [facility] Start: 1983 HEPATITIS B (1 of 3 - 3-dose series) HEPATITIS B (1 of 3 - 3-dose series) [facility] Start: 1983 Screening for malign ant neoplasm of breast Mammography shared decision making (35 through 39 years) [facility] End: 09-19-2025 DBT Breast - bilateral screening MARLON SCREENING W PEG Radiology Routine Encounter for screening mammogram for breast cancer 1 Occurrences starting 08/20/2024 until 09/19/2025 [facility] Work Phone: Comment on above: 1 Occurrences starti ng 08/20/2024 until 09/19/2025 End: 06-12-2025 ECG COMPLETE ECG COMPLETE ECG Routine Essential hypertension 1 Occurrences starting 06/12/2024 until 06/12/2025 [facility] Work Phone: Comment on above: 1 Occurrences starti ng 06/12/2024 until 06/12/2025 End: 10-19-2024 MG Breast - bilateral Diagnostic MARLON DIAGNOSTIC BILATERAL Radiology Routine Mass of lower inner quadrant of left breast 1 Occurrences starting 09/20/2023 until 10/19/2024 [facility] Work Phone: Comment on above: 1 Occurrences starti ng 09/20/2023 until 10/19/2024 Patient referral [facility] Work Phone: Therapeutic prophylactic/dx injection subq/im THER/PROPH/DIAG INJ, SC/IM Procedures Routine Need for prophylactic vaccination/inoculation against viral disease Ordered: 11/11/2021 [facility] Work Phone: Comment on above: Ordered: 11/11/2021 End: 10-31-2024 US Abdomen limited US ABDOMEN LTD Radiology Routine Skin lesion 1 Occurrences starting 10/02/2023 until 10/31/2024 [facility] Work Phone: Comment on above: 1 Occurrences starti ng 10/02/2023 until 10/31/2024 End: 10-19-2024 US Breast - left limited US BREAST LTD LEFT Radiology Routine Mass of lower inner quadrant of left breast 1 Occurrences starting 09/20/2023 until 10/19/2024 [facility] Work Phone: Comment on above: 1 Occurrences starti ng 09/20/2023 until 10/19/2024 End: 03-29-2025 US Extremity - left US EXTREMITY MASS/FLUID COLLECTION LEFT Radiology Routine Skin lump of leg, left 1 Occurrences starting 09/20/2023 until 10/19/2024 [facility] Work Phone: Comment on above: 1 Occurrences starti ng 09/20/2023 until 10/19/2024 US Extremity - left US EXTREMITY MASS/FLUID COLLECTION LEFT Radiology Routine Skin lump of leg, left 10/12/2023 1:34 PM EDT [facility] Work Phone: End: 10-31-2024 US Extremity - right US EXTREMITY MASS/FLUID COLLECTION RIGHT Radiology Routine Skin lump of leg, right 1 Occurrences starting 10/02/2023 until 10/31/2024 [facility] Work Phone: Comment on above: 1 Occurrences starti ng 10/02/2023 until 10/31/2024 US Extremity - right US EXTREMIT Y MASS/FLUID COLLECTION RIGHT Radiology Routine Skin lump of leg, right 10/12/2023 1:34 PM EDT [facility] Work Phone: lmtd joint/oth nonvasc xtr strux r-t w/img US ELBOW LEFT Radiology Routine Ulnar neuropathy at elbow of left upper extremity Ordered: 10/12/2021 [facility] Work Phone: Comment on above: Ordered: 10/12/2021 End: 04-29-2022 XR FOOT LEFT (MIN 3 VIEWS) [facility] Work Phone: Comment on above: 1 Occurrences starti ng 04/29/2022 until 04/29/2022 [facility] Immunizations Immunization Date Immunization Notes Care Provider [facility] 04-22-2024 influenza, seasonal, injectable Mark Blount MD Work Phone: [facility] 04-22-2024 influenza virus vaccine, unspecified formulation Ann-Marie Borges PA-C Work Phone: [facility] 05-31-2023 influenza virus vaccine, unspecified formulation Joey Sloan PA-C Work Phone: [facility] 05-16-2023 influenza, injectabl e, quadrivalent, contains preservative; Translations: [Fluarix PF Quadrivalent ] MOSES ESVINDAY BEAR [facility] Comment on above: Early/Late Reason: E dora/Late Reason: Other: 05-16-2023 influenza, injectabl e, quadrivalent, preservative free Joey Sloan PA-C Work Phone: [facility] 11-11-2021 Human Papillomavirus 9-valent vaccine Sonal Camacho MD Work Phone: [facility] 11-11-2021 Human Papillomavirus Quadval DANISH GARCÍA DRYING CAN WORKER-COMBINATION WELDER [facility] 07-30-2021 influenza, injectabl e, quadrivalent, preservative free Joey Sloan PA-C Work Phone: [facility] 07-30-2021 influenza, injectabl e, quadrivalent, contains preservative; Translations: [Fluarix PF Quadrivalent ] DANISH GARCÍA DRYING CAN WORKER-COMBINATION WELDER [facility] 09-09-2020 SARS-CoV-2 (COVID-19 ) mRNA-1273 vaccine SEAN TRAN MD [facility] 08-12-2020 SARS-CoV-2 (COVID-19 ) mRNA-1273 vaccine SEAN TRAN MD [facility] 04-23-2019 influenza nasal, unspecified formulation Joey Sloan PA-C Work Phone: [facility] 04-23-2019 influenza virus vaccine, unspecified formulation SEAN TRAN MD [facility] 04-23-2019 Influenza, injectabl e, Madin [facility], preservative free, quadrivalent Joey Sloan PA-C Work Phone: [facility] 04-23-2019 influenza, seasonal, injectable Anibal Naqvi MD Work Phone: [facility] Work Phone: 04-09-2018 influenza virus vaccine, unspecified formulation SEAN TRAN MD [facility] 04-09-2018 influenza, injectabl e, quadrivalent, contains preservative Anibal Naqvi MD Work Phone: [facility] Work Phone: 04-09-2018 measles, mumps and rubella virus vaccine Anibal Naqvi MD Work Phone: [facility] Work Phone: 04-09-2018 measles/mumps/rubell a virus vaccine SEAN TRAN MD [facility] 04-09-2018 tetanus toxoid, redu colin diphtheria toxoid, and acellular pertussis vaccine, adsorbed SEAN TRAN MD [facility] 05-13-2016 influenza virus vaccine, unspecified formulation SEAN TRAN MD [facility] 05-13-2016 influenza, injectabl e, quadrivalent, contains preservative Anibal Naqvi MD Work Phone: [facility] 05-21-2015 influenza virus vaccine, unspecified formulation SEAN TRAN MD [facility] 05-21-2015 influenza, injectabl e, quadrivalent, contains preservative Anibal Naqvi MD Work Phone: [facility] 05-21-2014 influenza virus vaccine, unspecified formulation SEAN TRAN MD [facility] 05-21-2014 influenza, seasonal, injectable Anibal Naqvi MD Work Phone: [facility] 01-15-2014 hepatitis B vaccine, pediatric or pediatric/adolescent dosage Anibal Naqvi MD Work Phone: [facility] 01-15-2014 hepatitis B vaccine, unspecified formulation Nathaly Sharpe MD Work Phone: [facility] 12-12-2013 hepatitis B vaccine, pediatric or pediatric/adolescent dosage [facility] 12-12-2013 tetanus toxoid, redu colin diphtheria toxoid, and acellular pertussis vaccine, adsorbed Anibal Naqvi MD Work Phone: [facility] 06-08-2013 influenza virus vaccine, unspecified formulation Anibal Naqvi MD Work Phone: [facility] Work Phone: 05-05-2011 influenza virus vaccine, unspecified formulation Anibal Naqvi MD Work Phone: [facility] 05-27-2009 novel [id number], preservative-free, injectable Joey Sloan PA-C Work Phone: [facility] 05-08-2009 influenza virus vaccine, unspecified formulation Anibal Naqvi MD Work Phone: [facility] 06-16-2008 influenza virus vaccine, whole virus Joey Sloan PA-C Work Phone: [facility] 06-23-2006 influenza virus vaccine, unspecified formulation Anibal Naqvi MD Work Phone: [facility] Work Phone: Payers Date Payer Category Payer Self-pay 2020 Medicaid [employer] [employer] [id number] 2020-[facility] [phone] [address] Medicaid [id number] 2020 Medicaid [id number] 2020 Unknown [id number] 2020 Unknown 1983 Unknown [id number] [id number] 1983 Unknown [id number] [id number] 1983 Unknown [id number] [id number] 1983 Unknown [id number] [id number] 1983 Unknown [id number] [id number]. 1983 Unknown [id number] [id number]. 1983 Unknown [id number] 2.16.840.1.855777.3.579.2. 1983 Unknown [id number] 2.16.840.1.648367.3.579.2. 1983 Unknown [id number] [id number] 1983 Unknown [id number] [id number] 1983 Unknown [id number] [id number] 1983 Unknown [id number] [id number] 1983 Unknown [id number] [id number] Unknown [facility] [id number] Unknown [id number] Unknown [id number] Social History Date Type Detail Facility Start: 09-09-2020 End: 04-15-2024 Ex-smoker (finding) [facility] Sex Assigned At [facility] Start: 07-24-2009 End: 07-24-2014 History of tobacco use Current smoker [facility] Work Phone: Start: 07-24-2009 End: 07-24-2014 History of tobacco use Cigarette Smoker [facility] Work Phone: Start: 06-08-2017 End: 10-20-2023 Cigarettes smoked current (pack per day) - Reported 0.2 [facility] Start: 06-08-2017 End: 04-15-2024 Tobacco use and exposure Smokeless tobacco non-user [facility] Work Phone: Start: 10-12-2021 Alcohol intake Current non-dr shopper's aide of alcohol (finding) [facility] Start: 04-30-2020 End: 08-03-2020 History SDOH Alcohol Frequency 2 [facility] Start: 04-30-2020 End: 08-03-2020 History SDOH Alcohol Std Drinks 1 [facility] Start: 01-07-2020 End: 04-30-2020 History SDOH Social Connections Phone 5 [facility] Start: 04-02-2020 History SDOH Physica l Activity DPW 0 [facility] Start: 04-02-2020 History SDOH Stress 3 [facility] Start: 04-01-2020 Education 16 [facility] Start: 1985 Sex Assigned At Female [facility] Start: 10-02-2021 End: 11-11-2021 Exposure to SARS-CoV-2 (event) Not sure [facility] Work Phone: Start: 11-11-2021 End: 03-17-2025 Alcohol intake Current drinker of alcohol (finding) [facility] Start: 11-11-2021 History SDOH Alcohol Comment rare [facility] Start: 02-02-2016 [facility] Work Phone: Start: 02-02-2016 History SDOH Alcohol Comment occasionally [facility] Work Phone: Start: 1985 Sex Assigned At Not on file [facility] [employer] Work Phone: Start: 11-16-2022 Tobacco smoking stat [facility] Unknown if ever smoked [facility] Start: 09-06-2020 With Family [facility] Start: 04-20-2020 Non-smoker [facility] Start: 04-01-2020 End: 10-20-2023 Gender identity Not on file [facility] Start: 06-24-2012 Frequency of Communication with Friends and Family Not on file [facility] How often to you hav e a drink containing alcohol? Monthly or less [facility] How many standard drinks containing alcohol do you have on a typical day? 1 or 2 [facility] How often do you hav e 6 or more drinks on 1 occasion? Never [facility] Do you feel stress - tense, restless, nervous, or anxious, or unable to sleep at night because your mind is troubled all the time - these days [OSQ] To some extent [facility] (I/We) worried idalia er (my/our) food would run out before (I/we) got money to buy more. Never true [facility] In the past 12 month s, was there a time when you were not able to pay the mortgage or rent on time? No [facility] Start: 05-04-2020 Gender identity Identifies as female gender (finding) [facility] Start: 05-04-2020 Sexual orientation Heterosexual (augusta fernandez) [facility] Are you now , , , , never or living with a partner? Living with partner [facility] How often to you hav e a drink containing alcohol? 2-4 times a month [facility] How often do you hav e 6 or more drinks on 1 occasion? Less than monthly [facility] Do you feel stress - tense, restless, nervous, or anxious, or unable to sleep at night because your mind is troubled all the time - these days [OSQ] Very much [facility] (I/We) worried wheth er (my/our) food would run out before (I/we) got money to buy more. Sometimes true [facility] In the past 12 month s, was there a time when you were not able to pay the mortgage or rent on time? Yes [facility] NEGATED: Highlighted row [facility] Medical Equipment Procedure Code Equipment Code Equipment Origin al Text Equipment Identifier Dates Sys Ctrl Essure 2 Dev - [id number] Start: 06-18-2013 Comment on above: Description: Essure TUBE,CAROL KARLIE IN VENT FDA Start: 09-29-2017 1 Each every 4 weeks. [id number] Start: 05-15-2024 End: 08-13-2024 Goals Date Patient Goal Desired Activity /State Personal health goal Personal health goal Personal health goal Personal health goal Functional Status Date Assessment Result Facility 03-17-2025 Total score [AUDIT-C] 1 03/17/20 8:10 AM EDT PodlogarMarli APRN.[facility] 06-15-2024 Functional Status ID band on, Allergy Band on, Call device within reach, Bed in low position, Wheels locked, Upper/Half-Length side-rails up, Safety level maintained [facility] 05-24-2024 Functional Status Standard Safet y ID band on, Call device within reach, Bed in low position, Wheels locked, Upper/Half-Length side-rails up, Bedside Cart Locked, Safety level maintained [facility] 05-17-2024 Functional Status Sleeping quiet ly with easy respirations [facility] 05-17-2024 Functional Status Maintained [facility] 05-07-2024 Functional Status Sensory Deficits None [facility] 02-13-2024 Functional Status Independent [facility] 02-13-2024 Functional Status Resting [facility] 01-04-2024 Functional Status Assistive Device None [facility] 01-04-2024 Functional Status Standard Safet y ID band on, Allergy Band on, Call device within reach, Bed in low position, Wheels locked [facility] 08-03-2022 Functional Status Standard Safet y ID band on, Call device within reach, Bed in low position [facility] 06-24-2022 Functional Status Room check performed [facility] 01-17-2022 Functional Status Standard Safet y ID band on, Call device within reach, Bed in low position, Wheels locked, Upper/Half-Length side-rails up, Bedside Cart Locked, Safety level maintained [facility] 12-05-2021 Functional Status [facility] 12-04-2021 Functional Status [facility] 10-03-2018 Are you deaf, or do you have serious difficulty hearing No 10/03/2018 6:36 PM Spring Dumas RN [facility] 10-03-2018 Are you blind, or do you have serious difficulty seeing, even when wearing glasses No 10/03/2018 6:36 PM Spring Dumas RN No [facility] 10-03-2018 Do you have serious difficulty walking or climbing stairs No 10/03/2018 6:36 PM Spring Dumas RN No [facility] 10-03-2018 Do you have difficul ty dressing or bathing No 10/03/2018 6:36 PM Spring Dumas, MANUELA No [facility] 10-03-2018 Because of a physica l, mental, or emotional condition, do you have difficulty doing errands alone such as visiting a physician's office or shopping No 10/03/2018 6:36 PM Spring Dumas RN No [facility] Mental Status Date Assessment Result Facility 06-15-2024 Mental Status Oriented x 4 [facility] 05-24-2024 Mental Status Orientation Oriented x 4 [facility] 05-17-2024 Mental Status Oriented x 4 [facility] 05-17-2024 Mental Status [facility] 02-13-2024 Mental Status Orientation Oriented x 4 [facility] 02-13-2024 Mental Status [facility] 01-04-2024 Mental Status Orientation Oriented x 4 [facility] 01-04-2024 Mental Status [facility] 08-03-2022 Mental Status Oriented x 4 [facility] 06-24-2022 Mental Status Oriented x 4 [facility] 01-17-2022 Mental Status Orientation Oriented x 4 [facility] 12-05-2021 Mental Status [facility] 12-04-2021 Mental Status [facility] 10-03-2018 Because of a physica l, mental, or emotional condition, do you have serious difficulty concentrating, remembering, or making decisions No 10/03/2018 6:36 PM EDT Spring Kidd RN [facility] Clinical Notes 06-29-2012 to 03-17-2025 Marli Marie APRN.CNP - 03/17/2025 7:51 AM Clarke Shirley PA-C - 02/20/2025 1:01 PM EDTTelephone Joey Domingo PA-C - 02/19/2025 5:03 PM EDTPatient InstructionsAttachments Note Date & Type Note Facility 03-17-2025 Note HNO ID: [id number] Author: MARLI MARIE APRN.CNP Service: ? Author Type: Nurse Practitioner Type: Progress Notes Filed: 03/17/2025 09:19 Note Text: 03/17/2025 Patient presents with: Establish Care Recording using [employer] software for draft documentation of the visit was discussed with the patient/authorized ict sales representative; all questions welcomed and answered. Patient/authorized ict sales representative agreed to proceed SUBJECTIVE: This is a 39 year old that is here today for Above Complaints. Axillary Lump: - Painful lump in the axilla x1.5 weeks. - No drainage noted; pain has decreased slightly over the past few days. - Denies previous similar lumps in the axilla; has had similar lumps in the groin area that have drained in the past. - Family history of hidradenitis suppurativa in mother, sister, and grandmother. Hypertension: - Managed with metoprolol succinate and losartan. - Discontinued amlodipine due to dizziness. - Home BP readings typically around 123/90 mmHg. - Took BP medications less than an hour before the appointment. - denies fevers, chills, or drainage from area - Reports constant thirst and sweating, attributing to BP medications. Migraines: - Migraines began during ; currently managed with Fioricet. - Denies use of other migraine medications. Anxiety and Depression: - Managed with Cymbalta 60 mg daily and bupropion 150 mg BID. - Reports ongoing symptoms of anxiety and depression. - Expresses interest in ADHD testing due to difficulty organizing thoughts and tasks. B12 Deficiency: - Last B12 injection was 3 months ago; requests a refill. Lifestyle: - Former smoker; denies current smoking or vaping. - Consumes alcohol occasionally, about once a month, typically 2 glasses of wine. - Denies drug use. - No specific diet or exercise routine. - Weight is stable. - with three children. - Currently unemployed. 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 lidocaine (LIDODERM) 5 % Apply 1 patch as directed once daily. to affected area. Remove patch after 12 hours. valACYclovir (VALTREX) 1 gram tablet Take 1 tablet by mouth once daily. losartan (COZAAR) 100 mg tablet Take 1 tablet by mouth once daily. metoprolol succinate ER (TOPROL XL) 100 mg Take 1 tablet by mouth once daily. cyanocobalamin 1,000 mcg/mL Inject 1 mL intramuscularly once every month. buPROPion SR (WELLBUTRIN SR) 150 mg 12 hr tablet Take 1 tablet by mouth two times a day. tiZANidine (ZANAFLEX) 4 mg tablet Take 1 tablet by mouth every 8 hours as needed (muscle spasms). multivitamin-ferrous sulfate 18 mg iron tab Take by mouth once daily. Calcium Citrate-Vitamin D2 1,500-200 mg-unit tab Take 1 tablet by mouth once daily. Cholecalciferol, Vitamin D3, (VITAMIN D-3) 400 unit chew Take by mouth once daily. SUMAtriptan (IMITREX) 50 mg tablet Take 1 tablet by mouth as needed for migraine headache (see administration instructions). May repeat dose after 2 hours if needed. Maximum daily dose is 200 mg per day. doxycycline hyclate (VIBRAMYCIN) 100 mg capsule Take 1 capsule by mouth two times a day for 10 days. amLODIPine (NORVASC) 10 mg tablet Take 1 tablet by mouth once daily. (Patient not taking: Reported on 03/17/2025) Current Facility-Administered Medications Medication Dose Route Frequency cyanocobalamin 1,000 mcg injection 1,000 mcg INTRAMUSCULAR q 4 WEEKS Medications and allergies reviewed by this provider. SOCIAL HISTORY SOCIAL HISTORY[1] REVIEW OF SYSTEMS GENERAL: No weight loss, malaise or fevers HEENT: No changes in hearing or vision, no nose bleeds or other nasal problems NECK: Negative for lumps, goiter, pain and significant neck swelling RESPIRATORY: Negative for cough, hemoptysis, wheezing, COPD, dyspnea or shortness of breath CARDIOVASCULAR: Negative for chest pain, leg swelling, hypertension, CHF or palpitations GI: No nausea, vomiting, or diarrhea : No history of dysuria, frequency or incontinence PREVENTION RN: Negative for abnormal vaginal bleeding, abnormal vaginal discharge MUSCULOSKELETAL: Negative for joint pain or swelling, back pain or muscle pain SKIN: See HPI PSYCH: Negative for sleep disturbance, (more content not included)... [facility] 03-17-2025 History of Present illness Narrative 03/17/2025 Patient presents with: Establish Care Recording using [employer] software for draft documentation of the visit was discussed with the patient/authorized ict sales representative; all questions welcomed and answered. Patient/authorized ict sales representative agreed to proceed SUBJECTIVE: This is a 39 year old that is here today for Above Complaints. Axillary Lump: - Painful lump in the axilla x1.5 weeks. - No drainage noted; pain has decreased slightly over the past few days. - Denies previous similar lumps in the axilla; has had similar lumps in the groin area that have drained in the past. - Family history of hidradenitis suppurativa in mother, sister, and grandmother. Hypertension: - Managed with metoprolol succinate and losartan. - Discontinued amlodipine due to dizziness. - Home BP readings typically around 123/90 mmHg. - Took BP medications less than an hour before the appointment. - denies fevers, chills, or drainage from area - Reports constant thirst and sweating, attributing to BP medications. Migraines: - Migraines began during ; currently managed with Fioricet. - Denies use of other migraine medications. Anxiety and Depression: - Managed with Cymbalta 60 mg daily and bupropion 150 mg BID. - Reports ongoing symptoms of anxiety and depression. - Expresses interest in ADHD testing due to difficulty organizing thoughts and tasks. B12 Deficiency: - Last B12 injection was 3 months ago; requests a refill. Lifestyle: - Former smoker; denies current smoking or vaping. - Consumes alcohol occasionally, about once a month, typically 2 glasses of wine. - Denies drug use. - No specific diet or exercise routine. - Weight is stable. - with three children. - Currently unemployed. 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 lidocaine (LIDODERM) 5 % Apply 1 patch as directed once daily. to affected area. Remove patch after 12 hours. valACYclovir (VALTREX) 1 gram tablet Take 1 tablet by mouth once daily. losartan (COZAAR) 100 mg tablet Take 1 tablet by mouth once daily. metoprolol succinate ER (TOPROL XL) 100 mg Take 1 tablet by mouth once daily. cyanocobalamin 1,000 mcg/mL Inject 1 mL intramuscularly once every month. buPROPion SR (WELLBUTRIN SR) 150 mg 12 hr tablet Take 1 tablet by mouth two times a day. tiZANidine (ZANAFLEX) 4 mg tablet Take 1 tablet by mouth every 8 hours as needed (muscle spasms). multivitamin-ferrous sulfate 18 mg iron tab Take by mouth once daily. Calcium Citrate-Vitamin D2 1,500-200 mg-unit tab Take 1 tablet by mouth once daily. Cholecalciferol, Vitamin D3, (VITAMIN D-3) 400 unit chew Take by mouth once daily. SUMAtriptan (IMITREX) 50 mg tablet Take 1 tablet by mouth as needed for migraine headache (see administration instructions). May repeat dose after 2 hours if needed. Maximum daily dose is 200 mg per day. doxycycline hyclate (VIBRAMYCIN) 100 mg capsule Take 1 capsule by mouth two times a day for 10 days. amLODIPine (NORVASC) 10 mg tablet Take 1 tablet by mouth once daily. (Patient not taking: Reported on 03/17/2025) Current Facility-Administered Medications Medication Dose Route Frequency cyanocobalamin 1,000 mcg injection 1,000 mcg INTRAMUSCULAR q 4 WEEKS Medications and allergies reviewed by this provider. SOCIAL HISTORY SOCIAL HISTORY[1] REVIEW OF SYSTEMS GENERAL: No weight loss, malaise or fevers HEENT: No changes in hearing or vision, no nose bleeds or other nasal problems NECK: Negative for lumps, goiter, pain and significant neck swelling RESPIRATORY: Negative for cough, hemoptysis, wheezing, COPD, dyspnea or shortness of breath CARDIOVASCULAR: Negative for chest pain, leg swelling, hypertension, CHF or palpitations GI: No nausea, vomiting, or diarrhea : No history of dysuria, frequency or incontinence PREVENTION RN: Negative for abnormal vaginal bleeding, abnormal vaginal discharge MUSCULOSKELETAL: Negative for joint pain or swelling, back pain or muscle pain SKIN: See HPI PSYCH: Negative for sleep disturbance, mood disorder and recent psychosocial stressors HEMATOLOGY/LYMPHOLOGY: Negative for prolonged bleeding, bruising easily or swollen nodes ENDOCRINE: Negative for cold or heat intolerance, polyuria, polydipsia and goiter NEURO: No history of syncope, paralysis, seizures or tremors All other reviewed and negative other than HPI. OBJECTIVE: BP 164/100 Pulse 60 Resp 18 Ht 160.3 cm (5' 3.11) Wt 126.3 kg (278 lb 6.4 oz) LMP 02/21/2015 SpO2 98% BMI 49.14 kg/m . Vital signs reviewed by this provider. APPEARANCE Well appearing, alert, in no acute distress, well-hydrated, well nourished. EYES conjunctiva and sclera normal. EARS External ears normal, canals clear HEART RRR with normal S1 and S2, no murmurs, no gallops, no JVD appreciated LUNG clear to auscultation ABDOMEN bowel sounds normoactive, no bruits, soft, non-tender, non-distended EXTREMITIES Extremities normal, No deformities, No skin discoloration, and No edema SKIN right axilla with area of erythyema with some peeling skin and tenderness.Area is soft touch with mild fluctuance. No excessive warmth or drainage GENERAL: NAD, alert and oriented. SKIN: Unremarkable, no rash or skin lesions. HEAD: Normocephalic. EYES: PERRLA, EOMI, conjunctiva clear. EARS: External ears normal, canals clear, TM's normal. NOSE/SINUSES: Nares normal. Septum midline. OROPHARYNX: Lips, mucosa, and tongue normal, good dentition. No oral lesions noted. NECK: Supple, no lymphadenopathy, normal thyroid, no carotid bruits. LUNGS: Clear to auscultation bilaterally, no wheezes/rhonchi/rales. HEART: Regular rate and rhythm, no murmurs. No ectopy. EXTREMITIES: Normal, no deformities, no skin discoloration, no edema. NEURO: Awake, alert and oriented x3, cranial nerves II-XII grossly intact, normal gait, no involuntary motions. HPV Vaccine(2 - 3-dose SCDM series) due on 12/09/2021 Mammogram Screening Never done Cervical Cancer Screening due on 10/29/2024 Influenza Vaccine(1) due on 03/24/2025 Annual PCP Team Chronic Disease Visit due on 03/17/2026 DTaP,Tdap,Td Vaccine(3 - Td or Tdap) due on 04/09/2028 Hepatitis C Screening Completed HIV Screening Completed Hepatitis B Vaccine Discontinued 1. Encounter for medical examination to establish care (Z00.00) - Reviewed and updated medical history, surgical history, family history, and current medications. - Discussed need for ADHD testing; advised patient to seek evaluation through psychology or psychiatry and bring official diagnosis for further management. - Advised patient to complete overdue mammogram and Pap smear. 2. Essential hypertension (I10) - Currently managed with metoprolol succinate 1 tablet daily and losartan 100 mg daily; amlodipine discontinued due to dizziness. - BP elevated today, likely due to recent medication administration and situational stress. - Will reassess BP in a couple of weeks; advised patient to bring home BP cuff to compare readings. - If BP remains elevated, will consider alternative antihypertensive medication. 3. B12 deficiency (E53.8) - Last B12 injection approximately 3 months ago. - Order B12 level to assess need for resuming injections. 4. Vitamin D insufficiency (E55.9) - Continue vitamin D chewable once daily. 5. Screening for hyperlipidemia (Z13.220) - Order lipid panel. 6. Mixed headache (R51.9) - Previously managed with Fioricet for migraines. - Start sumatriptan at onset of headache, may repeat in 4 hours if needed. - Discussed potential side effects including nausea, jaw or chest tightness; patient verbalized understanding. - Discontinue Fioricet; neurology referral for further evaluation and management. 7. Hidradenitis suppurativa of right axilla (L73.2) - Start doxycycline 1 capsule BID for 10 days. - Advised warm compresses and to avoid sun exposure while on doxycycline. - Instructed to take doxycycline a few hours before or after any vitamins or [id number]-[id number] supplements. - Advised to return if lesion becomes more painful, hardened, erythematous, or hot, as it may require drainage. 8. Genital herpes simplex, unspecified site (A60.00) - Continue valacyclovir 1 gram daily. Marli Marie APRN.CNP Prescription instructions reviewed with patient as applicable. Patient advised if symptoms do not improve or if symptoms worsen sooner, to contact their primary care physician. Potential red flag symptoms discussed with the patient. Reviewed appropriate action plan to take if red flag symptoms occur. Patient agreeable to treatment plan. [1] Social History Tobacco Use Smoking status: Former Current packs/day: 0.00 Average packs/day: 0.2 packs/day for 5.0 years (1.0 ttl pk-yrs) Types: Cigarettes Start date: 2009 Quit date: 2014 Years since quittin.6 Smokeless tobacco: Never Vaping Use Vaping status: Never Used Substance Use Topics Alcohol use: Yes Comment: rare Drug use: No documented in this encounter [facility] 02-20-2025 Note HNO ID: [id number] Author: CLARKE DAO PA-C Service: ? Author Type: Physician Nursing Home Admissions Director Type: Progress Notes Filed: 02/20/2025 13:08 Note Text: Telemedicine Visit - Distance Health Virtual Visit Note Patient seen on [employer] Video Visit platform. Location of patient: [place] I have communicated my name and active licensure. The patient's identity and physical location were verified at the time of this visit. Either the patient or their legal ict sales representative has been informed of the risks and benefits of -- and alternatives to -- treatment through a remote evaluation and consents to proceed with the evaluation remotely. Subjective The patient is a 39-year-old female presenting for evaluation of recent viral illness and requesting a work excuse note. Viral Illness: - Onset a few days ago. - Reports headache and decreased appetite. - Denies fever, chills, or diarrhea. - Believes illness was contracted from children who had the flu. - Missed work yesterday and today; requesting a note to return to work tomorrow. Constitutional: (-) fever, (-) chills Head: (+) headache Gastrointestinal: (+) decreased appetite, (-) diarrhea Objective Last menstrual period 02/21/2015. General: Alert AND oriented, no acute distress, appears well Skin: Normal HEENT: Pupils equal, round. Oral cavity, oropharynx clear Neck: Supple, no mass Breast: Deferred Respiratory: Clear to auscultation, bilaterally Cardiovascular: Regular rate and rhythm, no murmurs, rubs, or gallops Abdomen: Soft, non-tender, non-distended, no masses palpable, no hepatosplenomegaly, normal bowel sounds Genitourinary: Deferred MSK: Back is non-tender Extremities: No clubbing, cyanosis, or edema Assessment AND Plan 1. Viral gastroenteritis (A08.4) - Likely viral etiology given recent exposure from children with similar symptoms. No fever, chills, or diarrhea reported; mild anorexia and cephalgia present. Patient is able to maintain oral intake. Provided work excuse note for absence on February 20 and February 21, with clearance to return to work on February 22. Monitor symptoms and maintain hydration. Recording using [employer] software for draft documentation of the visit was discussed with the patient/authorized ict sales representative; all questions welcomed and answered. Patient/authorized ict sales representative agreed to proceed IF YOUR SYMPTOMS PERSIST OR WORSENING IN THE NEXT 3-5 DAYS THEN PLEASE FOLLOW UP WITH YOUR PCP - Red flags discussed for need for in person care - All questions answered Clarke Dao PA-C Differential Diagnoses - gastroenteritis is more likely for the following reason(s): suggested by HANDP - bacterial infection is less likely for the following reason(s): HANDP not suggestive CODING: [facility] 02-20-2025 History of Present illness Narrative Telemedicine Visit - Distance Health Virtual Visit Note Patient seen on [employer] Video Visit platform. Location of patient: [place] I have communicated my name and active licensure. The patient's identity and physical location were verified at the time of this visit. Either the patient or their legal ict sales representative has been informed of the risks and benefits of -- and alternatives to -- treatment through a remote evaluation and consents to proceed with the evaluation remotely. Subjective The patient is a 39-year-old female presenting for evaluation of recent viral illness and requesting a work excuse note. Viral Illness: - Onset a few days ago. - Reports headache and decreased appetite. - Denies fever, chills, or diarrhea. - Believes illness was contracted from children who had the flu. - Missed work yesterday and today; requesting a note to return to work tomorrow. Constitutional: (-) fever, (-) chills Head: (+) headache Gastrointestinal: (+) decreased appetite, (-) diarrhea Objective Last menstrual period 02/21/2015. General: Alert & oriented, no acute distress, appears well Skin: Normal HEENT: Pupils equal, round. Oral cavity, oropharynx clear Neck: Supple, no mass Breast: Deferred Respiratory: Clear to auscultation, bilaterally Cardiovascular: Regular rate and rhythm, no murmurs, rubs, or gallops Abdomen: Soft, non-tender, non-distended, no masses palpable, no hepatosplenomegaly, normal bowel sounds Genitourinary: Deferred MSK: Back is non-tender Extremities: No clubbing, cyanosis, or edema Assessment & Plan 1. Viral gastroenteritis (A08.4) - Likely viral etiology given recent exposure from children with similar symptoms. No fever, chills, or diarrhea reported; mild anorexia and cephalgia present. Patient is able to maintain oral intake. Provided work excuse note for absence on February 20 and February 21, with clearance to return to work on February 22. Monitor symptoms and maintain hydration. Recording using [employer] software for draft documentation of the visit was discussed with the patient/authorized ict sales representative; all questions welcomed and answered. Patient/authorized ict sales representative agreed to proceed IF YOUR SYMPTOMS PERSIST OR WORSENING IN THE NEXT 3-5 DAYS THEN PLEASE FOLLOW UP WITH YOUR PCP - Red flags discussed for need for in person care - All questions answered Clarke Dao PA-C Differential Diagnoses - gastroenteritis is more likely for the following reason(s): suggested by H&P - bacterial infection is less likely for the following reason(s): H&P not suggestive CODING: documented in this encounter [facility] 02-19-2025 Telephone encounter Note Patient's request for medication is as follows: Requested Prescriptions Pending Prescriptions Disp Refills lidocaine (LIDODERM) 5 % 15 patch 3 Sig: Apply 1 patch as directed once daily. to affected area. Remove patch after 12 hours. Prescription(s) as above. Please process accordingly. Joey Sloan PA-C The prescription has been signed and sent to the patient's pharmacy on file. [facility] 02-19-2025 Telephone encounter Note Patient's request for medication is as follows: Requested Prescriptions Pending Prescriptions Disp Refills DULoxetine DR (CYMBALTA) 60 mg capsule 90 capsule 0 Sig: Take 1 capsule by mouth once daily. Prescription(s) as above. Please process accordingly. Joey Sloan PA-C The prescription has been signed and sent to the patient's pharmacy on file. [facility] 02-19-2025 Miscellaneous Notes Patient's request for medication is as follows: Requested Prescriptions Pending Prescriptions Disp Refills DULoxetine DR (CYMBALTA) 60 mg capsule 90 capsule 0 Sig: Take 1 capsule by mouth once daily. Prescription(s) as above. Please process accordingly. Joey Sloan PA-C The prescription has been signed and sent to the patient's pharmacy on file. Patient sent mychart message requesting refills be escript to pharmacy Last Appt: 09-13-2024 DN, 05-15-2024 Next Appt: No future appointment , Canceled 11-18-2024 physical Last Physical: 09-20-2023 Requested Prescriptions Pending Prescriptions Disp Refills DULoxetine DR (CYMBALTA) 60 mg capsule 90 capsule 1 Sig: Take 1 capsule by mouth once daily. Maru Mccoy MA documented in this encounter [facility] 02-19-2025 Miscellaneous Notes Patient's request for medication is as follows: Requested Prescriptions Pending Prescriptions Disp Refills lidocaine (LIDODERM) 5 % 15 patch 3 Sig: Apply 1 patch as directed once daily. to affected area. Remove patch after 12 hours. Prescription(s) as above. Please process accordingly. Joey Sloan PA-C The prescription has been signed and sent to the patient's pharmacy on file. Patient sent [employer] message requesting refills be escript to pharmacy Last Appt: 09-13-2024 DN, 05-15-2024 Next Appt: No future appointment , Canceled 11-18-2024 physical Last Physical: 09-20-2023 Requested Prescriptions Pending Prescriptions Disp Refills lidocaine (LIDODERM) 5 % 15 patch 3 Sig: Apply 1 patch as directed once daily. to affected area. Remove patch after 12 hours. Maru Mccoy MA documented in this encounter [facility] 02-19-2025 Telephone encounter Note Patient sent [employer] message requesting refills be escript to pharmacy Last Appt: 09-13-2024 DN, 05-15-2024 Next Appt: No future appointment , Canceled 11-18-2024 physical Last Physical: 09-20-2023 Requested Prescriptions Pending Prescriptions Disp Refills lidocaine (LIDODERM) 5 % 15 patch 3 Sig: Apply 1 patch as directed once daily. to affected area. Remove patch after 12 hours. Maru Mccoy MA [facility] 02-19-2025 Telephone encounter Note Patient sent [email or web address] message requesting refills be escript to pharmacy Last Appt: 09-13-2024 DN, 05-15-2024 Next Appt: No future appointment , Canceled 11-18-2024 physical Last Physical: 09-20-2023 Requested Prescriptions Pending Prescriptions Disp Refills DULoxetine DR (CYMBALTA) 60 mg capsule 90 capsule 1 Sig: Take 1 capsule by mouth once daily. Maru Mccoy MA [facility] 01-06-2025 Telephone encounter Note The prescription has been signed and sent to the patient's pharmacy on file. Thank you, Ann-Marie Borges PA-C [facility] 01-06-2025 Miscellaneous Notes The prescription has been signed and sent to the patient's pharmacy on file. Thank you, Ann-Marie Borges PA-C Patient sent [email or web address] message requesting refills be escript to pharmacy Left a message for patient to call back. Patient is due for physical appointment. Patient Comment: My 90 day script ran out. This is the only one on my [employer] Last Appt: 09/13/24 virtual urgent Next Appt: none Last Physical: 09/20/23 Requested Prescriptions Pending Prescriptions Disp Refills valACYclovir (VALTREX) 1 gram tablet 90 tablet 3 Sig: Take 1 tablet by mouth once daily. Jana Aldana MA documented in this encounter [facility] 01-06-2025 Telephone encounter Note Patient sent [employer] message requesting refills be escript to pharmacy Left a message for patient to call back. Patient is due for physical appointment. Patient Comment: My 90 day script ran out. This is the only one on my [employer] Last Appt: 09/13/24 virtual urgent Next Appt: none Last Physical: 09/20/23 Requested Prescriptions Pending Prescriptions Disp Refills valACYclovir (VALTREX) 1 gram tablet 90 tablet 3 Sig: Take 1 tablet by mouth once daily. Jana Aldana MA [facility] 09-27-2024 Telephone encounter Note Patient has read the my chart message [facility] 09-27-2024 Miscellaneous Notes Patient has read the my chart message documented in this encounter [facility] 09-13-2024 Note HNO ID: [id number] Author: ANN-MARIE BORGES PA-C Service: ? Author Type: Physician Nursing Home Admissions Director Type: Progress Notes Filed: 09/13/2024 14:36 Note Text: DISTANCE HEALTH VISIT This Team Access Model visit is a virtual encounter. It required patient-provider interaction for the medical decision making as documented below. I have communicated my name and active licensure. The patient's identity and physical location were verified at the time of this visit. Either the patient or their legal ict sales representative has been informed of the risks and benefits of -- and alternatives to -- treatment through a remote evaluation and consents to proceed with the evaluation remotely. Emily Nguyen is a 39 year old female seen for GI upset Has been ill for the past two days - feeling better today Had some diarrhea, MOSS, vomiting Only lingering MOSS remains - has hx of migraines however Needs a work from note Denies fever, chills HISTORY REVIEWED (electronic chart updated): - medical history - medications - allergies REVIEW OF SYSTEMS: As noted in HPI PHYSICAL EXAMINATION: VIDEO EXAM: (if done, performed via video enabled technology) GENERAL: alert and appropriate, in no distress, well-hydrated, well nourished, and happy, smiling, interactive SKIN: no rash noted HEAD: normocephalic, no abnormality or lesion noted EYES: no injection and visual acuity is grossly normal RESPIRATORY: breathing non-labored NEUROLOGIC: no obvious deficit ASSESSMENT/PLAN: 1. Nausea, vomiting, and diarrhea - ICD9: 787.91, 787.01, ICD10: R11.2, R19.7 - Overall improving - RTW note sent via [email or web address] - Remain well hydrated. BRAT diet - ONDANSETRON 4 MG DISINTEGRATING TABLET - Seek further medical evaluation if symptoms do not improve, worsen, or if new symptoms develop. - Call office if no improvement in symptoms. Ann-Marie Borges PA-C [facility] 09-13-2024 History of Present illness Narrative DISTANCE HEALTH VISIT This Team Access Model visit is a virtual encounter. It required patient-provider interaction for the medical decision making as documented below. I have communicated my name and active licensure. The patient's identity and physical location were verified at the time of this visit. Either the patient or their legal ict sales representative has been informed of the risks and benefits of -- and alternatives to -- treatment through a remote evaluation and consents to proceed with the evaluation remotely. Emily Nguyen is a 39 year old female seen for GI upset Has been ill for the past two days - feeling better today Had some diarrhea, MOSS, vomiting Only lingering MOSS remains - has hx of migraines however Needs a work from note Denies fever, chills HISTORY REVIEWED (electronic chart updated): - medical history - medications - allergies REVIEW OF SYSTEMS: As noted in HPI PHYSICAL EXAMINATION: VIDEO EXAM: (if done, performed via video enabled technology) GENERAL: alert and appropriate, in no distress, well-hydrated, well nourished, and happy, smiling, interactive SKIN: no rash noted HEAD: normocephalic, no abnormality or lesion noted EYES: no injection and visual acuity is grossly normal RESPIRATORY: breathing non-labored NEUROLOGIC: no obvious deficit ASSESSMENT/PLAN: 1. Nausea, vomiting, and diarrhea - ICD9: 787.91, 787.01, ICD10: R11.2, R19.7 - Overall improving - RTW note sent via [email or web address] - Remain well hydrated. BRAT diet - ONDANSETRON 4 MG DISINTEGRATING TABLET - Seek further medical evaluation if symptoms do not improve, worsen, or if new symptoms develop. - Call office if no improvement in symptoms. Ann-Marie Borges PA-C documented in this encounter [facility] 08-29-2024 Telephone encounter Note Pt. Update 2.6.25- Bariatric portal call left message as well as sent email with phon numbers for pt. To call for appte [facility] 08-29-2024 Miscellaneous Notes Pt. Update 2.6.25- Bariatric portal call left message as well as sent email with phon numbers for pt. To call for appte documented in this encounter [facility] 08-26-2024 Telephone encounter Note The prescription has been signed and sent to the patient's pharmacy on file. Thank you, Ann-Marie Borges PA-C [facility] 08-26-2024 Miscellaneous Notes The prescription has been signed and sent to the patient's pharmacy on file. Thank you, Ann-Marie Borges PA-C Patient sent a message via [employer] requesting the following refill: Patient Comment: I get a migraine at least once a month. Requested Prescriptions Pending Prescriptions Disp Refills acetaminophen 325 mg-caffeine 40 mg-butalbital 50 mg (FIORICET) per tablet 30 tablet 0 Sig: Take 1 tablet by mouth every 4 hours as needed for up to 30 doses. Script(s) will be E-script to pharmacy Future visits: 11/18/2024 Date of last office visit was: 05/15/24 The patients preferred pharmacy has been captured for this encounter? yes Name of preferred pharmacy: OANH Aldana MA documented in this encounter [facility] 08-26-2024 Telephone encounter Note Patient sent a message via [employer] requesting the following refill: Patient Comment: I get a migraine at least once a month. Requested Prescriptions Pending Prescriptions Disp Refills acetaminophen 325 mg-caffeine 40 mg-butalbital 50 mg (FIORICET) per tablet 30 tablet 0 Sig: Take 1 tablet by mouth every 4 hours as needed for up to 30 doses. Script(s) will be E-script to pharmacy Future visits: 11/18/2024 Date of last office visit was: 05/15/24 The patients preferred pharmacy has been captured for this encounter? yes Name of preferred pharmacy: OANH Aldana MA [facility] 08-20-2024 Note Patient Outreach ([facility]) EMILY NGUYEN ([id number]) 1985 F Date Time Provider Department 08/20/24 MARK BLOUNT [facility] During your visit today, we recorded the following information about you: Allergies As of Date: 08/20/2024 Noted Allergy Reaction ESPERANZA INHIBITORS 05/21/2014 3 - Cough AMOXACILLIN (AMOXICILLIN) 12/25/2006 5 - Intolerance Comments: Yeast infection STEROIDS (CORTICOSTEROIDS (GLUCOC*01/05/2023 14 - Other: See Comments Comments: Loss of vision-central serous chorioretinopathy Date Reviewed: 05/15/2024 Reviewed by: Eric Tellez MA - Fully Assessed Visit Diagnosis:Encounter for screening mammogram for breast cancer [Z12.31] Order(s):[facility] SCREENING [facility] [[id number]] Order #: [id number] FUTURE Prescriptions as of 09/20/2024 - ondansetron orally disintegrating (ZOFRAN ODT) 4 mg disintegrating tablet Take 1 tablet by mouth every 6 hours as needed for nausea/vomiting for up to 7 days. - acetaminophen 325 mg-caffeine 40 mg-butalbital 50 mg (FIORICET) per tablet Take 1 tablet by mouth every 4 hours as needed for up to 90 days. - losartan (COZAAR) 100 mg tablet Take 1 tablet by mouth once daily. - metoprolol succinate ER (TOPROL XL) 100 mg Take 1 tablet by mouth once daily. - ergocalciferol 50,000 unit capsule (VITAMIN D2, DRISDOL) Take 1 capsule by mouth one time a week. - amLODIPine (NORVASC) 10 mg tablet Take 1 tablet by mouth once daily. - cyanocobalamin 1,000 mcg/mL Inject 1 mL intramuscularly once every month. - DULoxetine (CYMBALTA) 60 mg capsule Take 1 capsule by mouth once daily. - valACYclovir (VALTREX) 1 gram tablet Take 1 tablet by mouth once daily. - buPROPion SR (WELLBUTRIN SR) 150 mg 12 hr tablet Take 1 tablet by mouth two times a day. - tiZANidine (ZANAFLEX) 4 mg tablet Take 1 tablet by mouth every 8 hours as needed (muscle spasms). - traZODone (DESYREL) 100 mg tablet Take 1 tablet by mouth daily at bedtime. - lidocaine (LIDODERM) 5 % Apply 1 Patch as directed once daily. to affected area. Remove patch after 12 hours. - multivitamin-ferrous sulfate 18 mg iron tab Take by mouth once daily. - Calcium Citrate-Vitamin D2 1,500-200 mg-unit tab Take 1 tablet by mouth once daily. - Cholecalciferol, Vitamin D3, (VITAMIN D-3) 400 unit chew Take by mouth once daily. Facility-Administered Medications as of 09/20/2024 - cyanocobalamin 1,000 mcg injection Problem List As Of Date 08/20/2024 Noted Resolved SUPERVIS NORMAL 1ST PREG [Z34.00] 05/16/2006 12/20/2006 Supervision of Other High-Risk [O09.8*02/09/2009 08/03/2009 Prev W-Cswtcudp-Vhjcslp [O34.219] 02/09/2009 08/03/2009 Benign Essential Hypertension Antepartum [O10.0*02/09/2009 08/03/2009 SUPRF HIGH RISK NEC [V23.89] [O09.899]10/28/2010 05/20/2011 Previous section [Z98.891] 11/29/2010 05/20/2011 Hypertension in , antepartum [O16.9] 11/29/2010 05/20/2011 Headache in , antepartum [O26.899, R51*03/17/2011 05/20/2011 Dizziness, nonspecific [R42] 03/17/2011 02/14/2018 B12 deficiency [E53.8] TMJ (dislocation of temporomandibular joint) [S*06/29/2012 Pain in shoulder [M25.519] 06/29/2012 02/14/2018 Hypertension [I10] 11/27/2012 AC joint pain [M25.519] 05/02/2013 Depression with anxiety [F41.8] 01/16/2014 Vitamin D insufficiency [E55.9] 12/16/2015 Impingement syndrome of left shoulder [M75.42] 11/17/2016 Obesity, Class III, BMI >= 40 (morbid obesity) *01/11/2017 Rectal bleeding [K62.5] 05/10/2017 Morbid obesity with body mass index of 50 or hi*02/12/2018 Carpal tunnel syndrome, bilateral [G56.03] 02/12/2018 Morbid obesity with BMI of 50.0-59.9, adult (HC*10/02/2018 Chronic insomnia [F51.04] 08/15/2019 Central serous chorioretinopathy of eye, right *09/20/2023 Herpes simplex type II infection [B00.9] 09/20/2023 Primary insomnia [F51.01] 09/20/2023 History of HPV infection [Z86.19] 09/20/2023 Osteoarthritis of right knee [M17.11] 09/20/2023 H/O gastric sleeve [Z90.3] 09/20/2023 Encounter Status:Closed by SHAHANA DELUNA on 09/20/24 [facility] 07-30-2024 Telephone encounter Note Patient's request for medication is as follows: Requested Prescriptions Signed Prescriptions Disp Refills acetaminophen 325 mg-caffeine 40 mg-butalbital 50 mg (FIORICET) per tablet 30 tablet 0 Sig: Take 1 tablet by mouth every 4 hours as needed for up to 30 doses. Authorizing Provider: MARK BLOUNT Prescription(s) as above. Please process accordingly. Mark Blount MD [facility] 07-30-2024 Miscellaneous Notes Patient's request for medication is as follows: Requested Prescriptions Signed Prescriptions Disp Refills acetaminophen 325 mg-caffeine 40 mg-butalbital 50 mg (FIORICET) per tablet 30 tablet 0 Sig: Take 1 tablet by mouth every 4 hours as needed for up to 30 doses. Authorizing Provider: MARK BLOUNT Prescription(s) as above. Please process accordingly. Mark Blount MD Patient sent a message via [employer] requesting the following refill: Requested Prescriptions Pending Prescriptions Disp Refills acetaminophen 325 mg-caffeine 40 mg-butalbital 50 mg (FIORICET) per tablet 30 tablet 0 Sig: Take 1 tablet by mouth every 4 hours as needed for up to 30 doses. Script(s) will be E-script to pharmacy Future visits: 11/18/2024 Date of last office visit was: 05/15/24 The patients preferred pharmacy has been captured for this encounter? yes Name of preferred pharmacy: [facility] Aldana MA documented in this encounter [facility] 07-30-2024 Telephone encounter Note Patient sent a message via [employer] requesting the following refill: Requested Prescriptions Pending Prescriptions Disp Refills acetaminophen 325 mg-caffeine 40 mg-butalbital 50 mg (FIORICET) per tablet 30 tablet 0 Sig: Take 1 tablet by mouth every 4 hours as needed for up to 30 doses. Script(s) will be E-script to pharmacy Future visits: 11/18/2024 Date of last office visit was: 05/15/24 The patients preferred pharmacy has been captured for this encounter? yes Name of preferred pharmacy: OANH Aldana MA [facility] 06-26-2024 Telephone encounter Note Patient's request for medication is as follows: Requested Prescriptions Signed Prescriptions Disp Refills acetaminophen 325 mg-caffeine 40 mg-butalbital 50 mg (FIORICET) per tablet 30 tablet 0 Sig: Take 1 tablet by mouth every 4 hours as needed for up to 30 doses. Authorizing Provider: MARK BLOUNT Prescription(s) as above. Please process accordingly. Mark Bluont MD [facility] 06-26-2024 Miscellaneous Notes Patient's request for medication is as follows: Requested Prescriptions Signed Prescriptions Disp Refills acetaminophen 325 mg-caffeine 40 mg-butalbital 50 mg (FIORICET) per tablet 30 tablet 0 Sig: Take 1 tablet by mouth every 4 hours as needed for up to 30 doses. Authorizing Provider: MARK BLOUNT Prescription(s) as above. Please process accordingly. Mark Blount MD Patient Comment: Have 3 pills left. Battled a migraine for a week. Patient sent a message via [employer] requesting the following refill: Requested Prescriptions Pending Prescriptions Disp Refills acetaminophen 325 mg-caffeine 40 mg-butalbital 50 mg (FIORICET) per tablet 30 tablet 0 Sig: Take 1 tablet by mouth every 4 hours as needed for up to 30 doses. Script(s) will be E-script to pharmacy Future visits: 11/18/2024 Date of last office visit was: 05-15-2024 The patients preferred pharmacy has been captured for this encounter? yes Maru Mccoy MA documented in this encounter [facility] 06-26-2024 Telephone encounter Note Patient Comment: Have 3 pills left. Battled a migraine for a week. Patient sent a message via [employer] requesting the following refill: Requested Prescriptions Pending Prescriptions Disp Refills acetaminophen 325 mg-caffeine 40 mg-butalbital 50 mg (FIORICET) per tablet 30 tablet 0 Sig: Take 1 tablet by mouth every 4 hours as needed for up to 30 doses. Script(s) will be E-script to pharmacy Future visits: 11/18/2024 Date of last office visit was: 05-15-2024 The patients preferred pharmacy has been captured for this encounter? yes Maru Mccoy MA [facility] 06-18-2024 Telephone encounter Note Patient's request for medication is as follows: Requested Prescriptions Pending Prescriptions Disp Refills losartan (COZAAR) 100 mg tablet 90 tablet 1 Sig: Take 1 tablet by mouth once daily. metoprolol succinate ER (TOPROL XL) 100 mg 90 tablet 1 Sig: Take 1 tablet by mouth once daily. Prescription(s) as above. Please process accordingly. Shanae Braden PA-C [facility] 06-18-2024 Miscellaneous Notes Patient's request for medication is as follows: Requested Prescriptions Pending Prescriptions Disp Refills losartan (COZAAR) 100 mg tablet 90 tablet 1 Sig: Take 1 tablet by mouth once daily. metoprolol succinate ER (TOPROL XL) 100 mg 90 tablet 1 Sig: Take 1 tablet by mouth once daily. Prescription(s) as above. Please process accordingly. Shanae Braden PA-C Patient sent a message via [employer] requesting the following refill: Requested Prescriptions Pending Prescriptions Disp Refills losartan (COZAAR) 100 mg tablet 90 tablet 1 Sig: Take 1 tablet by mouth once daily. metoprolol succinate ER (TOPROL XL) 100 mg 90 tablet 1 Sig: Take 1 tablet by mouth once daily. Script(s) will be E-script to pharmacy Future visits: Visit date not found Date of last office visit was: 05-15-2024 The patients preferred pharmacy has been captured for this encounter? yes Maru Mccoy MA documented in this encounter [facility] 06-18-2024 Telephone encounter Note Patient sent a message via [employer] requesting the following refill: Requested Prescriptions Pending Prescriptions Disp Refills losartan (COZAAR) 100 mg tablet 90 tablet 1 Sig: Take 1 tablet by mouth once daily. metoprolol succinate ER (TOPROL XL) 100 mg 90 tablet 1 Sig: Take 1 tablet by mouth once daily. Script(s) will be E-script to pharmacy Future visits: Visit date not found Date of last office visit was: 05-15-2024 The patients preferred pharmacy has been captured for this encounter? yes Maru Mccoy MA [facility] 06-15-2024 Hospital Discharge instructions Patient Education 06/15/2024 20:53:44 Otitis Media, Antibiotic Treatment (Adult) Middle Ear Infection (Adult) You have an infection of the middle ear, the space behind the eardrum. This is also called acute otitis media (AOM). Sometimes it is caused by the common cold. This is because congestion can block the internal passage (eustachian tube) that drains fluid from the middle ear. When the middle ear fills with fluid, bacteria can grow there and cause an infection. Oral antibiotics are used to treat this illness, not ear drops. Symptoms usually start to improve within 1 to 2 days of treatment. Home care The following are general care guidelines: Finish all of the antibiotic medicine given, even though you may feel better after the first few days. You may use drzu-vym-isvlxaa medicine, such as acetaminophen or ibuprofen, to control pain and fever, unless something else was prescribed. If you have chronic liver or kidney disease or have ever had a stomach ulcer or gastrointestinal bleeding, talk with your healthcare provider before using these medicines. Do not give aspirin to anyone under 18 years of age who has a fever. It may cause severe illness or . Follow-up care Follow up with your healthcare provider, or as advised, in 2 weeks if all symptoms have not gotten better, or if hearing doesn't go back to normal within 1 month. When to seek medical advice Call your healthcare provider right away if any of these occur: Ear pain gets worse or does not improve after 3 days of treatment Unusual drowsiness or confusion Neck pain, stiff neck, or headache Fluid or blood draining from the ear canal Fever of 100.4 F (38 C) or as advised Seizure [id number] [employer]. [address] [place] [address]. All rights reserved. This information is not intended as a substitute for professional medical care. Always follow your healthcare professional's instructions. Follow Up Care 06/15/2024 20:41:55 With:KERWIN PEARL DO Address: [place] [address]- [phone] When:2-4 days [facility] 06-15-2024 Note Discharge Instructions Thank you for allowing [facility] to assist you with your healthcare needs. The following is important discharge information regarding your hospital visit. Diagnosis from Today's Visit Otitis media What to Do Next Instructions from Your Care Team No qualifying data available. Post Acute Orders No qualifying data available. You Need to Schedule the Following Appointments Follow Up with KERWIN PEARL DO When:Within 2-4 days Where:[place] [address]- [phone] Allergies ESPERANZA inhibitors C/O - cough Amoxil Rash amoxicillin anabolic steroids central serous retinopathy, Steroid Medications Please ask your primary doctor or pharmacist before taking any other medication not listed, including over the counter drugs, herbal medications, vitamins and or supplements as they may interact with your home medications. What How Much When Instructions Last Dose New amoxicillin (amoxicillin 500 mg oral capsule) 1 cap by mouth Three (3) times a day Duration: 5 Days Printed Prescription Unchanged amLODIPine (amLODIPine 5 mg oral tablet) TAKE 1 TABLET BY MOUTH EVERY DAY Unchanged buPROPion (buPROPion 150 mg/ 24 hours (XL) oral tablet, extended release) 1 tab(s) by mouth Two (2) times a day Unchanged DULoxetine (DULoxetine 60 mg oral delayed release capsule) 1 cap by mouth Once a day Unchanged losartan (losartan 100 mg oral tablet) 1 tab(s) by mouth Every day Unchanged metoprolol (Metoprolol Succinate ER 100 mg oral TABLET extended release) 1 tab(s) by mouth Once a day Unchanged tiZANidine (tiZANidine 4 mg oral tablet) TAKE 1 TABLET BY MOUTH EVERY 8 HOURS NEEDED FOR MUSCLE SPASM Unchanged traZODone (traZODone 100 mg oral tablet) 1 tab(s) by mouth Daily at bedtime Unchanged valACYclovir (valACYclovir 1 g oral tablet) by mouth Every other day Please take this list to your next doctor s visit. Bring all medications you take, including over the counter medications, herbals and other supplements with you to your doctor s visit. Patients and families are reminded to discard old lists and to update any records with all medication providers or retail pharmacies. Education Materials Middle Ear Infection (Adult) You have an infection of the middle ear, the space behind the eardrum. This is also called acute otitis media (AOM). Sometimes it is caused by the common cold. This is because congestion can block the internal passage (eustachian tube) that drains fluid from the middle ear. When the middle ear fills with fluid, bacteria can grow there and cause an infection. Oral antibiotics are used to treat this illness, not ear drops. Symptoms usually start to improve within 1 to 2 days of treatment. Home care The following are general care guidelines: Finish all of the antibiotic medicine given, even though you may feel better after the first few days. You may use dyct-sii-umihjaw medicine, such as acetaminophen or ibuprofen, to control pain and fever, unless something else was prescribed. If you have chronic liver or kidney disease or have ever had a stomach ulcer or gastrointestinal bleeding, talk with your healthcare provider before using these medicines. Do not give aspirin to anyone under 18 years of age who has a fever. It may cause severe illness or . Follow-up care Follow up with your healthcare provider, or as advised, in 2 weeks if all symptoms have not gotten better, or if hearing doesn't go back to normal within 1 month. When to seek medical advice Call your healthcare provider right away if any of these occur: Ear pain gets worse or does not improve after 3 days of treatment Unusual drowsiness or confusion Neck pain, stiff neck, or headache Fluid or blood draining from the ear canal Fever of 100.4 F (38 C) or as advised Seizure [phone] [employer]. [address] [place] [address]. All rights reserved. This information is not intended as a substitute for professional medical care. Always follow your healthcare professional's instructions. Additional Information VACCINATE! IT SAVES LIVES! Members of the community who have not yet received the COVID-19 vaccine and would like to receive it can visit one of [facility] vaccine clinics. There are many vaccine clinic locations within the [facility]. For locations and available times, please visit [email or web address] It is important to note that some COVID mobile vaccine clinics are held outdoors and may be canceled in rainy or stormy conditions. To learn more about pediatric vaccinations (ages 5-11), we invite you to visit the [facility] webpage. [email or web address]://[email or web address]/p ages/[email or web address]-Giyoidxgxpy-Freq [email or web address] To learn more about the COVID-19 vaccine, we invite you to visit the CDC website for a list of frequently asked questions. https://www.cdc.gov/coronavirus/ 2019-ncov/vaccines/faq.html [facility] Patient Portal Access Instructions: Stay connected with your healthcare team and access your personal medical information anytime with the [facility] Patient Portal. If you would like a full copy of your medical records please contact the [facility] Medical Records Department Monday through Monday between 8a.m. and 4:30p.m. Please follow the directions below to access the portal: 1.Access the email account you provided upon registration to the [facility].2.Look for an invitation email from [facility].3.Open the email and access the invitation link: Accept Invitation to [facility].Fill in the required diego to create your account. Sign into [email or web address] with your username and password that you created in the above steps to stay up to date. You can then view a summary of results, a summary of your visits, and the ability to download your summaries to your computer or send the information securely to a physician. Remember that your healthcare information is confidential, so carefully consider who you will allow to register on the [facility] Patient Portal for access to your information. You can also access the [facility] Patient Portal on the [employer] Simply click on Health Records under Health Data and then click on the youmag logo. HOW TO SAFELY DISPOSE OF PRESCRIPTION MEDICATIONS Please use one of the following methods to safely dispose of your unused medications. 1.Use a drug disposal kit: the drug disposal pouch allows you to safely discard your old and unused drugs. Ask your nurse to give you one when you are discharged.2.Visit a local take-back location: Many local pharmacies and police departments have programs that collect old and unwanted prescription drugs. Call your local pharmacy or go to http://bit.Gravy/3V1Hv9k to find one close to you.3.Make use of household items: Use cat litter or old coffee grounds to dispose medications if other options are not available. Mix your drugs with these household products, seal them in an airtight container and throw it into the garbage. Call [facility]: [phone] to be sure your drugs can be disposed of in this way. Some medicines may require a different approach.4.Never flush your medications down the toilet. IF YOU HAVE BEEN PRESCRIBED AN OPIOIDS FOR PAIN If you have been prescribed an opioid (such as hydrocodone, oxycodone or morphine), it is critical to understand the possible side effects and risks of opioid pain medications. Even when taken as directed, opioids can have several side effects including: Tolerance, meaning you might need to take more of a medication for the same pain relief. Nausea, vomiting and/or constipation. Sleepiness, dizziness, dry mouth, confusion, depression or itching. Physical dependence, meaning you have withdrawal symptoms when a medication is stopped ? this can develop within a few days. KNOW YOUR RESPONSIBILITIES It is important to know exactly how much and how often to take the opioid pain medications you are prescribed. Never take opioids in higher amounts or more often than prescribed. Do not combine opioids with alcohol or other drugs that cause drowsiness, such as benzodiazepines, also known as benzos, including diazepam and alprazolam, muscle relaxants or sleep aids. Never sell or share prescription opioids. This is illegal. Store opioids in a secure place and out of reach of others (including children, family, friends and visitors). The last page(s) of this document has been signed and retained as a CHART COPY Signatures Patient Education Materials Otitis Media, Antibiotic Treatment (Adult) Medication Leaflets My discharge plan and instructions have been reviewed and explained to me and I,EMILY NGUYEN understand my current condition and have read and understand these discharge instructions. I have received a written copy of the plan/instructions. If I have questions, I am aware that I should contact my doctor. 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: Date/Time: Relationship to Patient: Witness Name/Signature: Date/Time: [facility] 06-12-2024 Telephone encounter Note Scheduled 12/10/24 appt from consult box; referred by Thomas Santos MD ; pt has mychart [facility] 06-12-2024 Miscellaneous Notes Scheduled 12/10/24 appt from consult box; referred by Thomas Santos MD ; pt has mychart documented in this encounter [facility] 05-28-2024 Telephone encounter Note Patient's request for medication is as follows: Requested Prescriptions Signed Prescriptions Disp Refills acetaminophen 325 mg-caffeine 40 mg-butalbital 50 mg (FIORICET) per tablet 30 tablet 0 Sig: Take 1 tablet by mouth every 4 hours as needed for up to 30 doses. Prescription(s) as above. Please process accordingly. Mark Blount MD [facility] 05-28-2024 Miscellaneous Notes Patient's request for medication is as follows: Requested Prescriptions Signed Prescriptions Disp Refills acetaminophen 325 mg-caffeine 40 mg-butalbital 50 mg (FIORICET) per tablet 30 tablet 0 Sig: Take 1 tablet by mouth every 4 hours as needed for up to 30 doses. Prescription(s) as above. Please process accordingly. Mark Blount MD documented in this encounter [facility] 05-25-2024 Hospital Discharge instructions Patient Education 05/24/2024 22:58:59 Post-Op Tips: Foot Post-Op Tips: Foot At home, you play a major role in your recovery. The better you care for your foot, the faster you may heal. And the faster you heal, the sooner you can resume your normal activities. Follow your healthcare provider's instructions about how to care for your foot after surgery Bearing weight For the first few days, your healthcare provider may recommend that you not bear weight on your foot. You may use a cane, crutches, or a walker to help you move around. Gradually, you may work up to putting more weight on your foot, as instructed by your healthcare provider. Relieving pain Take pain medicine to relieve discomfort and antibiotics to prevent infection as you re instructed. To protect your foot, wear your surgical (post-op) shoe as recommended. To help relieve pain and swelling, apply a bag of ice to your foot as instructed and elevate your foot above heart level the first few days. Strengthening your foot Your healthcare provider may suggest ways to get your foot back in shape. You may be instructed to do exercises, possibly using weights. To help strengthen your foot, follow these tips: Start out slowly, then increase repetitions as recommended. Walking strengthens your foot because of the weight you put on it. For the first few weeks, walk only short distances if your healthcare provider says that you can put weight on your foot. Physical therapy may also be recommended to help you strengthen your foot and increase its range of motion. Follow up with your healthcare provider You may visit your healthcare provider the first week or 2 after surgery. He or she will remove your dressing, assess your incision, and apply a fresh dressing. Your sutures and your splint or cast, if you have one, may be removed in 2 or more weeks. To make sure you re healing properly, you may see your surgeon regularly for 3 months or more. You may need follow-up X-rays. Write down any questions you have before going to your follow-up appointment. Having the questions in writing will help to make sure that you don't forget to bring them up with your healthcare provider. [phone] [employer]. [address] [place] [address]. All rights reserved. This information is not intended as a substitute for professional medical care. Always follow your healthcare professional's instructions. Follow Up Care 05/24/2024 22:39:45 With:QUE MATSON DPM, Surgery Address: [address] [place] [phone]- Business (1) When:2-4 days [facility] 05-25-2024 Emergency department Discharge summary Discharge Instructions Thank you for allowing [facility] to assist you with your healthcare needs. The following is important discharge information regarding your hospital visit. Diagnosis from Today's Visit Ankle pain What to Do Next Instructions from Your Care Team No qualifying data available. Post Acute Orders No qualifying data available. You Need to Schedule the Following Appointments Follow Up with QUE MATSON DPM, Surgery When:Within 2-4 days Where:[address] [place] [id number] [facility] (1) Allergies ESPERANZA inhibitors C/O - cough Amoxil Rash amoxicillin anabolic steroids central serous retinopathy, Steroid Medications Please ask your primary doctor or pharmacist before taking any other medication not listed, including over the counter drugs, herbal medications, vitamins and or supplements as they may interact with your home medications. What How Much When Why Instructions Last Dose New acetaminophen-oxyCODONE (Percocet 5 mg-325 mg oral tablet) 1 tab(s) by mouth Every 6 hours as needed for Pain Ankle pain Duration: 3 Days Printed Prescription New ondansetron (ondansetron 4 mg oral tablet, disintegrating) 1 tab(s) by mouth Every 6 hours as needed for Nausea/Vomiting Duration: 4 Days Printed Prescription Unchanged amLODIPine (amLODIPine 5 mg oral tablet) TAKE 1 TABLET BY MOUTH EVERY DAY Unchanged buPROPion (buPROPion 150 mg/ 24 hours (XL) oral tablet, extended release) 1 tab(s) by mouth Two (2) times a day Unchanged DULoxetine (DULoxetine 60 mg oral delayed release capsule) 1 cap by mouth Once a day Unchanged losartan (losartan 100 mg oral tablet) 1 tab(s) by mouth Every day Unchanged metoprolol (Metoprolol Succinate ER 100 mg oral TABLET extended release) 1 tab(s) by mouth Once a day Unchanged tiZANidine (tiZANidine 4 mg oral tablet) TAKE 1 TABLET BY MOUTH EVERY 8 HOURS NEEDED FOR MUSCLE SPASM Unchanged traZODone (traZODone 100 mg oral tablet) 1 tab(s) by mouth Daily at bedtime Unchanged valACYclovir (valACYclovir 1 g oral tablet) by mouth Every other day Please take this list to your next doctor s visit. Bring all medications you take, including over the counter medications, herbals and other supplements with you to your doctor s visit. Patients and families are reminded to discard old lists and to update any records with all medication providers or retail pharmacies. Education Materials Post-Op Tips: Foot At home, you play a major role in your recovery. The better you care for your foot, the faster you may heal. And the faster you heal, the sooner you can resume your normal activities. Follow your healthcare provider's instructions about how to care for your foot after surgery Bearing weight For the first few days, your healthcare provider may recommend that you not bear weight on your foot. You may use a cane, crutches, or a walker to help you move around. Gradually, you may work up to putting more weight on your foot, as instructed by your healthcare provider. Relieving pain Take pain medicine to relieve discomfort and antibiotics to prevent infection as you re instructed. To protect your foot, wear your surgical (post-op) shoe as recommended. To help relieve pain and swelling, apply a bag of ice to your foot as instructed and elevate your foot above heart level the first few days. Strengthening your foot Your healthcare provider may suggest ways to get your foot back in shape. You may be instructed to do exercises, possibly using weights. To help strengthen your foot, follow these tips: Start out slowly, then increase repetitions as recommended. Walking strengthens your foot because of the weight you put on it. For the first few weeks, walk only short distances if your healthcare provider says that you can put weight on your foot. Physical therapy may also be recommended to help you strengthen your foot and increase its range of motion. Follow up with your healthcare provider You may visit your healthcare provider the first week or 2 after surgery. He or she will remove your dressing, assess your incision, and apply a fresh dressing. Your sutures and your splint or cast, if you have one, may be removed in 2 or more weeks. To make sure you re healing properly, you may see your surgeon regularly for 3 months or more. You may need follow-up X-rays. Write down any questions you have before going to your follow-up appointment. Having the questions in writing will help to make sure that you don't forget to bring them up with your healthcare provider. [phone] [employer]. [address] [place] [address], [place] [address]. All rights reserved. This information is not intended as a substitute for professional medical care. Always follow your healthcare professional's instructions. Additional Information VACCINATE! IT SAVES LIVES! Members of the community who have not yet received the COVID-19 vaccine and would like to receive it can visit one of [facility] vaccine clinics. There are many vaccine clinic locations within the [facility]. For locations and available times, please visit [email or web address] It is important to note that some COVID mobile vaccine clinics are held outdoors and may be canceled in rainy or stormy conditions. To learn more about pediatric vaccinations (ages 5-11), we invite you to visit the [facility] webpage. https://[email or web address].org/p ages/[email or web address]-Iqjcm-Zwuangcrrhk-Freq ysybng-Uzkis-Vgnmvvyum.html To learn more about the COVID-19 vaccine, we invite you to visit the CDC website for a list of frequently asked questions. https://www.cdc.gov/coronavirus/ 2019-ncov/vaccines/faq.html [facility] Patient Portal Access Instructions: Stay connected with your healthcare team and access your personal medical information anytime with the [facility] Patient Portal. If you would like a full copy of your medical records please contact the [facility] Medical Records Department Monday through Monday between 8a.m. and 4:30p.m. Please follow the directions below to access the portal: 1.Access the email account you provided upon registration to the [facility].2.Look for an invitation email from [facility].3.Open the email and access the invitation link: Accept Invitation to [facility]4.Fill in the required diego to create your account. Sign into [email or web address] with your username and password that you created in the above steps to stay up to date. You can then view a summary of results, a summary of your visits, and the ability to download your summaries to your computer or send the information securely to a physician. Remember that your healthcare information is confidential, so carefully consider who you will allow to register on the [facility] Patient Portal for access to your information. You can also access the [facility] Patient Portal on the [employer] Simply click on Health Records under Health Data and then click on the youmag logo. HOW TO SAFELY DISPOSE OF PRESCRIPTION MEDICATIONS Please use one of the following methods to safely dispose of your unused medications. 1.Use a drug disposal kit: the drug disposal pouch allows you to safely discard your old and unused drugs. Ask your nurse to give you one when you are discharged.2.Visit a local take-back location: Many local pharmacies and police departments have programs that collect old and unwanted prescription drugs. Call your local pharmacy or go to http://[employer].Gravy/2R0Xr1a to find one close to you.3.Make use of household items: Use cat litter or old coffee grounds to dispose medications if other options are not available. Mix your drugs with these household products, seal them in an airtight container and throw it into the garbage. Call [facility]: [phone] to be sure your drugs can be disposed of in this way. Some medicines may require a different approach.4.Never flush your medications down the toilet. IF YOU HAVE BEEN PRESCRIBED AN OPIOIDS FOR PAIN If you have been prescribed an opioid (such as hydrocodone, oxycodone or morphine), it is critical to understand the possible side effects and risks of opioid pain medications. Even when taken as directed, opioids can have several side effects including: Tolerance, meaning you might need to take more of a medication for the same pain relief. Nausea, vomiting and/or constipation. Sleepiness, dizziness, dry mouth, confusion, depression or itching. Physical dependence, meaning you have withdrawal symptoms when a medication is stopped ? this can develop within a few days. KNOW YOUR RESPONSIBILITIES It is important to know exactly how much and how often to take the opioid pain medications you are prescribed. Never take opioids in higher amounts or more often than prescribed. Do not combine opioids with alcohol or other drugs that cause drowsiness, such as benzodiazepines, also known as benzos, including diazepam and alprazolam, muscle relaxants or sleep aids. Never sell or share prescription opioids. This is illegal. Store opioids in a secure place and out of reach of others (including children, family, friends and visitors). The last page(s) of this document has been signed and retained as a CHART COPY Signatures Patient Education Materials Post-Op Tips: Foot Medication Leaflets My discharge plan and instructions have been reviewed and explained to me and IPATRICK BROOKE A understand my current condition and have read and understand these discharge instructions. I have received a written copy of the plan/instructions. If I have questions, I am aware that I should contact my doctor. 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 05-17-2024 Hospital Discharge instructions Patient Education 05/17/2024 11:45:06 General Anesthesia, Adult, Care After General Anesthesia, Adult, Care After This sheet gives you information about how to care for yourself after your procedure. Your health care provider may also give you more specific instructions. If you have problems or questions, contact your health care provider. What can I expect after the procedure? After the procedure, the following side effects are common: Pain or discomfort at the IV site. Nausea. Vomiting. Sore throat. Trouble concentrating. Feeling cold or chills. Weak or tired. Sleepiness and fatigue. Soreness and body aches. These side effects can affect parts of the body that were not involved in surgery. Follow these instructions at home: For at least 24 hours after the procedure: Have a responsible adult stay with you. It is important to have someone help care for you until you are awake and alert. Rest as needed. Do not: ?Participate in activities in which you could fall or become injured. ?Drive. ?Use heavy machinery. ?Drink alcohol. ?Take sleeping pills or medicines that cause drowsiness. ?Make important decisions or sign legal documents. ?Take care of children on your own. Eating and drinking Follow any instructions from your health care provider about eating or drinking restrictions. When you feel hungry, start by eating small amounts of foods that are soft and easy to digest (bland), such as toast. Gradually return to your regular diet. Drink enough fluid to keep your urine pale yellow. If you vomit, rehydrate by drinking water, juice, or clear broth. General instructions If you have sleep apnea, surgery and certain medicines can increase your risk for breathing problems. Follow instructions from your health care provider about wearing your sleep device: ?Anytime you are sleeping, including during daytime naps. ?While taking prescription pain medicines, sleeping medicines, or medicines that make you drowsy. Return to your normal activities as told by your health care provider. Ask your health care provider what activities are safe for you. Take hmis-umu-vwwculw and prescription medicines only as told by your health care provider. If you smoke, do not smoke without supervision. Keep all follow-up visits as told by your health care provider. This is important. Contact a health care provider if: You have nausea or vomiting that does not get better with medicine. You cannot eat or drink without vomiting. You have pain that does not get better with medicine. You are unable to pass urine. You develop a skin rash. You have a fever. You have redness around your IV site that gets worse. Get help right away if: You have difficulty breathing. You have chest pain. You have blood in your urine or stool, or you vomit blood. Summary After the procedure, it is common to have a sore throat or nausea. It is also common to feel tired. Have a responsible adult stay with you for the first 24 hours after general anesthesia. It is important to have someone help care for you until you are awake and alert. When you feel hungry, start by eating small amounts of foods that are soft and easy to digest (bland), such as toast. Gradually return to your regular diet. Drink enough fluid to keep your urine pale yellow. Return to your normal activities as told by your health care provider. Ask your health care provider what activities are safe for you. This information is not intended to replace advice given to you by your health care provider. Make sure you discuss any questions you have with your health care provider. Document Released: 10/16/2001 Document Revised: 07/13/2018 Document Reviewed: 02/23/2018 [employer] Patient Education 2020 [employer]. 05/17/2024 11:44:47 Ankle Arthroscopy, Care After Ankle Arthroscopy, Care After This sheet gives you information about how to care for yourself after your procedure. Your health care provider may also give you more specific instructions. If you have problems or questions, contact your health care provider. What can I expect after the procedure? After your procedure, it is common to have: Swelling, stiffness, and pain. Constipation from pain medicine. Follow these instructions at home: If you have a splint or boot: Wear the splint or boot as told by your health care provider. Remove it only as told by your health care provider. Loosen the splint or boot if your toes tingle, become numb, or turn cold and blue. Keep the splint or boot clean. If the splint or boot is not waterproof: ?Do not let it get wet. ?Cover it with a watertight covering when you take a shower. Bathing Do not take baths, swim, or use a hot tub until your health care provider approves. Ask your health care provider if you can take showers. If your cast or boot is not waterproof, cover it with a watertight covering when you take a shower. Keep the dressing dry until your health care provider says it can be removed. Incision care Follow instructions from your health care provider about how to take care of your incisions. Make sure you: ?Wash your hands with soap and water before you change your bandage (dressing). If soap and water are not available, use hand hydrostatic tubing tester. ?Change your dressing as told by your health care provider. ?Leave stitches (sutures), skin glue, or adhesive strips in place. These skin closures may need to stay in place for 2 weeks or longer. If adhesive strip edges start to loosen and curl up, you may trim the loose edges. Do not remove adhesive strips completely unless your health care provider tells you to do that. Check your incision area every day for signs of infection. Check for: ?More redness, swelling, or pain. ?You have more fluid or blood. ?Warmth ?Pus or a bad smell. Keep the dressing dry until your health care provider says it can be removed. Managing pain, stiffness, and swelling Raise (elevate) the injured area above the level of your heart while you are sitting or lying down. If directed, put ice on the injured area: ?If you have a removable splint or boot, remove it as told by your health care provider ?Put ice in a plastic bag. ?Place a towel between your skin and the bag. ?Leave the ice on for 20 minutes, 2 3 times a day. Move your toes often to avoid stiffness and to lessen swelling. Driving Do not drive until you are able to put all of your weight onto your surgical leg. Ask your health care provider when it is safe to drive if you have a splint or boot. Do not drive or use heavy machinery while taking prescription pain medicine. General instructions Do any exercises or physical therapy as told by your health care provider. Follow your health care provider's instructions on using your injured limb to support your body weight. You may need to use crutches. To prevent or treat constipation while you are taking prescription pain medicine, your health care provider may recommend that you: ?Drink enough fluid to keep your urine clear or pale yellow. ?Take nffw-mxo-coenwiz or prescription medicines. ?Eat foods that are high in fiber, such as fresh fruits and vegetables, whole grains, and beans. ?Limit foods that are high in fat and processed sugars, such as fried and sweet foods. Take zmpb-oec-ssrnqwn and prescription medicines only as told by your health care provider. Do not use any products that contain nicotine or tobacco. These can delay bone healing. This includes cigarettes and e-cigarettes. If you need help quitting, ask your health care provider. Keep all follow-up visits as told by your health care provider. This is important. Contact a health care provider if: You have a fever. You have more redness, swelling, or pain around your incision area. You have more fluid or blood coming from your incision area. Your incision feels warm to the touch. You have pus or a bad smell coming from your incision area. Your incision site breaks open after the closures are removed. Your pain does not get better when you take medicine. Get help right away if: You have chest pain or shortness of breath. You have numbness in your foot or toes, and it gets worse. Your foot turns cold and blue and does not get better when you loosen your splint or boot. Summary It is common to have ankle swelling, stiffness, or pain after the procedure. Putting ice and elevating your ankle will help manage the swelling and pain. Do not drive or use heavy machinery if you are taking prescription pain medicine. Ask your health care provider when it is safe to drive. Contact your health care provider if you notice any signs of infection. This information is not intended to replace advice given to you by your health care provider. Make sure you discuss any questions you have with your health care provider. Document Released: 04/30/2014 Document Revised: 06/22/2018 Document Reviewed: 07/07/2017 Healthify Patient Education 2020 [employer] Follow Up Care 04/30/2024 11:12:07 With:QUE MATSON DPM, Surgery Address: [address] [facility] [address] [facility] [place] [address]- When: Unknown Comments:FOLLOW UP IN OFFICE 05/23/2024 @ 2:40PM [facility] 05-17-2024 Summary of episode note Discharge Instructions Thank you for allowing [facility] to assist you with your healthcare needs. The following is important discharge information regarding your hospital visit. What to do next Follow Up Appointments Follow Up with QUE MATSON DPM, Surgery Where:[address] [facility] [place] [address]- Additional Information: FOLLOW UP IN OFFICE 05/23/2024 @ 2:40PM The Following Activity and Diet Have Been Ordered for You Discharge Activity - Ordered -- Other, Follow the post-operative/post-procedure activity instructions provided by your physician's office., 05/17/24 11:41:00 EDT No qualifying data available. The Following Equipment Has Been Ordered for You Discharge Home Equipment Discharge Wound Care - Ordered -- Follow the post-operative/post-procedure wound care instructions provided by your physician's office., 05/17/24 11:41:00 EDT The Following Treatments Have Been Ordered for You Discharge Labs No qualifying data available. Discharge Radiology No qualifying data available. Other Therapies No qualifying data available. Post Acute Orders No qualifying data available. Someone Will Contact You Regarding These Home Health Referrals No home referrals have been ordered for you. No one will call you. Allergies ESPERANZA inhibitors C/O - cough Amoxil Rash amoxicillin anabolic steroids central serous retinopathy, Steroid Medications Please ask your primary doctor or pharmacist before taking any other medication not listed, including over the counter drugs, herbal medications, vitamins and or supplements as they may interact with your home medications. What How Much When Instructions Last Dose Unchanged amLODIPine (amLODIPine 5 mg oral tablet) TAKE 1 TABLET BY MOUTH EVERY DAY Unchanged buPROPion (buPROPion 150 mg/ 24 hours (XL) oral tablet, extended release) 1 tab(s) by mouth Two (2) times a day Unchanged DULoxetine (DULoxetine 60 mg oral delayed release capsule) 1 cap by mouth Once a day Unchanged losartan (losartan 100 mg oral tablet) 1 tab(s) by mouth Every day Unchanged metoprolol (Metoprolol Succinate ER 100 mg oral TABLET extended release) 1 tab(s) by mouth Once a day Unchanged tiZANidine (tiZANidine 4 mg oral tablet) TAKE 1 TABLET BY MOUTH EVERY 8 HOURS NEEDED FOR MUSCLE SPASM Unchanged traZODone (traZODone 100 mg oral tablet) 1 tab(s) by mouth Daily at bedtime Unchanged valACYclovir (valACYclovir 1 g oral tablet) by mouth Every other day Please take this list to your next doctor s visit. Bring all medications you take, including over the counter medications, herbals and other supplements with you to your doctor s visit. Patients and families are reminded to discard old lists and to update any records with all medication providers or retail pharmacies. Education Materials General Anesthesia, Adult, Care After This sheet gives you information about how to care for yourself after your procedure. Your health care provider may also give you more specific instructions. If you have problems or questions, contact your health care provider. What can I expect after the procedure? After the procedure, the following side effects are common: Pain or discomfort at the IV site. Nausea. Vomiting. Sore throat. Trouble concentrating. Feeling cold or chills. Weak or tired. Sleepiness and fatigue. Soreness and body aches. These side effects can affect parts of the body that were not involved in surgery. Follow these instructions at home: For at least 24 hours after the procedure: Have a responsible adult stay with you. It is important to have someone help care for you until you are awake and alert. Rest as needed. Do not: ? Participate in activities in which you could fall or become injured. ? Drive. ? Use heavy machinery. ? Drink alcohol. ? Take sleeping pills or medicines that cause drowsiness. ? Make important decisions or sign legal documents. ? Take care of children on your own. Eating and drinking Follow any instructions from your health care provider about eating or drinking restrictions. When you feel hungry, start by eating small amounts of foods that are soft and easy to digest (bland), such as toast. Gradually return to your regular diet. Drink enough fluid to keep your urine pale yellow. If you vomit, rehydrate by drinking water, juice, or clear broth. General instructions If you have sleep apnea, surgery and certain medicines can increase your risk for breathing problems. Follow instructions from your health care provider about wearing your sleep device: ? Anytime you are sleeping, including during daytime naps. ? While taking prescription pain medicines, sleeping medicines, or medicines that make you drowsy. Return to your normal activities as told by your health care provider. Ask your health care provider what activities are safe for you. Take xicm-oww-uwjcltd and prescription medicines only as told by your health care provider. If you smoke, do not smoke without supervision. Keep all follow-up visits as told by your health care provider. This is important. Contact a health care provider if: You have nausea or vomiting that does not get better with medicine. You cannot eat or drink without vomiting. You have pain that does not get better with medicine. You are unable to pass urine. You develop a skin rash. You have a fever. You have redness around your IV site that gets worse. Get help right away if: You have difficulty breathing. You have chest pain. You have blood in your urine or stool, or you vomit blood. Summary After the procedure, it is common to have a sore throat or nausea. It is also common to feel tired. Have a responsible adult stay with you for the first 24 hours after general anesthesia. It is important to have someone help care for you until you are awake and alert. When you feel hungry, start by eating small amounts of foods that are soft and easy to digest (bland), such as toast. Gradually return to your regular diet. Drink enough fluid to keep your urine pale yellow. Return to your normal activities as told by your health care provider. Ask your health care provider what activities are safe for you. This information is not intended to replace advice given to you by your health care provider. Make sure you discuss any questions you have with your health care provider. Document Released: 10/16/2001 Document Revised: 07/13/2018 Document Reviewed: 02/23/2018 [employer] Patient Education 2020 [employer] Ankle Arthroscopy, Care After This sheet gives you information about how to care for yourself after your procedure. Your health care provider may also give you more specific instructions. If you have problems or questions, contact your health care provider. What can I expect after the procedure? After your procedure, it is common to have: Swelling, stiffness, and pain. Constipation from pain medicine. Follow these instructions at home: If you have a splint or boot: Wear the splint or boot as told by your health care provider. Remove it only as told by your health care provider. Loosen the splint or boot if your toes tingle, become numb, or turn cold and blue. Keep the splint or boot clean. If the splint or boot is not waterproof: ? Do not let it get wet. ? Cover it with a watertight covering when you take a shower. Bathing Do not take baths, swim, or use a hot tub until your health care provider approves. Ask your health care provider if you can take showers. If your cast or boot is not waterproof, cover it with a watertight covering when you take a shower. Keep the dressing dry until your health care provider says it can be removed. Incision care Follow instructions from your health care provider about how to take care of your incisions. Make sure you: ? Wash your hands with soap and water before you change your bandage (dressing). If soap and water are not available, use hand hydrostatic tubing tester. ? Change your dressing as told by your health care provider. ? Leave stitches (sutures), skin glue, or adhesive strips in place. These skin closures may need to stay in place for 2 weeks or longer. If adhesive strip edges start to loosen and curl up, you may trim the loose edges. Do not remove adhesive strips completely unless your health care provider tells you to do that. Check your incision area every day for signs of infection. Check for: ? More redness, swelling, or pain. ? You have more fluid or blood. ? Warmth ? Pus or a bad smell. Keep the dressing dry until your health care provider says it can be removed. Managing pain, stiffness, and swelling Raise (elevate) the injured area above the level of your heart while you are sitting or lying down. If directed, put ice on the injured area: ? If you have a removable splint or boot, remove it as told by your health care provider ? Put ice in a plastic bag. ? Place a towel between your skin and the bag. ? Leave the ice on for 20 minutes, 2 3 times a day. Move your toes often to avoid stiffness and to lessen swelling. Driving Do not drive until you are able to put all of your weight onto your surgical leg. Ask your health care provider when it is safe to drive if you have a splint or boot. Do not drive or use heavy machinery while taking prescription pain medicine. General instructions Do any exercises or physical therapy as told by your health care provider. Follow your health care provider's instructions on using your injured limb to support your body weight. You may need to use crutches. To prevent or treat constipation while you are taking prescription pain medicine, your health care provider may recommend that you: ? Drink enough fluid to keep your urine clear or pale yellow. ? Take ygcz-efo-seriprc or prescription medicines. ? Eat foods that are high in fiber, such as fresh fruits and vegetables, whole grains, and beans. ? Limit foods that are high in fat and processed sugars, such as fried and sweet foods. Take dgbv-rug-tskengn and prescription medicines only as told by your health care provider. Do not use any products that contain nicotine or tobacco. These can delay bone healing. This includes cigarettes and e-cigarettes. If you need help quitting, ask your health care provider. Keep all follow-up visits as told by your health care provider. This is important. Contact a health care provider if: You have a fever. You have more redness, swelling, or pain around your incision area. You have more fluid or blood coming from your incision area. Your incision feels warm to the touch. You have pus or a bad smell coming from your incision area. Your incision site breaks open after the closures are removed. Your pain does not get better when you take medicine. Get help right away if: You have chest pain or shortness of breath. You have numbness in your foot or toes, and it gets worse. Your foot turns cold and blue and does not get better when you loosen your splint or boot. Summary It is common to have ankle swelling, stiffness, or pain after the procedure. Putting ice and elevating your ankle will help manage the swelling and pain. Do not drive or use heavy machinery if you are taking prescription pain medicine. Ask your health care provider when it is safe to drive. Contact your health care provider if you notice any signs of infection. This information is not intended to replace advice given to you by your health care provider. Make sure you discuss any questions you have with your health care provider. Document Released: 04/30/2014 Document Revised: 06/22/2018 Document Reviewed: 07/07/2017 Elsevier Patient Education 2020 [employer] Additional Information VACCINATE! IT SAVES LIVES! Members of the community who have not yet received the COVID-19 vaccine and would like to receive it can visit one of [facility] vaccine clinics. There are many vaccine clinic locations within the [facility]. For locations and available times, please visit https://gettheshot.coronavirus.o hio.gov/. It is important to note that some COVID mobile vaccine clinics are held outdoors and may be canceled in rainy or stormy conditions. To learn more about pediatric vaccinations (ages 5-11), we invite you to visit the [employer] webpage. https://www.[employer].org/p ages/6902-Qqmvw-Tpbibzcggvz-Freq zkaxdp-Trsny-Vxakgpssd.html To learn more about the COVID-19 vaccine, we invite you to visit the CDC website for a list of frequently asked questions.https://www.cdc.gov/co ronavirus/2019-ncov/vaccines/faq .html [facility] Patient Portal Access Instructions: Stay connected with your healthcare team and access your personal medical information anytime with the [facility] Patient Portal. Please follow the directions below to create your [facility] account: 1.Access the email account you provided upon registration to the hospital/physician office.2.Look for an invitation email from [facility].3.Open the email and access the invitation link: Accept Invitation to [facility].4.Fill in the required diego to create your account. To access your account, visit [email or web address]. Click the blue button labeled Access Patient Portal and then log in with the username and password that you created in the steps above. You will be able to view your test results, lab results, a summary of your visits, upcoming appointments and more. There is also a convenient messaging option where you can send secure messages to your provider. In addition, you will have the ability to download any documents or summaries to your computer and/or send the information securely to a physician. Remember that your healthcare information is confidential, so carefully consider who you will allow to register on the [facility] Patient Portal for access to your information. You can also access the [facility] Patient Portal on the [facility] landon. Simply click on Patient Portal and then log into your account. If you would like to receive a full copy of your medical records, please contact the [facility] Medical Records Department by calling [phone], Monday through Monday between 8 a.m. and 4:30 p.m. HOW TO SAFELY DISPOSE OF PRESCRIPTION MEDICATIONS Please use one of the following methods to safely dispose of your unused medications. 1.Use a drug disposal kit: the drug disposal pouch allows you to safely discard your old and unused drugs. Ask your nurse to give you one when you are discharged.2.Visit a local take-back location: Many local pharmacies and police departments have programs that collect old and unwanted prescription drugs. Call your local pharmacy or go to http://[employer]rio/8O1Rx4w to find one close to you.3.Make use of household items: Use cat litter or old coffee grounds to dispose medications if other options are not available. Mix your drugs with these household products, seal them in an airtight container and throw it into the garbage. Call [facility]: [phone] to be sure your drugs can be disposed of in this way. Some medicines may require a different approach.4.Never flush your medications down the toilet. IF YOU HAVE BEEN PRESCRIBED AN OPIOID FOR PAIN If you have been prescribed an opioid (such as hydrocodone, oxycodone or morphine), it is critical to understand the possible side effects and risks of opioid pain medications. Even when taken as directed, opioids can have several side effects including: Tolerance, meaning you might need to take more of a medication for the same pain relief. Nausea, vomiting and/or constipation. Sleepiness, dizziness, dry mouth, confusion, depression or itching. Physical dependence, meaning you have withdrawal symptoms when a medication is stopped, can develop within a few days. KNOW YOUR RESPONSIBILITIES It is important to know exactly how much and how often to take the opioid pain medications you are prescribed. Never take opioids in higher amounts or more often than prescribed. Do not combine opioids with alcohol or other drugs that cause drowsiness, such as benzodiazepines, also known as benzos, including diazepam and alprazolam, muscle relaxants or sleep aids. Never sell or share prescription opioids. This is illegal. Store opioids in a secure place and out of reach of others (including children, family, friends and visitors). The last page of this document has been signed and retained as a CHART COPY. Signatures Patient Education Materials General Anesthesia, Adult, Care After Ankle Arthroscopy, Care After Medication Leaflets My discharge plan and instructions have been reviewed and explained to me and I,EMILY NGUYEN understand my current condition and have read and understand these discharge instructions. I have received a written copy of the plan/instructions. If I have questions, I am aware that I should contact my doctor. 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 Author Type: Physician Nursing Home Admissions Director Type: Progress Notes Filed: 05/15/2024 16:16 Note Text: SUBJECTIVE Emily Nguyen is a 38 year old female here for Patient presents with: Blood Pressure Patient presents to the office for follow-up of blood pressure Is going to have right foot surgery Monday Required to have BP controlled prior to operation BP was 148/96 at last appt 05/09 Amlodipine was increased to 10 mg daily, makes her feel a little bit spacey but tolerable Usually takes her a couple weeks to adjust to meds Also on losartan 100 mg daily BP today is 120/76 Denies chest pain, headache, shortness of breath, changes in vision, heart palpitations, syncopal episodes, orthopnea, or edema. Recent labs were reviewed and discussed. B12 and vitamin D low Patient going to do B12 injections at home but needs needles sent to pharmacy to give IM Potassium returned to normal 4.4 on last labs HISTORIES FAMILY HISTORY Problem Relation Age of Onset Uterine Cancer Mother Diabetes Mother Hypertension Mother other (Osteoarthritis) Mother Diabetes Father Hypertension Father other (CHF) Father other (Osteoarthritis) Maternal Grandmother other (DEMENTIA) Paternal Grandmother Colon Cancer Paternal Grandfather 70 Muscular dystrophy Son Breast Cancer Maternal Aunt 30 - 39 Breast Cancer Maternal Aunt 30 - 39 Heart Maternal Uncle CABG Breast Cancer Other Maternal Great Aunt 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 Hiwot SUÁREZ 05/2013 device in fallopian tubes to sever them EXCISION GANGLION WRIST DORSAL/VOLAR PRIMARY Right wrist HYSTERECTOMY HX 2014 TRH with lysis of adhesions, without BSO LAP SLEEVE GASTRECTOMY 10/02/2018 NEUROPLASTY AND/TRANSPOS MEDIAN NRV CARPAL TUNNE Bilateral 02/16/2018 Bilateral carpal tunnel syndrome PAST SURGICAL HISTORY OF Right 10/02/2020 right knee scope with menisectomy, by Dr. Oreilly TONSILLECTOMY PRIMARY/SECONDARY UNSPECIFIED ORAL SURGERY PROCEDURE, BY REPORT impacted teeth Social History Tobacco Use Smoking status: Former Current packs/day: 0.00 Average packs/day: 0.2 packs/day for 5.0 years (1.0 ttl pk-yrs) Types: Cigarettes Start date: 2009 Quit date: 2015 Years since quittin.8 Smokeless tobacco: Never Vaping Use Vaping status: Never Used Substance Use Topics Alcohol use: Yes Comment: rare Drug use: No REVIEW OF SYSTEMS: Past medical history was reviewed and updated. Past surgical history was reviewed and updated. Family History: was reviewed and updated. Past social history was reviewed and updated. ROS negative unless otherwise stated in the HPI. PHYSICAL EXAMINATION: BP 120/76 Pulse 90 Temp 36.6 ?C (97.9 ?F) (Temporal) Wt 126 kg (277 lb 12.5 oz) LMP 02/21/2015 BMI 48.61 kg/m? General Appearance: well appearing, in no acute distress, alert, no palor, no jaundice, no lymphedenopathy Skin: Skin color, texture, turgor normal, no suspicious rashes or lesions Head: Normocephalic, no masses, lesions, tenderness or abnormalities Eyes: Anicteric sclera. Pupils are equally round and reactive to light. Extraocular movements are intact. Extremities: Normal exam of the extremities. No clubbing, cyanosis, or edema. Neurologic: Gait normal. cranial nerves and limbs exam is grossly intact. ASSESSMENT/PLAN: 1. Primary hypertension - ICD9: 401.9, ICD10: I10 (primary diagnosis) - Controlled - Continue current medications - Recommend home blood pressure monitoring, to bring results to next visit - Encouraged sodium restriction, DASH or Mediterranean diet - Recommend regular aerobic exercise - Follow up in 6 months or sooner if needed for hypertension visit - Pt cleared for surgery from cardiac standpoint 2. B12 deficiency - ICD9: 266.2, ICD10: E53.8 - Continue B12 injections once weekly for 4 weeks. Then increase to once monthly for 1 year. - SAFETY NEEDLES 25 GAUGE X 1 Joey Sloan PA-C [facility] 05-15-2024 History of Present illness Narrative SUBJECTIVE Emily Nguyen is a 38 year old female here for Patient presents with: Blood Pressure Patient presents to the office for follow-up of blood pressure Is going to have right foot surgery Monday Required to have BP controlled prior to operation BP was 148/96 at last appt 05/09 Amlodipine was increased to 10 mg daily, makes her feel a little bit spacey but tolerable Usually takes her a couple weeks to adjust to meds Also on losartan 100 mg daily BP today is 120/76 Denies chest pain, headache, shortness of breath, changes in vision, heart palpitations, syncopal episodes, orthopnea, or edema. Recent labs were reviewed and discussed. B12 and vitamin D low Patient going to do B12 injections at home but needs needles sent to pharmacy to give IM Potassium returned to normal 4.4 on last labs HISTORIES FAMILY HISTORY Problem Relation Age of Onset Uterine Cancer Mother Diabetes Mother Hypertension Mother other (Osteoarthritis) Mother Diabetes Father Hypertension Father other (CHF) Father other (Osteoarthritis) Maternal Grandmother other (DEMENTIA) Paternal Grandmother Colon Cancer Paternal Grandfather 70 Muscular dystrophy Son Breast Cancer Maternal Aunt 30 - 39 Breast Cancer Maternal Aunt 30 - 39 Heart Maternal Uncle CABG Breast Cancer Other Maternal Great Aunt 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 Hiwot SUÁREZ 05/2013 device in fallopian tubes to sever them EXCISION GANGLION WRIST DORSAL/VOLAR PRIMARY Right wrist HYSTERECTOMY HX 2014 TRH with lysis of adhesions, without BSO LAP SLEEVE GASTRECTOMY 10/02/2018 NEUROPLASTY &/TRANSPOS MEDIAN NRV CARPAL TUNNE Bilateral 02/16/2018 Bilateral carpal tunnel syndrome PAST SURGICAL HISTORY OF Right 10/02/2020 right knee scope with menisectomy, by Dr. Oreilly TONSILLECTOMY PRIMARY/SECONDARY <AGE 12 2001 UNSPECIFIED ORAL SURGERY PROCEDURE, BY REPORT impacted teeth Social History Tobacco Use Smoking status: Former Current packs/day: 0.00 Average packs/day: 0.2 packs/day for 5.0 years (1.0 ttl pk-yrs) Types: Cigarettes Start date: 2009 Quit date: 2015 Years since quittin.8 Smokeless tobacco: Never Vaping Use Vaping status: Never Used Substance Use Topics Alcohol use: Yes Comment: rare Drug use: No REVIEW OF SYSTEMS: Past medical history was reviewed and updated. Past surgical history was reviewed and updated. Family History: was reviewed and updated. Past social history was reviewed and updated. ROS negative unless otherwise stated in the HPI. PHYSICAL EXAMINATION: BP 120/76 Pulse 90 Temp 36.6 C (97.9 F) (Temporal) Wt 126 kg (277 lb 12.5 oz) LMP 02/21/2015 BMI 48.61 kg/m General Appearance: well appearing, in no acute distress, alert, no palor, no jaundice, no lymphedenopathy Skin: Skin color, texture, turgor normal, no suspicious rashes or lesions Head: Normocephalic, no masses, lesions, tenderness or abnormalities Eyes: Anicteric sclera. Pupils are equally round and reactive to light. Extraocular movements are intact. Extremities: Normal exam of the extremities. No clubbing, cyanosis, or edema. Neurologic: Gait normal. cranial nerves and limbs exam is grossly intact. ASSESSMENT/PLAN: 1. Primary hypertension - ICD9: 401.9, ICD10: I10 (primary diagnosis) - Controlled - Continue current medications - Recommend home blood pressure monitoring, to bring results to next visit - Encouraged sodium restriction, DASH or Mediterranean diet - Recommend regular aerobic exercise - Follow up in 6 months or sooner if needed for hypertension visit - Pt cleared for surgery from cardiac standpoint 2. B12 deficiency - ICD9: 266.2, ICD10: E53.8 - Continue B12 injections once weekly for 4 weeks. Then increase to once monthly for 1 year. - SAFETY NEEDLES 25 GAUGE X 1 Joey Sloan PA-C documented in this encounter [facility] 05-09-2024 Note HNO ID: [id number] Author: MARK BLOUNT MD Service: ? Author Type: Physician Type: Progress Notes Filed: 05/10/2024 11:51 Note Text: Chief complaint: Pt comes for BP check HPI: Pt comes for BP check, needs forms filled for surgical clearance Had pre anaesthesia check for her foot surgery. REVIEW OF SYSTEMS: CONSTITUTIONAL: No fevers, chills, nightsweats, unintended weight loss CARDIOVASCULAR: No chest pain, palpitations, orthopnea, PND, ankle edema. PULM: No dyspnea, unexplained cough. GI: No dysphagia/odynophagia, problematic reflux, constipation, diarrhea, changes in stool habits, hematochezia, melena. : No new urinary complaints, including dysuria, gross hematuria or pyuria. NEURO: No new balance problems INTEGUMENTARY: No new skin changes (rash, new or changing mole, new growth) PHYSICAL EXAMINATION: BP 148/96 Pulse 64 Temp 36.4 ?C (97.6 ?F) (Temporal) Wt 126.1 kg (278 lb) LMP 02/21/2015 BMI 48.65 kg/m? General appearance - alert, in no acute distress, well-hydrated, well nourished Skin - skin color, texture, turgor normal, no suspicious rashes or lesions Head - normal, normocephalic, no masses, lesions, tenderness or abnormalities Eyes - Anicteric sclera. Lungs - clear to auscultation, no wheezing or rhonchi Heart - RRR without murmur, gallop, or rubs. No ectopy Abdomen - Normal abdominal exam, Abdomen soft, non-tender. Bowel sounds normal. No masses, organomegaly Extremities - no edema Neuro - Gait normal. 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) heterozygous: carrier of a variant of uncertain significance Morbid obesity (HCC) Osteoarthritis of right knee TMJ disease Unspecified essential hypertension Social History Tobacco Use Smoking status: Former Current packs/day: 0.00 Average packs/day: 0.2 packs/day for 5.0 years (1.0 ttl pk-yrs) Types: Cigarettes Start date: 2009 Quit date: 2014 Years since quittin.8 Smokeless tobacco: Never Vaping Use Vaping status: Never Used Substance Use Topics Alcohol use: Yes Comment: rare Drug use: No FAMILY HISTORY Problem Relation Age of Onset Uterine Cancer Mother Diabetes Mother Hypertension Mother other (Osteoarthritis) Mother Diabetes Father Hypertension Father other (CHF) Father other (Osteoarthritis) Maternal Grandmother other (DEMENTIA) Paternal Grandmother Colon Cancer Paternal Grandfather 70 Muscular dystrophy Son Breast Cancer Maternal Aunt 30 - 39 Breast Cancer Maternal Aunt 30 - 39 Heart Maternal Uncle CABG Breast Cancer Other Maternal Great Aunt Latest Ref Rng 05/08/2024 Glucose 74 - 99 mg/dL 169 (H) BUN 7 - 21 mg/dL 10 Creatinine 0.58 - 0.96 mg/dL 0.75 Sodium 136 - 144 mmol/L 137 Potassium 3.7 - 5.1 mmol/L 4.4 Chloride 98 - 107 mmol/L 103 CO2 22 - 30 mmol/L 22 Anion Gap 8 - 15 mmol/L 12 Calcium 8.5 - 10.2 mg/dL 8.8 eGFR >=60 mL/min/1.73m? 103 Vitamin B12 232 - 1,245 pg/mL 226 (L) Vitamin D 25 Hydroxy 31.0 - 80.0 ng/mL 22.4 (L) TSH 0.270 - 4.200 mIU/L 1.370 Hep C Antibody IA Negative Negative Legend: (H) High (L) Low ASSESSMENT/PLAN: 1. Essential hypertension - ICD9: 401.9, ICD10: I10 (primary diagnosis) - Uncontrolled - Recommend home blood pressure monitoring, to bring results to next visit - Encouraged sodium restriction, DASH or Mediterranean diet - Recommend regular aerobic exercise - increase amlodipine to 10 mg daily Advised to see cardiology as BP still uncontrolled Repeat BP check in a week, target BP < 140/90 before surgery 2. B12 deficiency - ICD9: 266.2, ICD10: E53.8 Restart replacements 3. Vitamin D deficiency - ICD9: 268.9, ICD10: E55.9 Start replacements Makr Blount MD [facility] 05-09-2024 History of Present illness Narrative Chief complaint: Pt comes for BP check HPI: Pt comes for BP check, needs forms filled for surgical clearance Had pre anaesthesia check for her foot surgery. REVIEW OF SYSTEMS: CONSTITUTIONAL: No fevers, chills, nightsweats, unintended weight loss CARDIOVASCULAR: No chest pain, palpitations, orthopnea, PND, ankle edema. PULM: No dyspnea, unexplained cough. GI: No dysphagia/odynophagia, problematic reflux, constipation, diarrhea, changes in stool habits, hematochezia, melena. : No new urinary complaints, including dysuria, gross hematuria or pyuria. NEURO: No new balance problems INTEGUMENTARY: No new skin changes (rash, new or changing mole, new growth) PHYSICAL EXAMINATION: BP 148/96 Pulse 64 Temp 36.4 C (97.6 F) (Temporal) Wt 126.1 kg (278 lb) LMP 02/21/2015 BMI 48.65 kg/m General appearance - alert, in no acute distress, well-hydrated, well nourished Skin - skin color, texture, turgor normal, no suspicious rashes or lesions Head - normal, normocephalic, no masses, lesions, tenderness or abnormalities Eyes - Anicteric sclera. Lungs - clear to auscultation, no wheezing or rhonchi Heart - RRR without murmur, gallop, or rubs. No ectopy Abdomen - Normal abdominal exam, Abdomen soft, non-tender. Bowel sounds normal. No masses, organomegaly Extremities - no edema Neuro - Gait normal. 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) heterozygous: carrier of a variant of uncertain significance Morbid obesity (HCC) Osteoarthritis of right knee TMJ disease Unspecified essential hypertension Social History Tobacco Use Smoking status: Former Current packs/day: 0.00 Average packs/day: 0.2 packs/day for 5.0 years (1.0 ttl pk-yrs) Types: Cigarettes Start date: 2009 Quit date: 2014 Years since quittin.8 Smokeless tobacco: Never Vaping Use Vaping status: Never Used Substance Use Topics Alcohol use: Yes Comment: rare Drug use: No FAMILY HISTORY Problem Relation Age of Onset Uterine Cancer Mother Diabetes Mother Hypertension Mother other (Osteoarthritis) Mother Diabetes Father Hypertension Father other (CHF) Father other (Osteoarthritis) Maternal Grandmother other (DEMENTIA) Paternal Grandmother Colon Cancer Paternal Grandfather 70 Muscular dystrophy Son Breast Cancer Maternal Aunt 30 - 39 Breast Cancer Maternal Aunt 30 - 39 Heart Maternal Uncle CABG Breast Cancer Other Maternal Great Aunt Latest Ref Rng 05/08/2024 Glucose 74 - 99 mg/dL 169 (H) BUN 7 - 21 mg/dL 10 Creatinine 0.58 - 0.96 mg/dL 0.75 Sodium 136 - 144 mmol/L 137 Potassium 3.7 - 5.1 mmol/L 4.4 Chloride 98 - 107 mmol/L 103 CO2 22 - 30 mmol/L 22 Anion Gap 8 - 15 mmol/L 12 Calcium 8.5 - 10.2 mg/dL 8.8 eGFR >=60 mL/min/1.73m 103 Vitamin B12 232 - 1,245 pg/mL 226 (L) Vitamin D 25 Hydroxy 31.0 - 80.0 ng/mL 22.4 (L) TSH 0.270 - 4.200 mIU/L 1.370 Hep C Antibody IA Negative Negative Legend: (H) High (L) Low ASSESSMENT/PLAN: 1. Essential hypertension - ICD9: 401.9, ICD10: I10 (primary diagnosis) - Uncontrolled - Recommend home blood pressure monitoring, to bring results to next visit - Encouraged sodium restriction, DASH or Mediterranean diet - Recommend regular aerobic exercise - increase amlodipine to 10 mg daily Advised to see cardiology as BP still uncontrolled Repeat BP check in a week, target BP < 140/90 before surgery 2. B12 deficiency - ICD9: 266.2, ICD10: E53.8 Restart replacements 3. Vitamin D deficiency - ICD9: 268.9, ICD10: E55.9 Start replacements Mark Blount MD documented in this encounter [facility] 05-09-2024 Telephone encounter Note Non fasting labs Patient aware of rest of message [facility] 05-09-2024 Miscellaneous Notes Non fasting labs Patient aware of rest of message Left message on patients answering machine to call the office. Pl check if pt was fasting during labs. low vit d on labs; start replacements for 6 months and then advised 1000 units vit d throughout the year. Advised once a week B 12 shot for 4 weeks, then monthly B 12 for a yr due to low vit B 12 Patient's request for medication is as follows: Requested Prescriptions Signed Prescriptions Disp Refills ergocalciferol 50,000 unit capsule (VITAMIN D2, DRISDOL) 4 capsule 5 Sig: Take 1 capsule by mouth one time a week. Authorizing Provider: MARK BLOUNT Prescription(s) as above. Please process accordingly. Mark Blount MD documented in this encounter [facility] 05-09-2024 Telephone encounter Note Left message on patients answering machine to call the office. [facility] 05-09-[address] check if pt was fasting during labs. low vit d on labs; start replacements for 6 months and then advised 1000 units vit d throughout the year. Advised once a week B 12 shot for 4 weeks, then monthly B 12 for a yr due to low vit B 12 Patient's request for medication is as follows: Requested Prescriptions Signed Prescriptions Disp Refills ergocalciferol 50,000 unit capsule (VITAMIN D2, DRISDOL) 4 capsule 5 Sig: Take 1 capsule by mouth one time a week. Authorizing Provider: MARK BLOUNT Prescription(s) as above. Please process accordingly. Mark Blount MD [facility] 04-29-2024 Telephone encounter Note The prescription has been signed and sent to the patient's pharmacy on file. Thank you, nAn-Marie Borges PA-C [facility] 04-29-2024 Miscellaneous Notes The prescription has been signed and sent to the patient's pharmacy on file. Thank you, Ann-Marie Borges PA-C Patient sent a message via [employer] requesting the following refill: Requested Prescriptions Pending Prescriptions Disp Refills DULoxetine (CYMBALTA) 60 mg capsule 90 capsule 1 Sig: Take 1 capsule by mouth once daily. Script(s) will be E-script to pharmacy Future visits: 05/09/2024 Date of last office visit was: 04/22/24 The patients preferred pharmacy has been captured for this encounter? yes Name of preferred pharmacy: [facility] documented in this encounter [facility] 04-29-2024 Telephone encounter Note Patient sent a message via [employer] requesting the following refill: Requested Prescriptions Pending Prescriptions Disp Refills DULoxetine (CYMBALTA) 60 mg capsule 90 capsule 1 Sig: Take 1 capsule by mouth once daily. Script(s) will be E-script to pharmacy Future visits: 05/09/2024 Date of last office visit was: 04/22/24 The patients preferred pharmacy has been captured for this encounter? yes Name of preferred pharmacy: [facility] MA [facility] 04-22-2024 Note HNO ID: [id number] Author: MARK BLOUNT MD Service: ? Author Type: Physician Type: Progress Notes Filed: 04/23/2024 13:04 Note Text: Chief complaint: medical clearance HPI: Pt comes for BP f/u. Going for rt ankle surgery next month , needs surgical clearance. Has tendon repair surgery planned , pt to provide info about surgery. Diet is not the best and has not been exercising due to mod to severe pain in rt ankle. Needs valtrex refilled for recurrent herpes 2 infection. No active flares of herpes at present. Tired often and is a chronic issue. REVIEW OF SYSTEMS: CONSTITUTIONAL: No fevers, chills, nightsweats, unintended weight loss CARDIOVASCULAR: No chest pain, palpitations, orthopnea, PND, ankle edema. PULM: No dyspnea, unexplained cough. GI: No dysphagia/odynophagia, problematic reflux, constipation, diarrhea, changes in stool habits, hematochezia, melena. : No new urinary complaints, including dysuria, gross hematuria or pyuria. INTEGUMENTARY: No new skin changes (rash, new or changing mole, new growth) PHYSICAL EXAMINATION: BP 158/107 (BP Site: Right Arm) Pulse 69 Temp 37 ?C (98.6 ?F) (Left Tympanic) Wt 127.6 kg (281 lb 4.9 oz) LMP 02/21/2015 SpO2 97% BMI 49.23 kg/m? General appearance - alert, in no acute distress Eyes - Anicteric sclera. Lungs - clear to auscultation, no wheezing or rhonchi Heart - RRR without murmur, gallop, or rubs. No ectopy Abdomen - Normal abdominal exam, Abdomen soft, non-tender. Bowel sounds normal. 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) heterozygous: carrier of a variant of uncertain significance Morbid obesity (HCC) Osteoarthritis of right knee TMJ disease Unspecified essential hypertension Social History Tobacco Use Smoking status: Former Current packs/day: 0.00 Average packs/day: 0.2 packs/day for 5.0 years (1.0 ttl pk-yrs) Types: Cigarettes Start date: 2009 Quit date: 2014 Years since quittin.7 Smokeless tobacco: Never Vaping Use Vaping status: Never Used Substance Use Topics Alcohol use: Yes Comment: rare Drug use: No FAMILY HISTORY Problem Relation Age of Onset Uterine Cancer Mother Diabetes Mother Hypertension Mother other (Osteoarthritis) Mother Diabetes Father Hypertension Father other (CHF) Father other (Osteoarthritis) Maternal Grandmother other (DEMENTIA) Paternal Grandmother Colon Cancer Paternal Grandfather 70 Muscular dystrophy Son Breast Cancer Maternal Aunt 30 - 39 Breast Cancer Maternal Aunt 30 - 39 Heart Maternal Uncle CABG Breast Cancer Other Maternal Great Aunt ASSESSMENT/PLAN: 1. Primary hypertension - ICD9: 401.9, ICD10: I10 (primary diagnosis) - Uncontrolled - Continue current medications, add amlodipine - Recommend home blood pressure monitoring, to bring results to next visit - Encouraged sodium restriction, DASH or Mediterranean diet - Recommend regular aerobic exercise - Follow up in 2 weeks for hypertension visit 2. Herpes simplex type II infection - ICD9: 054.9, ICD10: B00.9 Refilled - VALACYCLOVIR 1 GRAM TABLET 3. Encounter for immunization - ICD9: V03.89, ICD10: Z23 - INFLUENZA VACCINE, AGE 6MO-64YR, TRIVALENT (AFLURIA, FLULAVAL, FLUVIRIN, FLUZONE) 4(R53.83) Tired Plan: VITAMIN B12, VITAMIN D 25 HYDROXY, THYROID STIMULATING HORMONE 5(Z11.59) Special screening examination for viral disease Plan: HEPATITIS C ANTIBODY IA WITH CONFIRMATION 6(Z01.810) Encounter for pre-operative cardiovascular clearance Pt to see preop for now and send us forms after seeing preop Mark Blount MD [facility] 04-22-2024 History of Present illness Narrative Chief complaint: medical clearance HPI: Pt comes for BP f/u. Going for rt ankle surgery next month , needs surgical clearance. Has tendon repair surgery planned , pt to provide info about surgery. Diet is not the best and has not been exercising due to mod to severe pain in rt ankle. Needs valtrex refilled for recurrent herpes 2 infection. No active flares of herpes at present. Tired often and is a chronic issue. REVIEW OF SYSTEMS: CONSTITUTIONAL: No fevers, chills, nightsweats, unintended weight loss CARDIOVASCULAR: No chest pain, palpitations, orthopnea, PND, ankle edema. PULM: No dyspnea, unexplained cough. GI: No dysphagia/odynophagia, problematic reflux, constipation, diarrhea, changes in stool habits, hematochezia, melena. : No new urinary complaints, including dysuria, gross hematuria or pyuria. INTEGUMENTARY: No new skin changes (rash, new or changing mole, new growth) PHYSICAL EXAMINATION: BP 158/107 (BP Site: Right Arm) Pulse 69 Temp 37 C (98.6 F) (Left Tympanic) Wt 127.6 kg (281 lb 4.9 oz) LMP 02/21/2015 SpO2 97% BMI 49.23 kg/m General appearance - alert, in no acute distress Eyes - Anicteric sclera. Lungs - clear to auscultation, no wheezing or rhonchi Heart - RRR without murmur, gallop, or rubs. No ectopy Abdomen - Normal abdominal exam, Abdomen soft, non-tender. Bowel sounds normal. 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 Morbid obesity (HCC) Osteoarthritis of right knee TMJ disease Unspecified essential hypertension Social History Tobacco Use Smoking status: Former Current packs/day: 0.00 Average packs/day: 0.2 packs/day for 5.0 years (1.0 ttl pk-yrs) Types: Cigarettes Start date: 2009 Quit date: 2014 Years since quittin.7 Smokeless tobacco: Never Vaping Use Vaping status: Never Used Substance Use Topics Alcohol use: Yes Comment: rare Drug use: No FAMILY HISTORY Problem Relation Age of Onset Uterine Cancer Mother Diabetes Mother Hypertension Mother other (Osteoarthritis) Mother Diabetes Father Hypertension Father other (CHF) Father other (Osteoarthritis) Maternal Grandmother other (DEMENTIA) Paternal Grandmother Colon Cancer Paternal Grandfather 70 Muscular dystrophy Son Breast Cancer Maternal Aunt 30 - 39 Breast Cancer Maternal Aunt 30 - 39 Heart Maternal Uncle CABG Breast Cancer Other Maternal Great Aunt ASSESSMENT/PLAN: 1. Primary hypertension - ICD9: 401.9, ICD10: I10 (primary diagnosis) - Uncontrolled - Continue current medications, add amlodipine - Recommend home blood pressure monitoring, to bring results to next visit - Encouraged sodium restriction, DASH or Mediterranean diet - Recommend regular aerobic exercise - Follow up in 2 weeks for hypertension visit 2. Herpes simplex type II infection - ICD9: 054.9, ICD10: B00.9 Refilled - VALACYCLOVIR 1 GRAM TABLET 3. Encounter for immunization - ICD9: V03.89, ICD10: Z23 - INFLUENZA VACCINE, AGE 6MO-64YR, TRIVALENT (AFLURIA, FLULAVAL, FLUVIRIN, FLUZONE) 4(R53.83) Tired Plan: VITAMIN B12, VITAMIN D 25 HYDROXY, THYROID STIMULATING HORMONE 5(Z11.59) Special screening examination for viral disease Plan: HEPATITIS C ANTIBODY IA WITH CONFIRMATION 6(Z01.810) Encounter for pre-operative cardiovascular clearance Pt to see preop for now and send us forms after seeing preop Mark Blount MD documented in this encounter [facility] 04-15-2024 Note HNO ID: [id number] Author: THANIA ELI APRN.COM[employer]ATION WELDER Service: ? Author Type: Nurse Practitioner Type: Progress Notes Filed: 04/15/2024 14:53 Note Text: Subjective The history is provided by the patient. No lining marker was used. HPI Emily Nguyen is a 38 year old female who presents today for CC of right foot/ankle swelling and pain. This started over a month ago, seems worse today. She has been evaluated by podiatry and was told she has some torn tendons from an MRI, may be needing surgery. She has a walking boot and has not been using it. She denies any new injury or trauma. BP 146/94 Pulse 72 Resp 16 Wt 123.9 kg (273 lb 2.4 oz) LMP 02/21/2015 SpO2 97% BMI 47.80 kg/m? 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 Musculoskeletal: Positive for joint pain (right ankle). Negative for myalgias. Skin: Negative for itching and rash. All other systems reviewed and are negative. Objective Physical Exam Vitals and nursing note reviewed. Cardiovascular: Pulses: Dorsalis pedis pulses are 2+ on the right side and 2+ on the left side. Posterior tibial pulses are 2+ on the right side and 2+ on the left side. Pulmonary: Effort: Pulmonary effort is normal. Musculoskeletal: Right ankle: Swelling present. No deformity, ecchymosis or lacerations. Tenderness present over the ATF ligament. No lateral malleolus tenderness. Decreased range of motion. Anterior drawer test negative. Normal pulse. Right Achilles Tendon: Normal. Left ankle: Normal. Left Achilles Tendon: Normal. Legs: Skin: General: Skin is warm and dry. Neurological: Mental Status: She is alert and oriented to person, place, and time. Sensory: Sensation is intact. Psychiatric: Mood and Affect: Affect normal. ASSESSMENT/PLAN: 1. Strain of right ankle, subsequent encounter - ICD9: V58.89, 845.00, ICD10: S96.911D RICE Advise to wear boot, follow up with podiatry to further treatment and evaluation. Diagnosis and treatment plan were discussed and questions were answered to the patient's satisfaction. Pt acknowledged understanding of concepts and follow up plan. Specific signs and symptoms that would indicate the need for higher level of care were discussed in detail warranting prompt ER evaluation. Thania Eli APRN.[facility] 04-15-2024 History of Present illness Narrative Images from the original note were not included. Subjective The history is provided by the patient. No lining marker was used. CAYETANO Nguyen is a 38 year old female who presents today for CC of right foot/ankle swelling and pain. This started over a month ago, seems worse today. She has been evaluated by podiatry and was told she has some torn tendons from an MRI, may be needing surgery. She has a walking boot and has not been using it. She denies any new injury or trauma. BP 146/94 Pulse 72 Resp 16 Wt 123.9 kg (273 lb 2.4 oz) LMP 02/21/2015 SpO2 97% BMI 47.80 kg/m Social History Tobacco Use Smoking status: Former Current packs/day: 0.00 Average packs/day: 0.2 packs/day for 5.0 years (1.0 ttl pk-yrs) Types: Cigarettes Start date: 2009 Quit date: 2014 Years since quittin.7 Smokeless tobacco: Never Vaping Use Vaping status: Never Used Substance Use Topics Alcohol use: Yes Comment: rare Drug use: No 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 Musculoskeletal: Positive for joint pain (right ankle). Negative for myalgias. Skin: Negative for itching and rash. All other systems reviewed and are negative. Objective Physical Exam Vitals and nursing note reviewed. Cardiovascular: Pulses: Dorsalis pedis pulses are 2+ on the right side and 2+ on the left side. Posterior tibial pulses are 2+ on the right side and 2+ on the left side. Pulmonary: Effort: Pulmonary effort is normal. Musculoskeletal: Right ankle: Swelling present. No deformity, ecchymosis or lacerations. Tenderness present over the ATF ligament. No lateral malleolus tenderness. Decreased range of motion. Anterior drawer test negative. Normal pulse. Right Achilles Tendon: Normal. Left ankle: Normal. Left Achilles Tendon: Normal. Legs: Skin: General: Skin is warm and dry. Neurological: Mental Status: She is alert and oriented to person, place, and time. Sensory: Sensation is intact. Psychiatric: Mood and Affect: Affect normal. ASSESSMENT/PLAN: 1. Strain of right ankle, subsequent encounter - ICD9: V58.89, 845.00, ICD10: S96.911D RICE Advise to wear boot, follow up with podiatry to further treatment and evaluation. Diagnosis and treatment plan were discussed and questions were answered to the patient's satisfaction. Pt acknowledged understanding of concepts and follow up plan. Specific signs and symptoms that would indicate the need for higher level of care were discussed in detail warranting prompt ER evaluation. Thania Eli APRN.JOSEFINA documented in this encounter [facility] 03-19-2024 Telephone encounter Note Patient's request for medication is as follows: Requested Prescriptions Signed Prescriptions Disp Refills acetaminophen 325 mg-caffeine 40 mg-butalbital 50 mg (FIORICET) per tablet 10 tablet 0 Sig: Take 1 tablet by mouth every 4 hours as needed for up to 10 days. Prescription(s) as above. Please process accordingly. Mark Blount MD [facility] 03-19-2024 Miscellaneous Notes Patient's request for medication is as follows: Requested Prescriptions Signed Prescriptions Disp Refills acetaminophen 325 mg-caffeine 40 mg-butalbital 50 mg (FIORICET) per tablet 10 tablet 0 Sig: Take 1 tablet by mouth every 4 hours as needed for up to 10 days. Prescription(s) as above. Please process accordingly. Mark Blount MD Requested Prescriptions Pending Prescriptions Disp Refills acetaminophen 325 mg-caffeine 40 mg-butalbital 50 mg (FIORICET) per tablet 10 tablet 0 Sig: Take 1 tablet by mouth every 4 hours as needed for up to 10 days. Next Appt: 04/18/2024 documented in this encounter [facility] 03-19-2024 Telephone encounter Note Requested Prescriptions Pending Prescriptions Disp Refills acetaminophen 325 mg-caffeine 40 mg-butalbital 50 mg (FIORICET) per tablet 10 tablet 0 Sig: Take 1 tablet by mouth every 4 hours as needed for up to 10 days. Next Appt: 04/18/2024 [facility] 02-26-2024 Telephone encounter Note Patient's request for medication is as follows: Requested Prescriptions Signed Prescriptions Disp Refills buPROPion SR (WELLBUTRIN SR) 150 mg 12 hr tablet 60 tablet 11 Sig: Take 1 tablet by mouth two times a day. Authorizing Provider: JOEY SLOAN Prescription(s) as above. Please process accordingly. Joey Sloan PA-C [facility] 02-26-2024 Miscellaneous Notes Patient's request for medication is as follows: Requested Prescriptions Signed Prescriptions Disp Refills buPROPion SR (WELLBUTRIN SR) 150 mg 12 hr tablet 60 tablet 11 Sig: Take 1 tablet by mouth two times a day. Authorizing Provider: JOEY SLOAN Prescription(s) as above. Please process accordingly. Joey Sloan PA-C Patient sent [email or web address] message requesting refills be escript to pharmacy. Pharmacy verified/updated Last Appt: 09/20/2023 Next Appt: 03/26/2024 Requested Prescriptions Pending Prescriptions Disp Refills buPROPion SR (WELLBUTRIN SR) 150 mg 12 hr tablet 60 tablet 5 Sig: Take 1 tablet by mouth two times a day. Xochitl Louise MA documented in this encounter [facility] 02-26-2024 Telephone encounter Note Patient sent [email or web address] message requesting refills be escript to pharmacy. Pharmacy verified/updated Last Appt: 09/20/2023 Next Appt: 03/26/2024 Requested Prescriptions Pending Prescriptions Disp Refills buPROPion SR (WELLBUTRIN SR) 150 mg 12 hr tablet 60 tablet 5 Sig: Take 1 tablet by mouth two times a day. Xochitl Louise MA [facility] 02-13-2024 Hospital Discharge instructions Patient Education 02/13/2024 19:10:25 Ankle Sprain (Adult) Ankle Sprain (Adult) An ankle sprain is a stretching or tearing of the ligaments that hold the ankle joint together. There are no broken bones. An ankle sprain is a common injury for both children and adults. It happens when the ankle turns, twists, or rolls in an awkward way. This can be caused by a sports injury. Or it can happen from doing something as simple as stepping on an uneven surface. Ligaments are made of tough connective tissue. Normally, ligaments stretch a certain amount and then go back to their normal place. A sprain happens when a ligament is forced to stretch more than the normal amount. A severe sprain can actually tear the ligaments. If you have a severe sprain, you may have felt or heard something like a pop when you were injured. Ankle sprains are given a grade depending on whether they are mild, moderate, or severe: Grade 1 sprain. A mild sprain with minor stretching and damage to the ligament. Grade 2 sprain. A moderate sprain where the ligament is partly torn. Grade 3 sprain. The most severe kind of sprain. The ligament is completely torn. Most sprains take about 4 to 6 weeks to heal. A severe sprain can take several months to recover. Your healthcare provider may order X-rays to be sure you don t have a fracture, or broken bone. The injured area will feel sore. Swelling and pain may make it hard to walk. You may need crutches if walking is painful. Or your provider may have you use a cast boot or air splint. This will depend on the grade of ankle sprain that you have. Home care For a Grade 1 sprain, use RICE (rest, ice, compression, and elevation): Rest your ankle. Don t walk on it. Ice should be used right away to help control swelling. Place an ice pack over the injured area for 20 minutes. Do this every 3 to 6 hours for the first 24 to 48 hours. Keep using ice packs to ease pain and swelling as needed. To make an ice pack, put ice cubes in a plastic bag that seals at the top. Wrap the bag in a clean, thin towel or cloth. Never put ice or an ice pack directly on the skin. The ice pack can be put right on the cast, bandage, or splint. As the ice melts, be careful that the cast, bandage, or splint doesn t get wet. If you have a boot, open it to apply an ice pack, unless told otherwise by your provider. Compression devices help to control swelling. They also keep the ankle from moving and support your injured ankle. These devices include dressings, bandages, and wraps. Elevate or raise your ankle above the level of your heart when sitting or lying down. This is very important for the first 48 hours. Follow the RICE guidelines for a Grade 2 sprain. This type of sprain will take longer to heal. Your provider may have you wear a splint, cast, or brace to keep your ankle from moving. If you have a Grade 3 sprain, you are at risk for long-term ankle instability. In rare cases, surgery may be needed. Your provider may have you wear a short leg cast or a walking boot for 2 to 3 weeks. After 48 hours, it may be helpful to apply heat for 20 minutes several times a day. You can do this with a heating pad or warm compress. Or you may want to go back and forth between using ice and heat. Never apply heat directly to the skin. Always wrap the heating pad or warm compress in a clean, thin towel or cloth. You may use yzkn-nnk-vhduzzb pain medicine (NSAIDS or nonsteroidal anti-inflammatory drugs) to control pain, unless another pain medicine was prescribed. Talk with your provider before using these medicines if you have chronic liver or kidney disease, or have ever had a stomach ulcer or gastrointestinal bleeding. Follow any rehabilitation exercises your provider gives you. These can help you be more flexible and improve your balance and coordination. This is helpful in preventing long-term ankle problems. Prevention To help prevent ankle sprains, it s important to have good strength, balance, and flexibility. Be sure to: Always warm up before you exercise or do something very active Be careful when walking or running on uneven or cracked surfaces Wear shoes that are in good condition and fit well Listen to your body s signals to slow down when you are in pain or tired Follow-up care Any X-rays you had today don t show any broken bones, breaks, or fractures. Sometimes fractures don t show up on the first X-ray. Bruises and sprains can sometimes hurt as much as a fracture. These injuries can take time to heal completely. If your symptoms don t get better or they get worse, talk with your healthcare provider. You may need a repeat X-ray. Follow up with your healthcare provider, or as advised. Check for any warning signs listed below. When to seek medical advice Call your healthcare provider right away if any of these occur: Fever of 100.4 F (38 C) or higher, or as directed by your healthcare provider Chills The injury doesn t seem to be healing The swelling comes back The cast or splint has a bad smell The plaster cast or splint gets wet or soft The fiberglass cast or splint gets wet and does not dry for 24 hours The pain or swelling increases, or redness appears Your toes become cold, blue, numb, or tingly The skin is discolored (looks blue, purple, or pro), has blisters, or is irritated You re-injure your ankle [id number] [employer]. [address] [place] [address]. All rights reserved. This information is not intended as a substitute for professional medical care. Always follow your healthcare professional's instructions. Follow Up Care 02/13/2024 18:45:07 With:Go to emergency room if symptoms worsen Address:Unknown When:2-4 days With:QUE MATSON DPM, Surgery Address: [address] [place] [address], [address] [facility] [place] [address]- When:2-4 days [facility] 02-13-2024 Note Discharge Instructions Thank you for allowing [facility] to assist you with your healthcare needs. The following is important discharge information regarding your hospital visit. Diagnosis from Today's Visit Ankle pain Hypertension What to Do Next Instructions from Your Care Team Take Percocet only as needed for severe pain. Not exceed recommended dose. Do not take Percocet before operating heavy machinery. Call Dr. matson tomorrow for follow-up. Continue wearing walking boot recommends crutches/nonweightbearing until follow-up with Dr. Matson pain. Return to the emergency department if you have worsening symptoms or any other care concern. Your blood pressure was elevated here we did discuss options however you have elected to follow-up with your doctor and I would recommend continue monitoring her blood pressure continually elevated with call your primary care doctor immediately. Return to emergency department if you start to have symptoms, chest pain, difficulty breathing, significantly elevated blood pressures, or any other care concern. No qualifying data available. Post Acute Orders No qualifying data available. You Need to Schedule the Following Appointments Follow Up with Go to emergency room if symptoms worsen When:Within 2-4 days Follow Up with QUE MATSON DPM, Surgery When:Within 2-4 days Where:[address] [facility], [address] [facility] [place] [address]- Allergies ESPERANZA inhibitors C/O - cough Amoxil Rash Medications Please ask your primary doctor or pharmacist before taking any other medication not listed, including over the counter drugs, herbal medications, vitamins and or supplements as they may interact with your home medications. What How Much When Why Instructions Last Dose New acetaminophen-oxyCODONE (Percocet 5 mg-325 mg oral tablet) 1 tab(s) by mouth Every 6 hours as needed for for pain Ankle pain Duration: 3 Days Printed Prescription Unchanged buPROPion (buPROPion 150 mg/ 24 hours (XL) oral tablet, extended release) 1 tab(s) by mouth Every 24 hours Unchanged DULoxetine (DULoxetine 60 mg oral delayed release capsule) 1 cap by mouth Once a day Unchanged traZODone (traZODone 100 mg oral tablet) 1 tab(s) by mouth Daily at bedtime Please take this list to your next doctor s visit. Bring all medications you take, including over the counter medications, herbals and other supplements with you to your doctor s visit. Patients and families are reminded to discard old lists and to update any records with all medication providers or retail pharmacies. Education Materials Ankle Sprain (Adult) An ankle sprain is a stretching or tearing of the ligaments that hold the ankle joint together. There are no broken bones. An ankle sprain is a common injury for both children and adults. It happens when the ankle turns, twists, or rolls in an awkward way. This can be caused by a sports injury. Or it can happen from doing something as simple as stepping on an uneven surface. Ligaments are made of tough connective tissue. Normally, ligaments stretch a certain amount and then go back to their normal place. A sprain happens when a ligament is forced to stretch more than the normal amount. A severe sprain can actually tear the ligaments. If you have a severe sprain, you may have felt or heard something like a pop when you were injured. Ankle sprains are given a grade depending on whether they are mild, moderate, or severe: Grade 1 sprain. A mild sprain with minor stretching and damage to the ligament. Grade 2 sprain. A moderate sprain where the ligament is partly torn. Grade 3 sprain. The most severe kind of sprain. The ligament is completely torn. Most sprains take about 4 to 6 weeks to heal. A severe sprain can take several months to recover. Your healthcare provider may order X-rays to be sure you don t have a fracture, or broken bone. The injured area will feel sore. Swelling and pain may make it hard to walk. You may need crutches if walking is painful. Or your provider may have you use a cast boot or air splint. This will depend on the grade of ankle sprain that you have. Home care For a Grade 1 sprain, use RICE (rest, ice, compression, and elevation): Rest your ankle. Don t walk on it. Ice should be used right away to help control swelling. Place an ice pack over the injured area for 20 minutes. Do this every 3 to 6 hours for the first 24 to 48 hours. Keep using ice packs to ease pain and swelling as needed. To make an ice pack, put ice cubes in a plastic bag that seals at the top. Wrap the bag in a clean, thin towel or cloth. Never put ice or an ice pack directly on the skin. The ice pack can be put right on the cast, bandage, or splint. As the ice melts, be careful that the cast, bandage, or splint doesn t get wet. If you have a boot, open it to apply an ice pack, unless told otherwise by your provider. Compression devices help to control swelling. They also keep the ankle from moving and support your injured ankle. These devices include dressings, bandages, and wraps. Elevate or raise your ankle above the level of your heart when sitting or lying down. This is very important for the first 48 hours. Follow the RICE guidelines for a Grade 2 sprain. This type of sprain will take longer to heal. Your provider may have you wear a splint, cast, or brace to keep your ankle from moving. If you have a Grade 3 sprain, you are at risk for long-term ankle instability. In rare cases, surgery may be needed. Your provider may have you wear a short leg cast or a walking boot for 2 to 3 weeks. After 48 hours, it may be helpful to apply heat for 20 minutes several times a day. You can do this with a heating pad or warm compress. Or you may want to go back and forth between using ice and heat. Never apply heat directly to the skin. Always wrap the heating pad or warm compress in a clean, thin towel or cloth. You may use ento-pur-lxordxp pain medicine (NSAIDS or nonsteroidal anti-inflammatory drugs) to control pain, unless another pain medicine was prescribed. Talk with your provider before using these medicines if you have chronic liver or kidney disease, or have ever had a stomach ulcer or gastrointestinal bleeding. Follow any rehabilitation exercises your provider gives you. These can help you be more flexible and improve your balance and coordination. This is helpful in preventing long-term ankle problems. Prevention To help prevent ankle sprains, it s important to have good strength, balance, and flexibility. Be sure to: Always warm up before you exercise or do something very active Be careful when walking or running on uneven or cracked surfaces Wear shoes that are in good condition and fit well Listen to your body s signals to slow down when you are in pain or tired Follow-up care Any X-rays you had today don t show any broken bones, breaks, or fractures. Sometimes fractures don t show up on the first X-ray. Bruises and sprains can sometimes hurt as much as a fracture. These injuries can take time to heal completely. If your symptoms don t get better or they get worse, talk with your healthcare provider. You may need a repeat X-ray. Follow up with your healthcare provider, or as advised. Check for any warning signs listed below. When to seek medical advice Call your healthcare provider right away if any of these occur: Fever of 100.4 F (38 C) or higher, or as directed by your healthcare provider Chills The injury doesn t seem to be healing The swelling comes back The cast or splint has a bad smell The plaster cast or splint gets wet or soft The fiberglass cast or splint gets wet and does not dry for 24 hours The pain or swelling increases, or redness appears Your toes become cold, blue, numb, or tingly The skin is discolored (looks blue, purple, or pro), has blisters, or is irritated You re-injure your ankle [id number] [employer] [address] [place] [address], [place] [address]. All rights reserved. This information is not intended as a substitute for professional medical care. Always follow your healthcare professional's instructions. Additional Information VACCINATE! IT SAVES LIVES! Members of the community who have not yet received the COVID-19 vaccine and would like to receive it can visit one of [facility] vaccine clinics. There are many vaccine clinic locations within the [facility]. For locations and available times, please visit [email or web address] It is important to note that some COVID mobile vaccine clinics are held outdoors and may be canceled in rainy or stormy conditions. To learn more about pediatric vaccinations (ages 5-11), we invite you to visit the [facility] webpage. [email or web address] To learn more about the COVID-19 vaccine, we invite you to visit the CDC website for a list of frequently asked questions. https://www.cdc.gov/coronavirus/ 2019-ncov/vaccines/faq.html [facility] Patient Portal Access Instructions: Stay connected with your healthcare team and access your personal medical information anytime with the [facility] Patient Portal. If you would like a full copy of your medical records please contact the [facility] Medical Records Department Monday through Monday between 8a.m. and 4:30p.m. Please follow the directions below to access the portal: 1.Access the email account you provided upon registration to the hospital.2.Look for an invitation email from [facility].3.Open the email and access the invitation link: Accept Invitation to [facility].Fill in the required diego to create your account. Sign into [email or web address] with your username and password that you created in the above steps to stay up to date. You can then view a summary of results, a summary of your visits, and the ability to download your summaries to your computer or send the information securely to a physician. Remember that your healthcare information is confidential, so carefully consider who you will allow to register on the [facility] Patient Portal for access to your information. You can also access the [facility] Patient Portal on the [employer] Simply click on Health Records under Health Data and then click on the youmag logo. HOW TO SAFELY DISPOSE OF PRESCRIPTION MEDICATIONS Please use one of the following methods to safely dispose of your unused medications. 1.Use a drug disposal kit: the drug disposal pouch allows you to safely discard your old and unused drugs. Ask your nurse to give you one when you are discharged.2.Visit a local take-back location: Many local pharmacies and police departments have programs that collect old and unwanted prescription drugs. Call your local pharmacy or go to http://[employer].Gravy/5P5Ma2b to find one close to you.3.Make use of household items: Use cat litter or old coffee grounds to dispose medications if other options are not available. Mix your drugs with these household products, seal them in an airtight container and throw it into the garbage. Call [facility]: [phone] to be sure your drugs can be disposed of in this way. Some medicines may require a different approach.4.Never flush your medications down the toilet. IF YOU HAVE BEEN PRESCRIBED AN OPIOIDS FOR PAIN If you have been prescribed an opioid (such as hydrocodone, oxycodone or morphine), it is critical to understand the possible side effects and risks of opioid pain medications. Even when taken as directed, opioids can have several side effects including: Tolerance, meaning you might need to take more of a medication for the same pain relief. Nausea, vomiting and/or constipation. Sleepiness, dizziness, dry mouth, confusion, depression or itching. Physical dependence, meaning you have withdrawal symptoms when a medication is stopped ? this can develop within a few days. KNOW YOUR RESPONSIBILITIES It is important to know exactly how much and how often to take the opioid pain medications you are prescribed. Never take opioids in higher amounts or more often than prescribed. Do not combine opioids with alcohol or other drugs that cause drowsiness, such as benzodiazepines, also known as benzos, including diazepam and alprazolam, muscle relaxants or sleep aids. Never sell or share prescription opioids. This is illegal. Store opioids in a secure place and out of reach of others (including children, family, friends and visitors). The last page(s) of this document has been signed and retained as a CHART COPY Signatures Patient Education Materials Ankle Sprain (Adult) Medication Leaflets My discharge plan and instructions have been reviewed and explained to me and I,FEIMARLYSEWAE Mary understand my current condition and have read and understand these discharge instructions. I have received a written copy of the plan/instructions. If I have questions, I am aware that I should contact my doctor. 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: Date/Time: Relationship to Patient: Witness Name/Signature: Date/Time: [facility] 02-12-2024 Note ORIGINAL EXAMINATION: MRI OF THE RIGHT ANKLE WITHOUT CONTRAST, 02/12/2024 2:10 pm TECHNIQUE: Multiplanar multisequence MRI of the right ankle was performed without the administration of intravenous contrast. COMPARISON: Radiograph dated 01/04/2024 HISTORY: ORDERING SYSTEM PROVIDED HISTORY: Reason for Exam: Nondisplaced fracture of posterior process of right talus, initial encounter for closed fracture FINDINGS: Diffuse subcutaneous edema surrounding the ankle joint. Os trigonum. Trace tibiotalar joint fluid. Tiny ganglion cyst at the dorsal inter cuneiform joint measuring 0.4 cm (series 8, image 12). The Lisfranc ligament is intact. The Achilles tendon is intact. Thickening of the distal Achilles tendon suggesting tendinosis. Trace retrocalcaneal bursitis and edema within Kager's fat pad. Borderline thickening of the proximal plantar fascia at the calcaneal origin suggesting chronic plantar fasciitis. Plantar and retrocalcaneal enthesopathy . The anterior extensor tendons are intact. Thickening and attenuation of the posterior tibial tendon, posterior tibial tendinosis. The flexor digitorum is intact. The flexor hallucis longus tendon is intact. Mild retro malleolar tenosynovitis of the medial flexor tendons. Tendinosis and tenosynovitis of the peroneal tendons. Infra malleolar split tear of the peroneus brevis (series 6, image 14). High-grade sprain/partial tear of the anterior talofibular ligament. Sprain of the calcaneofibular ligament. Mild sprain of the posterior talofibular ligament which is intact. The interosseous, anterior tibiofibular and posterior tibiofibular ligaments are intact. Attenuation of the deep and superficial fibers of the deltoid ligament with partial tearing. Severely thickened and attenuated superomedial band of the spring ligament. There is bone marrow edema/contusion along the medial aspect of the talus and medial navicular. The calcaneal navicular band of the bifurcate ligament is intact. There is mild sprain/partial tear of the calcaneal cuboid band of the bifurcate ligament (series 8, image 9) with reactive subchondral bone marrow edema at the dorsal calcaneocuboid joint with small cortical irregularity cannot exclude a small avulsion fracture. Sprain of the plantar calcaneocuboid ligament. sprain and partial tear of lateral calcaneocuboid ligament. There is some cortical irregularity at its attachment onto the lateral aspect of the cuboid for which small avulsion cannot be excluded. Increased T2 signal/edema and strain within the extensor digitorum brevis muscle (series 5, image 13). No soft tissue mass is present within the tarsal tunnel or sinus tarsi. IMPRESSION: Acute multi ligamentous ankle injury with significant edema. Posterior tibial tendinosis. Attenuation of the deep and superficial fibers of the deltoid ligament with high-grade partial tearing of the deep fibers and moderate sprain of the superficial fibers. Thickening and sprain of the superomedial band of the spring ligament. Adjacent bone marrow edema/contusion along the medial aspect of the talus and medial navicular. Tendinosis and tenosynovitis of the peroneal tendons with infra malleolar split tear of the peroneus brevis. High-grade sprain/partial tear of the ATFL. Moderate sprain of the CFL. Mild sprain of the PT FL. Acute midfoot (Charcot) sprain. Sprain/partial tear of the bifurcate ligament calcaneocuboid band with reactive subchondral bone marrow edema and small cortical irregularity at the dorsal calcaneocuboid joint, possibly small avulsion fracture of the dorsal anterior calcaneus and lateral cuboid. Sprain of the plantar calcaneocuboid ligament. Sprain and partial tear of the lateral calcaneocuboid ligament. Increased T2 signal/strain of the extensor digitorum brevis muscle. Additional incidental findings as above. Interpreted by: Shagufta Sage Preliminary Report By: Shagufta Sage Electronically signed By Shagufta Sage Dictated Date: 02/12/2024 2:21:25 PM Prelim Date: 02/12/2024 3:49:34 PM Sign Date: 02/12/2024 3:49:34 PM Ordering Provider: QUE MATSON [facility] 01-04-2024 Hospital Discharge instructions Patient Education 01/04/2024 19:46:27 Ankle Sprain (Adult) Ankle Sprain (Adult) An ankle sprain is a stretching or tearing of the ligaments that hold the ankle joint together. There are no broken bones. An ankle sprain is a common injury for both children and adults. It happens when the ankle turns, twists, or rolls in an awkward way. This can be caused by a sports injury. Or it can happen from doing something as simple as stepping on an uneven surface. Ligaments are made of tough connective tissue. Normally, ligaments stretch a certain amount and then go back to their normal place. A sprain happens when a ligament is forced to stretch more than the normal amount. A severe sprain can actually tear the ligaments. If you have a severe sprain, you may have felt or heard something like a pop when you were injured. Ankle sprains are given a grade depending on whether they are mild, moderate, or severe: Grade 1 sprain. A mild sprain with minor stretching and damage to the ligament. Grade 2 sprain. A moderate sprain where the ligament is partly torn. Grade 3 sprain. The most severe kind of sprain. The ligament is completely torn. Most sprains take about 4 to 6 weeks to heal. A severe sprain can take several months to recover. Your healthcare provider may order X-rays to be sure you don t have a fracture, or broken bone. The injured area will feel sore. Swelling and pain may make it hard to walk. You may need crutches if walking is painful. Or your provider may have you use a cast boot or air splint. This will depend on the grade of ankle sprain that you have. Home care For a Grade 1 sprain, use RICE (rest, ice, compression, and elevation): Rest your ankle. Don t walk on it. Ice should be used right away to help control swelling. Place an ice pack over the injured area for 20 minutes. Do this every 3 to 6 hours for the first 24 to 48 hours. Keep using ice packs to ease pain and swelling as needed. To make an ice pack, put ice cubes in a plastic bag that seals at the top. Wrap the bag in a clean, thin towel or cloth. Never put ice or an ice pack directly on the skin. The ice pack can be put right on the cast, bandage, or splint. As the ice melts, be careful that the cast, bandage, or splint doesn t get wet. If you have a boot, open it to apply an ice pack, unless told otherwise by your provider. Compression devices help to control swelling. They also keep the ankle from moving and support your injured ankle. These devices include dressings, bandages, and wraps. Elevate or raise your ankle above the level of your heart when sitting or lying down. This is very important for the first 48 hours. Follow the RICE guidelines for a Grade 2 sprain. This type of sprain will take longer to heal. Your provider may have you wear a splint, cast, or brace to keep your ankle from moving. If you have a Grade 3 sprain, you are at risk for long-term ankle instability. In rare cases, surgery may be needed. Your provider may have you wear a short leg cast or a walking boot for 2 to 3 weeks. After 48 hours, it may be helpful to apply heat for 20 minutes several times a day. You can do this with a heating pad or warm compress. Or you may want to go back and forth between using ice and heat. Never apply heat directly to the skin. Always wrap the heating pad or warm compress in a clean, thin towel or cloth. You may use wocf-ekf-yflcgxo pain medicine (NSAIDS or nonsteroidal anti-inflammatory drugs) to control pain, unless another pain medicine was prescribed. Talk with your provider before using these medicines if you have chronic liver or kidney disease, or have ever had a stomach ulcer or gastrointestinal bleeding. Follow any rehabilitation exercises your provider gives you. These can help you be more flexible and improve your balance and coordination. This is helpful in preventing long-term ankle problems. Prevention To help prevent ankle sprains, it s important to have good strength, balance, and flexibility. Be sure to: Always warm up before you exercise or do something very active Be careful when walking or running on uneven or cracked surfaces Wear shoes that are in good condition and fit well Listen to your body s signals to slow down when you are in pain or tired Follow-up care Any X-rays you had today don t show any broken bones, breaks, or fractures. Sometimes fractures don t show up on the first X-ray. Bruises and sprains can sometimes hurt as much as a fracture. These injuries can take time to heal completely. If your symptoms don t get better or they get worse, talk with your healthcare provider. You may need a repeat X-ray. Follow up with your healthcare provider, or as advised. Check for any warning signs listed below. When to seek medical advice Call your healthcare provider right away if any of these occur: Fever of 100.4 F (38 C) or higher, or as directed by your healthcare provider Chills The injury doesn t seem to be healing The swelling comes back The cast or splint has a bad smell The plaster cast or splint gets wet or soft The fiberglass cast or splint gets wet and does not dry for 24 hours The pain or swelling increases, or redness appears Your toes become cold, blue, numb, or tingly The skin is discolored (looks blue, purple, or pro), has blisters, or is irritated You re-injure your ankle [id number] [employer]. [address] [place] [address], [place] [address]. All rights reserved. This information is not intended as a substitute for professional medical care. Always follow your healthcare professional's instructions. 01/04/2024 19:46:23 Foot Sprain Foot Sprain A sprain is a stretching or tearing of the ligaments that hold a joint together. There are usually no broken bones. Sprains generally take from 3 to 6 weeks to heal. A sprain may be treated with a splint, walking cast, or special boot. Mild sprains may not need any additional support. Home care The following guidelines will help you care for your injury at home: Keep your leg elevated when sitting or lying down. This is very important during the first 48 hours to reduce swelling. Stay off the injured foot as much as possible until you can walk on it without pain. If needed, you may use crutches during the first week for this purpose. Crutches can be rented at many pharmacies or surgical/orthopedic supply stores. You may be given a cast shoe to wear to prevent movement in your foot. If not, you can use a sandal or any shoe that does not put pressure on the injured area until the swelling and pain go away. If using a sandal, be careful not to hit your foot against anything, since another injury could make the sprain worse. Apply an ice pack over the injured area for 15 to 20 minutes every 3 to 6 hours. You should do this for the first 24 to 48 hours. You can make an ice pack by filling a plastic bag that seals at the top with ice cubes and then wrapping it with a thin towel. Continue to use ice packs for relief of pain and swelling as needed. As the ice melts, try not to get the wrap, splint, or cast wet. After 48 hours, apply heat from a warm shower or bath for 20 minutes several times daily. Alternating ice and heat may also be helpful. You may use vdxw-nbm-idhaoxh pain medicine to control pain, unless another medicine was prescribed. If you have chronic liver or kidney disease or ever had a stomach ulcer or gastrointestinal bleeding, talk with your healthcare provider before using these medicines. If you were given a splint or cast, keep it dry. Bathe with your splint or cast well out of the water, protected with 2 large plastic bags, sealed with tape or rubber-bands at the top end. If a fiberglass splint or cast gets wet, you can dry it with a hairspring inspector on cool setting. You may return to sports after healing, when you can run without pain. Follow-up care Follow up with your healthcare provider as directed. Sometimes fractures don t show up on the first X-ray. Bruises and sprains can sometimes hurt as much as a fracture. These injuries can take time to heal completely. If your symptoms don t improve or they get worse, talk with your healthcare provider. You may need a repeat X-ray or other tests. When to seek medical advice Call your healthcare provider right away if any of these occur: The plaster cast or splint gets wet or soft The fiberglass cast or splint gets wet and does not dry for 24 hours Pain or swelling increases, or redness appears A bad odor comes from within the cast Fever of 100.4 F (38 C) or above lasting for 24 to 48 hours, or as advised Chills Toes on the injured foot become cold, blue, numb, or tingly [id number] [employer]. [address] [place] [address]. All rights reserved. This information is not intended as a substitute for professional medical care. Always follow your healthcare professional's instructions. Follow Up Care 01/04/2024 18:06:26 With:QUE MATSON Address: [address] [place] [address] [facility] [place], [place] [id number]- Business (1) When:2-4 days Comments:Schedule appointment as soon as possibleIce elevateUse brace for 2 weeks or as per podiatryUse high arch shoeCan use Aleve and Tylenol With:PATIENT PHYSICIAN Address:Unknown When:2-4 days [facility] 01-04-2024 Note Discharge Instructions Thank you for allowing [facility] to assist you with your healthcare needs. The following is important discharge information regarding your hospital visit. Diagnosis from Today's Visit Ankle sprain What to Do Next Instructions from Your Care Team Discharge Home Equipment - Ordered -- Splint, Ankle Stirrup Right, 99 month(s), 01/04/24 19:51:00 EDT Post Acute Orders No qualifying data available. You Need to Schedule the Following Appointments Follow Up with QUE MATSON When:Within 2-4 days Where:[address] [place] [address], [address] [facility] [place], [place] [id number]- Business (1) Additional Information: Schedule appointment as soon as possible Ice elevate Use brace for 2 weeks or as per podiatry Use high arch shoe Can use Aleve and Tylenol Follow Up with PATIENT PHYSICIAN When:Within 2-4 days Allergies ESPERANZA inhibitors C/O - cough Amoxil Rash Medications Please ask your primary doctor or pharmacist before taking any other medication not listed, including over the counter drugs, herbal medications, vitamins and or supplements as they may interact with your home medications. What How Much When Instructions Last Dose Unchanged buPROPion (buPROPion 150 mg/ 24 hours (XL) oral tablet, extended release) 1 tab(s) by mouth Every 24 hours Unchanged DULoxetine (DULoxetine 60 mg oral delayed release capsule) 1 cap by mouth Once a day Unchanged traZODone (traZODone 100 mg oral tablet) 1 tab(s) by mouth Daily at bedtime Please take this list to your next doctor s visit. Bring all medications you take, including over the counter medications, herbals and other supplements with you to your doctor s visit. Patients and families are reminded to discard old lists and to update any records with all medication providers or retail pharmacies. Education Materials Ankle Sprain (Adult) An ankle sprain is a stretching or tearing of the ligaments that hold the ankle joint together. There are no broken bones. An ankle sprain is a common injury for both children and adults. It happens when the ankle turns, twists, or rolls in an awkward way. This can be caused by a sports injury. Or it can happen from doing something as simple as stepping on an uneven surface. Ligaments are made of tough connective tissue. Normally, ligaments stretch a certain amount and then go back to their normal place. A sprain happens when a ligament is forced to stretch more than the normal amount. A severe sprain can actually tear the ligaments. If you have a severe sprain, you may have felt or heard something like a pop when you were injured. Ankle sprains are given a grade depending on whether they are mild, moderate, or severe: Grade 1 sprain. A mild sprain with minor stretching and damage to the ligament. Grade 2 sprain. A moderate sprain where the ligament is partly torn. Grade 3 sprain. The most severe kind of sprain. The ligament is completely torn. Most sprains take about 4 to 6 weeks to heal. A severe sprain can take several months to recover. Your healthcare provider may order X-rays to be sure you don t have a fracture, or broken bone. The injured area will feel sore. Swelling and pain may make it hard to walk. You may need crutches if walking is painful. Or your provider may have you use a cast boot or air splint. This will depend on the grade of ankle sprain that you have. Home care For a Grade 1 sprain, use RICE (rest, ice, compression, and elevation): Rest your ankle. Don t walk on it. Ice should be used right away to help control swelling. Place an ice pack over the injured area for 20 minutes. Do this every 3 to 6 hours for the first 24 to 48 hours. Keep using ice packs to ease pain and swelling as needed. To make an ice pack, put ice cubes in a plastic bag that seals at the top. Wrap the bag in a clean, thin towel or cloth. Never put ice or an ice pack directly on the skin. The ice pack can be put right on the cast, bandage, or splint. As the ice melts, be careful that the cast, bandage, or splint doesn t get wet. If you have a boot, open it to apply an ice pack, unless told otherwise by your provider. Compression devices help to control swelling. They also keep the ankle from moving and support your injured ankle. These devices include dressings, bandages, and wraps. Elevate or raise your ankle above the level of your heart when sitting or lying down. This is very important for the first 48 hours. Follow the RICE guidelines for a Grade 2 sprain. This type of sprain will take longer to heal. Your provider may have you wear a splint, cast, or brace to keep your ankle from moving. If you have a Grade 3 sprain, you are at risk for long-term ankle instability. In rare cases, surgery may be needed. Your provider may have you wear a short leg cast or a walking boot for 2 to 3 weeks. After 48 hours, it may be helpful to apply heat for 20 minutes several times a day. You can do this with a heating pad or warm compress. Or you may want to go back and forth between using ice and heat. Never apply heat directly to the skin. Always wrap the heating pad or warm compress in a clean, thin towel or cloth. You may use kbpm-jsh-wbkgnta pain medicine (NSAIDS or nonsteroidal anti-inflammatory drugs) to control pain, unless another pain medicine was prescribed. Talk with your provider before using these medicines if you have chronic liver or kidney disease, or have ever had a stomach ulcer or gastrointestinal bleeding. Follow any rehabilitation exercises your provider gives you. These can help you be more flexible and improve your balance and coordination. This is helpful in preventing long-term ankle problems. Prevention To help prevent ankle sprains, it s important to have good strength, balance, and flexibility. Be sure to: Always warm up before you exercise or do something very active Be careful when walking or running on uneven or cracked surfaces Wear shoes that are in good condition and fit well Listen to your body s signals to slow down when you are in pain or tired Follow-up care Any X-rays you had today don t show any broken bones, breaks, or fractures. Sometimes fractures don t show up on the first X-ray. Bruises and sprains can sometimes hurt as much as a fracture. These injuries can take time to heal completely. If your symptoms don t get better or they get worse, talk with your healthcare provider. You may need a repeat X-ray. Follow up with your healthcare provider, or as advised. Check for any warning signs listed below. When to seek medical advice Call your healthcare provider right away if any of these occur: Fever of 100.4 F (38 C) or higher, or as directed by your healthcare provider Chills The injury doesn t seem to be healing The swelling comes back The cast or splint has a bad smell The plaster cast or splint gets wet or soft The fiberglass cast or splint gets wet and does not dry for 24 hours The pain or swelling increases, or redness appears Your toes become cold, blue, numb, or tingly The skin is discolored (looks blue, purple, or pro), has blisters, or is irritated You re-injure your ankle [phone] [employer]. [address] [place] [address], [place] [address]. All rights reserved. This information is not intended as a substitute for professional medical care. Always follow your healthcare professional's instructions. Foot Sprain A sprain is a stretching or tearing of the ligaments that hold a joint together. There are usually no broken bones. Sprains generally take from 3 to 6 weeks to heal. A sprain may be treated with a splint, walking cast, or special boot. Mild sprains may not need any additional support. Home care The following guidelines will help you care for your injury at home: Keep your leg elevated when sitting or lying down. This is very important during the first 48 hours to reduce swelling. Stay off the injured foot as much as possible until you can walk on it without pain. If needed, you may use crutches during the first week for this purpose. Crutches can be rented at many pharmacies or surgical/orthopedic supply stores. You may be given a cast shoe to wear to prevent movement in your foot. If not, you can use a sandal or any shoe that does not put pressure on the injured area until the swelling and pain go away. If using a sandal, be careful not to hit your foot against anything, since another injury could make the sprain worse. Apply an ice pack over the injured area for 15 to 20 minutes every 3 to 6 hours. You should do this for the first 24 to 48 hours. You can make an ice pack by filling a plastic bag that seals at the top with ice cubes and then wrapping it with a thin towel. Continue to use ice packs for relief of pain and swelling as needed. As the ice melts, try not to get the wrap, splint, or cast wet. After 48 hours, apply heat from a warm shower or bath for 20 minutes several times daily. Alternating ice and heat may also be helpful. You may use [id number] pain medicine to control pain, unless another medicine was prescribed. If you have chronic liver or kidney disease or ever had a stomach ulcer or gastrointestinal bleeding, talk with your healthcare provider before using these medicines. If you were given a splint or cast, keep it dry. Bathe with your splint or cast well out of the water, protected with 2 large plastic bags, sealed with tape or rubber-bands at the top end. If a fiberglass splint or cast gets wet, you can dry it with a hairspring inspector on cool setting. You may return to sports after healing, when you can run without pain. Follow-up care Follow up with your healthcare provider as directed. Sometimes fractures don t show up on the first X-ray. Bruises and sprains can sometimes hurt as much as a fracture. These injuries can take time to heal completely. If your symptoms don t improve or they get worse, talk with your healthcare provider. You may need a repeat X-ray or other tests. When to seek medical advice Call your healthcare provider right away if any of these occur: The plaster cast or splint gets wet or soft The fiberglass cast or splint gets wet and does not dry for 24 hours Pain or swelling increases, or redness appears A bad odor comes from within the cast Fever of 100.4 F (38 C) or above lasting for 24 to 48 hours, or as advised Chills Toes on the injured foot become cold, blue, numb, or tingly [phone] [employer]. [address] [place] [address]. All rights reserved. This information is not intended as a substitute for professional medical care. Always follow your healthcare professional's instructions. Additional Information VACCINATE! IT SAVES LIVES! Members of the community who have not yet received the COVID-19 vaccine and would like to receive it can visit one of [facility] vaccine clinics. There are many vaccine clinic locations within the [facility]. For locations and available times, please visit [email or web address] [email or web address] It is important to note that some COVID mobile vaccine clinics are held outdoors and may be canceled in rainy or stormy conditions. To learn more about pediatric vaccinations (ages 5-11), we invite you to visit the [facility] webpage. [email or web address].[email or web address].org/p ages/1837-Ihgtc-Mjpjbntncon-Freq gafygd-Agkdb-Lriropvvs.html To learn more about the COVID-19 vaccine, we invite you to visit the CDC website for a list of frequently asked questions. https://www.cdc.gov/coronavirus/ 2019-ncov/vaccines/faq.html [facility] Access Instructions: Stay connected with your healthcare team and access your personal medical information anytime with the [facility] Patient [facility]. If you would like a full copy of your medical records please contact the [facility] Medical Records Department Monday through Monday between 8a.m. and 4:30p.m. Please follow the directions below to access the portal: 1.Access the email account you provided upon registration to the [facility].2.Look for an invitation email from [facility].3.Open the email and access the invitation link: Accept Invitation to [facility]4.Fill in the required diego to create your account. Sign into [email or web address] with your username and password that you created in the above steps to stay up to date. You can then view a summary of results, a summary of your visits, and the ability to download your summaries to your computer or send the information securely to a physician. Remember that your healthcare information is confidential, so carefully consider who you will allow to register on the [facility] Patient Portal for access to your information. You can also access the [facility] Patient Portal on the [employer] Simply click on Health Records under [employer] and then click on the youmag logo. HOW TO SAFELY DISPOSE OF PRESCRIPTION MEDICATIONS Please use one of the following methods to safely dispose of your unused medications. 1.Use a drug disposal kit: the drug disposal pouch allows you to safely discard your old and unused drugs. Ask your nurse to give you one when you are discharged.2.Visit a local take-back location: Many local pharmacies and police departments have programs that collect old and unwanted prescription drugs. Call your local pharmacy or go to http://[employer].Gravy/4Q3Ed7d to find one close to you.3.Make use of household items: Use cat litter or old coffee grounds to dispose medications if other options are not available. Mix your drugs with these household products, seal them in an airtight container and throw it into the garbage. Call [facility]: [phone] to be sure your drugs can be disposed of in this way. Some medicines may require a different approach.4.Never flush your medications down the toilet. IF YOU HAVE BEEN PRESCRIBED AN OPIOIDS FOR PAIN If you have been prescribed an opioid (such as hydrocodone, oxycodone or morphine), it is critical to understand the possible side effects and risks of opioid pain medications. Even when taken as directed, opioids can have several side effects including: Tolerance, meaning you might need to take more of a medication for the same pain relief. Nausea, vomiting and/or constipation. Sleepiness, dizziness, dry mouth, confusion, depression or itching. Physical dependence, meaning you have withdrawal symptoms when a medication is stopped ? this can develop within a few days. KNOW YOUR RESPONSIBILITIES It is important to know exactly how much and how often to take the opioid pain medications you are prescribed. Never take opioids in higher amounts or more often than prescribed. Do not combine opioids with alcohol or other drugs that cause drowsiness, such as benzodiazepines, also known as benzos, including diazepam and alprazolam, muscle relaxants or sleep aids. Never sell or share prescription opioids. This is illegal. Store opioids in a secure place and out of reach of others (including children, family, friends and visitors). The last page(s) of this document has been signed and retained as a CHART COPY Signatures Patient Education Materials Ankle Sprain (Adult) Foot Sprain Medication Leaflets My discharge plan and instructions have been reviewed and explained to me and I,EMILY NGUYEN understand my current condition and have read and understand these discharge instructions. I have received a written copy of the plan/instructions. If I have questions, I am aware that I should contact my doctor. 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 Bony alignment is within normal limits. The syndesmotic interval and medial clear space are maintained. The talar dome is unremarkable. Mild scattered degenerative changes. Prominent posterior talar process. Small calcaneal Achilles enthesophyte. Type 1 accessory navicular. Well corticated ossific density medial to the medial cuneiform may represent soft tissue calcification or sequela of prior insult. No significant joint effusion. Soft tissue swelling over the lateral ankle. IMPRESSION: No acute fracture or dislocation. Soft tissue swelling over the lateral ankle. I have personally reviewed the images of this examination and agree with the resident's findings and interpretation. Interpreted by: Corbin Silva Preliminary Report By: Ana Rosa Castelan Electronically signed By Corbin Silva Dictated Date: 01/04/2024 7:14:31 PM Prelim Date: 01/04/2024 7:23:57 PM Sign Date: 01/04/2024 7:33:04 PM Ordering Provider: [facility] 12-25-2023 Telephone encounter Note Message was given to the patient. PCP appointment scheduled. Janeth Ramon [facility] 12-25-2023 Miscellaneous Notes Message was given to the patient. PCP appointment scheduled. Janeth Ramon Left a message for patient to call back. Please call patient. Patient was recommended to have a 4-week follow-up with Dr. Blount after out appt 09/20 to discuss being on a controlled med for migraines. It appears she did not make appt. Needs to discuss with Dr. Blount. Will give a short-term prescription for the Fioricet but cannot guarantee we can keep refilling this. PDMP website checked and validated. All prescriptions have been APPROPRIATELY filled. No suspicious activity was identified. December 25, 2023 Joey Sloan PA-C Patient's request for medication is as follows: Requested Prescriptions Signed Prescriptions Disp Refills acetaminophen 325 mg-caffeine 40 mg-butalbital 50 mg (FIORICET) per tablet 10 tablet 0 Sig: Take 1 tablet by mouth every 4 hours as needed for up to 10 days. Prescription(s) as above. Please process accordingly. Joey Sloan PA-C documented in this encounter [facility] 12-25-2023 Telephone encounter Note Left a message for patient to call back. [facility] 12-25-2023 Telephone encounter Note Please call patient. Patient was recommended to have a 4-week follow-up with Dr. Blount after out appt 09/20 to discuss being on a controlled med for migraines. It appears she did not make appt. Needs to discuss with Dr. Blount. Will give a short-term prescription for the Fioricet but cannot guarantee we can keep refilling this. PDMP website checked and validated. All prescriptions have been APPROPRIATELY filled. No suspicious activity was identified. December 25, 2023 Joey Sloan PA-C Patient's request for medication is as follows: Requested Prescriptions Signed Prescriptions Disp Refills acetaminophen 325 mg-caffeine 40 mg-butalbital 50 mg (FIORICET) per tablet 10 tablet 0 Sig: Take 1 tablet by mouth every 4 hours as needed for up to 10 days. Prescription(s) as above. Please process accordingly. Joey Sloan PA-C [facility] 11-09-2023 Miscellaneous Notes The prescription has been signed and sent to the patient's pharmacy on file. Thank you, Ann-Marie Borges PA-C Patient comment: The pharmacy never received this prescription. Was taking 500mg but didn't work. Ran out because I'm doubling on doses. Needs sent to [facility] in [facility]. Patient sent a message via [employer] requesting the following refill: Requested Prescriptions Pending Prescriptions Disp Refills valACYclovir (VALTREX) 1 gram tablet 30 tablet 11 Sig: Take 1 tablet by mouth once daily. Script(s) will be E-script to pharmacy Future visits: Visit date not found Date of last office visit was: 09/20/23 The patients preferred pharmacy has been captured for this encounter? yes Ashley Guerrero documented in this encounter [facility] 11-09-2023 Miscellaneous Notes Patient's request for medication is as follows: Requested Prescriptions Signed Prescriptions Disp Refills losartan (COZAAR) 100 mg tablet 90 tablet 1 Sig: Take 1 tablet by mouth once daily. Authorizing Provider: JOEY SLOAN metoprolol succinate ER (TOPROL XL) 100 mg 90 tablet 1 Sig: Take 1 tablet by mouth once daily. Authorizing Provider: JOEY SLOAN Prescription(s) as above. Please process accordingly. Joey Sloan PA-C Patient established care 09/29 with Candida Sloan PA-C, will route there. Patient has been identified by name and date of : Yes Patient phones for refill(s): Requested Prescriptions Pending Prescriptions Disp Refills losartan (COZAAR) 100 mg tablet 90 tablet 1 Sig: Take 1 tablet by mouth once daily. metoprolol succinate ER (TOPROL XL) 100 mg 90 tablet 1 Sig: Take 1 tablet by mouth once daily. Date of last office visit in primary care: 09/30/2023 Date of next office visit in primary care: Visit date not found Please advise. Thank you. [employer]. documented in this encounter [facility] 10-26-2023 Miscellaneous Notes Patient has read the my chart message Sent patient message advising an appointment has been made for October 30 documented in this encounter [facility] 10-13-2023 Miscellaneous Notes Left a detailed message on the patient's phone with referral information Attempted to call patient, unable to leave message phone just rings Office will try again later Patient's ultrasound results came back. There are no abnormalities seen where she has the lumps on her legs and left chest. Would like her to see surgical derm if they continue to cause pain and grow to see if further imaging is needed. Thank you, Joey Sloan PA-C documented in this encounter [facility] 10-12-2023 History of Present illness Narrative Radiology Service Progress Note PATIENT NAME: Emily Nguyen DATE OF SERVICE: October 12, 2023 TIME: 1:32 PM PATIENT IDENTITY VERIFICATION COMPLETED USING TWO (2) IDENTIFIERS: Name and Date of confirmed by patient verbally. FALL SCREENING: Has the patient had 2 falls in the last year or 1 fall with injury or currently using an Ambulatory Assistive Device (Walker, Cane, Wheelchair, Crutches, etc.)? No PATIENT GENDER DATA: Female. status: : No status: NO. 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 Authorizing Provider: JOEY SLOAN Prescription(s) as above. Please process accordingly. Joey Sloan PA-C Damian with [facility] pharmacy phoning office to clarify directions and quantity on the Wellbutrin sent in as they do not match. Please review and file updated Rx. documented in this encounter [facility] 09-20-2023 Instructions Joey Sloan PA-C - 09/20/2023 9:15 AM EST Cymbalta Taper - Take 30 mg once daily for 2 weeks - Then take 20 mg daily for 2 weeks - Then stop documented in this encounter [facility] 09-20-2023 History of Present illness Narrative SUBJECTIVE: Emily Nguyen is a 38 year old female here for comprehensive evaluation. Pt here to establish care. Patient is in a good mood and seems to have a good attitude towards his/her health. 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 Has HTN Checks BP at home, has been getting good readings Took her meds this morning Has anxiety and depression (anxiety worse) Takes Cymbalta 60 mg daily and Wellbutrin 250 mg XL Does not feel Cymbalta works anymore but Wellbutrin does Tried Lexapro in past which increased BP Started with Prozac which stopped working Has been feeling more anxious and shaky Tried hydroxyzine in past No SI/HI Hx of gastric sleeve so meds absorb differently Hx of hysterectomy 02/21/2015 Does still have ovaries but does not have a cervix Was diagnosed with HSVII and HPV Still gets Pap smears 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 Has a monoallelic mutation of RYR1 gene Causes reduced muscle tones Son ended up with muscular dystrophy, but pt does not have this 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 Was given a steroid shot in the foot and 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 Can no longer take steroids Sees eye doctor regularly in [place] but would like to see doctor closer to home Found a lump in the left breast Does not hurt Has also had a lump removed from this breast, unsure if scar tissue Has been extremely fatigued and gets chills often but denies fevers Denies abnormal weight changes, N/V Two aunts have had breast cancer in their 30s Does not snore or wake up gasping for air Has had negative sleep study in past Has had low B12 in the past needing injections 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 Blount CURRENT MEDICATIONS: Current Outpatient Medications on File Prior to Visit Medication Sig lidocaine 5 % gel Apply to affected area three times daily as needed. DULoxetine (CYMBALTA) 30 mg capsule Take 1 capsule by mouth twice daily. tiZANidine (ZANAFLEX) 4 mg tablet Take 1 tablet by mouth every 8 hours as needed (muscle spasms). lidocaine (LIDODERM) 5 % Apply 1 Patch as directed every 24 hours. Remove old patch prior to placing new patch. Location: low back (Patient not taking: Reported on 10/12/2021 ) metoprolol succinate ER (TOPROL XL) 100 mg Take 1 tablet by mouth once daily. acetaminophen 325 mg-caffeine 40 mg-butalbital 50 mg (FIORICET) per tablet Take 1 tablet by mouth every 4 hours as needed. (Patient not taking: Reported on 10/12/2021) losartan (COZAAR) 100 mg tablet Take 1 tablet by mouth once daily. nystatin (MYCOSTATIN) cream Apply 1 application to affected area twice daily. (Patient not taking: Reported on 10/12/2021 ) traZODone (DESYREL) 100 mg tablet 100 mg. buPROPion XL (WELLBUTRIN XL) 150 mg 24 hr tablet Take 1 tablet by mouth once daily. multivitamin-ferrous sulfate 18 mg iron tab Take by mouth once daily. Calcium Citrate-Vitamin D2 1,500-200 mg-unit tab Take 1 tablet by mouth once daily. Cholecalciferol, Vitamin D3, (VITAMIN D-3) 400 unit chew Take by mouth once daily. cyanocobalamin, vitamin B-12, (VITAMIN B-12 SUBLINGUAL) Dissolve under the tongue once daily. No current facility-administered medications on file prior to visit. 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 Obesity, Class III, BMI >= 40 (morbid obesity) E66.01 Rectal Bleeding Morbid Obesity With Body Mass Index of 50 Or Higher (Hcc) Carpal Tunnel Syndrome, Bilateral Morbid Obesity With Bmi of 50.0-59.9, Adult (Hcc) Chronic Insomnia Central Serous Chorioretinopathy of Eye, Right Herpes Simplex Type II Infection ALLERGIES: Allergies: Esperanza Inhibitors Cough Amoxacillin [Amoxic* Intolerance Comment:Yeast infection Steroids [Corticost* Other: See Comments Comment:Loss of vision-central serous chorioretinopathy HISTORIES FAMILY HISTORY Problem Relation Age of Onset Uterine Cancer Mother Diabetes Mother Hypertension Mother other (Osteoarthritis) Mother Diabetes Father Hypertension Father other (CHF) Father other (Osteoarthritis) Maternal Grandmother other (DEMENTIA) Paternal Grandmother Colon Cancer Paternal Grandfather 70 Muscular dystrophy Son Breast Cancer Maternal Aunt 30 - 39 Breast Cancer Maternal Aunt 30 - 39 Heart Maternal Uncle CABG Breast Cancer Other Maternal Great Aunt 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 Hiwot SUÁREZ 05/2013 device in fallopian tubes to sever them EXCISION GANGLION WRIST DORSAL/VOLAR PRIMARY Right wrist HYSTERECTOMY HX 2014 TRH with lysis of adhesions, without BSO LAP SLEEVE GASTRECTOMY 10/02/2018 NEUROPLASTY &/TRANSPOS MEDIAN NRV CARPAL TUNNE Bilateral 02/16/2018 Bilateral carpal tunnel syndrome PAST SURGICAL HISTORY OF Right 10/02/2020 right knee scope with menisectomy, by Dr. Oreilly TONSILLECTOMY PRIMARY/SECONDARY <AGE 12 2001 UNSPECIFIED ORAL SURGERY PROCEDURE, BY REPORT impacted teeth Social History Tobacco Use Smoking status: Former Packs/day: 0.20 Years: 5.00 Additional pack years: 0.00 Total pack years: 1.00 Types: Cigarettes Quit date: 2014 Years since quittin.1 Smokeless tobacco: Never Vaping Use Vaping Use: Never used Substance Use Topics Alcohol use: Yes Comment: rare Drug use: No REVIEW OF SYSTEMS: GENERAL: See HPI HEENT: No changes in hearing or vision, no nose bleeds or other nasal problems NECK: Negative for lumps, goiter, pain and significant neck swelling RESPIRATORY: Negative for cough, hemoptysis, wheezing, COPD, dyspnea or shortness of breath CARDIOVASCULAR: Negative for chest pain, leg swelling, hypertension, CHF or palpitations GI: No nausea, vomiting, or diarrhea : No history of dysuria, frequency or incontinence PREVENTION RN: Negative for abnormal vaginal bleeding, abnormal vaginal discharge MUSCULOSKELETAL: See HPI PSYCH: See HPI HEMATOLOGY/LYMPHOLOGY: Negative for prolonged bleeding, bruising easily or swollen nodes ENDOCRINE: Negative for cold or heat intolerance, polyuria, polydipsia and goiter NEURO: No history of syncope, paralysis, seizures or tremors. See HPI. PHYSICAL EXAMINATION: BP 144/96 Pulse 71 Temp 36.4 C (97.6 F) (Temporal) Ht 161 cm (5' 3.39) Wt 119 kg (262 lb 5.6 oz) LMP 02/21/2015 BMI 45.91 kg/m General Appearance: Well appearing, alert, in no acute distress, well-hydrated, well nourished.. Skin: Skin color, texture, turgor normal, no suspicious rashes Head: Normocephalic, no masses, lesions, tenderness or abnormalities. Eyes: Anicteric sclera. Pupils are equally round and reactive to light. Extraocular movements are intact. . Ears: External ears normal, canals clear. TMs quinteros with white scar tissue from tubes and non-bulging bilaterally. Nose/Sinuses: Nares normal, septum midline, mucosa normal, no drainage or sinus tenderness. Oropharynx: Lips, mucosa, and tongue normal, teeth and gums normal, oropharynx normal. Lungs: Lungs clear to auscultation. No wheezing, rhonchi, rales.. Heart: RRR without murmur, gallop, or rubs. No ectopy. Abdomen: Normal abdominal exam, Abdomen soft, non-tender. Bowel sounds normal. No masses, organomegaly. Extremities: (+) hard mobile lump at left anterolateral superior leg close to groin and another hard mobile lump on left anterior lower leg Neurologic: Gait normal. Reflexes normal and symmetric. Sensation grossly intact.. Left Brease: (+) hard nontender lesion on lower inner quadrant of left breast. No erythema, warmth, or fluctuance in breast. No skin dimpling or other skin changes. ASSESSMENT/PLAN: 1. Wellness examination - ICD9: V70.0, ICD10: Z00.00 (primary diagnosis) - Counseled on healthy diet and regular exercise - Calcium intake with supplements or by diet of 1000 mg/day for under 50, 7918-1397 mg/day for 50+ - Mammogram ordered - exam recommended once yearly - Follow up for annual exam in one year - Declines vaccines, advised to get HPV vaccine at [facility] due to hx of HPV infection - Referral to PREVENTION RN for Pap smears - COMP METABOLIC PANEL - CBC + DIFF 2. Encounter to establish care - ICD9: V65.8, ICD10: Z76.89 - Establish with Dr. Blount 3. Primary hypertension - ICD9: 401.9, ICD10: I10 - Controlled at home - Continue current medications - Recommend home blood pressure monitoring, to bring results to next visit - Encouraged sodium restriction, DASH or Mediterranean diet - Recommend regular aerobic exercise - Follow up in 4 weeks for hypertension visit 4. Depression with anxiety - ICD9: 300.4, ICD10: F41.8 - Taper Cymbalta off Cymbalta Taper - Take 30 mg once daily for 2 weeks - Then take 20 mg daily for 2 weeks - Then stop - Switch from Wellbutrin XR to SR due to hx of gastric sleeve - Increase Wellbutrin to 150 SR BID instead of once daily - Follow-up in 4 weeks for re-evaluation - Check vitamin D level - VITAMIN D 25 HYDROXY - DULOXETINE 30 MG CAPSULE,DELAYED RELEASE - DULOXETINE 20 MG CAPSULE,DELAYED RELEASE - BUPROPION HCL SR 150 MG TABLET,12 HR SUSTAINED-RELEASE 5. Primary insomnia - ICD9: 307.42, ICD10: F51.01 - Continue trazodone at bedtime - TRAZODONE 100 MG TABLET 6. Central serous chorioretinopathy of eye, right - ICD9: 362.41, ICD10: H35.711 - Continue follow-up with eye doctor, recommend seeing retinal specialist - Avoid steroids as they triggered this - CONSULT TO OPHTHALMOLOGY 7. Herpes simplex type II infection - ICD9: 054.9, ICD10: B00.9 - Lower dose from 1g daily to 500 mg daily - VALACYCLOVIR 500 MG TABLET 8. History of HPV infection - ICD9: V12.09, ICD10: Z86.19 - Referral to PREVENTION RN, gets yearly Pap smears - CONSULT TO COOK COLD MEAT 9. B12 deficiency - ICD9: 266.2, ICD10: E53.8 - Re-check - Does not absorb oral B12 well - VITAMIN B12 BLOOD 10. Osteoarthritis of spine with radiculopathy, lumbar region - ICD9: 721.3, ICD10: M47.26 - Imaging completed at outside facility - Continue Zanaflex and lidocaine patches as needed - Recommend ice and heat as needed - Can take Tylenol but avoid NSAIDs due to hx of gastric sleeve - TIZANIDINE 4 MG TABLET 11. Primary osteoarthritis of right knee - ICD9: 715.16, ICD10: M17.11 - XR knee 04/2018 normal. However patient reports she was advised she likely now has arthritis. Has had imaging since that I am unable to see. - Continue Zanaflex and lidocaine patches as needed - Recommend ice and heat as needed - Can take Tylenol but avoid NSAIDs due to hx of gastric sleeve - TIZANIDINE 4 MG TABLET - LIDOCAINE 5 % TOPICAL PATCH 12. Skin lump of leg, left - ICD9: 782.2, ICD10: R22.42 - Cyst vs other - Obtain US of both lesions on left leg - Left hip XR 07/14/23 when lesion was first noticed came back normal - US EXTREMITY MASS/FLUID COLLECTION LEFT 13. Mass of lower inner quadrant of left breast - ICD9: 611.72, ICD10: N63.24 - Obtain bilateral diagnostic mammogram as due for screening mammogram as well - Obtain left breast US to evaluate non-tender lesion - Breast cancer runs in family - [facility] BILATERAL - US BREAST LTD LEFT 14. Screening for lipid disorders - ICD9: V77.91, ICD10: Z13.220 - LIPID PANEL BASIC 15. Special screening examination for viral disease - ICD9: V73.99, ICD10: Z11.59 - HEPATITIS C ANTIBODY IA WITH CONFIRMATION Joey Sloan PA-C documented in this encounter [facility] 07-14-2023 Hospital Discharge instructions Samantha Carnes APRN-CNP - 07/14/2023 5:34 PM EST Call to schedule ED follow-up appointment with your primary care provider as well as with physical medicine & rehabilitation. Back Injury Instructions: Return to the ED if you have weakness or numbness in your arms or legs, you are unable to control your bowels or bladder, or you are unable to walk or if you have worsening pain in your back. High Blood Pressure: You were noted to have high blood pressure today. High blood pressure can have serious detrimental effects on your body. It is very important for you to see your Primary Care Physician (or call [phone] if you do not have a PCP) for follow up in the next 5-7 days. Procedures done during this visit: None The following attachments cannot be sent through Care Everywhere.Back Muscle Strain Discharge Instructions (Egyptian)documented in this encounter [facility] 05-16-2023 Evaluation + Plan note Future Scheduled TestsThyroid Stimulating Hormone 05/16/23A1C Hemoglobin 05/16/23Complete Blood Count 05/16/23Lipid Profile 05/16/23Lipoprotein (a) 05/16/23Vitamin D Level 05/16/23Complete Metabolic Panel 05/16/23 [facility] 05-16-2023 Evaluation + Plan note Future Appointments Future Scheduled TestsThyroid Stimulating Hormone 05/16/23A1C Hemoglobin 05/16/23Complete Blood Count 05/16/23Lipid Profile 05/16/23Lipoprotein (a) 05/16/23Vitamin D Level 05/16/23Complete Metabolic Panel 05/16/23 [facility] 01-16-2023 Evaluation + Plan note Future Scheduled TestsRapid Plasma Reagin Test 01/16/23Thyroid Stimulating Hormone 05/16/23A1C Hemoglobin 05/16/23Complete Blood Count 01/16/23Complete Blood Count 05/16/23Lipid Profile 01/16/23Lipid Profile 05/16/23Hepatitis C Antibody IgG 01/16/23Lipoprotein (a) 05/16/23Vitamin D Level 05/16/23Complete Metabolic Panel 01/16/23Complete Metabolic Panel 05/16/23HIV 1/2 Combo (Ag/Ab) 01/16/23 [facility] 01-11-2023 Miscellaneous Notes ordered I called patient and she would like to have medication on hand in case she gets an outbreak. She would like medication sent to [facility] in [place],please Can take medication when she has an outbreak- some people have few to no further outbreaks or if she gets regular outbreaks can take medication to suppress outbreaks which would be daily medication. Either is fine. documented in this encounter [facility] 01-05-2023 Miscellaneous Notes Pharmacy called and Rx changed to 4% Lidocaine. Nilam Gibson RN 4% is fine- I never know what the pharmacy has on hand. Patient seen in office today and Lidocaine Rx sent to pharmacy. Pharmacy sent the below message: Strength Validation - the only lidocaine 5% I can find is a rectal cream. is that ok for the purpose this was prescribed for? The highest lidocaine topical we have/can get is the 4% cream. documented in this encounter [facility] 01-05-2023 History of Present illness Narrative Pr Specialist offered: Patient declines. Emily Nguyen is a 37 year old female who presents for concerns regarding a boil on vulvar area for past few weeks. Pt reports thinks it is draining now. Pt reports has h/o HS. Pt states same sexual partner x 3 yrs- h/o Trichomoniasis. Pt states started feeling sick about 2 weeks ago, thought she had yeast infection, discharge, pain, burning. She states she overall just did not feel well at all- felt sick. Then lesion started draining and had some bleeding. Pt offers no other concerns today. 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 Hiwot SUÁREZ 05/2013 EXCISION GANGLION WRIST DORSAL/VOLAR PRIMARY Right wrist HYSTERECTOMY HX 2014 TRH with lysis of adhesions, without BSO LAP SLEEVE GASTRECTOMY 10/02/2018 NEUROPLASTY &/TRANSPOS MEDIAN NRV CARPAL TUNNE Bilateral 02/16/2018 Bilateral carpal tunnel syndrome PAST SURGICAL HISTORY OF Right 10/02/2020 right knee scope with menisectomy, by Dr. Oreilly TONSILLECTOMY PRIMARY/SECONDARY <AGE 12 2001 UNSPECIFIED ORAL SURGERY PROCEDURE, BY REPORT impacted teeth FAMILY HISTORY Problem Relation Age of Onset Cancer Mother UTERINE Diabetes Mother Hypertension Mother Diabetes Father Hypertension Father other (DEMENTIA) Paternal Grandmother Colon Cancer Paternal Grandfather Breast Cancer Maternal Aunt Breast Cancer Maternal Aunt Breast Cancer Other Maternal Great Aunt Heart Maternal Uncle CABG Social History Tobacco Use Smoking status: Former Packs/day: 0.20 Years: 5.00 Pack years: 1.00 Types: Cigarettes Quit date: 2014 Years since quittin.4 Smokeless tobacco: Never Vaping Use Vaping Use: Never used Substance Use Topics Alcohol use: Yes Comment: rare Drug use: No Current Outpatient Medications Medication Sig DULoxetine (CYMBALTA) 30 mg capsule Take 1 capsule by mouth twice daily. tiZANidine (ZANAFLEX) 4 mg tablet Take 1 tablet by mouth every 8 hours as needed (muscle spasms). lidocaine (LIDODERM) 5 % Apply 1 Patch as directed every 24 hours. Remove old patch prior to placing new patch. Location: low back (Patient not taking: Reported on 10/12/2021 ) metoprolol succinate ER (TOPROL XL) 100 mg Take 1 tablet by mouth once daily. acetaminophen 325 mg-caffeine 40 mg-butalbital 50 mg (FIORICET) per tablet Take 1 tablet by mouth every 4 hours as needed. (Patient not taking: Reported on 10/12/2021) losartan (COZAAR) 100 mg tablet Take 1 tablet by mouth once daily. nystatin (MYCOSTATIN) cream Apply 1 application to affected area twice daily. (Patient not taking: Reported on 10/12/2021 ) traZODone (DESYREL) 100 mg tablet 100 mg. buPROPion XL (WELLBUTRIN XL) 150 mg 24 hr tablet Take 1 tablet by mouth once daily. multivitamin-ferrous sulfate 18 mg iron tab Take by mouth once daily. Calcium Citrate-Vitamin D2 1,500-200 mg-unit tab Take 1 tablet by mouth once daily. Cholecalciferol, Vitamin D3, (VITAMIN D-3) 400 unit chew Take by mouth once daily. cyanocobalamin, vitamin B-12, (VITAMIN B-12 SUBLINGUAL) Dissolve under the tongue once daily. No current facility-administered medications for this visit. Allergies As of Date: 01/05/2023 Allergen Noted Reaction ESPERANZA INHIBITORS 05/21/2014 Cough AMOXACILLIN [AMOXICILLIN] 12/25/2006 Intolerance Fully Assessed 11/14/2022 REVIEW OF SYSTEMS Abdomen: soft, non tender Bladder: no dysuria.. Expanded ROS: GENERAL: Negative for fever Allergies and current medication updated:Yes EXAM: BP 136/84 Wt 261 lb (118.4kg) LMP 02/21/2015 GENERAL: pleasant, female in no apparent distress HEENT: Normocephalic and atraumatic NECK: full range of motion DERMATOLOGY: without lesions PELVIC: external genitalia normal, normal Bartholin's glands, urethra, [place]'s glands, ulcerated lesions noted near posterior fourchette, cluster on right and larger on left. Tender to touch. No HS or boils present. NEURO: alert and oriented x3,exam grossly non-focal EXTREMITIES: normal ASSESSMENT AND PLAN: Encounter Diagnosis ICD-10-CM 1. Vulval lesion N90.89 HSV1,2/VZV NAAT LESION lidocaine 5 % gel acyclovir (ZOVIRAX) 400 mg tablet HERPES SIMPLEX TYPE 1 AND 2 IG HERPES SIMPLEX IGM, WITH REFLEX IGG ABS 2. Discussed with the patient that I believe the lesions are consistent with herpes however we will wait for the PCR and blood work to return. In the meantime acyclovir and lidocaine gel was ordered. We discussed the nature of HSV genital lesions. Discussed transmission and prevention of transmission to others. All questions were answered to the best my ability. Medical Decision Making: Problems: Moderate: Acute illness with systemic symptoms Data: Unique test(s) ordered: 3+ Risk: Moderate: Drug management and Moderate risk from testing/treatment Medical Decision Making Level: 4 - Moderate Nathaly Junior MD documented in this encounter [facility] 11-16-2022 Discharge summary Note Date/Time November 16, 2022 8:31pm [facility] Medical Records Department [address] [place] [address] Emergency Department Summary 11/16/22 MR#: [id number] Acct: [id number] Name: EMILY NGUYEN Rep #:[id number] : 1985 37 From: Kennedy Langford MD PCP: Danish García NP Status:REG ER Location: ED HPI History of Present Illness Chief Complaint: Eye Problem Informant: patient Narrative Narrative: Patient lost vision in her right eye. Patient thinks that her vision probably started going somewhere around Monday afternoon. She was seen at [facility] on Monday. She states they did ultrasound of the eye that showed no retinal detachment. They did a CTscan of the brain that was normal. They did blood work that was normal. They wanted to admit her but she did not want to stay there as she is from this area and was just visiting her boyfriend up there. She states the symptoms are stillgoing on. She gets pressure behind her eye but states its not pain. Its not a headache. She has had migraines before but states this is nothing like a migraine. Migraines are very painful. This is just pressure. Her visual loss is actually just central. When I stand about 3 or so feet from her, she can seemy hands held up my torso and even the tips of my ears but she cannot see my face. She denied noting any color change. No nausea vomiting. No fevers. No trauma. No history of MS. No urinary symptoms. No numbness tingling weakness anywhere. Never had this before. No recent steroids that she knows of. [facility] Medical History Anxiety Depression GERD (gastroesophageal reflux disease) HTN (hypertension) Home Medications duloxetine 30 mg capsule,delayed release 60 mg PO DAILY 05/25/16 [History Last Taken 05/25/17 07:00] trazodone 50 mg tablet 50 mg PO QHS 05/25/16 [History Last Taken Unknown] metoprolol succinate 100 mg tablet,extended release 24 hr 100 mg PO DAILY 10/27/17 [History Last Taken 09/29/17] losartan 100 mg tablet 100 mg PO DAILY 05/15/19 [History Last Taken Unknown] bupropion HCl 150 mg 24 hr tablet, extended release 150 mg PO DAILY 04/20/20 [History Last Taken Unknown] tizanidine 4 mg capsule 4 mg PO TID PRN Spasms 04/20/20 [History Last Taken Unknown] fluconazole 150 mg tablet 150 mg PO X1 #1 TAB 09/06/20 [Rx Last Taken Unknown] Allergy/AdvReac Type Severity Reaction Status Date / Time amoxicillin [Amoxicillin] Allergy Unknown Verified 11/16/22 19:17 ESPERANZA Inhibitors AdvReac COUGHING Verified 11/16/22 19:17 Social History Smoking Status: Never smoker ROS ROS ED Constitutional Constitutional ED: Denies chills or fever(s) Eyes Eyes: Reports change in vision; Denies diplopia ENT ENT ED: Denies ear pain, rhinorrhea or sore throat Cardiovascular Cardiovascular: Denies chest pain Respiratory/Chest Respiratory/Chest: Denies cough or dyspnea Gastrointestinal Gastrointestinal: Denies abdominal pain, diarrhea, nausea or vomiting Genitourinary Genitourinary ED: Denies dysuria or hematuria Musculoskeletal Musculoskeletal: Denies arthralgias or myalgias Integumentary Denies abscess, Abrasions or rash Neurologic Neurologic: Reports other Details: She states she does not have headache but she just has a little pressure behind the eye. ; Denies paresthesias or weakness Psychiatric Psychiatric: Denies anxiety Endocrine Endocrinology: Denies polydipsia or polyuria Hematologic/Lymphatic Hematologic/Lymphatic: Denies easy bleeding or easy bruising Allergic/Immunologic Allergic/Immunologic ED: Denies urticaria EXAM Physical Exam Narrative Exam Narrative: Patient awake alert no acute distress. Gait is actually normal. HEENT shows no trauma no swelling no redness. No tearing. No asymmetry. No temporal artery tenderness. Eyes normal range of motion. Normal consensual pupillary response. Normal pupillary response with light and accommodation. No change in vision with range of motion. On exam her peripheral vision is intact but a small area of central vision seems out. I attempted a funduscopic exam but due to motion it was somewhat difficult. I saw no abnormal retinal vessels. There is certainly no bleeding. Retina was not pale. Patient did not think she had change in color vision. However, I got several different cards and papers from her office that had different colors. She had trouble picking them out and all of her shades were little darker than normal. Even the white seemed a little brown. When I showed the same colors to the left eye she picked them all out quickly normally and realized that she did have a change in color vision in that eye. Neck is supple without lymphadenopathy or bruit Lungs are clear bilaterally Heart is regular with no murmur gallop or rub and peripheral pulses are normal. Abdomen is soft nontender. Extremities show normal strength strength no tenderness no contusions. Skin shows no rashes or vesicles Neurologically she is awake alert appropriate. The only deficit that I can find is a an area of central vision in the right eye only. Const Vital Signs: 11/16/22 19:15 Temperature 98.0 F Temperature Source Temporal Pulse Rate 82 Respiratory Rate 18 Blood Pressure 125/97 H Blood Pressure Mean 106 Pulse Ox 100 Oxygen Delivery Method Room Air MDM MDM MDM Narrative Medical decision making narrative: Patient is already had work-up that I can do here. I did talk to cloth colors examiner, Dr. Cerna. He states this sounds very much like central serous chorioretinopathy. He will see the patient at 8 AM in the morning. There would be no specific therapy at this time. Patient was comfortable with close follow-up in less than 12 hours. Discharge Plan Triage Chief Complaint: Eye Problem ED Provider: Kennedy Langford Dx/Rx/DC Orders Clinical Impression: Central serous chorioretinopathy of right eye Prescriptions: No Action trazodone 50 MG tablet 50 mg PO QHS Label Comments: duloxetine 30 MG capsule 60 mg PO DAILY metoprolol succinate 100 MG tablet extended release 24 hr 100 mg PO DAILY losartan 100 MG tablet 100 mg PO DAILY bupropion HCl 150 MG tablet extended release 24 hr 150 mg PO DAILY tizanidine 4 mg capsule 4 mg PO TID PRN (Reason: Spasms) Label Comments: 1 capsule fluconazole 150 MG tablet 150 mg PO X1 Qty: 1 0RF Primary Care Provider: Danish García NP Referrals: Kalpesh Cerna MD [Med Staff - Active Staff] - 1 Day (Be at the office at 8 [address] the morning. He is expecting your arrival.) Danish García NP, [employer]-C [Primary Care Provider] - Activity Restrictions/Additional Instructions: Follow-up with Dr. Cerna at his office at 8 AM in the morning. The address [id number] [place] [address] What to do if you have Problems For any increased pain, shortness of breath, bleeding, nausea or vomiting, chestpain, or any unexpected problems, contact your Primary Care Provider. Call [facility] ([phone]) or report to the closest Emergency Room. Call 911 if necessary. 11/16/222032 <Electronically signed by Kennedy Langford MD> Cosigner Signature (if applicable): CC: NIKHIL García ~ Signed [facility] Work Phone: 1(285) 405-640104-26-2023 Hospital Discharge instructions Additional Instructions Follow-up with Dr. Cerna at his office at 8 AM in the morning. The address [address] [place], [place] [address] Phone: 1(824) 479-713501-12-2023 Hospital Discharge instructions Patient Education 08/03/2022 23:20:00 Cervical Adenitis, No Antibiotic Local Lymph Node Swelling in the Neck, No Antibiotic Treatment You have a swollen lymph node in your neck that is not infected. The lymph nodes are part of the immune system. They are found under the jaw and along the side of the neck, in the armpits, and in thegroin. A nearby infection or inflammation causes the lymph nodes in that area to swell. They may also be mildly tender. This is normal. Antibiotics are not used for a swollen lymph node that is not infected. You can use hot compresses and pain medicine to treat this condition. The pain will get better over the next 7 to 10 days. The swelling may take several months to go away. Rarely, a bacterial infection occurs inside the lymph node, itself. When this happens, the lymph node becomes very painful and the nearby skin gets red and warm. You may also have a fever. If this happens, call your healthcare provider. You may need to take antibiotics. You may also need to have the lymph node drained. Home care Follow these guidelines when caring for yourself at home: Make a hot compress by running warm water over a wash cloth. Put the compress on the sore area until the compress cools off. Repeat this for 20 minutes. Use the compress 3 times a day for the first 3days, or until the pain and redness begin to get better. The heat will make more blood flow to the area and speed the healing process. You may use acetaminophen or ibuprofen to control pain and fever, unless another medicine was prescribed for this. Don t use ibuprofen in children under 6 months of age. If you have chronic liver or kidney disease, talk with your healthcare provider before using these medicines. Also talk with yourprovider if you ve had a stomach ulcer or GI bleeding. Don t give aspirin to anyone under 18 years of age who is ill with a fever. It may cause severe liver damage. Follow-up care Follow up with your healthcare provider, or as advised. When to seek medical advice Call your healthcare provider right away if any of these occur: Redness over the lymph node Swelling or pain in the lymph node gets worse Lymph node is getting soft in the middle Pus or fluid drains from the lymph node You have trouble breathing or swallowing Fever of 100.4 F (38 C) or higher, or as directed by your healthcare provider You have questions or concerns [phone] [employer]. [address] [place] [address]. All rights reserved. This information is not intended as a substitute for professional medical care. Always follow yourhealthcare professional's instructions. Follow Up Care 08/03/2022 23:01:19 With:DANISH GARCÍA Address: [address] [place] [address] [phone] When:2-4 days [facility] 01-11-2023 Note Discharge Instructions Thank you for allowing [facility] to assist you with your healthcare needs. The following is importantdischarge information regarding your hospital visit. Diagnosis from Today's Visit Swollen lymph nodes swollen node on neck What to Do Next Instructions from Your Care Team No qualifying data available. Post Acute Orders No qualifying data available. You Need to Schedule the Following Appointments Follow Up with DANISH GARCÍA When Within 2-4 days Where: [address] [place] [address] [phone] Allergies ESPERANZA inhibitors (C/O - cough) Amoxil (Rash) Medications Please ask your primary doctor or pharmacist before taking any other medication not listed, including over the counter drugs, herbal medications, vitamins and or supplements as they may interact withyour home medications. What How Much When Why Instructions Last Dose Unchanged APAP/ butalbital/ caffeine (APAP/ butalbital/ caffeine 325-50-40 mg oral tablet (Fioricet)) 2 tab(s) by mouth Every 4 hours if needed with maximum daily dose of 6 tablets Unchanged buPROPion (buPROPion 150 mg/ 24 hours (XL) oral tablet, extended release) 1 tab(s) by mouth Every 24 hours Duration: 90 Days TAKE 1 TABLET BY MOUTH EVERY DAY Unchanged DULoxetine (DULoxetine 60 mg oral delayed release capsule) 1 cap by mouth Once a day Duration: 90 Days Unchanged losartan (losartan 100 mg oral tablet) 100 Milligram by mouth Once a day Duration: 90 Days take 1 tablet by mouth once daily Unchanged metoprolol (metoprolol succinate 100 mg oral TABLET extended release) 1 tab(s) by mouth Once a day Duration: 90 Days Unchanged tamsulosin (Flomax 0.4 mg oral capsule) 1 cap by mouth Once a day Costovertebral angle tenderness, right Nephrolithiasis Duration: 30 Days Unchanged tiZANidine (tiZANidine 4 mg oral tablet) 1 tab(s) by mouth Every 8 hours as needed for as needed for muscle spasm Unchanged traZODone (traZODone 100 mg oral tablet) 1 tab(s) by mouth Daily at bedtime Duration: 90 Days Please take this list to your next doctor s visit. Bring all medications you take, including over the counter medications, herbals and other supplements with you to your doctor s visit. Patients and families are reminded to discard old lists and to update any records with all medication providers or retail pharmacies. Education Materials Local Lymph Node Swelling in the Neck, No Antibiotic Treatment You have a swollen lymph node in your neck that is not infected. The lymph nodes are part of the immune system. They are found under the jaw and along the side of the neck, in the armpits, and in thegroin. A nearby infection or inflammation causes the lymph nodes in that area to swell. They may also be mildly tender. This is normal. Antibiotics are not used for a swollen lymph node that is not infected. You can use hot compresses and pain medicine to treat this condition. The pain will get better over the next 7 to 10 days. The swelling may take several months to go away. Rarely, a bacterial infection occurs inside the lymph node, itself. When this happens, the lymph node becomes very painful and the nearby skin gets red and warm. You may also have a fever. If this happens, call your healthcare provider. You may need to take antibiotics. You may also need to have the lymph node drained. Home care Follow these guidelines when caring for yourself at home: Make a hot compress by running warm water over a wash cloth. Put the compress on the sore area until the compress cools off. Repeat this for 20 minutes. Use the compress 3 times a day for the first 3days, or until the pain and redness begin to get better. The heat will make more blood flow to the area and speed the healing process. You may use acetaminophen or ibuprofen to control pain and fever, unless another medicine was prescribed for this. Don t use ibuprofen in children under 6 months of age. If you have chronic liver or kidney disease, talk with your healthcare provider before using these medicines. Also talk with yourprovider if you ve had a stomach ulcer or GI bleeding. Don t give aspirin to anyone under 18 years of age who is ill with a fever. It may cause severe liver damage. Follow-up care Follow up with your healthcare provider, or as advised. When to seek medical advice Call your healthcare provider right away if any of these occur: Redness over the lymph node Swelling or pain in the lymph node gets worse Lymph node is getting soft in the middle Pus or fluid drains from the lymph node You have trouble breathing or swallowing Fever of 100.4 F (38 C) or higher, or as directed by your healthcare provider You have questions or concerns [phone] [employer]. [address] [place] [address], [place] [address]. All rights reserved. This information is not intended as a substitute for professional medical care. Always follow yourhealthcare professional's instructions. Additional Information VACCINATE! IT SAVES LIVES! Members of the community who have not yet received the COVID-19 vaccine and would like to receive it can visit one of [facility] vaccine clinics. There are many vaccine clinic locations within the [facility]. For locations and available times, please visit [email or web address]. It is important to note that some COVID mobile vaccine clinics are held outdoors and may be canceled in rainy orstormy conditions. To learn more about pediatric vaccinations (ages 5-11), we invite you to visit the [facility] webpage. [email or web address] learn more about the COVID-19 vaccine, we invite you to visit the [facility] website for a list of frequently asked questions. [email or web address] [facility] Patient Portal Access Instructions: Stay connected with your healthcare team and access your personal medical information anytime with the [facility] Patient Portal. If you would like a full copy of your medical records please contact the [facility] Medical Records Department Monday through Monday between 8a.m. and 4:30p.m. Please follow the directions below to access the portal: 1.Access the email account you provided upon registration to the hospital.2.Look for an invitation email from [facility].3.Open the email and access the invitation link: Accept Invitation to [facility]4.Fill in the required diego to create your account. Sign into [email or web address] with your username and password that you created in the above steps to stay up to date. You can then view a summary of results, a summary of your visits, and the ability to download your summaries to your computer or send the information securely to a physician. Remember that your healthcare information is confidential, so carefully consider who you will allow to register on the [facility] Patient Portal for access to your information. You can also access the [facility] Patient Portal on the [employer]. Simply click on Health Records under [employer] and then click on the [facility] logo. HOW TO SAFELY DISPOSE OF PRESCRIPTION MEDICATIONS Please use one of the following methods to safely dispose of your unused medications. 1.Use a drug disposal kit: the drug disposal pouch allows you to safely discard your old and unuseddrugs. Ask your nurse to give you one when you are discharged.2.Visit a local take-back location: Many local pharmacies and police departments have programs that collect old and unwanted prescriptiondrugs. Call your local pharmacy or go to http://[employer].Gravy/0T9Im2y to find one close to you.3.Make use of household items: Use cat litter or old coffee grounds to dispose medications if other options arenot available. Mix your drugs with these household products, seal them in an airtight container andthrow it into the garbage. Call [facility]: [phone] to be sure your drugs can be disposed of in this way. Some medicines may require a different approach.4.Never flush your medications down the toilet. IF YOU HAVE BEEN PRESCRIBED AN OPIOIDS FOR PAIN If you have been prescribed an opioid (such as hydrocodone, oxycodone or morphine), it is critical to understand the possible side effects and risks of opioid pain medications. Even when taken as directed, opioids can have several side effects including: Tolerance, meaning you might need to take more of a medication for the same pain relief. Nausea, vomiting and/or constipation. Sleepiness, dizziness, dry mouth, confusion, depression or itching. Physical dependence, meaning you have withdrawal symptoms when a medication is stopped ? this can develop within a few days. KNOW YOUR RESPONSIBILITIES It is important to know exactly how much and how often to take the opioid pain medications you are prescribed. Never take opioids in higher amounts or more often than prescribed. Do not combine opioids with alcohol or other drugs that cause drowsiness, such as benzodiazepines, also known as benzos,including diazepam and alprazolam, muscle relaxants or sleep aids. Never sell or share prescriptionopioids. This is illegal. Store opioids in a secure place and out of reach of others (including children, family, friends and visitors). The last page(s) of this document has been signed and retained as a CHART COPY Signatures Patient Education Materials Cervical Adenitis, No Antibiotic Medication Leaflets My discharge plan and instructions have been reviewed and explained to me and I,EMILY NGUYEN understand my current condition and have read and understand these discharge instructions. I have received a written copy of the plan/instructions. If I have questions, I am aware that I should contact my doctor. 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 This is also called acute otitis media (AOM). Sometimes it is caused by the common cold. This is because congestion can block the internal passage (eustachian tube) that drains fluid from the middle ear. When the middle ear fills with fluid, bacteria can grow there and cause an infection. Oral antibiotics are used to treat this illness, not ear drops. Symptoms usually start to improve within 1 to 2 days of treatment. Home care The following are general care guidelines: Finish all of the antibiotic medicine given, even though you may feel better after the first few days. You may use babk-sje-vfrztrs medicine, such as acetaminophen or ibuprofen, to control pain and fever, unless something else was prescribed. If you have chronic liver or kidney disease or have ever had a stomach ulcer or gastrointestinal bleeding, talk with your healthcare provider before using these medicines. Do not give aspirin to anyone under 18 years of age who has a fever. It may cause severe illness or . Follow-up care Follow up with your healthcare provider, or as advised, in 2 weeks if all symptoms have not gotten better, or if hearing doesn't go back to normal within 1 month. When to seek medical advice Call your healthcare provider right away if any of these occur: Ear pain gets worse or does not improve after 3 days of treatment Unusual drowsiness or confusion Neck pain, stiff neck, or headache Fluid or blood draining from the ear canal Fever of 100.4 F (38 C) or as advised Seizure [id number] [employer]. [address] [place] [address]. All rights reserved. This information is not intended as a substitute for professional medical care. Always follow yourhealthcare professional's instructions. Follow Up Care 06/24/2022 22:37:01 With:WAN ARAUJO DO Address: [address] [place] [address] [place] [phone] When:2-4 days [facility] 12-02-2022 Note Discharge Instructions Thank you for allowing [facility] to assist you with your healthcare needs. The following is importantdischarge information regarding your hospital visit. Diagnosis from Today's Visit Ear pain What to Do Next Instructions from Your Care Team No qualifying data available. Post Acute Orders No qualifying data available. You Need to Schedule the Following Appointments Follow Up with WAN ARAUJO DO When Within 2-4 days Where: [address] [place] [address] [place] [address] [phone] Allergies ESPERANZA inhibitors (C/O - cough) Amoxil (Rash) Medications Please ask your primary doctor or pharmacist before taking any other medication not listed, including over the counter drugs, herbal medications, vitamins and or supplements as they may interact withyour home medications. What How Much When Why Instructions Last Dose New clindamycin (clindamycin 300 mg oral capsule) 1 cap by mouth Three (3) times a day Duration: 10 Days Take with a probiotic Printed Prescription Unchanged APAP/ butalbital/ caffeine (APAP/ butalbital/ caffeine 325-50-40 mg oral tablet (Fioricet)) 2 tab(s) by mouth Every 4 hours if needed with maximum daily dose of 6 tablets Unchanged buPROPion (buPROPion 150 mg/ 24 hours (XL) oral tablet, extended release) 1 tab(s) by mouth Every 24 hours Duration: 90 Days TAKE 1 TABLET BY MOUTH EVERY DAY Unchanged DULoxetine (DULoxetine 60 mg oral delayed release capsule) 1 cap by mouth Once a day Duration: 90 Days Unchanged losartan (losartan 100 mg oral tablet) 100 Milligram by mouth Once a day Duration: 90 Days take 1 tablet by mouth once daily Unchanged metoprolol (metoprolol succinate 100 mg oral TABLET extended release) 1 tab(s) by mouth Once a day Duration: 90 Days Unchanged tamsulosin (Flomax 0.4 mg oral capsule) 1 cap by mouth Once a day Costovertebral angle tenderness, right Nephrolithiasis Duration: 30 Days Unchanged tiZANidine (tiZANidine 4 mg oral tablet) 1 tab(s) by mouth Every 8 hours as needed for as needed for muscle spasm Unchanged traZODone (traZODone 100 mg oral tablet) 1 tab(s) by mouth Daily at bedtime Duration: 90 Days Please take this list to your next doctor s visit. Bring all medications you take, including over the counter medications, herbals and other supplements with you to your doctor s visit. Patients and families are reminded to discard old lists and to update any records with all medication providers or retail pharmacies. Medication Leaflets clindamycin (oral/injection) (janny thomas LAYOJustyn payton) Cleocin HCl, Cleocin Pediatric, Cleocin Phosphate What is the most important information I should know about clindamycin? Clindamycin can cause diarrhea, which may be severe or lead to serious, life- threatening intestinalproblems. If you have diarrhea that is watery or bloody, stop using clindamycin and call your doctor. What is clindamycin? Clindamycin is an antibiotic that is used to treat serious infections caused by bacteria. Clindamycin may also be used for purposes not listed in this medication guide. What should I discuss with my healthcare provider before using clindamycin? You should not use this medicine if you are allergic to clindamycin or lincomycin. Tell your doctor if you have ever had: colitis, Crohn's disease, or other intestinal disorder; eczema, or allergic skin reaction; asthma or a severe allergic reaction to aspirin; liver or kidney disease; or an allergy to yellow food dye. It is not known whether this medicine will harm an unborn baby. Tell your doctor if you are or plan to become . Clindamycin can pass into breast milk and may cause side effects in the nursing baby. If you are while taking this medicine, call your doctor if your baby has diaper rash, redness or white patches in the mouth or throat, stomach discomfort, or diarrhea that is watery or bloody. Clindamycin injection may contain an ingredient that can cause serious side effects or in very young or premature babies. Do not give this medicine to a child without medical advice. How should I use clindamycin? Follow all directions on your prescription label and read all medication guides or instruction sheets. Use the medicine exactly as directed. Clindamycin oral is taken by mouth. Clindamycin injection is injected into a muscle, or as an infusion into a vein. A healthcare provider will give your first dose and may teach you how to properly use the medication by yourself. Take the capsule with a full glass of water to keep it from irritating your throat. Measure liquid medicine carefully. Use the dosing syringe provided, or use a medicine dose-measuring device (not a kitchen spoon). You may need frequent medical tests during treatment. If you need surgery, tell your surgeon you currently use clindamycin. Use this medicine for the full prescribed length of time, even if your symptoms quickly improve. Skipping doses can increase your risk of infection that is resistant to medication. Clindamycin will not treat a viral infection such as the flu or a common cold. Store at room temperature away from moisture and heat. Protect the injectable medicine from high heat. Do not store the oral liquid in the refrigerator. Throw away any unused oral liquid after 2 weeks. Use a needle and syringe only once and then place them in a puncture-proof 'sharps' container. Follow state or local laws about how to dispose of this container. Keep it out of the reach of children and pets. What happens if I miss a dose? Use the medicine as soon as you can, but skip the missed dose if it is almost time for your next dose. Do not use two doses at one time. What happens if I overdose? Seek emergency medical attention or call the Poison Help line at . What should I avoid while using clindamycin? Antibiotic medicines can cause diarrhea, which may be a sign of a new infection. If you have diarrhea that is watery or bloody, call your doctor. Do not use anti-diarrhea medicine unless your doctor tells you to. What are the possible side effects of clindamycin? Get emergency medical help if you have signs of an allergic reaction (hives, difficult breathing, swelling in your face or throat) or a severe skin reaction (fever, sore throat, burning in your eyes,skin pain, red or purple skin rash that spreads and causes blistering and peeling). Seek medical treatment if you have a serious drug reaction that can affect many parts of your body.Symptoms may include: skin rash, fever, swollen glands, flu- like symptoms, muscle aches, severe weakness, unusual bruising, or yellowing of your skin or eyes. Call your doctor at once if you have: kidney problems--swelling, urinating less, feeling tired or short of breath; liver problems--loss of appetite, stomach pain (upper right side), tiredness, itching, dark urine, james-colored stools, jaundice (yellowing of the skin or eyes); any change in bowel habits; severe stomach pain, diarrhea that is watery or bloody; little or no urination; or a metallic taste in your mouth (after clindamycin injection). Common side effects may include: nausea, vomiting, stomach pain; mild skin rash; or vaginal itching or discharge; This is not a complete list of side effects and others may occur. Call your doctor for medical advice about side effects. You may report side effects to FDA at 3-078-IHW-9193. What other drugs will affect clindamycin? Sometimes it is not safe to use certain medications at the same time. Some drugs can affect your blood levels of other drugs you take, which may increase side effects or make the medications less effective. Other drugs may affect clindamycin, including prescription and lgfu-nzl-mkqsjqz medicines, vitamins, and herbal products. Tell your doctor about all your current medicines and any medicine you start or stop using. Where can I get more information? Your pharmacist can provide more information about clindamycin. Remember, keep this and all other medicines out of the reach of children, never share your medicines with others, and use this medication only for the indication prescribed. Every effort has been made to ensure that the information provided by [employer]. [employer]') is accurate, up-to-date, and complete, but no guarantee is made to that effect. Drug information contained herein may be time sensitive. [employer] information has been compiled for use by healthcare practitioners and consumers in the [place] and therefore [employer] does not warrant that uses outside of the [place] are appropriate, unless specifically indicated otherwise. [employer] drug information does not endorse drugs, diagnose patients or recommend therapy. [employer] drug information isan informational resource designed to assist licensed healthcare practitioners in caring for their p atients and/or to serve consumers viewing this service as a supplement to, and not a substitute for, the expertise, skill, knowledge and judgment of healthcare practitioners. The absence of a warningfor a given drug or drug combination in no way should be construed to indicate that the drug or drug combination is safe, effective or appropriate for any given patient. [facility] does not assume any responsibility for any aspect of healthcare administered with the aid of information [facility] provides. The information contained herein is not intended to cover all possible uses, directions, precautions, warnings, drug interactions, allergic reactions, or adverse effects. If you have questions about the drugs you are taking, check with your doctor, nurse or pharmacist. Copyright 2745-3123 [employer]. Version: 14.. Revision Date: 04/19/2022. Education Materials Middle Ear Infection (Adult) You have an infection of the middle ear, the space behind the eardrum. This is also called acute otitis media (AOM). Sometimes it is caused by the common cold. This is because congestion can block the internal passage (eustachian tube) that drains fluid from the middle ear. When the middle ear fills with fluid, bacteria can grow there and cause an infection. Oral antibiotics are used to treat this illness, not ear drops. Symptoms usually start to improve within 1 to 2 days of treatment. Home care The following are general care guidelines: Finish all of the antibiotic medicine given, even though you may feel better after the first few days. You may use nauc-tel-llckpcf medicine, such as acetaminophen or ibuprofen, to control pain and fever, unless something else was prescribed. If you have chronic liver or kidney disease or have ever had a stomach ulcer or gastrointestinal bleeding, talk with your healthcare provider before using these medicines. Do not give aspirin to anyone under 18 years of age who has a fever. It may cause severe illness or . Follow-up care Follow up with your healthcare provider, or as advised, in 2 weeks if all symptoms have not gotten better, or if hearing doesn't go back to normal within 1 month. When to seek medical advice Call your healthcare provider right away if any of these occur: Ear pain gets worse or does not improve after 3 days of treatment Unusual drowsiness or confusion Neck pain, stiff neck, or headache Fluid or blood draining from the ear canal Fever of 100.4 F (38 C) or as advised Seizure [id number] [employer]. [address] [place] [address], [place] [address]. All rights reserved. This information is not intended as a substitute for professional medical care. Always follow yourhealthcare professional's instructions. Additional Information VACCINATE! IT SAVES LIVES! Members of the community who have not yet received the COVID-19 vaccine and would like to receive it can visit one of [facility] vaccine clinics. There are many vaccine clinic locations within the [facility]. For locations and available times, please visit [email or web address]. It is important to note that some COVID mobile vaccine clinics are held outdoors and may be canceled in rainy orstormy conditions. To learn more about pediatric vaccinations (ages 5-11), we invite you to visit the [facility] webpage. [email or web address] learn more about the COVID-19 vaccine, we invite you to visit the [facility] website for a list of frequently asked questions. [email or web address] [facility] Patient [facility] Access Instructions: Stay connected with your healthcare team and access your personal medical information anytime with the [facility] Patient Portal. If you would like a full copy of your medical records please contact the [facility] Medical Records Department Monday through Monday between 8a.m. and 4:30p.m. Please follow the directions below to access the portal: 1.Access the email account you provided upon registration to the hospital.2.Look for an invitation email from [facility].3.Open the email and access the invitation link: Accept Invitation to [facility]4.Fill in the required diego to create your account. Sign into [email or web address] with your username and password that you created in the above steps to stay up to date. You can then view a summary of results, a summary of your visits, and the ability to download your summaries to your computer or send the information securely to a physician. Remember that your healthcare information is confidential, so carefully consider who you will allow to register on the [facility] Patient Portal for access to your information. You can also access the [facility] Patient Portal on the [employer] landon. Simply click on Health Records under [employer] and then click on the youmag logo. HOW TO SAFELY DISPOSE OF PRESCRIPTION MEDICATIONS Please use one of the following methods to safely dispose of your unused medications. 1.Use a drug disposal kit: the drug disposal pouch allows you to safely discard your old and unuseddrugs. Ask your nurse to give you one when you are discharged.2.Visit a local take-back location: Many local pharmacies and police departments have programs that collect old and unwanted prescriptiondrugs. Call your local pharmacy or go to http://[employer].Gravy/0M3Yn2n to find one close to you.3.Make use of household items: Use cat litter or old coffee grounds to dispose medications if other options arenot available. Mix your drugs with these household products, seal them in an airtight container andthrow it into the garbage. Call [facility]: [phone] to be sure your drugs can be disposed of in this way. Some medicines may require a different approach.4.Never flush your medications down the toilet. IF YOU HAVE BEEN PRESCRIBED AN OPIOIDS FOR PAIN If you have been prescribed an opioid (such as hydrocodone, oxycodone or morphine), it is critical to understand the possible side effects and risks of opioid pain medications. Even when taken as directed, opioids can have several side effects including: Tolerance, meaning you might need to take more of a medication for the same pain relief. Nausea, vomiting and/or constipation. Sleepiness, dizziness, dry mouth, confusion, depression or itching. Physical dependence, meaning you have withdrawal symptoms when a medication is stopped ? this can develop within a few days. KNOW YOUR RESPONSIBILITIES It is important to know exactly how much and how often to take the opioid pain medications you are prescribed. Never take opioids in higher amounts or more often than prescribed. Do not combine opioids with alcohol or other drugs that cause drowsiness, such as benzodiazepines, also known as benzos,including diazepam and alprazolam, muscle relaxants or sleep aids. Never sell or share prescriptionopioids. This is illegal. Store opioids in a secure place and out of reach of others (including children, family, friends and visitors). The last page(s) of this document has been signed and retained as a CHART COPY Signatures Patient Education Materials Otitis Media, Antibiotic Treatment (Adult) Medication Leaflets clindamycin (oral/injection) My discharge plan and instructions have been reviewed and explained to me and I,EMILY NGUYEN understand my current condition and have read and understand these discharge instructions. I have received a written copy of the plan/instructions. If I have questions, I am aware that I should contact my doctor. 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 It is often caused by bacteria or fungus. It can occur a few days after water gets trapped in the ear canal (from swimming or bathing). It can also occur after cleaning too deeply in the ear canal with a cotton swab or other object. Sometimes, hair care products get into the ear canal and cause this problem. Symptoms can include pain, fever, itching, redness, drainage, or swelling of the ear canal. Temporary hearing loss may also occur. Home care Do not try to clean the ear canal. This can push pus and bacteria deeper into the canal. Use prescribed ear drops as directed. These help reduce swelling and fight the infection. If an earwick was placed in the ear canal, apply drops right onto the end of the wick. The wick will draw the medicine into the ear canal even if it is swollen closed. A cotton ball may be loosely placed in the outer ear to absorb any drainage. You may use acetaminophen or ibuprofen to control pain, unless another medicine was prescribed. Note: If you have chronic liver or kidney disease or ever had a stomach ulcer or GI bleeding, talk to your healthcare provider before taking any of these medicines. Do not allow water to get into your ear when bathing. Also, don't swim until the infection has cleared. Prevention Keep your ears dry. This helps lower the risk of infection. Dry your ears with a towel or hairspring inspector after getting wet. Also, use ear plugs when swimming. Do not stick any objects in the ear to remove wax. If you feel water trapped in your ear, use ear drops right away. You can get these drops over the counter at most drugstores. They work by removing water from the ear canal. Follow-up care Follow up with your healthcare provider in 1 week, or as advised. When to seek medical advice Call your healthcare provider right away if any of these occur: Ear pain becomes worse or doesn t improve after 3 days of treatment Redness or swelling of the outer ear occurs or gets worse Headache Painful or stiff neck Drowsiness or confusion Fever of 100.4 F (38 C) or higher, or as directed by your healthcare provider Seizure [phone] [employer]. [address] [place] [address]. All rights reserved. This information is not intended as a substitute for professional medical care. Always follow yourhealthcare professional's instructions. Follow Up Care 01/17/2022 20:24:32 With:DANISH GARCÍA Address: [address] [place] [address] [place] [address]- [phone] When:2-4 days [facility] 05-15-2022 Hospital Discharge instructions Patient Education 12/05/2021 00:09:08 Abdominal Pain Abdominal Pain Abdominal pain is pain in the stomach or belly area. Everyone has this pain from time to time. In many cases it goes away on its own. But abdominal pain can sometimes be due to a serious problem, such as appendicitis. So it s important to know when to get help. Causes of abdominal pain There are many possible causes of abdominal pain. Common causes in adults include: Constipation, diarrhea, or gas Stomach acid flowing back up into the esophagus (acid reflux or heartburn) Severe acid reflux, called GERD (gastroesophageal reflux disease) A sore in the lining of the stomach or small intestine (peptic ulcer) Inflammation of the gallbladder, liver, or pancreas Gallstones or kidney stones Appendicitis Intestinal blockage An internal organ pushing through a muscle or other tissue (hernia) Urinary tract infections In women, menstrual cramps, fibroids, ovarian cysts, pelvic inflammatory disease, or endometriosis Inflammation or infection of the intestines, including Crohn's disease and ulcerative colitis Irritable bowel syndrome Diagnosing the cause of abdominal pain Your healthcare provider will give you a physical exam help find the cause of your pain. If needed,you will have tests. Belly pain has many possible causes. So it can be hard to find the reason for your pain. Giving details about your pain can help. Tell your provider where and when you feel the pain, and what makes it better or worse. Also let your provider know if you have other symptoms such as: Fever Tiredness Upset stomach (nausea) Vomiting Changes in bathroom habits Blood in the stool or black, tarry stool Weight loss that you can't explain (involuntary weight loss?) Also report any family history of stomach or intestinal problems, or cancers. Tell your provider about all your alcohol use and drug use. Tell your provider about all medicines you use, including herbs, vitamins, and supplements. Treating abdominal pain Some causes of pain need emergency medical treatment right away. These include appendicitis or a bowel blockage. Other problems can be treated with rest, fluids, or medicines. Your healthcare provider can give you specific instructions for treatment or self-care based on what is causing your pain. If you have vomiting or diarrhea, sip water or other clear fluids. When you are ready to eat solid foods again, start with small amounts of gzah-em-muglnz, low- fat foods. These include apple sauce, toast, or crackers. When to get medical care Call 911 or go to the hospital right away if you: Can t pass stool and are vomiting Are vomiting blood or have bloody diarrhea or black, tarry diarrhea Have chest, neck, or shoulder pain Feel like you might pass out Have pain in your shoulder blades with nausea Have sudden, severe belly pain Have new, severe pain unlike any you have felt before Have a belly that is rigid, hard, and hurts to touch Call your healthcare provider if you have: Pain for more than 5 days Bloating for more than 2 days Diarrhea for more than 5 days A fever of 100.4 F (38 C) or higher, or as directed by your healthcare provider Pain that gets worse Weight loss for no reason Continued lack of appetite Blood in your stool How to prevent abdominal pain Here are some tips to help prevent abdominal pain: Eat smaller amounts of food at each meal. Don't eat greasy, fried, or other high-fat foods. Don't eat foods that give you gas. Exercise regularly. Drink plenty of fluids. To help prevent GERD symptoms: Quit smoking. Reduce alcohol and foods that increase stomach acid. Don't use aspirin or nzev-ocx-ujsxekh pain and fever medicines, if possible. This includes nonsteroidal anti-inflammatory drugs (NSAIDs). Lose excess weight. Finish eating at least 2 hours before you go to bed or lie down. Raise the head of your bed. [phone] [employer]. [address] [place] [address]. All rights reserved. This information is not intended as a substitute for professional medical care. Always follow yourhealthcare professional's instructions. Follow Up Care 12/04/2021 21:43:21 With:PABLO VALDES MD [facility]: [address] [facility] [address] [place] [phone] When:2-4 days With:WAN CASTORENA MD, Surgery Address: [address] [place] [address]- [phone] When:2-4 days With:[facility]ISH [facility]ARCÍA [facility] Address: [address] [facility] [place] [address]- [phone] When:2-4 days [facility] 04-21-2022 History of Present illness Narrative* Sonal Camacho MD - 11/11/2021 11:25 AM EDT Emily Nguyen is a 36 year old female who presents for HPV positive. HPI: Patient had STD testing with her pcp. She tested HPV positive and thus presents today. Prior to this she denies any abnormal paps or HPV positive tests. She had a hysterectomy for bleeding problems and hasn't had any paps since before then. 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 Hiwot SUÁREZ 05/2013 EXCISION GANGLION WRIST DORSAL/VOLAR PRIMARY Right wrist HYSTERECTOMY HX 2014 TRH with lysis of adhesions, without BSO LAP SLEEVE GASTRECTOMY 10/02/2018 NEUROPLASTY &/TRANSPOS MEDIAN NRV CARPAL TUNNE Bilateral 02/16/2018 Bilateral carpal tunnel syndrome PAST SURGICAL HISTORY OF Right 10/02/2020 right knee scope with menisectomy, by Dr. Oreilly TONSILLECTOMY PRIMARY/SECONDARY <AGE 12 2001 UNSPECIFIED ORAL SURGERY PROCEDURE, BY REPORT impacted teeth FAMILY HISTORY Problem Relation Age of Onset Cancer Mother UTERINE Diabetes Mother Hypertension Mother Diabetes Father Hypertension Father other (DEMENTIA) Paternal Grandmother Colon Cancer Paternal Grandfather Breast Cancer Maternal Aunt Breast Cancer Maternal Aunt Breast Cancer Other Maternal Great Aunt Heart Maternal Uncle CABG Social History Tobacco Use Smoking status: Former Smoker Packs/day: 0.20 Years: 5.00 Pack years: 1.00 Types: Cigarettes Quit date: 2014 Years since quittin.3 Smokeless tobacco: Never Used Vaping Use Vaping Use: Never used Substance Use Topics Alcohol use: Yes Comment: rare Drug use: No Current Outpatient Medications Medication Sig DULoxetine (CYMBALTA) 30 mg capsule Take 1 capsule by mouth twice daily. tiZANidine (ZANAFLEX) 4 mg tablet Take 1 tablet by mouth every 8 hours as needed (muscle spasms). metoprolol succinate ER (TOPROL XL) 100 mg Take 1 tablet by mouth once daily. losartan (COZAAR) 100 mg tablet Take 1 tablet by mouth once daily. traZODone (DESYREL) 100 mg tablet 100 mg. buPROPion XL (WELLBUTRIN XL) 150 mg 24 hr tablet Take 1 tablet by mouth once daily. multivitamin-ferrous sulfate 18 mg iron tab Take by mouth once daily. Calcium Citrate-Vitamin D2 1,500-200 mg-unit tab Take 1 tablet by mouth once daily. Cholecalciferol, Vitamin D3, (VITAMIN D-3) 400 unit chew Take by mouth once daily. cyanocobalamin, vitamin B-12, (VITAMIN B-12 SUBLINGUAL) Dissolve under the tongue once daily. lidocaine (LIDODERM) 5 % Apply 1 Patch as directed every 24 hours. Remove old patch prior to placing new patch. Location: low back (Patient not taking: Reported on 10/12/2021 ) acetaminophen 325 mg-caffeine 40 mg-butalbital 50 mg (FIORICET) per tablet Take 1 tablet by mouth every 4 hours as needed. (Patient not taking: Reported on 10/12/2021) nystatin (MYCOSTATIN) cream Apply 1 application to affected area twice daily. (Patient not taking: Reported on 10/12/2021 ) No current facility-administered medications for this visit. Allergies As of Date: 11/11/2021 Allergen Noted Reaction ESPERANZA INHIBITORS 05/21/2014 Cough AMOXACILLIN [AMOXICILLIN] 12/25/2006 Intolerance Fully Assessed 11/11/2021 Allergies and current medication updated:Yes EXAM: BP 146/96 Wt 275 lb (124.7kg) LMP 02/21/2015 GENERAL: pleasant, female in no apparent distress ASSESSMENT AND PLAN: Encounter Diagnosis ICD-10-CM 1. Vaginal high risk human papillomavirus (HPV) DNA test positive R87.811 2. Need for prophylactic vaccination/inoculation against viral disease Z23 THER/PROPH/DIAG INJ, SC/IM Reviewed pap & HPV results from pcp. Pap is normal and HPV is positive. Discussed colposcopy guidelines with patient & recommend repeat pap with HPV in 1 year. Also recommend HPV vaccine and patient agrees to proceed with series. All questions answered. Medical Decision Making: Problems: Low: Acute, uncomplicated illness or injury Data: Unique test result(s) reviewed: 2 Risk: Low: Low risk from testing/treatment Medical Decision Making Level: 3 - Low Sonal Camacho MD Patient identified by name and date of . Emily Nguyen is here for her HPV 9 vaccination, injection # one of the series. Patient ?No Gardasil injection was given without incident. See immunizations for details of immunizations administered today. VIS sheet provided: Yes Patient advised to follow up in 2 months from the 1st injection Provider Sonal Camacho MD was present in office at time of injection. Sona Castle MA documented in this encounterSumma Health04-21-2022 Instructions* Patient Instructions* Sona Castle Ma - 11/11/2021 11:25 AM EDT YOUR RECOVERY It may take a few weeks for your cervix to heal. While your cervix heals, you may have: - Vaginal bleeding (less than a normal menstrual period) - Mild cramping - A brown-black vaginal discharge (similar to coffee grounds) which is a result of the paste used to help stop bleeding from the procedure Do NOT put anything in the vagina for 1 week after your colposcopy if your doctor does a biopsy of your cervix. This includes sex, tampons, and douches. If you have any discomfort, you may take an over the counter pain medication (motrin, advil, ibuprofen, tylenol, etc). If this does not relieve your discomfort, contact your doctor's office for a prescription strength pain medication. It is okay to wear a sanitary pad until the discharge and spotting stops. RISKS Although problems seldom occur with colposcopy, there can be some complications. You may feel faintduring and shortly after the procedure as well as have some bleeding and vaginal discharge after the procedure. There is also a risk of infection after the procedure. These complications are rare andcan be easily treated. You should contact you doctor is you have any of the following: - Heavy bleeding (more than your normal period) - Bleeding with clots - Severe abdominal pain - Fever (more than 100.4F) - Foul smelling vaginal discharge RESULTS If a biopsy was taken, we will have the results of your biopsy in 1-2 weeks. If you do not hear theresults of your biopsy after 2 weeks, please contact your physicians office for the results. Depending on the biopsy results, your doctor will determine your follow up plan which may include further testing or treatments. STAYING HEALTHY After the procedure, you will need to see your doctor for follow up visits during the year. At these visits your doctor will check the health of your cervix with a pap smear. After three normal pap smears, your doctor will allow you to return to having exams once a year. If you have another abnormal pap smear, you may need closer follow up for longer or you may need additional treatment. By making a few lifestyle changes after the procedure, you can help protect the health of your cervix: - Have regular pelvic exams and pap smears as ordered by your doctor. - Stop smoking as smoking increases your risk of developing a cancer of the cervix - If you have more than one sexual partner, limit your number of partners and use condoms to reduceyour risks of STDs. If you have any additional questions, please contact your doctor's office. Gardasil Gardasil is a vaccine to protect against Human Papillomavirus (HPV) types 6, 11, 16, 18, 31,33,45, 52, 58. These viruses cause cancer and precancerous lesions on the cervix (opening between vagina and uterus), in the vagina and on the vulva (skin around the outside of the vagina) as well as genitalwarts. The vaccine cannot cause these diseases and cannot treat them if already present. Gardasil works best if given before contact with HPV. Most people are exposed to HPV soon after starting sexual activity. The vaccine is recommended between the ages of 9 and 45. Gardasil does not protect against all strains of HPV. Women who receive the vaccine still need to have regular pelvic exams and cervical cancer screening with the pap smear. You should ask your doctor if Gardasil is right for you if you have a weakened immune system, a bleeding disorder, plan to become soon or have a current illness causing fever. Gardasil is not recommended for women. You should be sure your doctor is aware of any allergies you have and all medications and herbal supplements you take. Gardasil is given to those ages 9-14 in 2 doses at 0 and 8 months. In ages 15- 45, three injections are given at 0,2,6 months. Common side effects include pain, redness, itching and swelling at the injection site, nausea, fever, dizziness and fainting. Rare but potentially serious reactions have been reported. These include allergic reaction, swollen glands, joint and muscle pain, weakness and Guillain-[place] syndrome. documented in this encounterSumma Health04-19-2022 Miscellaneous Notes* Telephone Encounter - Ирина Porter LPN - 11/09/2021 3:23 PM EDT Patient had a hysterectomy and had a pap test done by pcp. Positive HPV. Pap & Hpv results available in Care Everywhere. Patient scheduled w/ A. Dorothy. Needs to Schedule w/ a doctore per AG. documented in this encounterSumma Health03-22-2022 Miscellaneous Notes* Telephone Encounter - Vikram Kevin - 10/12/2021 1:56 PM EDT Pt is scheduled for their MSK US on 11/15 at [facility]. * Telephone Encounter - Admin Louie Razo - 10/12/2021 12:17 PM EDT Visit Type: ANY MSK Visit Length: 45, 50 OR 60 MINUTES Order Name/Protocol: US ELBOW LT; MEDIAL-EVAL LT ULNAR NERVE Preferred Provider: N/A Comment: Please ask if the patient has ever had any prior surgery to their LT elbow. If so, upgradethe visit type to an MSK1 and notate the surgical hx in the Appointment Note. Location: Depending on the surgical hx, this patient can have this exam performed at any of our three locations. 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 She began having pain of bilateral hands 10-21, and saw another ortho for knee, who prescribed 4 weeks of OT for her hand , but thisdid not help. She is unable to take NSAIDS due to hx of gastric bypass, so she has been trying Voltaren cream and tylenol. She is also having locking of LMF and pain radiating up into left elbow. Tennis elbow strap helped initially, but no longer. AMB ROOMING INTAKE FLOWSHEET DATA Risk Screening Do you have concerns about personal safety or safety in the home?: No Pain Pain Level: (left hand 9 and right hand 5) Description: Aching, Numbness Duration Amount of Time: 5 Duration Units: Months Frequency: Continuous Intervention/Comfort measure: Medication, Splinting Comments: tennis elbow brace and tylenol ASSESSMENT: G56.22 Ulnar neuropathy at elbow of left upper extremity (primary encounter diagnosis) PLAN: She is having symptoms consistent with ulnar neuropathy. She would prefer not to get another electrodiagnostic exam as she has had these previously for initially her carpal tunnel and subsequently for some myelopathy issues. We will try an ultrasound of the left elbow see if we can find enough diagnostic criteria for surgical release versus further investigation. FOLLOW UP INSTRUCTIONS: After ultrasound Ms. Emily Nguyen was advised as to contrast therapies and/or to take analgesics/anti-inflammatories as needed and all contraindications were reviewed. OBJECTIVE: Ms. Emily Nguyen is a pleasant 36 year old in no apparent distress. Gen:LMP 02/21/2015 nl development, obese, no deformities ENT: Normocephalic, normal hearing, moist mucosa CV: Pulses:Radial= 2+ and symmetric, capillary refill < 2 secs, no peripheral edema/varicosities Skin: no rash, bruising or lesions. Good turgor. Psych: cooperative and appropriate, alert and oriented x 3, good mood and affect. Musculoskeletal: She has full range of motion of the left elbow. An exquisite Tinel's at the elbow. Diminished lighttouch sensation in the small digit. Some very minor intrinsic weakness but no atrophy. 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 Hiwot SUÁREZ 05/2013 EXCIS PRIMARY GANGLION WRIST Right wrist HYSTERECTOMY HX 2014 TRH with lysis of adhesions, without BSO LAP SLEEVE GASTRECTOMY 10/02/2018 PARTIAL REMOVAL, CLAVICLE Left 08/16/2013 open distal clavicle excision REMOVAL OF TONSILS,<12 Y/O 2001 REVISE MEDIAN N/CARPAL TUNNEL SURG Bilateral 02/16/2018 Bilateral carpal tunnel syndrome UNSPECIFIED ORAL SURGERY PROCEDURE, BY REPORT impacted teeth Family History: FAMILY HISTORY Problem Relation Age of Onset Cancer Mother UTERINE Diabetes Mother Hypertension Mother Diabetes Father Hypertension Father other (DEMENTIA) Paternal Grandmother Colon Cancer Paternal Grandfather Breast Cancer Maternal Aunt Breast Cancer Maternal Aunt Breast Cancer Other Maternal Great Aunt Heart Maternal Uncle CABG Social History: Social History Tobacco Use Smoking status: Former Smoker Packs/day: 0.20 Years: 5.00 Pack years: 1.00 Types: Cigarettes Quit date: 2014 Years since quittin.2 Smokeless tobacco: Never Used Vaping Use Vaping Use: Never used Substance Use Topics Alcohol use: No Drug use: No Medications: Current Outpatient Medications Medication Sig DULoxetine (CYMBALTA) 30 mg capsule Take 1 capsule by mouth twice daily. tiZANidine (ZANAFLEX) 4 mg tablet Take 1 tablet by mouth every 8 hours as needed (muscle spasms). lidocaine (LIDODERM) 5 % Apply 1 Patch as directed every 24 hours. Remove old patch prior to placing new patch. Location: low back metoprolol succinate ER (TOPROL XL) 100 mg Take 1 tablet by mouth once daily. acetaminophen 325 mg-caffeine 40 mg-butalbital 50 mg (FIORICET) per tablet Take 1 tablet by mouth every 4 hours as needed. losartan (COZAAR) 100 mg tablet Take 1 tablet by mouth once daily. nystatin (MYCOSTATIN) cream Apply 1 application to affected area twice daily. traZODone (DESYREL) 100 mg tablet 100 mg. buPROPion XL (WELLBUTRIN XL) 150 mg 24 hr tablet Take 1 tablet by mouth once daily. multivitamin-ferrous sulfate 18 mg iron tab Take by mouth once daily. Calcium Citrate-Vitamin D2 1,500-200 mg-unit tab Take 1 tablet by mouth once daily. Cholecalciferol, Vitamin D3, (VITAMIN D-3) 400 unit chew Take by mouth once daily. cyanocobalamin, vitamin B-12, (VITAMIN B-12 SUBLINGUAL) Dissolve under the tongue once daily. No current facility-administered medications for this visit. Allergies: Esperanza Inhibitors and Amoxacillin [Amoxicillin] ROS: General (negative for fatigue, malaise, weight loss/gain) HEENT (negative for headache, earache, recent vision changes, sinus pain, sore throat) Respiratory (no recent shortness of breath, hemoptysis) CV (negative for chest tightness, palpitations) Musculoskeletal (see HPI) Psych (no depression, anxiety) REFERRING PHYSICIAN: Ms. Emily Nguyen was referred to me for consultation by the following physician. This consultation note will be sent to the following physician by either mail or electronic medical record. SELF Carmelo Coffey MD [id number] [facility] [id number] Anibal Naqvi MD [facility] Discharge instructions Patient Education 07/03/2021 18:13:02 URI, Viral, No Abx (Adult) Viral Upper Respiratory Illness (Adult) You have a viral upper respiratory illness (URI), which is another term for the common cold. This illness is contagious during the first few days. It is spread through the air by coughing and sneezing. It may also be spread by direct contact (touching the sick person and then touching your own eyes, nose, or mouth). Frequent handwashing will decrease risk of spread. Most viral illnesses go away within 7 to 10 days with rest and simple home remedies. Sometimes the illness may last for several weeks. Antibiotics will not kill a virus, and they are generally not prescribed for this condition. Home care If symptoms are severe, rest at home for the first 2 to 3 days. When you resume activity, don't letyourself get too tired. Don't smoke. If you need help stopping, talk with your healthcare provider. Avoid being exposed to cigarette smoke (yours or others ). You may use acetaminophen or ibuprofen to control pain and fever, unless another medicine was prescribed. If you have chronic liver or kidney disease, have ever had a stomach ulcer or gastrointestinal bleeding, or are taking blood-thinning medicines, talk with your healthcare provider before using these medicines. Aspirin should never be given to anyone under 18 years of age who is ill with a viral infection or fever. It may cause severe liver or brain damage. Your appetite may be poor, so a light diet is fine. Stay well hydrated by drinking 6 to 8 glasses of fluids per day (water, soft drinks, juices, tea, or soup). Extra fluids will help loosen secretions in the nose and lungs. Wyet-rlo-dbprere cold medicines will not shorten the length of time you re sick, but they may be helpful for the following symptoms: cough, sore throat, and nasal and sinus congestion. If you take prescription medicines, ask your healthcare provider or pharmacist which ndfr-ivz-flempgf medicines are safe to use. (Note: Don't use decongestants if you have high blood pressure.) Follow-up care Follow up with your healthcare provider, or as advised. When to seek medical advice Call your healthcare provider right away if any of these occur: Cough with lots of colored sputum (mucus) Severe headache; face, neck, or ear pain Difficulty swallowing due to throat pain Fever of 100.4 F (38 C) or higher, or as directed by your healthcare provider Call 911 Call 911 if any of these occur: Chest pain, shortness of breath, wheezing, or difficulty breathing Coughing up blood Very severe pain with swallowing, especially if it goes along with a muffled voice [id number] [employer]. [address] [place] [address], [place] [address]. All rights reserved. This information is not intended as a substitute for professional medical care. Always follow yourhealthcare professional's instructions. Follow Up Care 07/03/2021 14:54:22 With:DANISH GARCÍA Address: [address] [facility] [place] [phone] When:2-4 days With:Go to emergency room if symptoms worsen Address:Unknown When:2-4 days [facility] 12-07-2012 History of Past illness Narrative* Problem Noted Date Resolved Date Pain in shoulder 06/29/2012 02/14/2018 Headache in , antepartum 03/17/2011 05/20/2011 Dizziness, nonspecific 03/17/2011 8 Previous section 11/29/20102010 Hypertension in , antepartum 11/29/2010 05/20/2011 SUPRF HIGH RISK NEC [V23.89] 1 05/20/2011 Supervision of other high-risk (V23.89) 02/09/2009 08/03/2009 Previous delivery, delivered, with or without mention of antepartum condition 02/09/2009 08/03/2009 Benign essential hypertension antepartum 009 08/03/2009 Supervision of normal first 05/16/2006 12/20/2006 documented as of this encounter (statuses as of 10/12/2021) [facility] of Past illness Narrative* Problem Noted Date Resolved Date Pain in shoulder 06/29/2012 02/14/2018 Headache in , antepartum 03/17/2011 05/20/2011 Dizziness, nonspecific 03/17/2011 8 Previous section 11/29/20102010 Hypertension in , antepartum 11/29/2010 05/20/2011 SUPRF HIGH RISK NEC [V23.89] 1 05/20/2011 Supervision of other high-risk (V23.89) 02/09/2009 08/03/2009 Previous delivery, delivered, with or without mention of antepartum condition 02/09/2009 08/03/2009 Benign essential hypertension antepartum 009 08/03/2009 Supervision of normal first 05/16/2006 12/20/2006 documented as of this encounter (statuses as of 10/12/2021) [facility] History of Past illness Narrative* Problem Noted Date Resolved Date Pain in shoulder 06/29/2012 02/14/2018 Headache in , antepartum 03/17/2011 05/20/2011 Dizziness, nonspecific 03/17/2011 8 Previous section 11/29/20102010 Hypertension in , antepartum 11/29/2010 05/20/2011 SUPRF HIGH RISK NEC [V23.89] 1 05/20/2011 Supervision of other high-risk (V23.89) 02/09/2009 08/03/2009 Previous delivery, delivered, with or without mention of antepartum condition 02/09/2009 08/03/2009 Benign essential hypertension antepartum 009 08/03/2009 Supervision of normal first 05/16/2006 12/20/2006 documented as of this encounter (statuses as of 11/10/2021) [facility] History of Past illness Narrative* Problem Noted Date Resolved Date Pain in shoulder 06/29/2012 02/14/2018 Headache in , antepartum 03/17/2011 05/20/2011 Dizziness, nonspecific 03/17/2011 8 Previous section 11/29/20102010 Hypertension in , antepartum 11/29/2010 05/20/2011 SUPRF HIGH RISK NEC [V23.89] 1 05/20/2011 Supervision of other high-risk (V23.89) 02/09/2009 08/03/2009 Previous delivery, delivered, with or without mention of antepartum condition 02/09/2009 08/03/2009 Benign essential hypertension antepartum 009 08/03/2009 Supervision of normal first 05/16/2006 12/20/2006 documented as of this encounter (statuses as of 11/11/2021) [facility] History of Past illness Narrative* Problem Noted Date Resolved Date Pain in shoulder 06/29/2012 02/14/2018 Headache in , antepartum 03/17/2011 05/20/2011 Dizziness, nonspecific 03/17/2011 8 Previous section 11/29/20102010 Hypertension in , antepartum 11/29/2010 05/20/2011 SUPRF HIGH RISK NEC [V23.89] 1 05/20/2011 Supervision of other high-risk (V23.89) 02/09/2009 08/03/2009 Previous delivery, delivered, with or without mention of antepartum condition 02/09/2009 08/03/2009 Benign essential hypertension antepartum 009 08/03/2009 Supervision of normal first 05/16/2006 12/20/2006 documented as of this encounter (statuses as of 01/05/2023) [facility] of Past illness Narrative* Problem Noted Date Resolved Date Pain in shoulder 06/29/2012 02/14/2018 Headache in , antepartum 03/17/2011 05/20/2011 Dizziness, nonspecific 03/17/2011 8 Previous section 11/29/20102010 Hypertension in , antepartum 11/29/2010 05/20/2011 SUPRF HIGH RISK NEC [V23.89] 1 05/20/2011 Supervision of other high-risk (V23.89) 02/09/2009 08/03/2009 Previous delivery, delivered, with or without mention of antepartum condition 02/09/2009 08/03/2009 Benign essential hypertension antepartum 009 08/03/2009 Supervision of normal first 05/16/2006 12/20/2006 documented as of this encounter (statuses as of 01/05/2023) [facility] of Past illness Narrative* Problem Noted Date Resolved Date Pain in shoulder 06/29/2012 02/14/2018 Headache in , antepartum 03/17/2011 05/20/2011 Dizziness, nonspecific 03/17/2011 8 Previous section 11/29/20102010 Hypertension in , antepartum 11/29/2010 05/20/2011 SUPRF HIGH RISK NEC [V23.89] 1 05/20/2011 Supervision of other high-risk (V23.89) 02/09/2009 08/03/2009 Previous delivery, delivered, with or without mention of antepartum condition 02/09/2009 08/03/2009 Benign essential hypertension antepartum 009 08/03/2009 Supervision of normal first 05/16/2006 12/20/2006 documented as of this encounter (statuses as of 01/11/2023) [facility] illness Narrative* Problem Noted Date Diagnosed Date Resolved Date Pain in shoulder 06/29/2012 02/14/2018 Headache in , antepartum 03/17/2011 05/20/2011 Dizziness, nonspecific 03/17/201102/14 Previous section 11/29/2010 Hypertension in , antepartum 11/29/2010 05/20/2011 SUPRF HIGH RISK NEC [V23.89] 10/28/2010 05/20/2011 Supervision of other high-ri sk (V23.89) 02/09/2009 08/03/2009 Previous delivery, delivered, with or without mention of antepartum condition 02/09/2009 08/03/2009 Benign essential hypertension antepartum 02/09/2009 08/03/2009 Supervision of normal first 05/16/2006 12/20/2006 documented as of this encounter (statuses as of 09/20/2023) [facility] illness Narrative* Problem Noted Date Diagnosed Date Resolved Date Pain in shoulder 06/29/2012 02/14/2018 Headache in , antepartum 03/17/2011 05/20/2011 Dizziness, nonspecific 03/17/201102/14 Previous section 11/29/2010 Hypertension in , antepartum 11/29/2010 05/20/2011 SUPRF HIGH RISK NEC [V23.89] 10/28/2010 05/20/2011 Supervision of other high-ri sk (V23.89) 02/09/2009 08/03/2009 Previous delivery, delivered, with or without mention of antepartum condition 02/09/2009 08/03/2009 Benign essential hypertension antepartum 02/09/2009 08/03/2009 Supervision of normal first 05/16/2006 12/20/2006 documented as of this encounter (statuses as of 09/20/2023) [facility] illness Narrative* Problem Noted Date Diagnosed Date Resolved Date Pain in shoulder 06/29/2012 02/14/2018 Headache in , antepartum 03/17/2011 05/20/2011 Dizziness, nonspecific 03/17/201102/14 Previous section 11/29/2010 Hypertension in , antepartum 11/29/2010 05/20/2011 SUPRF HIGH RISK NEC [V23.89] 10/28/2010 05/20/2011 Supervision of other high-ri sk (V23.89) 02/09/2009 08/03/2009 Previous delivery, delivered, with or without mention of antepartum condition 02/09/2009 08/03/2009 Benign essential hypertension antepartum 02/09/2009 08/03/2009 Supervision of normal first 05/16/2006 12/20/2006 documented as of this encounter (statuses as of 10/03/2023) [facility] of [facility] illness Narrative* Problem Noted Date Diagnosed Date Resolved Date Pain in shoulder 06/29/2012 02/14/2018 Headache in , antepartum 03/17/2011 05/20/2011 Dizziness, nonspecific 03/17/201102/14 Previous section 11/29/2010 Hypertension in , antepartum 11/29/2010 05/20/2011 SUPRF HIGH RISK NEC [V23.89] 10/28/2010 05/20/2011 Supervision of other high-ri sk (V23.89) 02/09/2009 08/03/2009 Previous delivery, delivered, with or without mention of antepartum condition 02/09/2009 08/03/2009 Benign essential hypertension antepartum 02/09/2009 08/03/2009 Supervision of normal first 05/16/2006 12/20/2006 documented as of this encounter (statuses as of 10/13/2023) [facility] of Past illness Narrative* Problem Noted Date Diagnosed Date Resolved Date Pain in shoulder 06/29/2012 02/14/2018 Headache in , antepartum 03/17/2011 05/20/2011 Dizziness, nonspecific 03/17/201102/14 Previous section 11/29/2010 Hypertension in , antepartum 11/29/2010 05/20/2011 SUPRF HIGH RISK NEC [V23.89] 10/28/2010 05/20/2011 Supervision of other high-ri sk (V23.89) 02/09/2009 08/03/2009 Previous delivery, delivered, with or without mention of antepartum condition 02/09/2009 08/03/2009 Benign essential hypertension antepartum 02/09/2009 08/03/2009 Supervision of normal first 05/16/2006 12/20/2006 documented as of this encounter (statuses as of 10/13/2023) [facility] of [facility] illness Narrative* Problem Noted Date Diagnosed Date Resolved Date Pain in shoulder 06/29/2012 02/14/2018 Headache in , antepartum 03/17/2011 05/20/2011 Dizziness, nonspecific 03/17/201102/14 Previous section 11/29/2010 Hypertension in , antepartum 11/29/2010 05/20/2011 SUPRF HIGH RISK NEC [V23.89] 10/28/2010 05/20/2011 Supervision of other high-ri sk (V23.89) 02/09/2009 08/03/2009 Previous delivery, delivered, with or without mention of antepartum condition 02/09/2009 08/03/2009 Benign essential hypertension antepartum 02/09/2009 08/03/2009 Supervision of normal first 05/16/2006 12/20/2006 documented as of this encounter (statuses as of 10/27/2023) [facility] of Past illness Narrative* Problem Noted Date Diagnosed Date Resolved Date Pain in shoulder 06/29/2012 02/14/2018 Headache in , antepartum 03/17/2011 05/20/2011 Dizziness, nonspecific 03/17/201102/14 Previous section 11/29/2010 Hypertension in , antepartum 11/29/2010 05/20/2011 SUPRF HIGH RISK NEC [V23.89] 10/28/2010 05/20/2011 Supervision of other high-ri sk (V23.89) 02/09/2009 08/03/2009 Previous delivery, delivered, with or without mention of antepartum condition 02/09/2009 08/03/2009 Benign essential hypertension antepartum 02/09/2009 08/03/2009 Supervision of normal first 05/16/2006 12/20/2006 documented as of this encounter (statuses as of 11/09/2023) [facility] of Past illness Narrative* Problem Noted Date Diagnosed Date Resolved Date Pain in shoulder 06/29/2012 02/14/2018 Headache in , antepartum 03/17/2011 05/20/2011 Dizziness, nonspecific 03/17/201102/14 Previous section 11/29/2010 Hypertension in , antepartum 11/29/2010 05/20/2011 SUPRF HIGH RISK NEC [V23.89] 10/28/2010 05/20/2011 Supervision of other high-ri sk (V23.89) 02/09/2009 08/03/2009 Previous delivery, delivered, with or without mention of antepartum condition 02/09/2009 08/03/2009 Benign essential hypertension antepartum 02/09/2009 08/03/2009 Supervision of normal first 05/16/2006 12/20/2006 documented as of this encounter (statuses as of 11/09/2023) [facility] History of Past illness Narrative* Problem Noted Date Diagnosed Date Resolved Date Pain in shoulder 06/29/2012 02/14/2018 Headache in , antepartum 03/17/2011 05/20/2011 Dizziness, nonspecific 03/17/201102/14 Previous section 11/29/2010 Hypertension in , antepartum 11/29/2010 05/20/2011 SUPRF HIGH RISK NEC [V23.89] 10/28/2010 05/20/2011 Supervision of other high-ri sk (V23.89) 02/09/2009 08/03/2009 Previous delivery, delivered, with or without mention of antepartum condition 02/09/2009 08/03/2009 Benign essential hypertension antepartum 02/09/2009 08/03/2009 Supervision of normal first 05/16/2006 12/20/2006 documented as of this encounter (statuses as of 11/10/2023) [facility]ments Appointment Date:09/22/2021 10:00:00 AM Scheduled Provider:DANISH GARCÍA Location:[facility] Appointment Type:PC OV Future Scheduled Tests Laboratory* Basic Metabolic Panel 03/24/21 [facility] Protonetaluation + Plan note Future Appointments Appointment Date:01/20/2022 08:45:00 AM Scheduled Provider: Location:[facility] [place] Appointment Type:PC Nurse Lab Appointment Date:01/28/2022 10:00:00 AM Scheduled Provider:DANISH GARCÍA Location:[facility] [place] Appointment Type:PC OV Future Scheduled Tests Laboratory* Basic Metabolic Panel 03/24/21 * Cancer Antigen 125 10/29/21 * Rapid Plasma Reagin Test 10/29/21 * Lipid Profile 07/30/21 * Hepatitis C Antibody IgG 10/29/21 * HIV 1/2 Ab 10/29/21 * Vitamin D Level 07/30/21 * Complete Metabolic Panel 07/30/21 [facility] Protonetaluation + Plan note Future Appointments Appointment Date:01/20/2022 08:45:00 AM Scheduled Provider: Location:[facility] [place] Appointment Type:PC Nurse Lab Appointment Date:01/28/2022 10:00:00 AM Scheduled Provider:DANISH GARCÍA Location:[facility] [place] Appointment Type:PC OV Diagnostic Tests Pending * Rapid Plasma Reagin Test 11/17/21 Future Scheduled Tests Laboratory* Basic Metabolic Panel 03/24/21 * Lipid Profile 07/30/21 * Vitamin D Level 07/30/21 * Complete Metabolic Panel 07/30/21 [facility] Evaluation + Plan note Future Appointments Appointment Date:01/20/2022 08:45:00 AM Scheduled Provider: Location:[facility] Appointment Type:PC Nurse Lab Appointment Date:01/28/2022 10:00:00 AM Scheduled Provider:DANISH GARCÍA Location:[facility] [place] Appointment Type:PC OV Future Scheduled Tests Laboratory* Basic Metabolic Panel 03/24/21 * Lipid Profile 07/30/21 * Vitamin D Level 07/30/21 * Complete Metabolic Panel 07/30/21 [facility] Evaluation + Plan note Future Appointments Appointment Date:01/20/2022 08:45:00 AM Scheduled Provider: Location:[facility] [place] Appointment Type:PC Nurse Lab Appointment Date:01/28/2022 10:00:00 AM Scheduled Provider:DANISH GARCÍA Location:[facility] [place] Appointment Type:PC OV Future Scheduled Tests Laboratory* Basic Metabolic Panel 03/24/21 * Lipid Profile 07/30/21 * Vitamin D Level 07/30/21 * Complete Metabolic Panel 07/30/21 Radiology* US Abdomen Limited 01/05/22 [facility] Evaluation + Plan note Future Appointments Appointment Date:03/15/2022 09:30:00 AM Scheduled Provider:DANISH GARCÍA Location:[facility] [place] Appointment Type:Telehealth Future Scheduled Tests Laboratory* Basic Metabolic Panel 03/24/21 * Lipid Profile 07/30/21 * Vitamin D Level 07/30/21 * Complete Metabolic Panel 07/30/21 Radiology* US Abdomen Limited 01/05/22 [facility] Evaluation + Plan note Future Appointments Appointment Date:07/26/2022 10:00:00 AM Scheduled Provider:DANISH GARCAÍ Location:[facility] [place] Appointment Type:PC OV Follow Up Future Scheduled Tests Laboratory* Lipid Profile 07/30/21 * Vitamin D Level 07/30/21 * Complete Metabolic Panel 07/30/21 Radiology* US Abdomen Limited 01/05/22 [facility] Evaluation + Plan note Future Appointments Appointment Date:08/05/2022 10:00:00 AM Scheduled Provider:DANISH GARCÍA Location:[facility] [place] Appointment Type:PC OV Future Scheduled Tests Radiology* US Abdomen Limited 01/05/22 [facility] Evaluation note* Diagnosis Ulnar neuropathy at elbow of left upper extremity- Primary [facility] Diagnosis Vaginal high risk human papillomavirus (HPV) DNA test positive- Primary Need for prophylactic vaccination/inoculation against viral disease Need for prophylactic vaccination and inoculation against other viral diseases [facility] Left foot pain Pain in limb documented in this encounter [facility] Work Phone: Evaluation noteNo assessment information available [facility] Work Phone: Evaluation note* Diagnosis Vulval lesion- Primary Other specified noninflammatory disorder of vulva and perineum Vulvar pain Unspecified symptom associated with female genital organs [facility] Diagnosis Vulval lesion Other specified noninflammatory disorder of vulva and perineum [facility]* Diagnosis Lumbar strain, initial encounter- Primary Acute bilateral low back pain, unspecified whether sciatica present Left hip pain Pain in joint, pelvic region and thigh [facility] Wellness examination- Primary Encounter to establish care Other reasons for seeking consultation Primary hypertension Unspecified essential hypertension Depression with anxiety Dysthymic disorder Primary insomnia Persistent disorder of initiating or maintaining sleep Central serous chorioretinopathy of eye, right Herpes simplex type II infection Herpes simplex without mention of complication History of HPV infection Personal history of other infectious and parasitic disease B12 deficiency Other B-complex deficiencies Osteoarthritis of spine with radiculopathy, lumbar region Primary osteoarthritis of right knee Primary localized osteoarthrosis, lower leg Skin lump of leg, left Mass of lower inner quadrant of left breast Screening for lipid disorders Special screening examination for viral disease Special screening examination for unspecified viral disease [facility] Diagnosis Depression with anxiety Dysthymic disorder [facility]* Diagnosis Herpes simplex type II infection- Primary Herpes simplex without mention of complication Skin lump of leg, right Skin lesion Unspecified disorder of skin and subcutaneous tissue [facility] Diagnosis Skin lump of leg, left Skin lump of leg, right Skin lesion Unspecified disorder of skin and subcutaneous tissue [facility]* Diagnosis Skin lump of leg, right- Primary Skin lump of leg, left [facility]* Diagnosis Essential hypertension Unspecified essential hypertension [facility]* Diagnosis Herpes simplex type II infection Herpes simplex without mention of complication [facility]* Diagnosis Mixed headache Headache documented in this encounter [facility] note* Diagnosis Mixed headache Headache documented in this encounter [facility] note* Diagnosis Depression with anxiety Dysthymic disorder documented in this encounter [facility] note* Diagnosis Mixed headache Headache documented in this encounter [facility] note* Diagnosis Strain of right ankle, subsequent encounter- Primary documented in this encounter [facility] note* Diagnosis Primary hypertension- Primary Unspecified essential hypertension Herpes simplex type II infection Herpes simplex without mention of complication Encounter for immunization Need for other specified prophylactic vaccination against single bacterial disease Tired Other malaise and fatigue Special screening examination for viral disease Special screening examination for unspecified viral disease Encounter for pre-operative cardiovascular clearance Pre-operative cardiovascular examination documented in this encounter [facility] note* Diagnosis Essential hypertension- Primary Unspecified essential hypertension B12 deficiency Other B-complex deficiencies Vitamin D deficiency Unspecified vitamin D deficiency documented in this encounter [facility] note* Diagnosis Primary hypertension- Primary Unspecified essential hypertension B12 deficiency Other B-complex deficiencies documented in this encounter [facility] note* Diagnosis Essential hypertension- Primary Unspecified essential hypertension documented in this encounter [facility] note* Diagnosis Essential hypertension Unspecified essential hypertension documented in this encounter [facility] note* Diagnosis Mixed headache Headache documented in this encounter [facility] note* Diagnosis Mixed headache Headache documented in this encounter [facility] note* Diagnosis Mixed headache Headache documented in this encounter [facility] note* Diagnosis Nausea, vomiting, and diarrhea- Primary Diarrhea documented in this encounter [facility] note* Diagnosis Encounter for screening mammogram for breast cancer documented in this encounter [facility] note* Diagnosis Depression with anxiety- Primary Dysthymic disorder documented in this encounter [facility] note* Diagnosis Herpes simplex type II infection Herpes simplex without mention of complication documented in this encounter [facility] note* Diagnosis Primary osteoarthritis of right knee Primary localized osteoarthrosis, lower leg [facility]* Diagnosis Viral gastroenteritis Intestinal infection due to other organism, not elsewhere classified documented in this encounter [facility] note* Diagnosis Encounter for medical examination to establish care- Primary Essential hypertension Unspecified essential hypertension B12 deficiency Other B-complex deficiencies Vitamin D insufficiency Unspecified vitamin D deficiency Screening for hyperlipidemia Screening for lipoid disorders Mixed headache Headache Hidradenitis suppurativa of right axilla Hidradenitis Genital herpes simplex, unspecified site documented in this encounter [facility] course Narrative No data available for this section [facility] Discharge instructions No data available for this section [facility] note No data available for this section [facility] Reason for referral (narrative)* Diagnostic Procedure Only (Routine) - Authorized Specialty Diagnoses / Procedures Referred By Flavia galan Referred To Contact [facility] Diagnoses Ulnar neuropathy at elbow of left upper extremity Procedures US ELBOW LEFT US LMTD JOINT/OTH NONVASC XTR STRUX R-T W/IMG Anibal Naqvi MD [address] [place] [address] [facility] Referral ID Status Reason Start Date Expiration Date Visits Requested Visits Authorized [id number] Authorized Auto-Generat ed Referral 10/12/2021 11/11/2022 1 1 [facility] for referral (narrative)* Diagnostic Procedure Only (Routine) - Pending Review Specialty Diagnoses / Procedures Referred By Flavia galan Referred To Contact [facility] Diagnoses Skin lump of leg, left Procedures US EXTREMITY MASS/FLUID COLLECTION LEFT Joey Sloan PA-C [address] [place] [address] [place] [address] Referral ID Status Reason Start Date Expiration Date Visits Requested Visits Authorized [id number] Pending Review Auto-Generat ed Referral 09/20/2023 10/19/2024 1 1 * Diagnostic Procedure Only (Routine) - Authorized Specialty Diagnoses / Procedures Referred By Flavia galan Referred To Contact [facility] Diagnoses Mass of lower inner quadrant of left breast Procedures US BREAST LTD LEFT US BREAST UNI REAL TIME WITH IMAGE LIMITED Joey Sloan PA-C [address] [place] [address], [address] [place] [address] [facility] [address] [place] [address] Referral ID Status Reason Start Date Expiration Date Visits Requested Visits Authorized [id number] Authorized Auto-Generat ed Referral 09/20/2023 10/19/2024 1 1 * Diagnostic Procedure Only (Routine) - Authorized Specialty Diagnoses / Procedures Referred By Contac t Referred To Contact [facility] Diagnoses Mass of lower inner quadrant of left breast Procedures [facility] BILATERAL DIAGNOSTIC MAMMOGRAPHY COMPUTER-AIDED DETCJ BI Joey Sloan PA-C [address] [place] [address], [address] [place] [address] [facility] [address] [place] [phone] Referral ID Status Reason Start Date Expiration Date Visits Requested Visits Authorized [id number] Authorized Auto-Generat ed Referral 09/20/2023 10/19/2024 1 1 * Consult, Test, Treat (Routine) - Authorized Specialty Diagnoses / Procedures Referred By Contac t Referred To Contact Diagnoses History of HPV infection Procedures CONSULT TO COOK COLD MEAT OFFICE/OUTPATIENT [facility] 60 MINUTES Joey Sloan PA-C [address] [place] [address], [address] [place] [address] Referral ID Status Reason Start Date Expiration Date Visits Requested Visits Authorized [id number] Authorized PCP Requested Referral Auto-Generate d Referral 09/20/2023 09/19/2024 1 1 * Consult, Test, Treat (Routine) - Authorized Specialty Diagnoses / Procedures Referred By Contac t Referred To Contact Ophthalmology Diagnoses Central serous chorioretinopathy of eye, right Procedures CONSULT TO OPHTHALMOLOGY OFFICE/OUTPATIENT [facility] 60 MINUTES Joey Sloan PA-C [address] [place] [address], [address] [place] [address] Referral ID Status Reason Start Date Expiration Date Visits Requested Visits Authorized [id number] Authorized PCP Requested Referral 09/20/2023 09/19/2024 1 1 [facility] for referral (narrative)* Diagnostic Procedure Only (Routine) - Pending Review Specialty Diagnoses / Procedures Referred By Contac t Referred To Contact [facility] IM[facility] Diagnoses Skin lesion Procedures US ABDOMEN LTD US ABDOMINAL REAL TIME W/IMAGE LIMITED Joey Sloan PA-C [address] [place] [address], [address] [place] [address] [place] [address] Referral ID Status Reason Start Date Expiration Date Visits Requested Visits Authorized [id number] Pending Review Auto-Generat ed Referral 10/02/2023 10/31/2024 1 1 * Diagnostic Procedure Only (Routine) - Pending Review Specialty Diagnoses / Procedures Referred By Contac t Referred To Contact [facility] IM[facility] Diagnoses Skin lump of leg, right Procedures US EXTREMITY MASS/FLUID COLLECTION RIGHT Joey Sloan PA-C [address] [place] [address], [address] [place] [address] [place] [address] Referral ID Status Reason Start Date Expiration Date Visits Requested Visits Authorized [id number] Pending Review Auto-Generat ed Referral 10/02/2023 10/31/2024 1 1 [facility] for referral (narrative)* Diagnostic Procedure Only (Routine) - Closed Specialty Diagnoses / Procedures Referred By Contac t Referred To Contact [facility] IM[facility] Diagnoses Skin lesion Procedures US ABDOMEN LTD US ABDOMINAL REAL TIME W/IMAGE LIMITED Joey Sloan PA-C [address] [place] [address], [address] [place] [address] [place] [address] Referral ID Status Reason Start Date Expiration Date V isits Requested Visits Authorized [id number] Closed Auto-Generate d Referral 10/02/2023 10/31/2024 1 1 [facility] Outpatient Procedure (Routine) - Authorized Specialty Diagnoses / Procedures Referred By Contac t Referred To Contact [facility] Diagnoses Essential hypertension Procedures ECG COMPLETE ECG ROUTINE ECG W/LEAST 12 LDS W/I&R Thomas Santos MD [address] [place] [address] [place] [address] Referral ID Status Reason Start Date Expiration Date Visits Requested Visits Authorized [id number] Authorized Auto-Generat ed Referral 06/12/2025 1 1 [facility] Summary Purpose Family History No Family History Records FoundNo Family History Records FoundNo Family History Records FoundNo Family History Records FoundNo Family History Records FoundNo Family History Records Found No data available for this section No data available for this section No data available for this section No Family History Records FoundNo Family History Records Found No data available for this section No data available for this section No data available for this section No data available for this section No Family History Records FoundNo Family History Records FoundNo Family History Records Found Advance Directives No Advanced Directives Records FoundDocuments on File Type Date Recorded 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 Advance Directive(s) 03/04/2019 1:53 PM Advance Directive(s) 10/02/2018 8:21 AM Advance Directive(s) 04/02/2018 11:34 AM Advance Directive(s) 02/16/2018 7:53 AM Documents on File Type Date Recorded 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 Advance Directive(s) 03/04/2019 1:53 PM Advance Directive(s) 10/02/2018 8:21 AM Advance Directive(s) 04/02/2018 11:34 AM Advance Directive(s) 02/16/2018 7:53 AM Advance Directive Response Recorded Date/ Time Advance Directives No February 26 11:47am Living Will No November 16, 2022 7:28pm 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 Mason 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 No November 16 7:28pm Chief Complaint and Reason for Visit Chief Complaint decrease vision Reason for Referral Specialty Diagnoses / Procedures Referred By Contac t Referred To Contact Cardiology Diagnoses Essential hypertension Procedures CONSULT TO CARDIOLOGY OFFICE/OUTPATIENT [facility] [address] [place] [address] [facility] [address] [place] [address] Referral ID Status Reason Start Date Expiration Date Visits Requested Visits Authorized [id number] Authorized PCP Requested Referral 05/09/2025 1 1 Specialty Diagnoses / Procedures Referred By Contac t Referred To Contact Podiatry Diagnoses Strain of right ankle, subsequent encounter Procedures CONSULT TO PODIATRY OFFICE/OUTPATIENT [facility] 60 MINUTES Thania Eli, DRYING CAN WORKER.COMBINATION WELDER [address] [place] [address] Referral ID Status Reason Start Date Expiration Date Visits Requested Visits Authorized [id number] Authorized PCP Requested Referral 04/15/2024 04/15/2025 1 1 Specialty Diagnoses / Procedures Referred By Contac t Referred To Contact Diagnoses Skin lump of leg, right Skin lump of leg, left Procedures REFERRAL DERMATOLOGY SURGERY OFFICE/OUTPATIENT [facility] 60 MINUTES Joey Sloan PA-C [address] [facility], [address] [place] [address] Referral ID Status Reason Start Date Expiration Date Visits Requested Visits Authorized [id number] Authorized PCP Requested Referral 10/12/2023 10/11/2024 1 1 Specialty Diagnoses / Procedures Referred By Contact Referred To Contact Physical Medicine & Rehab/PM&R Diagnoses Lumbar strain, initial encounter Acute bilateral low back pain, unspecified whether sciatica present Left hip pain Samantha Carnes, DRYING CAN WORKER-COMBINATION WELDER [address] [facility] [place] [address] [facility] [address] [place] [phone] Referral ID Status Reason Start Date Expiration Date Stefano arellano Requested Visits Authorized [id number] Authorized 07/14/2023 07/14/2024 1 1 Scheduling Instructions You have been referred to the Department of Physical Medicine and Rehabilitation. Please call to schedule an appointment . Please arrive 20 minutes prior to your appointment. A personal identification card and insurance card(s) are required at the time of registry. If you have radiology films or other pertinent documents from an outside hospital, please bring them with you. If you are unable to keep your appointment, please call at least 24 hours in advance. Question Answer Patient to be evaluated for: Musculoskeletal Is the issue related to the Spine (Neck/Back Pain)? Yes Additional Source Comments INFORMATION SOURCE (unrecogn ized section and content) DATE CREATED AUTHOR 02/21/2018 [facility] DATE CREATED AUTHOR AUTHOR'S ORGANIZ ATION 05/15/2019 [facility] DATE CREATED AUTHOR AUTHOR'S ORGANIZ ATION 05/02/2022 [facility] DATE CREATED AUTHOR AUTHOR'S ORGANIZ ATION 05/03/2022 [facility] DATE CREATED AUTHOR AUTHOR'S ORGANIZ ATION 11/16/2022 [facility] DATE CREATED AUTHOR AUTHOR'S ORGANIZ ATION 07/21/2023 [facility] DATE CREATED AUTHOR AUTHOR'S ORGANIZ ATION 02/17/2024 [facility] ([place] DATE CREATED AUTHOR AUTHOR'S ORGANIZ ATION 03/28/2024 [facility] DATE CREATED AUTHOR AUTHOR'S ORGANIZ ATION 06/18/2024 [facility] DATE CREATED AUTHOR AUTHOR'S ORGANIZ ATION 09/01/2024 [facility] DATE CREATED AUTHOR AUTHOR'S ORGANIZ ATION 03/22/2025 [facility] Source Comments (unrecognize d section and content) In the event this informatio n is protected by the Federal Confidentiality of Alcohol and Drug Abuse Patient Records regulations: The Federal rules restrict any use of the information to criminally investigate or prosecute any alcohol or drug abuse patient.[facility] the event this information is protected by the Federal Confidentiality of Alcohol and Drug Abuse Patient Records regulations: The Federal rules restrict any use of the information to criminally investigate or prosecute any alcohol or drug abuse patient.[facility] the event this information is protected by the Federal Confidentiality of Alcohol and Drug Abuse Patient Records regulations: The Federal rules restrict any use of the information to criminally investigate or prosecute any alcohol or drug abuse patient.[facility] the event this information is protected by the Federal Confidentiality of Alcohol and Drug Abuse Patient Records regulations: The Federal rules restrict any use of the information to criminally investigate or prosecute any alcohol or drug abuse patient.[facility] the event this information is protected by the Federal Confidentiality of Alcohol and Drug Abuse Patient Records regulations: The Federal rules restrict any use of the information to criminally investigate or prosecute any alcohol or drug abuse patient.[facility] the event this information is protected by the Federal Confidentiality of Alcohol and Drug Abuse Patient Records regulations: The Federal rules restrict any use of the information to criminally investigate or prosecute any alcohol or drug abuse patient.[facility] the event this information is protected by the Federal Confidentiality of Alcohol and Drug Abuse Patient Records regulations: The Federal rules restrict any use of the information to criminally investigate or prosecute any alcohol or drug abuse patient.[facility] the event this information is protected by the Federal Confidentiality of Alcohol and Drug Abuse Patient Records regulations: The Federal rules restrict any use of the information to criminally investigate or prosecute any alcohol or drug abuse patient.[facility] the event this information is protected by the Federal Confidentiality of Alcohol and Drug Abuse Patient Records regulations: The Federal rules restrict any use of the information to criminally investigate or prosecute any alcohol or drug abuse patient.[facility] the event this information is protected by the Federal Confidentiality of Alcohol and Drug Abuse Patient Records regulations: The Federal rules restrict any use of the information to criminally investigate or prosecute any alcohol or drug abuse patient.[facility] the event this information is protected by the Federal Confidentiality of Alcohol and Drug Abuse Patient Records regulations: The Federal rules restrict any use of the information to criminally investigate or prosecute any alcohol or drug abuse patient.[facility] the event this information is protected by the Federal Confidentiality of Alcohol and Drug Abuse Patient Records regulations: The Federal rules restrict any use of the information to criminally investigate or prosecute any alcohol or drug abuse patient.[facility] the event this information is protected by the Federal Confidentiality of Alcohol and Drug Abuse Patient Records regulations: The Federal rules restrict any use of the information to criminally investigate or prosecute any alcohol or drug abuse patient.[facility] the event this information is protected by the Federal Confidentiality of Alcohol and Drug Abuse Patient Records regulations: The Federal rules restrict any use of the information to criminally investigate or prosecute any alcohol or drug abuse patient.[facility] the event this information is protected by the Federal Confidentiality of Alcohol and Drug Abuse Patient Records regulations: The Federal rules restrict any use of the information to criminally investigate or prosecute any alcohol or drug abuse patient.[facility] the event this information is protected by the Federal Confidentiality of Alcohol and Drug Abuse Patient Records regulations: The Federal rules restrict any use of the information to criminally investigate or prosecute any alcohol or drug abuse patient.[facility] the event this information is protected by the Federal Confidentiality of Alcohol and Drug Abuse Patient Records regulations: The Federal rules restrict any use of the information to criminally investigate or prosecute any alcohol or drug abuse patient.[facility] the event this information is protected by the Federal Confidentiality of Alcohol and Drug Abuse Patient Records regulations: The Federal rules restrict any use of the information to criminally investigate or prosecute any alcohol or drug abuse patient.[facility] the event this information is protected by the Federal Confidentiality of Alcohol and Drug Abuse Patient Records regulations: The Federal rules restrict any use of the information to criminally investigate or prosecute any alcohol or drug abuse patient.[facility]In the event this information is protected by the Federal Confidentiality of Alcohol and Drug Abuse Patient Records regulations: The Federal rules restrict any use of the information to criminally investigate or prosecute any alcohol or drug abuse patient.[facility] the event this information is protected by the Federal Confidentiality of Alcohol and Drug Abuse Patient Records regulations: The Federal rules restrict any use of the information to criminally investigate or prosecute any alcohol or drug abuse patient.[facility]In the event this information is protected by the Federal Confidentiality of Alcohol and Drug Abuse Patient Records regulations: The Federal rules restrict any use of the information to criminally investigate or prosecute any alcohol or drug abuse patient.[facility] the event this information is protected by the Federal Confidentiality of Alcohol and Drug Abuse Patient Records regulations: The Federal rules restrict any use of the information to criminally investigate or prosecute any alcohol or drug abuse patient.[facility]In the event this information is protected by the Federal Confidentiality of Alcohol and Drug Abuse Patient Records regulations: The Federal rules restrict any use of the information to criminally investigate or prosecute any alcohol or drug abuse patient.[facility]In the event this information is protected by the Federal Confidentiality of Alcohol and Drug Abuse Patient Records regulations: The Federal rules restrict any use of the information to criminally investigate or prosecute any alcohol or drug abuse patient.[facility]In the event this information is protected by the Federal Confidentiality of Alcohol and Drug Abuse Patient Records regulations: The Federal rules restrict any use of the information to criminally investigate or prosecute any alcohol or drug abuse patient.[facility]In the event this information is protected by the Federal Confidentiality of Alcohol and Drug Abuse Patient Records regulations: The Federal rules restrict any use of the information to criminally investigate or prosecute any alcohol or drug abuse patient.[facility]In the event this information is protected by the Federal Confidentiality of Alcohol and Drug Abuse Patient Records regulations: The Federal rules restrict any use of the information to criminally investigate or prosecute any alcohol or drug abuse patient.[facility]In the event this information is protected by the Federal Confidentiality of Alcohol and Drug Abuse Patient Records regulations: The Federal rules restrict any use of the information to criminally investigate or prosecute any alcohol or drug abuse patient.[facility]In the event this information is protected by the Federal Confidentiality of Alcohol and Drug Abuse Patient Records regulations: The Federal rules restrict any use of the information to criminally investigate or prosecute any alcohol or drug abuse patient.[facility]In the event this information is protected by the Federal Confidentiality of Alcohol and Drug Abuse Patient Records regulations: The Federal rules restrict any use of the information to criminally investigate or prosecute any alcohol or drug abuse patient.[facility] HealthIn the event this information is protected by the Federal Confidentiality of Alcohol and Drug Abuse Patient Records regulations: The Federal rules restrict any use of the information to criminally investigate or prosecute any alcohol or drug abuse patient.[facility] HealthIn the event this information is protected by the Federal Confidentiality of Alcohol and Drug Abuse Patient Records regulations: The Federal rules restrict any use of the information to criminally investigate or prosecute any alcohol or drug abuse patient.[facility] HealthIn the event this information is protected by the Federal Confidentiality of Alcohol and Drug Abuse Patient Records regulations: The Federal rules restrict any use of the information to criminally investigate or prosecute any alcohol or drug abuse patient.[facility] HealthIn the event this information is protected by the Federal Confidentiality of Alcohol and Drug Abuse Patient Records regulations: The Federal rules restrict any use of the information to criminally investigate or prosecute any alcohol or drug abuse patient.[facility] HealthIn the event this information is protected by the Federal Confidentiality of Alcohol and Drug Abuse Patient Records regulations: The Federal rules restrict any use of the information to criminally investigate or prosecute any alcohol or drug abuse patient.[facility] HealthIn the event this information is protected by the Federal Confidentiality of Alcohol and Drug Abuse Patient Records regulations: The Federal rules restrict any use of the information to criminally investigate or prosecute any alcohol or drug abuse patient.[facility] HealthIn the event this information is protected by the Federal Confidentiality of Alcohol and Drug Abuse Patient Records regulations: The Federal rules restrict any use of the information to criminally investigate or prosecute any alcohol or drug abuse patient.[facility] HealthIn the event this information is protected by the Federal Confidentiality of Alcohol and Drug Abuse Patient Records regulations: The Federal rules restrict any use of the information to criminally investigate or prosecute any alcohol or drug abuse patient.[facility] HealthIn the event this information is protected by the Federal Confidentiality of Alcohol and Drug Abuse Patient Records regulations: The Federal rules restrict any use of the information to criminally investigate or prosecute any alcohol or drug abuse patient.[facility] HealthIn the event this information is protected by the Federal Confidentiality of Alcohol and Drug Abuse Patient Records regulations: The Federal rules restrict any use of the information to criminally investigate or prosecute any alcohol or drug abuse patient.[facility] HealthIn the event this information is protected by the Federal Confidentiality of Alcohol and Drug Abuse Patient Records regulations: The Federal rules restrict any use of the information to criminally investigate or prosecute any alcohol or drug abuse patient.[facility] Reason for Visit (unrecogniz ed section and content) Reason Comments bilateral CTR 02-16-2018 by BP New Reason Comments Appointment Reason Onset Date Comments Colposcopy Gardasil Injection 11/11/2021 Reason Comments Vaginal Problem Reason Comments Med Change Request Reason Comments Low back complaint Lower back pain that shoots into left hip worse today but has been going on for months. NKI Reason Comments Establish Care Reason Comments Medication Question Reason Comments Radiology US Specialty Diagnoses / Procedures Referred By Contac t Referred To Contact US IMAGING Diagnoses Skin lump of leg, right Procedures US EXTREMITY MASS/FLUID COLLECTION RIGHT Joey Sloan PA-C [address] [facility], [address] [place] [address] [place] [address] Referral ID Status Reason Start Date Expiration Date V isits Requested Visits Authorized [id number] Closed Auto-Generate d Referral 10/02/2023 10/31/2024 1 1 Reason Comments Results Consult Reason Onset Date Comments Refill Request 11/09/2023 Reason Onset Date Comments Refill Request 12/25/2023 Reason Onset Date Comments Refill Request 02/24/2024 Reason Comments Minor Injuries (Sprains, Strains, Minor Joint Pain) Entered by patient Reason Comments Medical Clearance Reason Onset Date Comments Refill Request 04/27/2024 Reason Comments Results Reason Comments F/U 1 month Reason Comments Blood Pressure Reason Onset Date Comments Refill Request 06/18/2024 Reason Onset Date Comments Refill Request 06/25/2024 Reason Onset Date Comments Refill Request 07/30/2024 Reason Onset Date Comments Refill Request 2024 Reason Comments Patient Update Reason Comments URI Reason Onset Date Comments Refill Request 01/05/2025 Reason Onset Date Comments Refill Request 02/19/2025 Reason Comments Upper Respiratory Infection Reason Comments Establish Care Care Teams (unrecognized sec tion and content) Business Practices Supervisor Relationship Specialty Start Date End Date Carmelo Coffey MD [address] [place] [address] PCP - General Family Practice 07/02/12 Business Practices Supervisor Relationship Specialty Start Date End Date Carmelo Coffey MD [address] [place] [address] PCP - General Family Practice 07/02/12 Business Practices Supervisor Relationship Specialty Start Date End Date Danish García APRN.[facility] [address] [place] [address] PCP - General Family Practice 11/09/21 Business Practices Supervisor Relationship Specialty Start Date End Date Danish García APRN.COMBINATION WELDER [address] [place] [address] PCP - General Family Practice 11/09/21 Business Practices Supervisor Relationship Specialty Start Date End Date Danish García APRN - [employer] [address] [place] [address] PCP - General 04/28/22 Team Status: Active Member Role Status Dates Dr. Carmelo Coffey MD Family Provider Active Danish García MOTOR VEHICLES SUPERVISOR, MOTOR VEHICLES SUPERVISOR-C Primary Care Provider Active Team Status: Inactive Member Role Status Dates Danish García MOTOR VEHICLES SUPERVISOR, MOTOR VEHICLES SUPERVISOR-C Primary Care Provider Active Dr. Kennedy Langford MD Emergency Provider Active Business Practices Supervisor Relationship Specialty Start Date End Date Danish García APRN.COM[employer] WEL[employer] [address] [place] [address] PCP - General Family Medicine 11/09/21 Business Practices Supervisor Relationship Specialty Start Date End Date Danish García APRN.COMBINATION WELDER [address] [place] [address] PCP - General Family Medicine 11/09/21 Business Practices Supervisor Relationship Specialty Start Date End Date Danish García APRN.COMBINATION WELDER [address] [place] [address] PCP - General Family Medicine 11/09/21 Business Practices Supervisor Relationship Specialty [place] [address] [place] [address] PCP - General Internal Medicine 09/20/23 Business Practices Supervisor Relationship Specialty [place] [address] [place] [address] PCP - General Internal Medicine 09/20/23 Business Practices Supervisor Relationship Specialty [place] [address] [place] [address] PCP - General Internal Medicine 09/20/23 Business Practices Supervisor Relationship Specialty [place] [address] [place] [address] PCP - General Internal Medicine 09/20/23 Business Practices Supervisor Relationship Specialty [place] [address] [place] [address] PCP - General Internal Medicine 09/20/23 Business Practices Supervisor Relationship Specialty [place] [address] [place] [address] PCP - General Internal Medicine 09/20/23 Business Practices Supervisor Relationship Specialty [place] [address] [place] [address] PCP - General Internal Medicine 09/20/23 Business Practices Supervisor Relationship Specialty [place] [address] [place] [address] PCP - General Internal Medicine 09/20/23 Business Practices Supervisor Relationship Specialty [place] [address] [place] [address] PCP - General Internal Medicine 09/20/23 Business Practices Supervisor Relationship Specialty [place] [address] [place] [address] PCP - General Internal Medicine 09/20/23 Business Practices Supervisor Relationship Specialty [place] [address] [place] [address] PCP - General Internal Medicine 04/22/24 Business Practices Supervisor Relationship Specialty [place] [address] [place] [address] PCP - General Internal Medicine 04/22/24 Business Practices Supervisor Relationship Specialty [place] [address] [place] [address] PCP - General Internal Medicine 04/22/24 Business Practices Supervisor Relationship Specialty [place] [address] [place] [address] PCP - General Internal Medicine 04/22/24 Business Practices Supervisor Relationship Specialty [place] [address] [place] [address] PCP - General Internal Medicine 04/22/24 Business Practices Supervisor Relationship Specialty [place] [address] [place] [address] PCP - General Internal Medicine 04/22/24 Business Practices Supervisor Relationship Specialty [place] [address] [place] [address] PCP - General Internal Medicine 04/22/24 Business Practices Supervisor Relationship Specialty Start Date End Date Mark Blount MD [address] [place], [place] [address] [place] [address] PCP - General Internal Medicine 04/22/24 Joey Sloan PA-C [address] [place] [address], [address] [place] [address] Meat And Poultry Inspector Internal Medicine 06/28/24 Business Practices Supervisor Relationship Specialty Start Date End Date Mark Blount MD [address] [place], [place] [address] [place] [address] PCP - General Internal Medicine 04/22/24 Joey Sloan PA-C [address] [place] [address], [address] [place] [address] Meat And Poultry Inspector Internal Medicine 06/28/24 Business Practices Supervisor Relationship Specialty Start Date End Date Mark Blount MD [address] [place] [address] Rd [address] [place] [address] PCP - General Internal Medicine 04/22/24 Joey Sloan PA-C [address] [place] [address], [address] [place] [address] Meat And Poultry Inspector Internal Medicine 06/28/24 Business Practices Supervisor Relationship Specialty Start Date End Date Mark Blount MD [address] [place] [address] Rd [address] [place] [address] PCP - General Internal Medicine 04/22/24 Joey Sloan PA-C [address] [place] [address], [address] [place] [address] Meat And Poultry Inspector Internal Medicine 06/28/24 Business Practices Supervisor Relationship Specialty Start Date End Date Mark Blount MD [address] [place] [address] Rd [address] [place] [address] PCP - General Internal Medicine 04/22/24 Joey Sloan PA-C [address] [place] [address], [address] [place] [address] Meat And Poultry Inspector Internal Medicine 06/28/24 Business Practices Supervisor Relationship Specialty Start Date End Date Mark Blount MD [address] [place] [address] Rd [address] [place] [address] PCP - General Internal Medicine 04/22/24 Joey Sloan PA-C [address] [place] [address], [address] [place] [address] Meat And Poultry Inspector Internal Medicine 06/28/24 Business Practices Supervisor Relationship Specialty Start Date End Date Mark Blount MD [address] [place] [address] [place] [address] PCP - General Internal Medicine 04/22/24 Joey Sloan PA-C [address] [place] [address], [address] [place] [address] Meat And Poultry Inspector Internal Medicine 06/28/24 Business Practices Supervisor Relationship Specialty Start Date End Date Mark Blount MD [address] [place] [address] Rd [address] [place] [address] PCP - General Internal Medicine 04/22/24 Joey Sloan PA-C [address] [facility], [address] [place] [address] Meat And Poultry Inspector Internal Medicine 06/28/24 Business Practices Supervisor Relationship Specialty Start Date End Date Fazal Napier MD [address] [place] [address] PCP - General Family Medicine 03/17/25 Joey Sloan PA-C [address] [place] [address], [address] [place], [place] [id number] Meat And Poultry Inspector Internal Medicine 06/28/24 PodlogarMarli APRN.CNP [address] [place], [place] [address] Nurse Practitioner Family Medicine 03/17/25 Care Team (unrecognized sect ion and content) Personnel Name: DANISH GARCÍA Address: Address: [address] [place] [address] Name: Kareen Junior Clertraci Perez PT Care Team Personnel Name: Kareen Junior Clertraci Perez PT Position: P3 Scheduling - Wet Pan Operator Advanced Member Role: Other Name: DANISH GARCÍA Position: P4 Advanced Practice Nurse Member Role: Primary Care Physician Address: Address: [address] [place] [address] Care Team Related Persons Name: MULLET, PIEDAD Name: FEILET, MILKA Care Team Personnel Name: Kareen Junior Clerk Ana PT Position: P3 Scheduling - Wet Pan Operator Advanced Member Role: Other Name: DANISH GARCÍA Position: P4 Advanced Practice Nurse Member Role: Primary Care Physician Address: Address: [address] [place] [address] Care Team Related Persons Name: MULLET, PIEDAD Name: MULLET, MILKA Care Team Personnel Name: Sandi, New Media Strategist Ana PT Position: P3 Scheduling - Wet Pan Operator Advanced Member Role: Other Name: DANISH GARCÍA Position: P4 Advanced Practice Nurse Member Role: Primary Care Physician Address: Address: [address] [place] [address] Name: FRANK CRISTINA DO Position: ED Physician Member Role: Attending Physician Address: Address: [address] Care Team Related Persons Name: PIEDAD NGUYEN Name: MILKA NGUYEN Care Team Personnel Name: Sandi New Media Strategist Ana PT Position: P3 Scheduling - Wet Pan Operator Advanced Member Role: Other Name: DANISH GARCÍA Position: P4 Advanced Practice Nurse Member Role: Primary Care Physician Address: Address: [address] [place] [address] Name: NOLVIA CORNEJO DO Position: ED Physician Member Role: ED Physician Address: Address: [address] [place] [address] Care Team Related Persons Name: PIEDAD NGUYEN Name: MILKA NGUYEN Goals (unrecognized section and content) Goals may be documented in a n alternate section Scheduled Active and Recently Administ ered Medications (unrecognized section and content) Medication Order 07/12/2023 07/13/2023 07/14/2023 ketorolac (TORADOL) 15 MG/ML injection (COMPLETED) 15 mg, Intramuscular, ONCE, 1 dose, On Mon07/14/23 at 1707 1657 (Given - Provid er: Humza Lugo RN) lidocaine (LIDODERM) 4 % patch 1 Patch, Transdermal, Once, 1 dose, On Mon07/14/23 at 1700 1657 (Patch Applied - Provider: Humza Lugo RN) methocarbamol (ROBAXIN) tablet (COMPLETED) 1,000 mg, Oral, Once, 1 dose, On Mon07/14/23 at 1728 1707 (Given - Provid er: Humza Lugo RN) FOR RECORDS PERTAINING TO PATIENTS WHO ARE OR HAVE BEEN ENROLLED IN A CHEMICAL DEPENDENCY/SUBSTANCEABUSE PROGRAM, SOME INFORMATION MAY BE OMITTED. This clinical summary was aggregated from multiple sources. Caution should be exercised in using it in the provision of clinical care. This summary normalizes information from multiple sources, and as a consequence, information in this document may materially change the coding, format and clinical context of patient data. In addition, data may be omitted in some cases. CLINICAL DECISIONS SHOULD BE BASED ON THE PRIMARY CLINICAL RECORDS. [facility]. provides no warranty or guarantee of the accuracy or completeness of information in this document.
[2025-07-10] MEDS: Ketorolac 30 MG/ML Syringe IM (22:45)
--- NOTE | 2025-07-10 23:02 | EX.ED.GENINJ ---
HPI History of Present Illness Chief Complaint: Other, Pain/Inj Narrative Narrative: Patient was seen and examined after presenting to ED for right knee pain and injury she states that she was seen by Dr. Chavez's office after coming to the emergency department after falling down her wheelchair ramp says that there was no fracture but then was told that there was a hairline fracture she reports that she has no pain swelling. PFSH PFS Medical History Freiberg's disease GERD (gastroesophageal reflux disease) Depression Anxiety HTN (hypertension) Home Medications ?Medication ?Instructions ?Recorded ?Last Taken ?Type duloxetine 30 mg capsule,delayed 60 mg PO DAILY 05/25/16 05/25/17 07:00 History release metoprolol succinate 100 mg 100 mg PO DAILY 05/19/17 09/29/17 History tablet,extended release 24 hr losartan 100 mg tablet 100 mg PO DAILY 05/15/19 Unknown History bupropion HCl 150 mg tablet,12 hr 60 mg PO BID 07/10/25 Unknown History sustained-release meloxicam 7.5 mg tablet 7.5 mg PO BID 07/10/25 Unknown History valacyclovir 1 gram tablet 1,000 mg PO DAILY 07/10/25 Unknown History Allergy/AdvReac Type Severity Reaction Status Date / Time amoxicillin (Amoxicillin) Allergy Unknown Verified 07/10/25 22:06 Corticosteroids AdvReac Intermediate blindness Verified 07/10/25 22:06 (Glucocorticoids) (steriods) ESPERANZA Inhibitors AdvReac COUGHING Verified 07/10/25 22:06 Family History no significant family his Surgical History Hx of gastric bypass History of hysterectomy History of section Social History Smoking Status: Former smoker ROS ROS ED ROS Narrative Pertinent Positives: Fall a few days ago injuring right knee possible fracture Pertinent Negatives: Redness weakness rash The remainder of review of systems negative unless otherwise stated in the HPI above. Systems reviewed including constitutional, psychiatric, cardiovascular, respiratory, integument, HENT, gastrointestinal. EXAM Physical Exam Narrative Exam Narrative: Afebrile hemodynamically stable does not appear toxic or in distress 0 her right knee is swollen has tenderness overlying the patella and the medial joint line has intact MSPs compartments are soft no vesicular lesions or open wounds she is no other signs of an infectious process Const Vital Signs: 07/10/25 22:05 07/10/25 22:14 Temperature 98 F Temperature Source Oral Pulse Rate 85 Respiratory Rate 16 Respiratory Effort Normal Respiratory Pattern Normal Blood Pressure 225/130 H Blood Pressure Mean 161 Pulse Ox 100 Oxygen Delivery Method Room Air MDM MDM MDM Narrative Medical decision making narrative: Nursing notes, triage notes, available previous documentation, and vital signs were reviewed. Any discrepancies noted were addressed. Differential Diagnoses: Will evaluate for fracture definitely has soft tissue contusion. Low suspicion for an infectious process or compartment syndrome pain is not out of proportion Interventions: Acetaminophen and Toradol Imaging Reviewed: Personally reviewed and interpreted by me: Plain films of the right knee do not see any obvious fracture or dislocation Previous Documentation Reviewed: None available or applicable at this time. ED Course: Patient presenting with right knee injury from several days ago and was told that there was no fracture and then called back 3 days afterwards and told that there was a fracture and that it was a hairline fracture she reports that she is in pain. Patient given medications for analgesia. 2348: Radiologist agrees with interpretation of the x-ray when I went in to tell the patient just now she reports that she did not feel like it was broken and thanked us for help she is stable for discharge This note was made utilizing voice recognition software. All attempts were made to correct spelling or other errors prior to note completion. However, due to the fast-paced nature of emergency medicine, some errors may still be present. Radiography Diagnostic Testing: Clinical Impression(s) from Imaging Studies Knee X-Ray 07/10/25 22:43 IMPRESSION: No acute fracture or dislocation. Reading Location: [facility] Discharge Plan Triage Chief Complaint: Other, Pain/Inj ED Provider: Hong Gibbons Dx/Rx/DC Orders Clinical Impression: Pain and swelling of right knee, Contusion of right knee Instructions: ED Soft Tissue Contusion Prescriptions: No Action duloxetine 30 MG capsule 60 mg PO DAILY metoprolol succinate 100 MG tablet extended release 24 hr 100 mg PO DAILY losartan 100 MG tablet 100 mg PO DAILY bupropion HCl 150 mg tablet sustained-release 12 hr 60 mg PO BID meloxicam 7.5 mg tablet 7.5 mg PO BID valacyclovir 1 gram tablet 1,000 mg PO DAILY Primary Care Provider: AlpalogMarli brown NP Referrals: AlpalogarMarli NP, GRINDING OPERATOR-C [Primary Care Provider, Medical] Activity Restrictions/Additional Instructions: Be sure to follow-up with your primary care doctor take Tylenol and ibuprofen for your symptoms Print Language: Lebanese Disposition Disposition: Home, Self Care
[2025-07-11 00:04] VITALS: BP 206/114; PULSE 71; RESP 18; TEMP 36.3; O2SAT 100
--- NOTE | 2025-07-11 00:05 | ED.RN ---
Dr. Gibbons notified of elevated bp when obtaining dispo vitals. Pt states she thinks it's because she is in pain but agreeable with d/c instructins on pain management. Pt also states that she forgot to take her bp meds at home today and would go home and take them when she arrives. Dr. Gibbons agreeable to d/c with this plan.
== END 2025-07-11 00:07 | disposition home or self-care (01) ==
PROVIDERS: Emergency Provider Specialist/Technologist Athletic Trainer; PCP Nurse Practitioner Primary Care; Visit Provider Specialist/Technologist Athletic Trainer
DX: S80.01XA Contusion of right knee, initial encounter (principal); W10.2XXA Fall (on)(from) incline, initial encounter; I10 Essential (primary) hypertension; F41.9 Anxiety disorder, unspecified; F32.A Depression, unspecified; Z79.899 Other long term (current) drug therapy; Z87.891 Personal history of nicotine dependence
CPT/HCPCS: 73564; 96372; 99283